=== PATIENT | female | born 1975 | race Caucasian/White ===

== ENCOUNTER → 2020-04-12 10:44 | Outpatient (CLI) | payer OTHER, SELFPAY ==
--- NOTE | ~2020-04-12 | MM_ITS ---
EXAMINATION: MM screening [facility] BI w leah HISTORY: Screening mammogram TECHNIQUE: Craniocaudal and mediolateral oblique 3-D tomosynthesis images were obtained and synthetic 2-D images were generated. CAD analysis was submitted and interpreted. COMPARISON: 820 bilateral digital screening mammogram 12/09/2017 diagnostic left digital mammogram and limited left breast ultrasound 11/25/2017 bilateral digital screening mammogram BREAST PARENCHYMAL COMPOSITION: The breasts are heterogeneously dense, which may obscure small masses FINDINGS: There is no evidence of suspicious mass, calcification, or architectural distortion to sugg est malignancy in either breast. There has been no suspicious interval change. IMPRESSION: 1. No mammographic evidence of malignancy. 2. Recommend routine screening mammography in one year. BI-RADS Category 2: Benign finding(s). Reviewed, dictated and finalized at location A. CCO SCRAP SIFTER
== END ==
PROVIDERS: PCP Family Medicine; Visit Provider Nurse Practitioner
DX: Z12.31 Encounter for screening mammogram for malignant neoplasm of breast (principal)
CPT/HCPCS: 77063; 77067

== ENCOUNTER → 2023-04-02 16:04 | Outpatient (CLI) | payer OTHER, SELFPAY ==
--- NOTE | ~2023-04-02 | MM_ITS ---
EXAMINATION: MM screening [facility] BI w leah HISTORY: Screening mammogram TECHNIQUE: Craniocaudal and mediolateral oblique 3-D tomosynthesis images were obtained and synthetic 2-D images were generated. CAD analysis was submitted and interpreted. COMPARISON: 04/12/2020, 01/09/2019, 12/09/2017, 11/25/2017 BREAST PARENCHYMAL COMPOSITION: The breasts are extremely dense, which lowers the sensitivity of mamm ography. FINDINGS: No suspicious mass, calcification, or architectural distortion are identified in either khari ast to suggest malignancy. There has been no suspicious interval change. IMPRESSION: 1. No mammographic evidence of malignancy. 2. Recommend routine screening mammography in one year. BI-RADS Category 1: Negative Reviewed, dictated and finalized at location A. RPRESSER HAND
== END ==
PROVIDERS: PCP Nurse Practitioner; Visit Provider Nurse Practitioner
DX: Z12.31 Encounter for screening mammogram for malignant neoplasm of breast (principal)
CPT/HCPCS: 77063; 77067

== ENCOUNTER 2023-08-10 13:56 | Outpatient (CLI) | payer OTHER, SELFPAY ==
--- NOTE | ~2023-08-10 | XR_ITS ---
EXAMINATION:XR cervical spine 4-5V DATE: 08/10/2023 14:27 INDICATION: Neck pain TECHNIQUE: AP, lateral, bilateral oblique and odontoid views of the cervical spine are provided. COMPARISON: None FINDINGS: There is reversal of the normal cervical lordosis. There are 2 mm of anterolisthesis of C3 on C4 and C4 on C5. The odontoid process is intact. No fracture is identified. There is severe loss o f intervertebral disc space height at C5-6 and C6-7. There is moderate facet and uncovertebral joint osteoarthritis throughout the cervical spine. Small degenerative osteophytes project from the anterio r endplates of multiple vertebral bodies. Prevertebral soft tissues are normal. IMPRESSION: 1. Moderate to severe cervical spondylosis without acute osseous abnormality. Reviewed, dictated and finalized at location F.
== END 2023-08-10 13:57 ==
PROVIDERS: PCP Chiropractor; Visit Provider Chiropractor
DX: M47.892 Other spondylosis, cervical region (principal)
CPT/HCPCS: 72050

== ENCOUNTER 2024-02-21 15:21 | Outpatient (CLI) | payer OTHER, SELFPAY ==
--- NOTE | ~2024-02-21 | XR_ITS ---
XR cervical spine 4-5V Ordering provider: Bautista Valenzuela, History: . CERVICALGIA . Comparison: August 10, 2023 FINDINGS: VERTEBRAL BODIES: Reversal of lordosis. Normal height and alignment. No visible fracture or subluxati on. The dens is intact. DISK SPACES: Narrowing of the disc spaces C5-C6 and C6-C7. Multilevel facet joint disease. Multilevel uncovertebral joint osteoarthritic changes. Intervertebral foramina normal. PARASPINOUS SOFT TISSUES: No prevertebral soft tissue swelling. IMPRESSION: No acute osseous abnormality cervical spine. Multilevel degenerative disc disease. No significant change from previous examination. Reviewed, dictated and finalized at location A.
== END 2024-02-21 15:22 | disposition home or self-care (01) ==
LOC: MICIMG 15:21
PROVIDERS: PCP Family Medicine; Visit Provider Family Medicine
DX: M50.30 Other cervical disc degeneration, unspecified cervical region (principal)
CPT/HCPCS: 72050

== ENCOUNTER 2024-03-01 07:40 | Outpatient (CLI) | payer OTHER, SELFPAY ==
--- NOTE | ~2024-03-01 | MR_ITS ---
MR breast BI wo/w con 03/02/2024 09:35 CDT INDICATION: Left axillary mass TECHNIQUE: MRI of the breasts perform using standard protocol pre-and post IV contrast with the follo wing sequences: Axial T2 STIR, axial T1, axial vibrant T1 with fat suppression precontrast and multip hasic postcontrast. 16 cc MultiHance administered intravenously. COMPARISON: Ultrasound dated 01/24/2024 mammogram dated 04/02/2023 FINDINGS: There are no abnormalities on the precontrast sequences. There is mild background parenchym al enhancement. There is a region of nonmass-like enhancement in the upper outer quadrant of the righ t breast, middle third which measures 4.8 x 3.9 x 2.3 cm. There is rapid washout enhancement. There a re enlarged bilateral axillary lymph nodes largest on the left measures 1.5 cm. There is loss of norm al fatty hilum and this lymph node with surrounding spiculations. Largest right axillary lymph node m easures up to 2.3 cm, with atypical appearance. LEFT BREAST: No signal abnormalities on precontrast sequences. There is mild background parenchymal enhancement. There is a small intramammary lymph node in the outer aspect of the left breast. In th e lower outer quadrant of the left breast there is a focal area of nonmass-like enhancement with rapi d washout characteristics measuring 11 x 8 x 6 mm at approximately 3:00 position, middle third. There are enlarged left axillary lymph nodes measuring up to 1.5 cm with loss of fatty hilum. IMPRESSION: 1: Bilateral areas of nonmass-like enhancement with rapid washout kinetics involving the upper outer quadrant of the right breast, middle third measuring up to 4.8 cm and in the left breast in the lower outer quadrant measuring up to 11 mm. There is bilateral axillary lymphadenopathy with loss of fatty hilum and several lymph nodes. Recommendation: Recommend correlation with diagnostic bilateral mammogram and bilateral complete ultr asound including the axilla. BI-RADS CATEGORY 0 - INCOMPLETE STUDY, NEED ADDITIONAL IMAGING EVALUATION. Reviewed, dictated and finalized at location B. IMPRESSION: 1: Bilateral areas of nonmass-like enhancement with rapid washout kinetics invo lving the upper outer quadrant of the right breast, middle third measuring up t o 4.8 cm and in the left breast in the lower outer quadrant measuring up to 11 mm. There is bilateral axillary lymphadenopathy with loss of fatty hilum and se veral lymph nodes. Recommendation: Recommend correlation with diagnostic bilateral mammogram and b ilateral complete ultrasound including the axilla. BI-RADS CATEGORY 0 - INCOMPLETE STUDY, NEED ADDITIONAL IMAGING EVALUATION.
== END 2024-03-01 07:41 | disposition home or self-care (01) ==
PROVIDERS: PCP Family Medicine; Visit Provider Surgery
DX: N63.21 Unspecified lump in the left breast, upper outer quadrant (principal); N63.22 Unspecified lump in the left breast, upper inner quadrant; N63.25 Unspecified lump in the left breast, overlapping quadrants; R59.0 Localized enlarged lymph nodes; R92.333 Mammographic heterogeneous density, bilateral breasts
CPT/HCPCS: 77049; A9577; C8908

== ENCOUNTER 2024-03-30 11:34 | Outpatient (CLI) | payer OTHER, SELFPAY ==
--- NOTE | ~2024-03-30 | US_ITS ---
Left axillary ultrasound CLINICAL HISTORY: Lymphadenopathy FINDINGS: At the left axillary area of palpable concern, there is a 2.5 x 0.8 x 2.3 cm lymph node, wi th possible fatty hilum and diffuse thickening. IMPRESSION: Pathologic-appearing 2.5 cm lymph node left axilla, as detailed above. Ultrasound-guided biopsy recom mended to establish a histologic diagnosis. Reviewed, dictated and finalized at [facility]. LITY ENGINEER IMPRESSION: Pathologic-appearing 2.5 cm lymph node left axilla, as detailed above. Ultrasou nd-guided biopsy recommended to establish a histologic diagnosis.
--- NOTE | ~2024-03-30 | MM_ITS ---
EXAMINATION: MM diagnostic [facility]arien BI w leah HISTORY: Left axillary lymphadenopathy TECHNIQUE: 3-D tomosynthesis images of the breasts were performed and synthetic 2-D images were gener ated. CAD analysis was submitted and interpreted. COMPARISON: 04/02/2023, 04/12/2020 BREAST PARENCHYMAL COMPOSITION:Dense: The breasts are heterogeneously dense, which may obscure small masses. FINDINGS: Parenchymal pattern of the breasts are unchanged. No mass lesion or distortion seen in the breasts and cells. Left axillary lymphadenopathy seen on MLO view, not seen on prior exam. No definit e right axillary lymphadenopathy seen on mammographic images. No suspicious microcalcification seen i n either breast. IMPRESSION: Unilateral left axillary lymphadenopathy seen on mammographic images. Biopsy advised to establish his tologic diagnosis. No significant abnormality seen otherwise. BI-RADS category 4, suspicious findings. Reviewed, dictated and finalized at [facility]. KMASON IMPRESSION: Unilateral left axillary lymphadenopathy seen on mammographic images. Biopsy ad vised to establish histologic diagnosis. No significant abnormality seen otherwise. BI-RADS category 4, suspicious findings.
== END 2024-03-30 11:35 | disposition home or self-care (01) ==
LOC: ANHIMG 11:34
PROVIDERS: PCP Family Medicine; Visit Provider Surgery
DX: R59.0 Localized enlarged lymph nodes (principal); R92.333 Mammographic heterogeneous density, bilateral breasts; R92.8 Other abnormal and inconclusive findings on diagnostic imaging of breast
CPT/HCPCS: 76882; 77062; 77066; G0279

== ENCOUNTER 2024-04-18 09:59 | Outpatient (CLI) | payer OTHER, SELFPAY ==
--- NOTE | ~2024-04-18 | US_ITS ---
EXAMINATION: US_BXSTAXLIMG_US DATE: 04/18/2024 11:31 INDICATION: Left axillary lymphadenopathy. TECHNIQUE: The procedure including the risks, benefits, and alternatives was discussed with the patie nt. Risks discussed included bleeding and infection. The patient understood the risks and agreed to p roceed. The skin overlying the left axilla was prepped and draped in usual sterile fashion. Anesthet ic was administered with 1% lidocaine subcutaneously. An 18 gauge core biopsy needle was then used t o obtain 6 core biopsy specimens under continuous sonographic guidance. The entry site was cleaned an d dressed. There were no immediate complications. FINDINGS: Ultrasound images demonstrate the needle in a 2.6 x 2.9 x 1.0 cm left axillary lymph node. IMPRESSION: 1. Ultrasound-guided core needle biopsy of a left axillary lymph node. Reviewed, dictated and finalized at location A. ORKING SPECIALIST
== END 2024-04-18 10:00 | disposition home or self-care (01) ==
LOC: ANHIMG 10:02
PROVIDERS: PCP Family Medicine; Visit Provider Surgery
DX: R92.8 Other abnormal and inconclusive findings on diagnostic imaging of breast (principal); R59.0 Localized enlarged lymph nodes; R92.333 Mammographic heterogeneous density, bilateral breasts
CPT/HCPCS: 20999; 76942; 88184; 88305; 88342

== ENCOUNTER 2024-07-10 14:51 | Outpatient (CLI) | payer OTHER, SELFPAY ==
[2024-07-10 15:09] LABS: Basophils Percent Auto 0.4 % (0.2-1.2); Eosinophils Absolute Auto 0.8 K/mm3 (0-0.3); Eosinophils Percent Auto 10.8 % (0-4.4); Hematocrit 40.4 % (37.0-47.0); Hemoglobin 13.6 g/dL (12.0-15.0); Immature Granulocyte Absolute 0.02 K/mm3 (0.00-0.031); Immature Granulocyte Percent A 0.3 % (0-0.5); Lymphocytes Absolute Auto 1.85 K/mm3 (0.9-3.2); Lymphocytes Percent Auto 23.8 % (18.3-44.2); Mean Corpuscular HGB Conc 33.7 g/dl (32-36); Mean Corpuscular Hemoglobin 30.6 pg (26-34); Mean Corpuscular Volume 90.8 fl (80-100); Monocytes Absolute Auto 0.2 K/mm3 (0.1-0.6); Monocytes Percent Auto 1.9 % (2.6-8.5); Neutrophils Absolute Auto 4.9 K/mm3 (1.3-6.7); Neutrophils Percent Auto 62.8 % (45.5-73.1); Platelet Count Result 446 k/mm3 (150-375); Red Blood Count 4.45 M/mm3 (4.2-5.4); Red Cell Distribution Width 12.6 % (11.5-14.5); White Blood Count 7.8 K/mm3 (4.5-10.0)
[2024-07-10 17:07] LABS: Alanine Aminotransferase 19 U/L (6-35); Albumin Level 3.7 g/dL (3.5-5.1); Alkaline Phosphatase 54 U/L (38-126); Anion Gap 9 mmol/L (4-12); Aspartate Amino Transferase 32 U/L (14-36); Bilirubin,Total 0.7 mg/dL (0.2-1.3); Blood Urea Nitrogen 11 mg/dL (7-17); Calcium 9.3 mg/dL (8.4-10.2); Carbon Dioxide 26 mmol/L (22-30); Chloride 103 mmol/L (98-107); Estimated Glomerular Filt Rate > 60; Glucose 85 mg/dL (65-110); Potassium 4.3 mmol/L (3.4-5.0); Sodium 138 mmol/L (137-145)
--- OUTSIDE RECORDS SUMMARY | 2024-07-10 17:21 | XMS_ITS | Referral Summary ---
Author Organization [facility] Address [address] [place] [address] Care Team Providers Care Documentation Nurse Name Role Phone Unavailable Primary Care Provider Unavailabl e Source Comments [facility],non-owned Affiliates and Associated Physician Practices is amultiple site organization consisting of ambulatory clinics and hospital sitesin [place], [place], [place] and [place]. This disclosure is being madepursuant to the Care Everywhere program and may not contain all information available regarding this patient. Last updated 18.[facility] Encounters Date Type Department Care Team Description 04/18/2024 Lab Requisition [facility] - Pathology Lab [address] [place] [address] Alli Dean MD Localized enlarged lymph nodes from Last 3 Months Social History Tobacco Use Types Packs/Day Years Used Date Smoking Tobacco: Never Assessed Sex and Gender Information Value Date Recorded Sex Assigned at Not on file Gender Identity Not on file Sexual Orientation Not on file Plan of Treatment Not on file Procedures Procedure Name Priority Date/Time Associated Diagnosis Comments FLOW CYTOMETRY TISSUE PANEL Routine 04/18/2024 11:31 AM TINNING EQUIPMENT TENDER Localized enlarged lymph nodes from Last 3 Months Results * FLOW CYTOMETRY TISSUE PANEL (04/18/2024 11:31 AM TINNING EQUIPMENT TENDER) Case Report Flow Cytometry Case: [id number] Authorizing Provider: Alli Dean Collected: 04/18/2024 11:31 AM MD Prabhakar Ordering Location: [facility] - Received: 04/18/2024 05:06 PM Pathology Lab Pathologist: Nikky Verma MD Specimen: Lymph Node, LEFT AXILLA BIOPSY 04/19/2024 9:43 AM TINNING EQUIPMENT TENDER [facility] Final Diagnosis Lymph node, left axilla, flow cytometric immunophenotypic analysis: - No evidence of non-Hodgkin lymphoma - See interpretation 04/19/2024 9:43 AM [facility] Flow Cytometry Interpretation Viability: 78% B-cells: polytypic, kappa:lambda ratio 1.9:1 T-cells: no immunophenotypic aberrancy detected CD4:CD8 ratio 5:1 A cytospin prepared from the flow cytometry specimen has been reviewed for quality assurance/r&d lab technician purposes. 04/19/2024 9:43 AM [facility] PATHOLOG[facility] LAB Flow Cytometry Results Differential Result Comment Flow Cell Count /uL 820 Total Viability % 78.0 Lymphocytes % 97 Dim CD45 Region % 2 Monocytes % 0 Granulocytes % 1 04/19/2024 9:43 AM [facility] PATH[facility] Reason for test Localized enlarged lymph nodes 785.6 04/19/2024 9:43 AM [facility] PATHOLOG[facility] LAB Client Specimen ID # [id number] 04/19/2024 9:43 AM [facility] LAB Number of markers 17 were performed. A-2 Flow CD3 A-4 Flow CD10 A-6 Flow CD20 A-7 Flow CD23 A-12 Flow CD2 A-13 Flow CD4 A-16 Flow CD1a A-3 Flow CD5 A-5 Flow CD19 A-8 Flow CD34 A-9 Flow CD45 A-14 Flow CD7 A-15 Flow CD8 A-17 Flow CD30 A-10 [place]+CD19+ A-11 Lambda+CD19+ 04/19/2024 9:43 AM [facility] PATHOLOG[facility] LAB Pathologist Location at [facility] 04/19/2024 9:43 AM [facility] PATHOLOG[facility] LAB Disclaimer Test performed at [facility], [address] [place] [address], [address]. *The established laboratory minimum viability is 70%. Values below the minimum may result in the failure to find an abnormal population of cells. This test was developed and its performance characteristics determined by the Flow Cytometry Laboratory. It has not been cleared by the [place] Food and Drug Administration (FDA). The FDA has determined that such clearance or approval is not necessary. This test is used for clinical purposes. It should not be regarded as investigational or for research. This laboratory is regulated under the Clinical Laboratory Improvement Amendments of 1998 (CLIA) as a qualified to perform high complexity clinical testing. 04/19/2024 9:43 AM TINNING EQUIPMENT TENDER [facility] PATHOLOGY LAB Embedded Images 9:43 AM TINNING EQUIPMENT TENDER [facility] PATHOLOGY LAB Pathology/Cytolo gy ENTIRE LYMPH NODE / Unknown 04/18/2024 11:31 AM TINNING EQUIPMENT TENDER 04/18/2024 5:06 PM TINNING EQUIPMENT TENDER Alli Dean MD LAB - PATHO LOGY/CYTOLOGY ORDERABLES [facility] PATHOLOGY LAB [address] [facility]. [address] [phone] from Last 3 Months
--- OUTSIDE RECORDS SUMMARY | 2024-07-10 17:21 | XMS_ITS | Clinical Summary ---
Author Organization [facility] Address [address] [place] [address] Care Team Providers Care Waterproof Bag Sewer Name Role Phone Unavailable Primary Care Provider Unavailabl e Source Comments [facility],non-owned Affiliates and Associated Physician Practices is amultiple site organization consisting of ambulatory clinics and hospital sitesin [place], [place], [place] and [place]. This disclosure is being madepursuant to the Care Everywhere program and may not contain all information available regarding this patient. Last updated 18.[facility] Encounters Date Type Department Care Team Description 04/18/2024 Lab Requisition [facility] - Pathology Lab [address] [place] [id number] Alli Dean MD Localized enlarged lymph nodes from Last 3 Months Social History Tobacco Use Types Packs/Day Years Used Date Smoking Tobacco: Never Assessed Sex and Gender Information Value Date Recorded Sex Assigned at Not on file Gender Identity Not on file Sexual Orientation Not on file Plan of Treatment Health Maintenance Due Date Last Done Comments COLOGUARD (AGES 45-75) - COL ON CA SCREENING 1977 COLON MONITORING 1977 COLONOSCOPY - COLON CA SCREENING 1977 CT COLONOGRAPHY - COLON CA SCREENING 1977 Colorectal Cancer Screening 1977 FIT - COLON CA SCREENING 1977 FLEX SIG - COLON CA SCREENING 1977 LIPID TESTING 1977 MAMMOGRAM 1977 PAP SMEAR 1977 HIV SCREENING 1992 HEPATITIS C SCREENING 11/03/1995 DTAP/TDAP/TD VACCINES (1 - Tdap) 1996 HEPATITIS B VACCINE (1 of 3 - 19+ 3-dose series) 1996 COVID-19 VACCINE (2023-2 5 season) 2024 INFLUENZA VACCINE (#1) 2024 DEPRESSION SCREENING 05/17/2024 ZOSTER VACCINE (1 of 2) 11/08/2027 HIB VACCINE Aged Out No longer eligi ble based on patient's age to complete this topic HPV VACCINE Aged Out No longer eligi ble based on patient's age to complete this topic MENINGOCOCCAL (Group B) VACCINE Aged Out No longer eligible based on patient's age to complete this topic MENINGOCOCCAL VACCINE Aged Out No deepak sobia eligible based on patient's age to complete this topic PNEUMOCOCCAL VACCINE Aged Out No long er eligible based on patient's age to complete this topic Procedures Procedure Name Priority Date/Time Associated Diagnosis Comments FLOW CYTOMETRY TISSUE PANEL Routine 04/18/2024 11:31 AM BURLAP MAN Localized enlarged lymph nodes from Last 3 Months Results * FLOW CYTOMETRY TISSUE PANEL (04/18/2024 11:31 AM BURLAP MAN) Case Report Flow Cytometry Case: [id number] Authorizing Provider: Alli Dean Collected: 04/18/2024 11:31 AM MD Prabhakar Ordering Location: [facility] - Received: 04/18/2024 05:06 PM Pathology Lab Pathologist: Nikky Verma MD Specimen: Lymph Node, LEFT AXILLA BIOPSY 04/19/2024 9:[address] [facility] PATHOLOGY LAB Final Diagnosis Lymph node, left axilla, flow cytometric immunophenotypic analysis: - No evidence of non-Hodgkin lymphoma - See interpretation 04/19/2024 9:[address] [facility] PATHOLOGY LAB Flow Cytometry Interpretation Viability: 78% B-cells: polytypic, kappa:lambda ratio 1.9:1 T-cells: no immunophenotypic aberrancy detected CD4:CD8 ratio 5:1 A cytospin prepared from the flow cytometry specimen has been reviewed for quality assistant purposes. 04/19/2024 9:[address] [facility] PATH[facility]Y LAB Flow Cytometry Results Differential Result Comment Flow Cell Count /uL 820 Total Viability % 78.0 Lymphocytes % 97 Dim CD45 Region % 2 Monocytes % 0 Granulocytes % 1 04/19/2024 9:[address] [facility] PATH[facility] LAB Reason for test Localized enlarged lymph nodes 785.6 04/19/2024 9:[address] [facility] PATH[facility] Client Specimen ID # [id number] 04/19/2024 9:[address] [facility] PATH[facility] LAB Number of markers 17 were performed. A-2 Flow CD3 A-4 Flow CD10 A-6 Flow CD20 A-7 Flow CD23 A-12 Flow CD2 A-13 Flow CD4 A-16 Flow CD1a A-3 Flow CD5 A-5 Flow CD19 A-8 Flow CD34 A-9 Flow CD45 A-14 Flow CD7 A-15 Flow CD8 A-17 Flow CD30 A-10 [place]+CD19+ A-11 Lambda+CD19+ 04/19/2024 9:[address] [facility] PATH[facility] LAB Pathologist Location at [facility] 04/19/2024 9:[address] [facility] PATH[facility] LAB Disclaimer Test performed at [facility], [address] [place] [address], [address]. *The established laboratory minimum viability is 70%. [...] high complexity clinical testing. 04/19/2024 9:[address] [facility] PATHOLOGY LAB Embedded Images 9:[address] [facility] PATH[facility] LAB Pathology/Cytolo gy ENTIRE LYMPH NODE / Unknown 04/18/2024 11:31 AM BURLAP MAN 04/18/2024 5:06 PM BURLAP MAN Alli Dean MD LAB - PATHO LOGY/CYTOLOGY ORDERABLES [facility] PATHOLOGY LAB [address] [place] [address]. [place] [address], [facility] [phone] from Last 3 Months
--- OUTSIDE RECORDS SUMMARY | 2024-07-10 17:21 | XMS_ITS | Patient Health Summary ---
Author Organization [facility] Address [address] [place] [address] Care Team Providers Care Chemical Reclamation Equipment Operator Name Role Phone Unavailable Primary Care Provider Unavailabl e Note from [facility],non-owned Affiliates and Associated Physician Practices is amultiple site organization consisting of ambulatory clinics and hospital sitesin [place], [place], [place] and [place]. This disclosure is being madepursuant to the Care Everywhere program and may not contain all information available regarding this patient. Last updated 18.[facility] Social History Tobacco Use Types Packs/Day Years Used Date Smoking Tobacco: Never Assessed Sex and Gender Information Value Date Recorded Sex Assigned at Not on file Gender Identity Not on file Sexual Orientation Not on file Procedures * FLOW CYTOMETRY TISSUE PANEL(Performed 04/18/2024) Performed for Localized enlarged lymph nodes Results * FLOW CYTOMETRY TISSUE PANEL (04/18/2024 11:31 AM CONSTRUCTION EXECUTIVE) Case Report Flow Cytometry Case: [id number] Authorizing Provider: Alli Dean Collected: 04/18/2024 11:31 AM MD Prabhakar Ordering Location: [facility] - Received: 04/18/2024 05:06 PM Pathology Lab Pathologist: Nikky Verma MD Specimen: Lymph Node, LEFT AXILLA BIOPSY 04/19/2024 9:43 AM CONSTRUCTION EXECUTIVE [facility] PATHOLOGY LAB Final Diagnosis Lymph node, left axilla, flow cytometric immunophenotypic analysis: - No evidence of non-Hodgkin lymphoma - See interpretation 04/19/2024 9:43 AM [facility] PATHOLOGY LAB Flow Cytometry Interpretation Viability: 78% B-cells: polytypic, kappa:lambda ratio 1.9:1 T-cells: no immunophenotypic aberrancy detected CD4:CD8 ratio 5:1 A cytospin prepared from the flow cytometry specimen has been reviewed for quality rep purposes. 04/19/2024 9:43 AM [facility] PATHOLOGY LAB Flow Cytometry Results Differential Result Comment Flow Cell Count /uL 820 Total Viability % 78.0 Lymphocytes % 97 Dim CD45 Region % 2 Monocytes % 0 Granulocytes % 1 04/19/2024 9:43 AM [facility] Reason for test Localized enlarged lymph nodes 785.6 04/19/2024 9:43 AM [facility] PATHOLOG[facility] LAB Client Specimen ID # [id number] 04/19/2024 9:43 AM [facility] PATHOLOG[facility] LAB Number of markers 17 were performed. A-2 Flow CD3 A-4 Flow CD10 A-6 Flow CD20 A-7 Flow CD23 A-12 Flow CD2 A-13 Flow CD4 A-16 Flow CD1a A-3 Flow CD5 A-5 Flow CD19 A-8 Flow CD34 A-9 Flow CD45 A-14 Flow CD7 A-15 Flow CD8 A-17 Flow CD30 A-10 [place]+CD19+ A-11 Lambda+CD19+ 04/19/2024 9:43 AM [facility] PATHOLOGY LAB Pathologist Location at [facility] 04/19/2024 9:43 AM [facility] PATHOLOG[facility] LAB Disclaimer Test performed at [facility], [address] [place] [address], [address]. *The established laboratory minimum viability is 70%. [...] high complexity clinical testing. 04/19/2024 9:43 AM [facility] PATHOLOGY LAB Embedded Images 9:43 AM [facility] PATHOLOGY LAB Pathology/Cytolo gy ENTIRE LYMPH NODE / Unknown 04/18/2024 11:31 AM CONSTRUCTION EXECUTIVE 04/18/2024 5:06 PM CONSTRUCTION EXECUTIVE Alli Dean MD LAB - PATHO LOGY/CYTOLOGY ORDERABLES [facility] PATHOLOG[facility] LAB [address] [facility] [place] [address], [facility] [phone]
--- OUTSIDE RECORDS SUMMARY | 2024-07-10 17:21 | XMS_ITS | Continuity of Care Document ---
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 Name Role Phone Palm PT,MPT,ATC, Bob Unavailable Unavai lable Procedures Procedure Date Therapeutic Activities Neuromuscular Re-Ed Therapeutic Exercise Hot or Cold Pack Therapeutic Activities Neuromuscular Re-Ed Therapeutic Activities Neuromuscular Re-Ed Manual Therapy Therapeutic Activities Neuromuscular Re-Ed Manual Therapy Hot or Cold Pack Therapeutic Activities Neuromuscular Re-Ed Manual Therapy Therapeutic Activities Neuromuscular Re-Ed Manual Therapy Therapeutic Activities Neuromuscular Re-Ed Manual Therapy Therapeutic Activities Neuromuscular Re-Ed Therapeutic Activities Neuromuscular Re-Ed PT Evaluation Moderate Complexity Neuromuscular Re-Ed Therapeutic Activities Advance Directives Directive Yes / No Effective Date File Name No Information Encounters Encounter Description Practice Location Reason(s) For Visit Diagnoses Date Provider Providers Copied on Encounter [facility], [address], [place], [place], [id number], tel:[phone] [place] No Information [facility] , [place] [place]. [facility] [facility], [place], [place], [id number], tel:[phone] [place] No Information 4 [facility] , [place], [place]. Referring Provider: Lili Alcala [address], [place], [address]. tel:[phone] [facility] [facility], [place], [id number], [place] tel:[phone] [place] No Information 4 [facility] [place] Referring Provider: [address], [place], [address]. tel:[phone] [facility] [address], [place], [place], [id number], tel:[phone] [place] No Information 4 [facility] [place] [place] Referring Provider: [address], [place], [address]. tel:[phone] [facility], [id number], tel:[phone] [place] No Information 4 [facility]. . Referring Provider: [address], [place], [address]. tel:[phone] [facility], [id number], tel:[phone] [place] No Information 4 [facility] [place] Referring Provider: [address], [place], [address]. tel:[phone] [facility] [address] [address], [place], [place], [id number], tel:[phone] [place] No Information 4 [place], . Referring Provider: [address], [place], [address]. tel:[phone] [facility], [id number], [place] tel:[phone] [place] No Information 4 [place] Referring Provider: [address], [place], [address]. tel:[phone] [facility], [id number], tel:[phone] [place] No Information 4 N[facility]st[place], [place], [place]. Referring Provider: [address], [place], [address]. tel:[phone] [facility], [id number], tel:[phone] [place] No Information 4 [place], . Referring Provider: [address], [place], [address]. tel:[phone] [facility], [id number], [place] tel:[phone] [place] No Information 4 [place] Referring Provider: [address], [place], [address]. tel:[phone] Family History Family Member Type Diagnosis Age At Onset No Information Payers Payer name Insurance type Covered green party ID Authoriza tishannon(s) [employer] CI [id number] Social History Type Description Quantity Date Captured Comments Sex Female Smoking Status No Information Chief Complaint And Reason For Visit No Information Reason For Referral Reason For Referral No Information History Of Present Illness Encounter Date Complaint History Of Prese nt Illness No Information Functional Status Date Functional Assessmen t No Information Instructions Date Instruction Additional Infor mation No Information Assessments Type Assessment Date No Information Patient Care Teams Name Effective Dates (start - stop) Status Members No Information
--- OUTSIDE RECORDS SUMMARY | 2024-07-10 17:21 | XMS_ITS | Encounter Summary ---
Author Organization [facility] Address [address] [facility] [place] [address] Care Team Providers Care Human Resources Manager Manufacturing Name Role Phone Unavailable Primary Care Provider Unavailabl e Encounter Details Date Type Department Care Team (Late st Contact Info) Description 04/18/2024 Lab Requisition [facility] - Pathology Lab [address] [place] [address] Alli Dean MD [address] [place] [address] Localized enlarged lymph nodes Social History Tobacco Use Types Packs/Day Years Used Date Smoking Tobacco: Never Assessed Sex and Gender Information Value Date Recorded Sex Assigned at Not on file Gender Identity Not on file Sexual Orientation Not on file documented as of this encounter Plan of Treatment Not on file documented as of this encounter Procedures Procedure Name Priority Date/Time Associated Diagnosis Comments FLOW CYTOMETRY TISSUE PANEL Routine 04/18/2024 11:31 AM SURVEY RESEARCH MANAGER Localized enlarged lymph nodes documented in this encounter Results * FLOW CYTOMETRY TISSUE PANEL (04/18/2024 11:31 AM SURVEY RESEARCH MANAGER) Case Report Flow Cytometry Case: [id number] Authorizing Provider: Alli Dean Collected: 04/18/2024 11:31 AM MD Prabhakar Ordering Location: [facility] - Received: 04/18/2024 05:06 PM Pathology Lab Pathologist: Nikky Verma MD Specimen: Lymph Node, LEFT AXILLA BIOPSY 04/19/2024 9:[address] [facility] PATH[facility] LAB Final Diagnosis Lymph node, left axilla, flow cytometric immunophenotypic analysis: - No evidence of non-Hodgkin lymphoma - See interpretation 04/19/2024 9:[address] [facility] Flow Cytometry Interpretation Viability: 78% B-cells: polytypic, kappa:lambda ratio 1.9:1 T-cells: no immunophenotypic aberrancy detected CD4:CD8 ratio 5:1 A cytospin prepared from the flow cytometry specimen has been reviewed for quality assurance inspector purposes. 04/19/2024 9:[address] [facility] Flow Cytometry Results Differential Result Comment Flow Cell Count /uL 820 Total Viability % 78.0 Lymphocytes % 97 Dim CD45 Region % 2 Monocytes % 0 Granulocytes % 1 04/19/2024 9:43 AM [facility] Reason for test Localized enlarged lymph nodes 785.6 04/19/2024 9:[address] [facility] Client Specimen ID # [id number] 04/19/2024 9:[address] [facility] Number of markers 17 were performed. A-2 Flow CD3 A-4 Flow CD10 A-6 Flow CD20 A-7 Flow CD23 A-12 Flow CD2 A-13 Flow CD4 A-16 Flow CD1a A-3 Flow CD5 A-5 Flow CD19 A-8 Flow CD34 A-9 Flow CD45 A-14 Flow CD7 A-15 Flow CD8 A-17 Flow CD30 A-10 Crum+CD19+ A-11 Lambda+CD19+ 04/19/2024 9:[address] [facility] PATH[facility] Pathologist Location at [facility] 04/19/2024 9:[address] [facility] PATH[facility] LAB Disclaimer Test performed at [facility], [address] [place] [address], [address]. *The established laboratory minimum viability is 70%. [...] clinical testing. 04/19/2024 9:[address] [facility] PATH[facility] LAB Embedded Images 9:[address] [facility] LAB Pathology/Cytolo gy ENTIRE LYMPH NODE / Unknown 04/18/2024 11:31 AM SURVEY RESEARCH MANAGER 04/18/2024 5:06 PM SURVEY RESEARCH MANAGER Alli Dean MD LAB - PATHO LOGY/CYTOLOGY ORDERABLES Performing Organization Address City/State/[facility] Phone Number [facility] [address] [phone] documented in this encounter Visit Diagnoses Diagnosis Localized enlarged lymph nodes Enlargement of lymph nodes documented in this encounter
--- OUTSIDE RECORDS SUMMARY | 2024-07-10 17:21 | XMS_ITS ---
Author Organization Unknown Medications Medication Instructions Effective Dates (start - stop) Status levothyroxine sodium 0.025 M G Oral Tablet - Completed levothyroxine sodium 0.025 M G Oral Tablet - Completed levothyroxine sodium 0.025 M G Oral Tablet - Completed 24 HR bupropion hydrochlorid e 150 MG Extended Release Oral Tablet - Compl eted spironolactone 100 MG Oral Tablet 2023-0400:00:00Z - Completed levothyroxine sodium 0.025 M G Oral Tablet - Completed levothyroxine sodium 0.025 M G Oral Tablet - Completed 24 HR bupropion hydrochlorid e 150 MG Extended Release Oral Tablet - Compl eted spironolactone 100 MG Oral Tablet 2023-0700:00:00Z - Completed spironolactone 100 MG Oral Tablet 2023-01:00:00Z - Completed 24 HR bupropion hydrochlorid e 150 MG Extended Release Oral Tablet - Compl eted spironolactone 100 MG Oral Tablet 2023-04:00:00Z - Completed spironolactone 100 MG Oral Tablet 2023-1000:00:00Z - Completed Patient Care team information Name Category Status Period Participants - - Proposed period not known -
--- OUTSIDE RECORDS SUMMARY | 2024-07-10 17:21 | XMS_ITS | Data Portability ---
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 Annual labs: 01/30/20. US Abdo: 04/20/19. Hepatitis panel: 02/16/19. Annual labs: 02/07/19. Wt: 230(02/16/19) - 225(03/16/19) - 221(04/17/19) - 227(05/22/19) - 216(06/20/19) - 215(07/25/19) - 206(09/25/19) - 203(12/12/19) - 206(01/30/20) [Stop] Wt: 213(06/10/21) - 212(08/06/21) - 204(10/06/21) - 201(12/04/21) - 193(02/04/22) - 188(03/04/22) - 192(04/01/22) [Stop] D/w pt in detail about her findings, recent labs & imagines and further plan of care. Will do routine labs. Advised to refer to Hemat; but pt declined. Meds as directed. Risks Vs benefits of Aspirin 81mg po QOD with food explained. Pt agreed. Diet and exercise explained in detail. Educated about alarming symptoms to monitor at home and call us back or get checked in ED. Pt verbalized understanding it. Cont f/u with Counsellor at [place] as per schedule. Cont f/u with Gyne at [place] as per schedule. Cont f/u with Derm at [place] as per schedule. Cont f/u with Ophtho at [facility] as per schedule. Advised to refer to Psych; but pt declined for it. Pt got s/e from Sertraline. HM: WWE - 01/05, normal as per pt. Cont f/u with Gyne as per schedule. Mammo - 04/12/20, normal. Pt has order from Gyne. Colonoscopy - Refer to GI. Tdap - 02/27. Flu - 03/07. Pt gets at her work. F/u in 2 weeks. Annual labs in 02/07. Not available 01/27/2023 16:55:32 09/02/2023 09/02/2023 47 yo F with - LT AXILLA LUMP, new - CHRONIC NECK PAIN - HLD, new - THROMBOCYTOSIS, persistent - DEPRESSION, Improved - HYPOTHYROIDISM, Stable - CHOLELITHIASIS - GERD, Stable - ALLERGIC RHINITIS - ACNE - OVERWEIGHT - H/O ELEVATED LFTs - H/O VIT D DEFICIENCY - FH OF MELANOMA Annual labs: 02/16/23. Annual labs: 02/07/21. Annual labs: 01/30/20. US Abdo: 04/20/19. Hepatitis panel: 02/16/19. Annual labs: 02/07/19. Wt: 230(02/16/19) - 225(03/16/19) - 221(04/17/19) - 227(05/22/19) - 216(06/20/19) - 215(07/25/19) - 206(09/25/19) - 203(12/12/19) - 206(01/30/20) [Stop] Wt: 213(06/10/21) - 212(08/06/21) - 204(10/06/21) - 201(12/04/21) - 193(02/04/22) - 188(03/04/22) - 192(04/01/22) [Stop] D/w pt in detail about her findings, recent labs & imagines and further plan of care. Will refer pt to Hemat. Will do US axilla. Advised pt to f/u with her Gyne if any breast concerns. Meds as directed. Risks Vs benefits of Aspirin 81mg po QOD with food explained. Pt agreed. Diet and exercise explained in detail. Educated about alarming symptoms to monitor at home and call us back or get checked in ED. Pt verbalized understanding it. Cont f/u with Counsellor at [place] as per schedule. Cont f/u with Gyne at [place] as per schedule. Cont f/u with Derm at [place] as per schedule. Cont f/u with Ophtho at [facility] as per schedule. Advised to refer to Psych; but pt declined for it. Pt got s/e from Sertraline. HM: WWE - 01/05, normal as per pt. Cont f/u with Gyne as per schedule. Mammo - 04/08, normal. Pt sees Gyne for this. Colonoscopy - Referred to GI. Tdap - 02/27. Flu - 03/07. Pt gets at her work. F/u in 2-3 weeks. US, labs before next visit. Pt to bring x-ray c-spine result. Lipids in 12/07. Annual labs in 02/07. [email or web address] Not available 09/02/2023 15:26:05 02/02/2024 02/02/2024 48 yo F with - WELL ADULT VISIT - LT AXILLA LUMP, new - LT BREAST LUMP, new - CHRONIC NECK PAIN - HLD (diet controlled) - THROMBOCYTOSIS, persistent - DEPRESSION, Improved - HYPOTHYROIDISM, Stable - CHOLELITHIASIS - GERD, Stable - ALLERGIC RHINITIS - ACNE - OVERWEIGHT - H/O ELEVATED LFTs - H/O VIT D DEFICIENCY - FH OF MELANOMA Annual labs: 02/16/23. Annual labs: 02/07/21. Annual labs: 01/30/20. US Abdo: 04/20/19. Hepatitis panel: 02/16/19. Annual labs: 02/07/19. Wt: 230(02/16/19) - 225(03/16/19) - 221(04/17/19) - 227(05/22/19) - 216(06/20/19) - 215(07/25/19) - 206(09/25/19) - 203(12/12/19) - 206(01/30/20) [Stop] Wt: 213(06/10/21) - 212(08/06/21) - 204(10/06/21) - 201(12/04/21) - 193(02/04/22) - 188(03/04/22) - 192(04/01/22) [Stop] D/w pt in detail about her findings, recent labs & imagines and further plan of care. All questions answered for pt. Info about specialists printed and given to pt. Will do routine labs, x-ray. Meds as directed. Diet and exercise explained in detail. Educated about alarming symptoms to monitor at home and call us back or get checked in ED. Pt verbalized understanding it. F/u with Breast surgeon as per schedule. F/u with Hemat as per schedule. Cont f/u with Counsellor at [place] as per schedule. Cont f/u with Gyne at [place] as per schedule. Cont f/u with Derm at [place] as per schedule. Cont f/u with Ophtho at [facility] as per schedule. Advised to refer to Psych; but pt declined for it. Pt got s/e from Sertraline. HM: WWE - 01/18/23, normal as per pt. Cont f/u with Gyne as per schedule. Mammo - 04/08, normal. Pt sees Gyne for this. Colonoscopy - Referred to GI. Tdap - 02/27. Flu - 03/07. Pt gets at her work. F/u in 2-3 weeks. Annual labs in 02/07. [email or web address] Not available 02/02/2024 16:28:26 02/21/2024 02/21/2024 48 yo F with - HLD, uncontrolled - LT AXILLA LUMP, new - LT BREAST LUMP, new - CHRONIC NECK PAIN - THROMBOCYTOSIS, persistent - DEPRESSION, Improved - HYPOTHYROIDISM, Stable - CHOLELITHIASIS - GERD, Stable - ALLERGIC RHINITIS, seasonal - ACNE - OVERWEIGHT - H/O ELEVATED LFTs - H/O VIT D DEFICIENCY - FH OF MELANOMA Annual labs: 02/08/24. Annual labs: 02/16/23. Annual labs: 02/07/21. Annual labs: 01/30/20. US Abdo: 04/20/19. Hepatitis panel: 02/16/19. Annual labs: 02/07/19. Wt: 230(02/16/19) - 225(03/16/19) - 221(04/17/19) - 227(05/22/19) - 216(06/20/19) - 215(07/25/19) - 206(09/25/19) - 203(12/12/19) - 206(01/30/20) [Stop] Wt: 213(06/10/21) - 212(08/06/21) - 204(10/06/21) - 201(12/04/21) - 193(02/04/22) - 188(03/04/22) - 192(04/01/22) [Stop] D/w pt in detail about her findings, recent labs & imagines and further plan of care. All questions answered for pt. Meds as directed. Diet and exercise explained in detail. Educated about alarming symptoms to monitor at home and call us back or get checked in ED. Pt verbalized understanding it. Cont f/u with Breast surgeon at [place] as per schedule. F/u with Hemat as per schedule. Cont f/u with Counsellor at [place] as per schedule. Cont f/u with Gyne at [place] as per schedule. Cont f/u with Derm at [place] as per schedule. Cont f/u with Ophtho at [facility] as per schedule. Advised to refer to Psych; but pt declined for it. Pt got s/e from Sertraline. HM: WWE - 01/18/23, normal as per pt. Cont f/u with Gyne as per schedule. Mammo - 04/08, normal. Pt sees Gyne for this. Colonoscopy - Referred to GI. Tdap - 02/21/24. Flu - 02/21/24. F/u in 3 months. Lipids in 06/10. Annual labs in 02/07. [email or web address] Not available 02/21/2024 15:55:19 05/23/2024 05/23/2024 The patient gave verbal consent using TeleHealth services and the consent is documented in the medical record prior to using the service. The patient has been informed of what a TeleMedicine visit is. Patient is located at home. Provider is located at office. Names and roles of persons in addition to the patient and provider participating in telemedicine services include staff. The patient had a 15 minute TeleMedicine consultation via [employer] to discuss the followin yo F with - HLD, uncontrolled - LT AXILLA LUMP, new - LT BREAST LUMP, new - CHRONIC NECK PAIN - THROMBOCYTOSIS, persistent - DEPRESSION, Improved - HYPOTHYROIDISM, Stable - CHOLELITHIASIS - GERD, Stable - ALLERGIC RHINITIS, seasonal - ACNE - OVERWEIGHT - H/O ELEVATED LFTs - H/O VIT D DEFICIENCY - FH OF MELANOMA Annual labs: 02/08/24. Annual labs: 02/16/23. Annual labs: 02/07/21. Annual labs: 01/30/20. US Abdo: 04/20/19. Hepatitis panel: 02/16/19. Annual labs: 02/07/19. Wt: 230(02/16/19) - 225(03/16/19) - 221(04/17/19) - 227(05/22/19) - 216(06/20/19) - 215(07/25/19) - 206(09/25/19) - 203(12/12/19) - 206(01/30/20) [Stop] Wt: 213(06/10/21) - 212(08/06/21) - 204(10/06/21) - 201(12/04/21) - 193(02/04/22) - 188(03/04/22) - 192(04/01/22) [Stop] D/w pt in detail about her findings, recent labs & imagines and further plan of care. All questions answered for pt. Meds as directed. Diet and exercise explained in detail. Educated about alarming symptoms to monitor at home and call us back or get checked in ED. Pt verbalized understanding it. Cont f/u with Breast surgeon at [place] as per schedule. F/u with Hemat as per schedule. Cont f/u with Counsellor at [place] as per schedule. Cont f/u with Gyne at [place] as per schedule. Cont f/u with Derm at [place] as per schedule. Cont f/u with Ophtho at [facility] as per schedule. Advised to refer to Psych; but pt declined for it. Pt got s/e from Sertraline. HM: WWE - 02/07, normal as per pt. Cont f/u with Gyne as per schedule. Mammo - 03/30/24 & MRI breast done too, benign findings. Colonoscopy - Referred to GI. Cologuard ordered. Tdap - 02/21/24. Flu - 02/21/24. F/u in 2-3 months. Annual labs in 02/07. [email or web address] Not available 05/23/2024 11:32:43 Plan of Treatment Reminders Order Date Submit Date Provider Last Modified By Organization Details Last Modified Time Details Appointments None recorded. Lab noninvasive colorectal cancer DNA + occult blood screening, QL, stool 2024 025 [email or web address] [facility] (Cologuard Orders Only), [address], [address], [place], [address], 5 14:25:57 lipid panel, serum 2023 024 [facility] (Lab), [address] [place], [address], 4 23:57:10 uric acid, serum or plasma [address] (Lab), [address] [place], [address], 4 08:00:40 vitamin B12 + folate, serum or blood [address] (Lab), [address] [place], [address], 4 08:00:40 TAMEKA (antinuclea r antibodies) screen, serum [address] (Lab), [address] [place], [address], 4 08:00:40 rf (rheumatoid factor), serum [address] (Lab), [address] [place], [address], 4 08:00:40 glycohemogl obin, total, blood [address] (Lab), [address] [place], [address], 4 08:00:41 CBC w/ auto diff [address] (Lab), [address] [place], [address], 4 08:00:40 CMP, serum or plasma [address] (Lab), [address] [place], [address], 4 08:00:41 lipid panel, serum [address] (Lab), [address] [place], [address], 4 08:00:41 TSH, serum, reflex free T4 [address] (Lab), [address] [place], [address], 4 08:00:41 urinalysis complete, reflex culture [address] (Lab), [address] [place], [address], 4 08:00:41 vitamin D, 25-hydroxy, total, serum [address] (Lab), [address] [place], [address], 4 08:00:41 uric acid, serum or plasma [address] (Lab), [address] [place], [address], 4 07:57:45 vitamin B12 + folate, serum or blood [address] (Lab), [address] [place], [address], 4 07:57:45 TAMEKA (antinuclea r antibodies) screen, serum [address] (Lab), [address] [place], [address], 4 07:57:45 rf (rheumatoid factor), serum [address] (Lab), [address] [place], [address], 4 07:57:46 lipid panel, serum [address] (Lab), [address] [place], [address], 4 08:28:11 glycohemogl obin, total, blood 2022 023 [email or web address] [facility] (Lab), [address] [place], [address], 3 08:37:23 vitamin D, 25-hydroxy, total, serum 2022 023 [email or web address] [facility] (Lab), [address] [place], [address], 3 14:23:35 CBC w/ auto diff 2022 023 [facility] (Lab), [address] [place], [address], 14:23:31 CMP, serum or plasma 2022 023 [facility] (Lab), [address] [place], [address], 14:23:30 lipid panel, serum 2022 023 [facility] (Lab), [address] [place], [address], 14:23:29 TSH, serum, reflex free T4 [email or web address] (Lab), [address] [place], [address], 3 08:37:23 urinalysis complete, reflex culture 2022 023 [facility] (Lab), [address] [place], [address], 14:23:33 Referral hematologis t referral - Please call patient to schedule an appointment . Thank you. 2023 024 [email or web address] Jez Reza, [address], [place], [address], 4 09:12:37 gastroenter ologist referral 2022 023 [email or web address] 3 Jake Mccoy MD, [address] [facility], [address], [place], [address], 3 08:04:31 Procedures None recorded. Surgeries None recorded. Imaging XR, cervical spine, 4 or 5 view 2023 024 Not available 4 09:17:02 , gopal - *Please call pt to schedule* 2023 024 [email or web address] Not available 4 09:33:43 Medication Orders buspirone 10 mg tablet 2024 025 [facility], [address], [place], [id number], 5 11:33:16 atorvastati n 10 mg tablet 2024 025 [facility], [address] [place], [place], [id number], 5 11:33:16 bupropion HCl XL 150 mg 24 hr tablet, extended release 2024 025 [facility], [address] [place], [place], [id number], 5 11:33:16 levothyroxi ne 25 mcg tablet 2024 025 [facility], [address], [place], [id number], 5 11:33:15 atorvastati n 10 mg tablet 2023 024 [facility], [address] [place], [place], [id number], 4 15:50:40 bupropion HCl XL 150 mg 24 hr tablet, extended release 2023 024 [facility], [address] [place], [place], [id number], 4 15:50:40 levothyroxi ne 25 mcg tablet 2023 024 [facility]39042, [address], [place], [id number], 4 15:50:39 bupropion HCl XL 150 mg 24 hr tablet, extended release 2023 024 [facility], [address], [place], [id number], 4 16:16:50 levothyroxi ne 25 mcg tablet 2023 [facility], [address], [place], [id number], 4 16:16:45 bupropion HCl XL 150 mg 24 hr tablet, extended release 2023 024 [facility], [address], [place], [id number], 4 14:41:42 levothyroxi ne 25 mcg tablet 2023 024 [facility], [address] [place], [place], [id number], 4 14:41:42 Patient TargetsNo targets recorded. Patient Instructions Encounter Date Encounter Id Patient Instructions Last Modified By Organization Details Last Modified Time 05/23/2024 [id number] Due to the COVID-19 (Novel Coronavirus) pandemic, it is within this context (and with the understanding that this method of patient encounter is in the patient s best interest as well as the health and safety of other patients and the public) that [employer] is being provided for this patient encounter rather than a [id number] visit. This patient encounter is appropriate at this time. This patient has been advised of the potential risks and limitations of this mode of treatment (including, but not limited to, the absence of in-person examination) and has agreed to be treated in a remote fashion despite these risks. Any and all of the patient s /patient s family s questions on this issue have been answered, and I have made no promises or guarantees to the patient. The patient has also been advised to contact this office for worsening conditions or problems, and seek emergency medical treatment and/or call 911 if the patient deems either necessary. HPI and/or vitals, if listed, were provided by the patient. Not available 05/23/2024 11:17:01 Reason for Referral [employer] Referral for Screening colonoscopy Referring Physician: Bautista Valenzuela [facility] Medicine, Encounter Date: 01/27/2023 [facility]. Thank you. Referring Physician: Bautista Valenzuela [facility], Encounter Date: 09/02/2023 Results Created Date Observation Date Name Description Value Unit Range Abnormal Flag Note LastModifiedBy Organization Detail LastModifiedTime 02/17/2002/18/2023 LIPID PANEL , STAND SUDHIR cholesterol, total 204 mg/dL <200 high Not Available [facility] [place] [facility] [address] [place], [address], 02/18/2023 14:23:29 02/17/2002/18/2023 LIPID PANEL , STAND SUDHIR HDL cholesterol 61 mg/dL > or = 40 normal Not Available [facility] [place] [facility] [address] [place], [address], 02/18/2023 14:23:29 02/17/2002/18/2023 LIPID PANEL , STAND SUDHIR triglyceride s 92 mg/dL <150 normal Not Available [facility] [place] [facility] [address] [place], [address], 02/18/2023 14:23:29 02/17/2002/18/2023 LIPID PANEL , STAND SUDHIR LDL-choleste rol 123 mg/dL _(veronica c) high Refer ence range : <100 Jeana able range <100 mg/dL for prima ry preve ntion ; <70 mg/dL for patie nts with CHD or diabe tic patie nts with > or = 2 CHD risk facto rs. LDL-C is now calcu lated using the [facility] n-[facility] kins xochitl mclaughlin n, which is a valid ated novel leonila lu than the Fried darshana kam ion in the estim ation of LDL-C . Salma ashraf SS et al. RHONDA. 2013; 310(1 9): 2061- 2068 (http ://ed ucati on.Qu estDi N-Trigs. com/f aq/FA Q164) Not Available [address], [address], 02/18/2023 14:23:29 02/17/2002/18/2023 LIPID PANEL , STAND SUDHIR chol/HDLC ratio 3.3 (calc ) <5.0 normal Not Available [address], [address], 02/18/2023 14:23:29 02/17/2002/18/2023 LIPID PANEL , STAND SUDHIR non HDL cholesterol 143 mg/dL _(veronica c) <130 high For patie nts with diabe nathanael plus 1 major ASCVD risk facto r, treat ing to a non-H DL-C goal of <100 mg/dL (LDL- C of <70 mg/dL ) is consi jocelynd a maxi hill optio n. Not Available [address], [address], 02/18/2023 14:23:29 02/17/2002/18/2023 COMPR EHENS REBEKAH METAB OLIC PANEL glucose 83 mg/dL 65-99 normal Fasti ng refer ence inter amari Not Available [address], [address], 02/18/2023 14:23:30 02/17/2002/18/2023 COMPR EHENS REBEKAH METAB OLIC PANEL urea nitrogen (BUN) 13 mg/dL 7-25 normal Not Available [address] [place], [address], 02/18/2023 14:23:30 02/17/2002/18/2023 COMPR EHENS REBEKAH METAB OLIC PANEL creatinine 0.95 mg/dL 0.60-1 .29 normal Not Available [address] [address] [place], [address], 02/18/2023 14:23:30 02/17/2002/18/2023 COMPR EHENS REBEKAH METAB OLIC PANEL eGFR 101 mL/mi n/1.7 3m2 > or = 60 normal Not Available [address], [address], 02/18/2023 14:23:30 02/17/2002/18/2023 COMPR EHENS REBEKAH METAB OLIC PANEL BUN/creatini ne ratio SEE NOTE: (calc ) 6-22 Not Repor olesya: BUN and Creat inine are withi n refer ence range . Not Available [address], [address], 02/18/2023 14:23:30 02/17/2002/18/2023 COMPR EHENS REBEKAH METAB OLIC PANEL sodium 140 mmol/ L 135-14 6 normal Not Available [address] [address] [place], [address], 02/18/2023 14:23:30 02/17/2002/18/2023 COMPR EHENS REBEKAH METAB OLIC PANEL potassium 4.4 mmol/ L 3.5-5. 3 normal Not Available [address], [address], 02/18/2023 14:23:30 02/17/2002/18/2023 COMPR EHENS REBEKAH METAB OLIC PANEL chloride 105 mmol/ L 98-110 normal Not Available [address] [address] [place], [address], 02/18/2023 14:23:30 02/17/20 23 02/18/2023 COMPR EHENS REBEKAH METAB OLIC PANEL carbon dioxide 27 mmol/ L 20-32 normal Not Available [address], [address], 02/18/2023 14:23:30 02/17/20 23 02/18/2023 COMPR EHENS REBEKAH METAB OLIC PANEL calcium 9.4 mg/dL 8.6-10 .3 normal Not Available [address], [address], 02/18/2023 14:23:30 02/17/2002/18/2023 COMPR EHENS REBEKAH METAB OLIC PANEL protein, total 7.0 g/dL 6.1-8. 1 normal Not Available [address], [address], 02/18/2023 14:23:30 02/17/20 23 02/18/2023 COMPR EHENS REBEKAH METAB OLIC PANEL albumin 4.0 g/dL 3.6-5. 1 normal Not Available [address], [address], 02/18/2023 14:23:30 02/17/20 23 02/18/2023 COMPR EHENS REBEKAH METAB OLIC PANEL globulin 3.0 g/dL_ (calc ) 1.9-3. 7 normal Not Available [address], [address], 02/18/2023 14:23:30 02/17/2002/18/2023 COMPR EHENS REBEKAH METAB OLIC PANEL albumin/glob ulin ratio 1.3 (calc ) 1.0-2. 5 normal Not Available [address], [address], 02/18/2023 14:23:30 02/17/20 23 02/18/2023 COMPR EHENS REBEKAH METAB OLIC PANEL bilirubin, total 0.4 mg/dL 0.2-1. 2 normal Not Available [address], [address], 02/18/2023 14:23:30 02/17/20 23 02/18/2023 COMPR EHENS REBEKAH METAB OLIC PANEL alkaline phosphatase 34 U/L 36-130 low Not Available [facility] [employer] [address], [address], 02/18/2023 14:23:30 02/17/20 23 02/18/2023 COMPR EHENS REBEKAH METAB OLIC PANEL AST 16 U/L 10-40 normal Not Available [address], [address], 02/18/2023 14:23:30 02/17/20 23 02/18/2023 COMPR EHENS REBEKAH METAB OLIC PANEL ALT 17 U/L 9-46 normal Not Available [address], [address], 02/18/2023 14:23:30 02/17/20 23 02/18/2023 CBC (INCL UDES DIFF/ PLT) white blood cell count 5.0 thous and/u L 3.8-10 .8 normal Not Available [address], [address], 02/18/2023 14:23:31 02/17/2002/18/2023 CBC (INCL UDES DIFF/ PLT) red blood cell count 4.61 parviz on/uL 4.20-5 .80 normal Not Available [address], [address], 02/18/2023 14:23:31 02/17/20 23 02/18/2023 CBC (INCL UDES DIFF/ PLT) hemoglobin 13.9 g/dL 13.2-1 7.1 normal Not Available [address], [address], 02/18/2023 14:23:31 02/17/20 23 02/18/2023 CBC (INCL UDES DIFF/ PLT) hematocrit 41.7 % 38.5-5 0.0 normal Not Available [address], [address], 02/18/2023 14:23:31 02/17/20 23 02/18/2023 CBC (INCL UDES DIFF/ PLT) MCV 90.5 fL 80.0-1 00.0 normal Not Available [address], [address], 02/18/2023 14:23:31 02/17/2002/18/2023 CBC (INCL UDES DIFF/ PLT) MCH 30.2 pg 27.0-3 3.0 normal Not Available [address], [address], 02/18/2023 14:23:31 02/17/2002/18/2023 CBC (INCL UDES DIFF/ PLT) MCHC 33.3 g/dL 32.0-3 6.0 normal Not Available [address], [address], 02/18/2023 14:23:31 02/17/2002/18/2023 CBC (INCL UDES DIFF/ PLT) RDW 11.9 % 11.0-1 5.0 normal Not Available [address], [address], 02/18/2023 14:23:31 02/17/2002/18/2023 CBC (INCL UDES DIFF/ PLT) platelet count 423 thous and/u L 140-40 0 high Not Available [address], [address], 02/18/2023 14:23:31 02/17/2002/18/2023 CBC (INCL UDES DIFF/ PLT) MPV 9.1 fL 7.5-12 .5 normal Not Available [address], [address], 02/18/2023 14:23:31 02/17/20 23 02/18/2023 CBC (INCL UDES DIFF/ PLT) absolute neutrophils 2275 cells /uL 1500-7 800 normal Not Available [address], [address], 02/18/2023 14:23:31 02/17/2002/18/2023 CBC (INCL UDES DIFF/ PLT) absolute lymphocytes 1950 cells /uL 850-39 00 normal Not Available [address], [address], 02/18/2023 14:23:31 02/17/2002/18/2023 CBC (INCL UDES DIFF/ PLT) absolute monocytes 130 cells /uL 200-95 0 low Not Available [address], [address], 02/18/2023 14:23:31 02/17/2002/18/2023 CBC (INCL UDES DIFF/ PLT) absolute eosinophils 635 cells /uL 15-500 high Not Available [address], [address], 02/18/2023 14:23:31 02/17/2002/18/2023 CBC (INCL UDES DIFF/ PLT) absolute basophils 10 cells /uL 0-200 normal Not Available [facility] [address], [address], 02/18/2023 14:23:31 02/17/20 23 02/18/2023 CBC (INCL UDES DIFF/ PLT) neutrophils 45.5 % normal Not Available [address], [address], 02/18/2023 14:23:31 02/17/20 23 02/18/2023 CBC (INCL UDES DIFF/ PLT) lymphocytes 39.0 % normal Not Available [address], [address], 02/18/2023 14:23:31 02/17/20 23 02/18/2023 CBC (INCL UDES DIFF/ PLT) monocytes 2.6 % normal Not Available [address], [address], 02/18/2023 14:23:31 02/17/2002/18/2023 CBC (INCL UDES DIFF/ PLT) eosinophils 12.7 % normal Not Available [address], [address], 02/18/2023 14:23:31 02/17/20 23 02/18/2023 CBC (INCL UDES DIFF/ PLT) basophils 0.2 % normal Not Available [address], [address], 02/18/2023 14:23:31 02/17/2002/18/2023 URINA LYSIS , COMPL ETE W/REF SAM TO CULTU RE color YELLOW yellow normal Not Available [address], [address], 02/18/2023 14:23:33 02/17/2002/18/2023 URINA LYSIS , COMPL ETE W/REF SAM TO CULTU RE appearance CLEAR clear normal Not Available [address], [address], 02/18/2023 14:23:33 02/17/2002/18/2023 URINA LYSIS , COMPL ETE W/REF SAM TO CULTU RE specific gravity 1.013 1.001- 1.035 normal Not Available [address], [address], 02/18/2023 14:23:33 02/17/20 23 02/18/2023 URINA LYSIS , COMPL ETE W/REF SAM TO CULTU RE pH 5.5 5.0-8. 0 normal Not Available [address], [address], 02/18/2023 14:23:33 02/17/2002/18/2023 URINA LYSIS , COMPL ETE W/REF SAM TO CULTU RE glucose NEGATI VE negati ve normal Not Available [address], [address], 02/18/2023 14:23:33 02/17/2002/18/2023 URINA LYSIS , COMPL ETE W/REF SAM TO CULTU RE bilirubin NEGATI VE negati ve normal Not Available [address], [address], 02/18/2023 14:23:33 02/17/2002/18/2023 URINA LYSIS , COMPL ETE W/REF SAM TO CULTU RE ketones NEGATI VE negati ve normal Not Available [address], [address], 02/18/2023 14:23:33 02/17/2002/18/2023 URINA LYSIS , COMPL ETE W/REF SAM TO CULTU RE occult blood 3+ negati ve abnormal Not Available [address], [address], 02/18/2023 14:23:33 02/17/2002/18/2023 URINA LYSIS , COMPL ETE W/REF SAM TO CULTU RE protein NEGATI VE negati ve normal Not Available [address], [address], 02/18/2023 14:23:33 02/17/2002/18/2023 URINA LYSIS , COMPL ETE W/REF SAM TO CULTU RE nitrite NEGATI VE negati ve normal Not Available [address], [address], 02/18/2023 14:23:33 02/17/2002/18/2023 URINA LYSIS , COMPL ETE W/REF SAM TO CULTU RE leukocyte esterase TRACE negati ve abnormal Not Available [address], [address], 02/18/2023 14:23:33 02/17/2002/18/2023 URINA LYSIS , COMPL ETE W/REF SAM TO CULTU RE WBC 0-5 /hpf < or = 5 normal Not Available [address], [address], 02/18/2023 14:23:33 02/17/2002/18/2023 URINA LYSIS , COMPL ETE W/REF SAM TO CULTU RE RBC 10-20 /hpf < or = 2 abnormal Not Available [address], [address], 02/18/2023 14:23:33 02/17/2002/18/2023 URINA LYSIS , COMPL ETE W/REF SAM TO CULTU RE squamous epithelial cells 6-10 /hpf < or = 5 abnormal Not Available [address], [address], 02/18/2023 14:23:33 02/17/2002/18/2023 URINA LYSIS , COMPL ETE W/REF SAM TO CULTU RE bacteria NONE SEEN /hpf none seen normal Not Available [address], [address], 02/18/2023 14:23:33 02/17/2002/18/2023 URINA LYSIS , COMPL ETE W/REF SAM TO CULTU RE hyaline cast 0-5 /lpf none seen abnormal Not Available [address] [place], [address], 02/18/2023 14:23:33 02/17/2002/18/2023 URINA LYSIS , COMPL ETE W/REF SAM TO CULTU RE note This urine was mellissa zed for the prese nce of WBC, RBC, bacte amy, casts , and other forme d eleme nts. Only those eleme nts seen were repor olesya. Not Available [facility] [place] [facility] [address] [address] [place], [address], 02/18/2023 14:23:33 02/17/2002/18/2023 REFLE XIVE URINE CULTU RE reflexive urine culture CULTU RE INDIC ATED - RESUL TS TO FOLLO W Not Available [facility] [place] [address], [address], 02/18/2023 14:23:34 02/17/2002/18/2023 TSH W/REF SAM TO FT4 TSH w/reflex to FT4 3.97 mIU/L 0.40-4 .50 normal Not Available [address], [address], 02/18/2023 14:23:34 02/17/2002/18/2023 VITAM IN D,25- OH,TO ANU,I A vitamin D,25-oh,tota l,ia 38 NG/mL 30-100 normal Vitam in D Statu s 25-OH Vitam in D: Defic iency : <20 ng/mL Insuf ficie ncy: 20 - 29 ng/mL Optim al: > or = 30 ng/mL For 25-OH Vitam in D testi ng on patie nts on D2-mayo pplem entat ion and patie nts for whom quant itati on of D2 and D3 fract ions is requi red, the [facility] Assur eD(TM ) 25-OH VIT D, (D2,D 3), LC/MS /MS is recom sue d: order code [id number] (adarsh ents >2yrs ). See Note 1 Note 1 For addit ional infor puneet jimenez e refer to http: //[facility] ana dominguezQue stDia gnost ics.c om/fa q/FAQ 199 (This link is being provi ded for infor jewell camarena/ khalida cortez l purpo ses only. ) Not Available [facility] [address] [place], [address], 02/18/2023 14:23:35 02/17/2002/18/2023 HEMOG LOBIN A1C hemoglobin A1C 4.9 %_of_ total _HGB <5.7 normal For the purpo se of scree sera for the prese nce of diabe nathanael: <5.7% Consi stent with the absen ce of diabe nathanael 5.7-6 .4% Consi stent with incre ased risk for diabe nathanael (pred iabet es) > or =6.5% Consi stent with diabe nathanael This assay resul t is consi stent with a decre ased risk of diabe nathanael. Curre ntly, no conse nsus exist s marj boyd use of hemog lobin A1c for diagn osis of diabe nathanael in child rosaura. Accor ding to Ameri can Diabe nathanael Assoc iatio n (ADA) guide lines , hemog lobin A1c <7.0% repre sents optim al contr ol in non-p regna nt diabe tic patie nts. Diffe rent metri cs may apply to speci fic patie nt popul ation s. Stand ards of Medic al Care in Diabe nathanael(A DA). Not Available [facility] [address] [place], [address], 02/18/2023 14:23:36 02/17/2002/18/2023 CULTU RE, URINE , ROUTI NE culture, urine, routine SEE NOTE abnormal CULTU RE, URINE , ROUTI NE Micro Numbe r: [id number] Test Statu s: Final Speci men Sourc e: Urine Speci men Quali ty: Adequ ate Resul t: Great er than 100,0 00 CFU/m L of Enter ococc us speci es Enter ococc us sp. ----- ----- ----- - INT HAYLIE AMPIC ILLIN S <=2 NITRO FURAN TOIN S <=16 VANCO MYCIN S 2 S=Domitila cepti ble I=Int ermed iate R=Res istan t * = Not Teste d NR = Not Repor olesya NN = See Thera py Comme nts Not Available [facility] [address] [address] [place], [address], 02/18/2023 14:23:37 01/31/20 24 02/02/2024 URIC ACID uric acid 4.5 mg/dL 4.0-8. 0 normal Thera peuti c targe t for gout patie nts: <6.0 mg/dL Not Available [facility] [address] [address], [place], [address], 02/02/2024 16:25:07 01/31/20 24 02/02/2024 TAMEKA SCREE N, IFA, W/REF L TITER AND PATTE RN TAMEKA screen, ifa NEGATI VE negati ve normal TAMEKA IFA is a first line scree n for detec ting the prese nce of up to appro ximat della 150 autoa ntibo dies in vario us autoi mmune disea ses. A negat rebekah TAMEKA IFA resul t sugge sts an TAMEKA-a ssoci ated autoi mmune disea se is not prese nt at this time, but is not defin itive . If there is high clini veronica suspi cion for Sjogr en's syndr ome, testi ng for anti- SS-A/ Ro antib riki shoul d be consi dered . Anti- Ella-1 antib riki shoul d be consi dered for clini deonte suspe cted infla mmato ry myopa tarsha . AC-0: Negat rebekah Inter natio nal Conse nsus on TAMEKA Patte rns (http s://d oi.or g/10. 1515/ [facility]- 2017- 0052) For addit ional infor puneet jimenez e refer to http: //edu catio n.Que stDia gnost ics.c om/fa q/FAQ 177 (This link is being provi ded for infor jewell camarena/ educa diego calvin purpo ses only. ) Not Available [address], [address], 02/02/2024 16:25:07 01/31/20 24 02/02/2024 RHEUM ATOID FACTO R rheumatoid factor <10 IU/mL <14 normal Not Available [address], [address], 02/02/2024 16:25:08 01/31/20 24 02/02/2024 VITAM IN B12 vitamin B12 448 pg/mL 200-11 00 normal Not Available [address], [address], 02/02/2024 16:25:08 02/08/20 24 02/09/2024 LIPID PANEL , STAND SUDHIR cholesterol, total 204 mg/dL <200 high Not Available [address], [address], 02/09/2024 17:37:19 02/08/20 24 02/09/2024 LIPID PANEL , STAND SUDHIR HDL cholesterol 57 mg/dL > or = 50 normal Not Available [address], [address], 02/09/2024 17:37:19 02/08/20 24 02/09/2024 LIPID PANEL , STAND SUDHIR triglyceride s 78 mg/dL <150 normal Not Available [address], [address], 02/09/2024 17:37:19 02/08/2002/09/2024 LIPID PANEL , STAND SUDHIR LDL-choleste rol 130 mg/dL _(veronica c) high Refer ence range : <100 Jeana able range <100 mg/dL for prima ry preve ntion ; <70 mg/dL for patie nts with CHD or diabe tic patie nts with > or = 2 CHD risk facto rs. LDL-C is now calcu lated using the Salma n-Hop kins xochitl mclauglhin n, which is a valid ated novel leonila perezy than the Fried darshana equat ion in the estim ation of LDL-C . Salma ashraf SS et al. RHONDA. 2013; 310(1 9): 2061- 2068 (http ://ed ucati on.Qu estDi N-Trigs. com/f aq/FA Q164) Not Available [facility] [address] [address] [place], [address], 02/09/2024 17:37:02/08/2002/09/2024 LIPID PANEL , STAND SUDHIR chol/HDLC ratio 3.6 (calc ) <5.0 normal Not Available [facility] [address] [address] [place], [address], 02/09/2024 17:37:19 02/08/2002/09/2024 LIPID PANEL , STAND SUDHIR non HDL cholesterol 147 mg/dL _(veronica c) <130 high For patie nts with diabe nathanael plus 1 major ASCVD risk facto r, treat ing to a non-H DL-C goal of <100 mg/dL (LDL- C of <70 mg/dL ) is consi dered a thera peuti c optio n. Not Available [facility] [address] [address] [address], [place], [address], 02/09/2024 17:37:19 02/08/2002/09/2024 URIC ACID uric acid 4.9 mg/dL 2.5-7. 0 normal Thera peuti c targe t for gout patie nts: <6.0 mg/dL Not Available [facility] [address] [address] [address], [place], [address], 02/09/2024 17:37:19 02/08/2002/09/2024 COMPR EHENS REBEKAH METAB OLIC PANEL glucose 92 mg/dL 65-99 normal Fasti ng refer ence inter amari Not Available [address], [address], 02/09/2024 17:37:20 02/08/20 24 02/09/2024 COMPR EHENS REBEKAH METAB OLIC PANEL urea nitrogen (BUN) 13 mg/dL 7-25 normal Not Available [address], [address], 02/09/2024 17:37:20 02/08/20 24 02/09/2024 COMPR EHENS REBEKAH METAB OLIC PANEL creatinine 0.92 mg/dL 0.50-0 .99 normal Not Available [address], [address], 02/09/2024 17:37:20 02/08/20 24 02/09/2024 COMPR EHENS REBEKAH METAB OLIC PANEL eGFR 78 mL/mi n/1.7 3m2 > or = 60 normal Not Available [address], [address], 02/09/2024 17:37:20 02/08/20 24 02/09/2024 COMPR EHENS REBEKAH METAB OLIC PANEL BUN/creatini ne ratio SEE NOTE: (calc ) 6-22 Not Repor olesya: BUN and Creat inine are withi n refer ence range . Not Available [address], [address], 02/09/2024 17:37:20 02/08/20 24 02/09/2024 COMPR EHENS REBEKAH METAB OLIC PANEL sodium 138 mmol/ L 135-14 6 normal Not Available [address], [address], 02/09/2024 17:37:20 02/08/20 24 02/09/2024 COMPR EHENS REBEKAH METAB OLIC PANEL potassium 4.2 mmol/ L 3.5-5. 3 normal Not Available [address] [place], [address], 02/09/2024 17:37:20 02/08/20 24 02/09/2024 COMPR EHENS REBEKAH METAB OLIC PANEL chloride 104 mmol/ L 98-110 normal Not Available [address] [place], [address], 02/09/2024 17:37:20 02/08/20 24 02/09/2024 COMPR EHENS REBEKAH METAB OLIC PANEL carbon dioxide 27 mmol/ L 20-32 normal Not Available [address], [address], 02/09/2024 17:37:20 02/08/20 24 02/09/2024 COMPR EHENS REBEKAH METAB OLIC PANEL calcium 9.7 mg/dL 8.6-10 .2 normal Not Available [address], [address], 02/09/2024 17:37:20 02/08/20 24 02/09/2024 COMPR EHENS REBEKAH METAB OLIC PANEL protein, total 6.7 g/dL 6.1-8. 1 normal Not Available [address], [address], 02/09/2024 17:37:20 02/08/2002/09/2024 COMPR EHENS REBEKAH METAB OLIC PANEL albumin 3.9 g/dL 3.6-5. 1 normal Not Available [address] [place], [address], 02/09/2024 17:37:20 02/08/20 24 02/09/2024 COMPR EHENS REBEKAH METAB OLIC PANEL globulin 2.8 g/dL_ (calc ) 1.9-3. 7 normal Not Available [address], [address], 02/09/2024 17:37:20 02/08/20 24 02/09/2024 COMPR EHENS REBEKAH METAB OLIC PANEL albumin/glob ulin ratio 1.4 (calc ) 1.0-2. 5 normal Not Available [address], [address], 02/09/2024 17:37:20 02/08/20 24 02/09/2024 COMPR EHENS REBEKAH METAB OLIC PANEL bilirubin, total 0.5 mg/dL 0.2-1. 2 normal Not Available [address], [address], 02/09/2024 17:37:20 02/08/2002/09/2024 COMPR EHENS REBEKAH METAB OLIC PANEL alkaline phosphatase 39 U/L 31-125 normal Not Available [address], [address], 02/09/2024 17:37:20 02/08/20 24 02/09/2024 COMPR EHENS REBEKAH METAB OLIC PANEL AST 14 U/L 10-35 normal Not Available [address], [address], 02/09/2024 17:37:20 02/08/20 24 02/09/2024 COMPR EHENS REBEKAH METAB OLIC PANEL ALT 13 U/L 6-29 normal Not Available [address], [address], 02/09/2024 17:37:20 02/08/20 24 02/09/2024 CBC (INCL UDES DIFF/ PLT) white blood cell count 7.1 thous and/u L 3.8-10 .8 normal Not Available [address], [address], 02/09/2024 17:37:20 02/08/20 24 02/09/2024 CBC (INCL UDES DIFF/ PLT) red blood cell count 4.54 parviz on/uL 3.80-5 .10 normal Not Available [address], [address], 02/09/2024 17:37:20 02/08/20 24 02/09/2024 CBC (INCL UDES DIFF/ PLT) hemoglobin 13.8 g/dL 11.7-1 5.5 normal Not Available [address], [address], 02/09/2024 17:37:20 02/08/2002/09/2024 CBC (INCL UDES DIFF/ PLT) hematocrit 43.3 % 35.0-4 5.0 normal Not Available [address], [address], 02/09/2024 17:37:20 02/08/20 24 02/09/2024 CBC (INCL UDES DIFF/ PLT) MCV 95.4 fL 80.0-1 00.0 normal Not Available [address], [address], 02/09/2024 17:37:20 02/08/20 24 02/09/2024 CBC (INCL UDES DIFF/ PLT) MCH 30.4 pg 27.0-3 3.0 normal Not Available [address], [address], 02/09/2024 17:37:20 02/08/20 24 02/09/2024 CBC (INCL UDES DIFF/ PLT) MCHC 31.9 g/dL 32.0-3 6.0 low Not Available [address], [address], 02/09/2024 17:37:20 02/08/2002/09/2024 CBC (INCL UDES DIFF/ PLT) RDW 12.1 % 11.0-1 5.0 normal Not Available [address], [address], 02/09/2024 17:37:20 02/08/20 24 02/09/2024 CBC (INCL UDES DIFF/ PLT) platelet count 446 thous and/u L 140-40 0 high Not Available [address], [address], 02/09/2024 17:37:20 02/08/20 24 02/09/2024 CBC (INCL UDES DIFF/ PLT) MPV 9.1 fL 7.5-12 .5 normal Not Available [address], [address], 02/09/2024 17:37:20 02/08/20 24 02/09/2024 CBC (INCL UDES DIFF/ PLT) absolute neutrophils 3195 cells /uL 1500-7 800 normal Not Available [address], [address], 02/09/2024 17:37:20 02/08/20 24 02/09/2024 CBC (INCL UDES DIFF/ PLT) absolute lymphocytes 2506 cells /uL 850-39 00 normal Not Available [address], [address], 02/09/2024 17:37:20 02/08/20 24 02/09/2024 CBC (INCL UDES DIFF/ PLT) absolute monocytes 121 cells /uL 200-95 0 low Not Available [address], [address], 02/09/2024 17:37:20 02/08/20 24 02/09/2024 CBC (INCL UDES DIFF/ PLT) absolute eosinophils 1257 cells /uL 15-500 high Not Available [address], [address], 02/09/2024 17:37:20 02/08/20 24 02/09/2024 CBC (INCL UDES DIFF/ PLT) absolute basophils 21 cells /uL 0-200 normal Not Available [employer] [facility] [address], [address], 02/09/2024 17:37:20 02/08/20 24 02/09/2024 CBC (INCL UDES DIFF/ PLT) neutrophils 45 % normal Not Available [facility] [address], [address], 02/09/2024 17:37:20 02/08/20 24 02/09/2024 CBC (INCL UDES DIFF/ PLT) lymphocytes 35.3 % normal Not Available [facility] [address], [address], 02/09/2024 17:37:20 02/08/20 24 02/09/2024 CBC (INCL UDES DIFF/ PLT) monocytes 1.7 % normal Not Available [address], [address], 02/09/2024 17:37:20 02/08/20 24 02/09/2024 CBC (INCL UDES DIFF/ PLT) eosinophils 17.7 % normal Not Available [address], [address], 02/09/2024 17:37:20 02/08/2002/09/2024 CBC (INCL UDES DIFF/ PLT) basophils 0.3 % normal Not Available [address], [address], 02/09/2024 17:37:20 02/08/2002/09/2024 URINA LYSIS , COMPL ETE W/REF SAM TO CULTU RE color YELLOW yellow normal Not Available [address], [address], 02/09/2024 17:37:21 02/08/20 24 02/09/2024 URINA LYSIS , COMPL ETE W/REF SAM TO CULTU RE appearance CLEAR clear normal Not Available [facility] [address] [place], [address], 02/09/2024 17:37:21 02/08/20 24 02/09/2024 URINA LYSIS , COMPL ETE W/REF SAM TO CULTU RE specific gravity 1.008 1.001- 1.035 normal Not Available [address], [address], 02/09/2024 17:37:21 02/08/20 24 02/09/2024 URINA LYSIS , COMPL ETE W/REF SAM TO CULTU RE pH 6.0 5.0-8. 0 normal Not Available [address], [address], 02/09/2024 17:37:21 02/08/20 24 02/09/2024 URINA LYSIS , COMPL ETE W/REF SAM TO CULTU RE glucose NEGATI VE negati ve normal Not Available [address], [address], 02/09/2024 17:37:21 02/08/20 24 02/09/2024 URINA LYSIS , COMPL ETE W/REF SAM TO CULTU RE bilirubin NEGATI VE negati ve normal Not Available [address], [address], 02/09/2024 17:37:21 02/08/20 24 02/09/2024 URINA LYSIS , COMPL ETE W/REF SAM TO CULTU RE ketones NEGATI VE negati ve normal Not Available [address], [address], 02/09/2024 17:37:21 02/08/20 24 02/09/2024 URINA LYSIS , COMPL ETE W/REF SAM TO CULTU RE occult blood NEGATI VE negati ve normal Not Available [address], [address], 02/09/2024 17:37:21 02/08/20 24 02/09/2024 URINA LYSIS , COMPL ETE W/REF SAM TO CULTU RE protein NEGATI VE negati ve normal Not Available [address], [address], 02/09/2024 17:37:21 02/08/20 24 02/09/2024 URINA LYSIS , COMPL ETE W/REF SAM TO CULTU RE nitrite NEGATI VE negati ve normal Not Available [address], [address], 02/09/2024 17:37:21 02/08/20 24 02/09/2024 URINA LYSIS , COMPL ETE W/REF SAM TO CULTU RE leukocyte esterase NEGATI VE negati ve normal Not Available [address], [address], 02/09/2024 17:37:21 02/08/20 24 02/09/2024 URINA LYSIS , COMPL ETE W/REF SAM TO CULTU RE WBC NONE SEEN /hpf < or = 5 normal Not Available [address], [address], 02/09/2024 17:37:21 02/08/20 24 02/09/2024 URINA LYSIS , COMPL ETE W/REF SAM TO CULTU RE RBC NONE SEEN /hpf < or = 2 normal Not Available [address], [address], 02/09/2024 17:37:21 02/08/20 24 02/09/2024 URINA LYSIS , COMPL ETE W/REF SAM TO CULTU RE squamous epithelial cells NONE SEEN /hpf < or = 5 normal Not Available [address], [address], 02/09/2024 17:37:21 02/08/20 24 02/09/2024 URINA LYSIS , COMPL ETE W/REF SAM TO CULTU RE bacteria NONE SEEN /hpf none seen normal Not Available [facility] [address] [address] [place], [address], 02/09/2024 17:37:21 02/08/20 24 02/09/2024 URINA LYSIS , COMPL ETE W/REF SAM TO CULTU RE hyaline cast NONE SEEN /lpf none seen normal Not Available [facility] [address] [address] [place], [address], 02/09/2024 17:37:21 02/08/20 24 02/09/2024 URINA LYSIS , COMPL ETE W/REF SAM TO CULTU RE note This urine was mellissa zed for the prese nce of WBC, RBC, bacte amy, casts , and other forme d eleme nts. Only those eleme nts seen were repor olesya. Not Available [address] [address] [place], [address], 02/09/2024 17:37:21 02/08/20 24 02/09/2024 REFLE XIVE URINE CULTU RE reflexive urine culture NO CULTU RE INDIC ATED Not Available [address], [address], 02/09/2024 17:37:22 02/08/20 24 02/09/2024 TAMEKA SCREE N, IFA, W/REF L TITER AND PATTE RN TAMEKA screen, ifa NEGATI VE negati ve normal TAMEKA IFA is a first line scree n for detec ting the prese nce of up to appro ximat della 150 autoa ntibo dies in vario us autoi mmune disea ses. A negat rebekah TAMEKA IFA resul t sugge sts an TAMEKA-a ssoci ated autoi mmune disea se is not prese nt at this time, but is not defin itive . If there is high clini veronica suspi cion for Sjogr en's syndr ome, testi ng for anti- SS-A/ Ro antib riki shoul d be consi dered . Anti- Ella-1 antib riki shoul d be consi dered for clini deonte suspe cted infla mmato ry myopa tarsha . AC-0: Negat rebekah Inter natio nal Conse nsus on TAMEKA Hendricks rns (http s://d oi.or g/10. 1515/ [facility]- 2017- 0052) For addit ional infor puneet jimenez e refer to http: //[facility] ana dominguezQue stDia gnost ics.c om/fa q/FAQ 177 (This link is being provi ded for infor jewell camarena/ educa diego l purpo ses only. ) Not Available [address] [place], [address], 02/09/2024 17:37:22 02/08/2002/09/2024 RHEUM ATOID FACTO R rheumatoid factor <10 IU/mL <14 normal Not Available [address] [address] [place], [address], 02/09/2024 17:37:23 02/08/20 24 02/09/2024 VITAM IN B12/F OLATE , SERUM PANEL vitamin B12 491 pg/mL 200-11 00 normal Not Available [address] [place], [address], 02/09/2024 17:37:23 02/08/20 24 02/09/2024 VITAM IN B12/F OLATE , SERUM PANEL folate, serum 11.6 NG/mL normal Refer ence Range Low: <3.4 Borde rline : 3.4-5 .4 Mi l: >5.4 Not Available [address] [address] [place], [address], 02/09/2024 17:37:23 02/08/2002/09/2024 VITAM IN D,25- OH,TO ANU,I A vitamin D,25-oh,tota l,ia 54 NG/mL 30-100 normal Vitam in D Statu s 25-OH Vitam in D: Defic iency : <20 ng/mL Insuf ficie ncy: 20 - 29 ng/mL Optim al: > or = 30 ng/mL For 25-OH Vitam in D testi ng on patie nts on D2-mayo pplem entat ion and patie nts for whom quant itati on of D2 and D3 fract ions is requi red, the [facility] Ass[facility] eD(TM ) 25-OH VIT D, (D2,D 3), LC/MS /MS is recom sue d: order code [id number] (adarsh ents >2yrs ). See Note 1 Note 1 For addit ional infor puneet jimenez e refer to http: //[facility] ana ashraf.Pawel stDia gnost ics.c om/fa q/FAQ 199 (This link is being provi ded for infor jewell camarena/ khalida calvin purpo ses only. ) Not Available [facility] [address] [place], [address], 02/09/2024 17:37:24 02/08/2002/09/2024 TSH W/REF SAM TO FT4 TSH w/reflex to FT4 3.75 mIU/L normal Refer ence Range > or = 20 Years 0.40- 4.50 Pregn mike Range s First trime ster 0.26- 2.66 Secon d trime ster 0.55- 2.73 Third trime ster 0.43- 2.91 Not Available [facility] [address] [address] [place], [address], 02/09/2024 17:37:24 02/08/2002/09/2024 HEMOG LOBIN A1C hemoglobin A1C 5.2 %_of_ total _HGB <5.7 normal For the purpo se of jewels zamora for the prese nce of diabe nathanael: <5.7% Consi stent with the absen ce of diabe nathanael 5.7-6 .4% Consi stent with incre ased risk for diabe nathanael (pred iabet es) > or =6.5% Consi stent with diabe nathanael This assay resul t is consi stent with a decre ased risk of diabe nathanael. Curre ntly, no conse nsus exist hina boyd use of hemog lobin A1c for diagn osis of diabe nathanael in child rosaura. Accor oliver to [employer]i can Di[employer] nathanael [employer] iatio n (ADA) guide lines , hemog lobin A1c <7.0% repre sents optim al contr ol in non-p regna nt diabe tic patie nts. Diffe rent metri cs may apply to speci fic patie nt popul ation s. Stand ards of [facility] al [facility] in Diabe nathanael(A DA). This test was perfo rmed on the Peggy vanessa c503 platf orm. Effec tive , a lancaster jose in test platf orms from the [employer] Archi tect to the Peggy vanessa c503 may have shift ed HbA1c resul ts esteban red to histo rical resul ts. Based on labor atory valid ation testi ng condu cted at [employer] , the Peggy platf orm relat rebekah to the [employer] platf orm had an avera ge incre ase in HbA1c value of < or = 0.3%. This diffe rence is withi n accep olesya varia bilit y estab lishe d by the [employer] hemog lobin Stand ardiz ation Progr am. Note that not all indiv idual s will have had a shift in their resul ts and direc t esteban rison s betwe en histo rical and curre nt resul ts for testi ng condu cted on diffe rent platf orms is not recom sue d. Not Available [facility] [address] [place], [address], 02/09/2024 17:37:25 05/11/20 24 05/11/2024 LIPID PANEL , STAND SUDHIR cholesterol, total 161 mg/dL <200 normal Not Available [facility] [address] [place], [address], 05/11/2024 23:57:10 05/11/20 24 05/11/2024 LIPID PANEL , STAND [place] HDL cholesterol 54 mg/dL > or = 50 normal Not Available [address] [address] [address], [place], [address], 05/11/2024 23:57:10 05/11/20 24 05/11/2024 LIPID PANEL , STAND SUDHIR triglyceride s 91 mg/dL <150 normal Not Available [address] [address] [address] , [place], [address], 05/11/2024 23:57:10 05/11/20 24 05/11/2024 LIPID PANEL , STAND [place] LDL-choleste rol 88 mg/dL _(veronica c) normal Refer ence range : <100 Jeana able range <100 mg/dL for prima ry preve ntion ; <70 mg/dL for patie nts with CHD or diabe tic patie nts with > or = 2 CHD risk facto rs. LDL-C is now calcu lated using the Salma n-Hop kins calcu lissette n, which is a valid ated novel slimeo d vikas garciate r accur acy than the Fried darshana equat ion in the estim ation of LDL-C . Salma ashraf SS et al. RHONDA. 2013; 310(1 9): 2061- 2068 (http ://ed ucati on.Qu Trae Quanlight. com/f aq/FA Q164) Not Available [place] [address] [address], [place], [address], 05/11/2024 23:57:10 05/11/20 24 05/11/2024 LIPID PANEL , STAND SUDHIR chol/HDLC ratio 3.0 (calc ) <5.0 normal Not Available [facility] [place] [facility] [address] [address] [place], [address], 05/11/2024 23:57:10 05/11/20 24 05/11/2024 LIPID PANEL , STAND SUDHIR non HDL cholesterol 107 mg/dL _(veronica c) <130 normal For patie nts with diabe nathanael plus 1 major ASCVD risk facto r, treat ing to a non-H DL-C goal of <100 mg/dL (LDL- C of <70 mg/dL ) is consi dered a thera peuti c optio n. Not Available [facility] [address], [place], [address], 05/11/2024 23:57:10 12/06/19 24 US, extre jim, jovanna scula r, compl ete [facility] [address] [place] [address] Patien t Name: FAUSTINA REZA ion #: [id number] Sex: F : 1975 9 Dictat ed By: Terrie Candelario Attend ing Physic anaid: DENILSON VALENZUELA Orderi ng Physic anaid: DENILSON VALENZUELA Exam Date: 2023 11:09 AM Exam Name: US EXT NON VASCUL AR LIMITE D Admitt ing Diagno sis(es ): Exam: US EXT NON VASCUL AR LIMITE D Date: 2023 11:09 AM Clinic al Histor y: mass of axilla Compar lorenza: None Techni que: Target ed sonogr aphic evalua tion of the soft tissue s of the left axilla was obtain ed utiliz ing graysc tiffanie and color Dopple r imagin g. Findin gs: Abnorm al enlarg ed lymph node in the left axilla with cortic al thickn ess measur ing 11 mm. IMPRES NIALL: Lymph node in the left axilla requir es additi onal imagin g evalua tion. Recomm end bilate ral diagno stic mammog muna. BI-RAD S 0: Needs additi onal imagin g evalua tion. Electr onical ly Signed by: Terrie Candelario at 2023 12:04: 16 PM Page 1 [email or web address] [facility] (Imaging) [address] [place], [address], 02/02/2024 16:10:21 01/24/20 24 01/24/2024 MAMMO , diagn ostic , tomos ynthe sis, bilat eral [facility] [address] [place] [address] Patien t Name: FAUSTINA REZA ion #: [id number] Sex: F : 1975 2 Dictat ed By: Amada wells Attend ing Physic anaid: DENILSON VALENZUELA Orderi ng Physic anaid: DENILSON VALENZUELA Exam Date: 2023 11:26 AM Exam Name: MG DIAG BREAST TANIA BILAT Admitt ing Diagno sis(es ): CLINIC AL HISTOR Y: mass of axilla . Abnorm al left axilla ry lymph node seen on prior ultras ound. COMPAR LORENZA: Correl ation made to ultras ound of the left axilla dated 2023. TECHNI QUE: Digita l breast tomosy nthesi s was perfor med. Synthe sized CC and MLO images were create d from the tomosy nthesi s images . CAD was utiliz ed. Diagno stic left breast ultras ound was also perfor med, scanni ng all 4 quadra nts, retroa reolar region , and axilla . FINDIN GS: The breast s are hetero geneou sly dense, which may obscur e small masses (categ ory C). Partia lly visual ized promin ent left axilla ry lymph node seen on the MLO projec tion. No mother suspic ious mass, juan ectura l distor tion, or suspic ious microc alcifi cation s are seen mammog muna. Comple te left breast ultras ound was perfor med, scanni ng all 4 quadra nts, retroa reolar region , and axilla . Corres susan g to the previo usly seen left axilla ry palpab le mass, there is an enlarg ed left axilla ry lymph node measur ing 4.6 x 1.1 x 2.5 cm. Previo us measur ement was 5.2 x 1.2 x 2.9 cm There is also a hypoec hoic, well-c ircums cribed , smooth ly margin ated nodule in the left breast 2 o'cloc k positi on approx imatel y 5 cm from the nipple measur ing 0.8 x 0.4 x 0.7 cm. Hypoec hoic nodule in the left breast 9 o'cloc k positi on approx imatel y 1 cm from the nipple measur es 0.5 x 0.2 x 0.5 cm with mildly irregu lar margin s. There is a hypoec hoic mass in the 10 o'cloc k positi on approx imatel y 6 cm from the nipple which demons trates smooth margin s and possib le small hypere choic hilum, measur ing 0.7 x 0.4 x 0.7 cm. IMPRES NIALL: 1. Left axilla ry mass demons trates abnorm al morpho logy for a lymph node. The measur ements on this exam are slight ly smalle r compar ed to the prior exam, Page 1 [facility] [place] [address] [phone] Patien t Name: FAUSTINA REZA ion #: [id number] Sex: F : 1975 2 Dictat ed By: Amada wells Attend ing Physic anaid: MAICOL LOVE Physic anaid: DENILSON VALENZUELA Exam Date: 2023 11:26 AM Exam Name: MG DIAG BREAST TANIA BILAT Admitt ing Diagno sis(es ): althou gh may be partly due to differ ences in measur ement techni que. Biopsy could be consid ered to furthe r evalua te. 2. Small hypoec hoic masses in the left breast as descri bed above. The larger masses appear well-c ircums cribed , possib ly lymph nodes or fibroa denoma s. The smalle r mass demons trates mildly irregu lar margin s. Given the abnorm al findin gs in the left axilla , biopsy of this nodule could also be consid ered to exclud e malign mike. RECOMM ENDATI ONS: Indete rminat e mass in the left axilla for which biopsy is recomm ended. Additi onal nodule with irregu lar margin s in the 9 o'cloc k positi on approx imatel y 1 cm from the nipple is also recomm ended for biopsy . The patien t will be notifi ed of the mammog va result s per hospit al protoc ol. BI-RAD S CATEGO RY: 4: Suspic ious. Electr onical ly Signed by: Amada wells at 2023 15:20: 39 PM Page 2 [id number] [facility] (Imaging) [address] [place], [address], 02/02/2024 16:10:21 01/24/20 24 01/24/2024 US, rory t, elenia teral , compl ete [facility] [id number] Pativalerie t Name: FAUSTINA REZA ion #: [id number] Sex: F : 1975 2 Dictat ed By: Amada wells Attend ing Physic anaid: DENILSON VALENZUELA Orderi ng Physic anaid: DENILSON VALENZUELA Exam Date: 2023 11:46 AM Exam Name: US BREAST COMPLE TE LT Admitt ing Diagno sis(es ): CLINIC AL HISTOR Y: mass of axilla . Abnorm al left axilla ry lymph node seen on prior ultras ound. COMPAR LORENZA: Correl ation made to ultras ound of the left axilla dated 2023. TECHNI QUE: Digita l breast tomosy nthesi s was perfor med. Synthe sized CC and MLO images were create d from the tomosy nthesi s images . CAD was utiliz ed. Diagno stic left breast ultras ound was also perfor med, scanni ng all 4 quadra nts, retroa reolar region , and axilla . FINDIN GS: The breast s are hetero geneou sly dense, which may obscur e small masses (categ ory C). Partia lly visual ized promin ent left axilla ry lymph node seen on the MLO projec tion. No mother suspic ious mass, juan ectura l distor tion, or suspic ious microc alcifi cation s are seen mammog muna. Comple te left breast ultras ound was perfor med, scanni ng all 4 quadra nts, retroa reolar region , and axilla . Corres susan g to the previo usly seen left axilla ry palpab le mass, there is an enlarg ed left axilla ry lymph node measur ing 4.6 x 1.1 x 2.5 cm. Previo us measur ement was 5.2 x 1.2 x 2.9 cm There is also a hypoec hoic, well-c ircums cribed , smooth ly margin ated nodule in the left breast 2 o'cloc k positi on approx imatel y 5 cm from the nipple measur ing 0.8 x 0.4 x 0.7 cm. Hypoec hoic nodule in the left breast 9 o'cloc k positi on approx imatel y 1 cm from the nipple measur es 0.5 x 0.2 x 0.5 cm with mildly irregu lar margin s. There is a hypoec hoic mass in the 10 o'cloc k positi on approx imatel y 6 cm from the nipple which demons trates smooth margin s and possib le small hypere choic hilum, measur ing 0.7 x 0.4 x 0.7 cm. IMPRES NIALL: 1. Left axilla ry mass demons trates abnorm al morpho logy for a lymph node. The measur ements on this exam are slight ly smalle r compar ed to the prior exam, Page 1 [facility] [address] [place] [address] [phone] Patien t Name: FAUSTINA REZA ion #: [id number] Sex: F : 1975 2 Dictat ed By: Amada wells Attend ing Physic anaid: MAICOL LOVE Orderi ng Physic anaid: DENILSON VALENZUELA Exam Date: 2023 11:46 AM Exam Name: US BREAST COMPLE TE LT Admitt ing Diagno sis(es ): althou gh may be partly due to differ ences in measur ement techni que. Biopsy could be consid ered to furthe r evalua te. 2. Small hypoec hoic masses in the left breast as descri bed above. The larger masses appear well-c ircums cribed , possib ly lymph nodes or fibroa denoma s. The smalle r mass demons trates mildly irregu lar margin s. Given the abnorm al findin gs in the left axilla , biopsy of this nodule could also be consid ered to exclud e malign mike. RECOMM ENDATI ONS: Indete rminat e mass in the left axilla for which biopsy is recomm ended. Additi onal nodule with irregu lar margin s in the 9 o'cloc k positi on approx imatel y 1 cm from the nipple is also recomm ended for biopsy . The patien t will be notifi ed of the mammog va result s per hospit al protoc ol. BI-RAD S CATEGO RY: 4: Suspic ious. Electr onical ly Signed by: Amada wells at 2023 15:20: 39 PM Page [address] (Imaging) [address] [place], [address], 02/02/2024 16:10:21 02/21/20 24 02/21/2024 XR, cervi veronica spine , 4 or 5 view No observ ation record ed. [address] [facility] [address], [place], [address], 05/23/2024 11:18:09 03/02/20 24 03/01/2024 MRI, breas t, bilat eral, w/wo contr ast No observ ation record ed. [address], [place], [address], 05/23/2024 11:18:09 03/30/20 24 03/30/2024 MAMMO , diagn ostic , bilat eral No observ ation record ed. [address], [place], [address], 05/23/2024 11:18:09 03/30/20 24 03/30/2024 US, axill a No observ ation record ed. [id number] [facility] [address], [place], [address], 05/23/2024 11:18:09 04/18/20 24 04/18/2024 US, axill a No observ ation record ed. [address], [place], [address], 05/23/2024 11:18:08 05/29/19 25 04/18/2024 biops y of rory bee , need e core, using imagi jody farrar (PROC ) No observ ation record ed. [address], [place], [address], 05/29/2024 10:15:09 Result Notes None recorded. Problems Name Problem SNOMED Code Status Onset Date Resolution Date Notes Provider Name and Address Organization Details Recorded Time Acne 80827725 Active 2018 Not Available [employer] 3 02:52:11 Overweigh t 598276855 Active 2019 Not Available [employer] 3 02:52:11 External hemorrhoi ds 12857556 Completed Not Available [employer] 3 02:52:11 Fluid level behind tympanic membrane Completed Not Available [employer] 3 02:52:11 Gastroeso phageal reflux disease without esophagit is 313571158 Active 2018 Not Available [employer] 3 02:52:11 Blood in urine 42431299 Completed Not Available [employer] 3 02:52:11 Vitamin D deficienc y 42280965 Active 2018 Not Available [facility] 3 02:52:11 Pain in coccyx 10179984 Completed Not Available [employer] 3 02:52:11 Depressiv e disorder 88845652 Active 2019 Not Available [facility] 3 02:52:11 Seasonal allergic rhinitis 013362576 Completed 201806/20/2019 Not Available [facility] 3 02:52:11 Sinusitis 93792771 Completed Not Available [facility] 3 02:52:11 Hypothyro idism 80918213 Active 2019 Not Available [facility] 3 02:52:11 Obesity 919369420 Completed 201804/16/2020 Not Available [facility] 3 02:52:12 Onychomyc osis 592317419 Completed Not Available [facility] 3 02:52:12 Family history of malignant melanoma 713242345 Active 2018 Not Available [facility] 3 02:52:12 Seasonal allergy 662563767 Completed Not Available [facility] 3 02:52:12 Cough 23885291 Completed Not Available [facility] 3 02:52:12 Upper respirato ry infection 27597048 Completed Not Available [facility] 3 02:52:12 Sacral back pain 52674396 Completed Not Available [facility] 3 02:52:12 Allergic rhinitis 53792610 Active Not Available [facility] 3 02:52:12 Thrombocy tosis 3074686 Active 2 Not Available [facility] 3 02:52:12 Nasal congestio n 97734969 Completed Not Available [facility] 3 02:52:12 Cholelith iasis without obstructi on 86180787 Active 2019 Not Available [facility] 3 02:52:12 Liver enzymes level above reference range 891163556 Active 2018 Not Available [facility] 3 02:52:12 Candidias is of vagina 88806889 Completed Not Available [facility] 3 02:52:12 Posterior rhinorrhe a 68647001 Completed Not Available [facility] 3 02:52:13 Fatigue 70029653 Completed Not Available [facility] 3 02:52:13 Hyperlipi demia 97356005 Active 2023 Bautista Valenzuela MD [address], [place], [address] , [employer] 4 14:05:36 Mass of axilla 410139895 Active 2023 Bautista Valenzuela MD [address], [place], [address] , [employer] 4 14:43:53 Chronic neck pain 72590034229 07 Active 2023 Bautista Valenzuela MD [address], [place], [address] , [employer] 4 14:45:26 Mass of left breast 73262619732 911006 Active 2023 Bautista Valenzuela MD [address], [place], [address] , [employer] 4 09:56:08 Anxiety disorder 409367888 Active 2024 Bautista Valenzuela MD [address], [place], [address] , [employer] 5 11:25:43 Major depressiv e disorder 239614702 Active 2024 Bautista Valenzuela MD [address], [place], [address] , [employer] 5 16:41:02 Problem Notes None recorded. Procedures Surgical History Date Name Laterality Status Provider Name and Address Organization Details Recorded Time 4 Date of Last Mammogram completed MD [address], [place], [address], [employer] 02/02/2024 16:29:10 4 Date of Last Pap Smear completed MD [address], [place], [address], [place] [facility] 02/02/2024 16:29:10 Imaging Results Imaging Date Name Status LastModified by Organiz ation Details LastModified Time 12/06/2023 US, extremity, nonvascular, complete completed [facility] (Imaging) [address] [place], [address], 02/02/2024 16:10:21 01/24/2024 MAMMO, diagnostic, tomosynthesis, bilateral completed [email or web address] [facility] (Imaging) [address] [place], [address], 02/02/2024 16:10:21 01/24/2024 US, breast, unilateral, complete completed [facility] (Imaging) [address] [place], [address], 02/02/2024 16:10:21 02/21/2024 XR, cervical spine, 4 or 5 view completed [email or web address] [place] [address] Imaging [address], [place], [address], 05/23/2024 11:18:09 03/01/2024 MRI, breast, bilateral, w/wo contrast completed [email or web address] [place] [address], [address], 05/23/2024 11:18:09 03/30/2024 MAMMO, diagnostic, bilateral completed [email or web address] [place] [address], [address], 05/23/2024 11:18:09 03/30/2024 US, axilla completed [email or web address] [address], [address], 05/23/2024 11:18:09 04/18/2024 US, axilla completed [email or web address] [place] [address] , [place], [address], 05/23/2024 11:18:08 04/18/2024 biopsy of breast; percutaneous, needle core, using imaging guidance (PROC) completed [email or web address] [facility] [address] [facility] [address], [place], [address], 05/29/2024 10:15:09 Procedure Notes None recorded. Medical Equipment None Reported. Allergies No known drug allergies Medications Name Sig Start Date Stop Date Status Note LastModified by Organization Details LastModified Time atorvastati n 10 mg tablet Take 1 tablet every day by oral route at bedtime for 90 days. active Not Available Not Available No t Available azithromyci n 250 mg tablet active Not Available Not Available Not Available benzonatate 200 mg capsule 02/02 completed Not Available Not Available Not Available Celestone Soluspan 6 mg/mL suspension for injection 02/[address] [facility]# [id number] [id number] Not Available Not Available Not Available Claritin 10 mg tablet Take 1 tablet(s) every day by oral route in the morning for 30 days. 02/02 completed Not Available Not Available Not Available phenazopyri dine 200 mg tablet Take 1 tablet every 8 hours by oral route as needed for 3 days. active Not Available Not Available No t Available ondansetron HCl 4 mg tablet Take 1 tablet every 6-8 hours by oral route as needed for 7 days. active Not Available Not Available No t Available Medrol (Nathan) 4 mg tablets in a dose pack Take as directed on pack. Direction s for Medrol Dosepak: 1st day: 2 tablets before breakfast , 1 tablet after lunch and after supper, and 2 tablets at bedtime. 2nd day: 1 tablet before breakfast . 1 tablet after lunch and after supper, and 2 tablets at bedtime. 3rd day: 1 tablet before breakfast , after lunch, after supper and at bedtime. 4th day: 1 tablet before breakfast , after lunch and at bedtime. 5th day: 1 tablet before breakfast and at bedtime. 6th day: 1 tablet before breakfast active Not Available Not Available No t Available spironolact one 100 mg tablet TAKE 1 TABLET BY MOUTH DAILY active Not Available Not Available No t Available sertraline 100 mg tablet Take 1 tablet every day by oral route as directed for 30 days. 10/01 completed Not Available Not Available Not Available phentermine 15 mg capsule TAKE 1 CAPSULE BY MOUTH EVERY DAY BEFORE BREAKFAST 12/04 completed Not Available Not Available Not Available Diflucan 150 mg tablet Take 1 tablet every day by oral route. 03/05 completed Not Available Not Available Not Available metronidazo le 500 mg tablet Take 1 tablet every 8 hours by oral route for 5 days. active Not Available Not Available No t Available phentermine 37.5 mg tablet TAKE 1 TABLET BY MOUTH EVERY OTHER DAY BEFORE BREAKFAST 04/29 completed Not Available Not Available Not Available ciprofloxac in 500 mg tablet TK 1 T PO Q 12 H FOR 5 DAYS active Not Available Not Available No t Available phentermine 30 mg capsule TAKE 1 CAPSULE BY MOUTH DAILY BEFORE BREAKFAST 12/04 completed Not Available Not Available Not Available levothyroxi ne 25 mcg tablet TAKE 1 TABLET BY MOUTH EVERY OTHER DAY IN THE MORNING 2024 active Not Available Not Available Not Avai lable ciclopirox 8 % topical solution APPLY TO THE AFFECTED AREA(S) BY TOPICAL ROUTE ONCE DAILY PREFERABL Y AT BEDTIME OR 8 HOURS BEFORE WASHING active Not Available Not Available No t Available terbinafine HCl 250 mg tablet Take 1 tablet every day by oral route for 90 days. active Not Available Not Available No t Available amoxicillin 875 mg tablet Take 1 tablet every 12 hours by oral route with meals for 10 days. 02/22 completed Not Available Not Available Not Available famotidine 20 mg tablet TAKE 1 TABLET BY MOUTH EVERY 12 HOURS FOR 30 DAYS NEEDED 10/01 completed Not Available Not Available Not Available dicyclomine 20 mg tablet TK 1 T PO Q 6 H 02/16 completed Not Available Not Available Not Available benzonatate 100 mg capsule Take 1 capsule every 4-6 hours by oral route as directed for 15 days. 02/02 completed Not Available Not Available Not Available Proctofoam HC 1 %-1 % active Not Available Not Available N ot Available buspirone 10 mg tablet Take 1 tablet twice a day by oral route as directed for 30 days. active Not Available Not Available No t Available montelukast 10 mg tablet TAKE ONE TABLET BY MOUTH IN THE EVENING 02/02 completed Not Available Not Available Not Available ceftriaxone 500 mg solution for injection 02/[address] [facility]# [id number] Not Available Not Available Not Available ergocalcife rol (vitamin D2) 1,250 mcg (50,000 unit) capsule TK 1 C PO Q WK UTD active Not Available Not Available No t Available ondansetron 4 mg disintegrat ing tablet Take 1 tablet every 6-8 hours by oral route as needed for 5 days. active Not Available Not Available No t Available fluticasone propionate 50 mcg/actuati on nasal spray,suspe nsion Inhale 2 sprays every day by nasal route for 30 days. 12/11 completed Not Available Not Available Not Available sertraline 50 mg tablet TAKE 1 TABLET BY MOUTH EVERY DAY IN THE MORNING 09/03 completed Not Available Not Available Not Available doxycycline hyclate 100 mg tablet 02/02 completed Not Available Not Available Not Available amoxicillin 875 mg-potassiu m clavulanate 125 mg tablet Take 1 tablet every 12 hours by oral route after meals for 10 days. 02/02 completed Not Available Not Available Not Available clindamycin phosphate 1 % topical solution 02/02 completed Not Available Not Available Not Available bupropion HCl XL 150 mg 24 hr tablet, extended release TAKE 1 TABLET BY MOUTH EVERY DAY DIRECTED 2024 active Not Available Not Available Not Avai lable Tri-Sprinte c (28) 0.18 mg(7)/0.215 mg(7)/0.25 mg(7)-35 mcg tablet TAKE ONE TABLET BY MOUTH ONCE DAILY DIRECTED 02/16 completed Not Available Not Available Not Available nitrofurant oin monohydrate /macrocryst als 100 mg capsule TAKE 1 CAPSULE BY MOUTH EVERY 12 HOURS FOR 7 DAYS DIRECTED 09/03 completed Not Available Not Available Not Available doxycycline monohydrate 40 mg capsule,imm ediate - delay release 02/02 completed Not Available Not Available Not Available Lo Loestrin Fe 1 mg-10 mcg (24)/10 mcg (2) tablet active Not Available Not Available Not Available Virtussin AC 10 mg-100 mg/5 mL oral liquid 02/02 completed Not Available Not Available Not Available Kerydin 5 % topical solution with applicator (APPLY TO AFFECTED TOENAIL(S ) BY TOPICAL ROUTE ONCE DAILY 02/02 completed Not Available Not Available Not Available Plenity (Welcome Kit) 0.75 gram capsule Take 3 capsules twice a day by oral route before meals for 30 days. 09/01 completed Not Available Not Available Not Available Vitals Date Recorded Body height Body mass index (BMI) Body weight Body temperature Heart rate Respiratory rate Oxygen saturation Oxygen saturation in Arterial blood by Pulse oximetry Systolic blood pressure Diastolic blood pressure Provider Name and Address Organization Details Last Updated DateTime 3 180.34 cm 27.3 kg/m2 08900.4 5 g 97.1 [degF] 64 /min 20 /min 99 % 99 % 118 mm[Hg] 76 mm[Hg] Adama Sanches [facility] [employer] [facility] 3 16:23:44 Date Recorded Body height Body mass index (BMI) Body weight Body temperature Heart rate Respiratory rate Systolic blood pressure Diastolic blood pressure Provider Name and Address Organization Details Last Updated DateTime 4 180.34 cm 28.5 kg/m2 05218.2 8 g 98.1 [degF] 60 /min 20 /min 126 mm[Hg] 70 mm[Hg] Adama Sanches [facility] [employer] [facility] 4 14:36:54 Date Recorded Body height Body mass index (BMI) Body weight Body temperature Heart rate Oxygen saturation Oxygen saturation in Arterial blood by Pulse oximetry Provider Name and Address Organization Details Last Updated DateTime 4 180.34 cm 27.5 kg/m2 74915.4 9 g 99.7 [degF] 79 /min 97 % 97 % Kary Hargrove RN [facility] [employer] [facility] 4 16:05:58 Date Recorded Systolic blood pressure Diastolic blood pressure Provider Name and Address Organization Details Last Updated DateTime 02/02/2024 134 mm[Hg] 80 mm[Hg] Bautista Valenzuela MD [address] [facility], [facility] [address], [place], [address], [facility] [employer] [facility] 02/02/2024 16:24:32 Date Recorded Body height Body mass index (BMI) Body weight Body temperature Heart rate Respiratory rate Oxygen saturation Oxygen saturation in Arterial blood by Pulse oximetry Systolic blood pressure Diastolic blood pressure Provider Name and Address Organization Details Last Updated DateTime 4 180.34 cm 27.9 kg/m2 47009.8 2 g 98.2 [degF] 78 /min 20 /min 98 % 98 % 124 mm[Hg] 76 mm[Hg] Adama Sanches [place] [facility] 4 15:44:41 Social History Question Answer Notes LastModified by Organizat ion Details LastModified Time Tobacco Smoking Status Never Smoker Not Available [employer] 07/15/2022 02:37:04 Do You Have An Advance Directive? No [id number] Information not available 07/15/2022 What Is Your Level Of Alcohol Consumption? Occasional MIGRATION.24251 94583 Information not available 07/15/2022 Do You Wear A Helmet When Biking? No MIGRATION.48714 21083 Information not available 07/15/2022 What Is Your Level Of Caffeine Consumption? Moderate MIGRATION.50912 53307 Information not available 07/15/2022 How Much Tobacco Do You Chew? None MIGRATION.55810 50214 Information not available 07/15/2022 In The 14 Days Before Symptom Onset, Have You Had Close Contact With A Laboratory-confi rmed COVID-19 While That Case Was Ill? No MIGRATION.36337 67470 Information not available 07/15/2022 In The 14 Days Before Symptom Onset, Have You Had Close Contact With A Person Who Is Under Investigation For COVID-19 While That Person Was Ill? No MIGRATION.06273 06819 Information not available 07/15/2022 What Type Of Diet Are You Following? REGULAR MIGRATION.54645 44317 Information not available 07/15/2022 Do You Or Have You Ever Used E-cigarettes Or Vape? Never Used Electronic Cigarettes MIGRATION.16679 29697 Information not available 07/15/2022 What Is The Highest Grade Or Level Of School You Have Completed Or The Highest Degree You Have Received? 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 No MIGRATION.93700 55232 Information not available 07/15/2022 What Is The Fluoride Status Of Your Home? Unknown MIGRATION.27498 64465 Information not available 07/15/2022 Are There Any Guns Present In Your Home? No MIGRATION.89508 63037 Information not available 07/15/2022 Do You Use Insect Repellent Routinely? Yes MIGRATION.90572 71017 Information not available 07/15/2022 Where Do You Live? [place]House MIGRATION.51740 01205 Information not available 07/15/2022 Do You Have A Medical Power Of Stemmer Machine? No MIGRATION.57730 72493 Information not available 07/15/2022 Do You Have Any Pets? Yes MIGRATION.12111 64945 Information not available 07/15/2022 What Is Your Relationship Status? MIGRATION.83269 38833 Information not available 07/15/2022 Do You Use Your Seat Belt Or Car Seat Routinely? Yes MIGRATION.09202 73926 Information not available 07/15/2022 Do You Have Smoke And Carbon Monoxide Detectors In Your Home? Yes MIGRATION.61152 46040 Information not available 07/15/2022 Are You Passively Exposed To Smoke? No MIGRATION.21581 16397 Information not available 07/15/2022 Do You Or Have You Ever Used Smokeless Tobacco? Never Used Smokeless Tobacco MIGRATION.32020 10541 Information not available 07/15/2022 How Much Tobacco Do You Smoke? No MIGRATION.61378 46478 Information not available 07/15/2022 Do You Participate In Social [employer]? No MIGRATION.72876 21137 Information not available 07/15/2022 Do You Feel Stressed (tense, Restless, Nervous, Or Anxious, Or Unable To Sleep At Night)? [id number] MIGRATION.62842 37488 Information not available 07/15/2022 Do You Use Any Illicit Or Recreational Drugs? No MIGRATION.23821 51280 Information not available 07/15/2022 Do You Use Sunscreen Routinely? Yes MIGRATION.12111 81409 Information not available 07/15/2022 Has Tobacco Cessation Counseling Been Provided? No MIGRATION.35610 19754 Information not available 07/15/2022 Are You Currently In School? No MIGRATION.70473 04217 Information not available 07/15/2022 Do You Or Have You Ever Used Any Other Forms Of Tobacco Or Nicotine? No MIGRATION.40857 61597 Information not available 07/15/2022 Sex: Female Functional Status Question Answer Note LastModified by Organizat ion Details LastModified Time What is your exercise level? None MIGRATION.[id number] Information not available 07/15/2022 Mental Status None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
--- OUTSIDE RECORDS SUMMARY | 2024-07-10 17:21 | XMS_ITS | Clinical Summary ---
Author Organization [facility] Address [address] [place] [address] Care Team Providers Care Chauffeur Name Role Phone None, Provider MD Primary Care Provider Unavaila ble Immunizations Name Administration Dates Next Due MODERNA COVID-19 (12+) MRNA, LNP-S, PF, 100 MCG/ 0.5 ML DOSE 09/18/2020,08/21/2020 Social History Tobacco Use Types Packs/Day Years Used Date Smoking Tobacco: Never Assessed Comments Unknown Sex and Gender Information Value Date Recorded Sex Assigned at Not on file Legal Sex Female 9:49 AM CDT Gender Identity Not on file Sexual Orientation Not on file Plan of Treatment Health Maintenance Due Date Last Done Comments Cervical Cancer Screening Pa p Smear (Age 30 to 64) Every 3 Years 1977 Colorectal Cancer Screening Colonoscopy (10 Years) 1977 Annual Physical 1980 Hepatitis C 11/08/1995 DTaP, Tdap and Td Vaccines ( 1 - Tdap) 1996 Hepatitis B Vaccines (1 of 3 - 19+ 3-dose series) 1996 Cervical Cancer Screening Pa p with HPV Testing (Age 30 to 64) Every 5 Years 11/08/2007 Cervical Cancer Screening wi th HPV 11/08/2007 Mammogram Screening 2017 COVID-19 Vaccine (2023-2 5 season) 2024 09/18/2020, 08/21/2020 Influenza Adult (#1) 2024 Meningococcal B Vaccine Aged Out No l onger eligible based on patient's age to complete this topic Meningococcal Vaccine Aged Out No deepak sobia eligible based on patient's age to complete this topic Pneumococcal Vaccine: Pediatrics (0 to 5 Years) and At-Risk Patients (6 to 64 Years) Aged Out No longer eligible b ased on patient's age to complete this topic RSV Immunizations Under 20 Months Aged Out No longer eligible b ased on patient's age to complete this topic Insurance [employer] Care Teams Chauffeur Relationship Specialty Start Date End Date None, Provider, PCP - General 08/12/20
== END 2024-07-10 14:52 | disposition home or self-care (01) ==
LOC: ANHLAB 14:52
PROVIDERS: PCP Family Medicine; Visit Provider Surgery
DX: R59.0 Localized enlarged lymph nodes (principal)
CPT/HCPCS: 36415; 80053; 85025

== ENCOUNTER 2024-07-19 00:49 | Day surgery (SDC) | payer OTHER, SELFPAY ==
[2024-07-13 09:26] VITALS: BMI 26.5
--- NOTE | 2024-07-13 09:35 | PC.NURSE ---
Report to the Outpatient Waiting Room, entrance under the green pavilion located off [facility], at time _1030_ on date _[id number]_. Planned Procedure Time: _1230_.? Time changes happen often and if your time is changed the preop area will call you the afternoon before. - You and your visitor will be asked to self-screen and do not enter if you have any COVID symptoms. Please call surgeon if you need to reschedule. - A mask is optional within the hospital at this time. Patients may have clear liquids (water, carbonated beverages, clear teas, apple juice) until 3 hours prior to surgery with a maximum of 20 ounces. - No food from midnight until time of surgery and no smoking, or chewing tobacco (or any form of nicotine). No chewing gum, candy or mints. Take only the following medications with a SIP of water on the morning of surgery: ___Bupropion, Levothyroxine and Buspirone.___ DO NOT STOP ANY OF YOUR OTHER PRESCRIPTION MEDICATIONS PRIOR TO SURGERY EXCEPT THE FOLLOWING Hold all vitamins and supplements for 3 days per anesthesiologist. Medications to discontinue per physician Date to take last covt___[phone]____ Please no make-up, nail chinese, hairspray, perfume, deodorant, or body powder the day of surgery.? No jewelry (including any body piercings) or valuables the day of surgery, leave them at home.? Please take a shower or bath the night before, or the morning of, surgery with an antibacterial soap.? Wear comfortable, loose fitting clothing.? - Jewelry must be removed prior to entering the operating room.? Rings and piercings that are not removed may be cut off. - The hospital will not accept responsibility for valuables.? - Please leave all valuables, including medications, at home the day of surgery. If you are going home after surgery, a licensed yard driver must drive you home.? - NO public transportation without another adult if you receive anesthesia. - We recommend that an adult stay with you for 24 hours following discharge. - We also recommend that you do not drive, make important decision, drink alcoholic beverages, or take any drugs that were not prescribed by your health care provider for at least 24 hours after your discharge time. Follow any additional instructions given to you from your surgeon. Telephone instructions given to __Iraise__and asked if any additional questions and then verbalized understanding. Patient advised to call surgeon office or pre surgery nurse liaison [phone] if any additional questions.
[2024-07-19] VITALS (10 sets, daily range): BP systolic 91–136; BP diastolic 56–76; PULSE 63–94; RESP 14–27; TEMP 36.3–36.8; O2SAT 97–100; BMI 26.4
--- OUTSIDE RECORDS SUMMARY | 2024-07-19 00:51 | XMS_ITS | Encounter Summary ---
Author Organization [facility] Address [address] [facility] [place] [address] Care Team Providers Care Renal Dialysis Rn Name Role Phone Unavailable Primary Care Provider Unavailabl e Encounter Details Date Type Department Care Team (Late st Contact Info) Description 04/18/2024 Lab Requisition [facility] - Pathology Lab [address] [place] [address] Alli Dean MD [address] [place] [address] Localized enlarged lymph nodes Social [...] CYTOMETRY TISSUE PANEL Routine 04/18/2024 11:31 AM [facility] [employer] Localized enlarged lymph nodes documented in this encounter Results * FLOW CYTOMETRY TISSUE PANEL (04/18/2024 11:31 AM [facility]RIBUT[facility] CENTER ASSOCIATE) Case Report Flow Cytometry Case: [id number] Authorizing Provider: Alli Dean Collected: 04/18/2024 11:31 AM MD Prabhakar Ordering Location: [facility] - Received: 04/18/2024 05:06 PM Pathology Lab Pathologist: Nikky Verma MD Specimen: Lymph Node, LEFT AXILLA BIOPSY 04/19/2024 9:43 AM [facility] Final Diagnosis Lymph node, left axilla, flow cytometric immunophenotypic analysis: - No evidence of non-Hodgkin lymphoma - See interpretation 04/19/2024 9:43 AM [facility] Flow Cytometry Interpretation Viability: 78% B-cells: polytypic, kappa:lambda ratio 1.9:1 T-cells: no immunophenotypic aberrancy detected CD4:CD8 ratio 5:1 A cytospin prepared from the flow cytometry specimen has been reviewed for quality control associate purposes. 04/19/2024 9:43 AM [facility] Flow Cytometry Results Differential Result Comment Flow Cell Count /uL 820 Total Viability % 78.0 Lymphocytes % 97 Dim CD45 Region % 2 Monocytes % 0 Granulocytes % 1 04/19/2024 9:43 AM [facility] Reason for test Localized enlarged lymph nodes 785.6 04/19/2024 9:43 AM [facility] Client Specimen ID # [id number] 04/19/2024 9:43 AM [facility] Number of markers 17 were performed. A-2 Flow CD3 A-4 Flow CD10 A-6 Flow CD20 A-7 Flow CD23 A-12 Flow CD2 A-13 Flow CD4 A-16 Flow CD1a A-3 Flow CD5 A-5 Flow CD19 A-8 Flow CD34 A-9 Flow CD45 A-14 Flow CD7 A-15 Flow CD8 A-17 Flow CD30 A-10 [place]+CD19+ A-11 Lambda+CD19+ 04/19/2024 9:43 AM [facility] Pathologist Location at [facility] 04/19/2024 9:43 AM [facility] Disclaimer Test performed at [facility], [address] [place] [address], [address]. *The established laboratory minimum viability is 70%. [...] high complexity clinical testing. 04/19/2024 9:43 AM [facility] Embedded Images 9:43 AM [facility] Pathology/Cytolo gy ENTIRE LYMPH NODE / Unknown 04/18/2024 11:31 AM [facility]IATE 04/18/2024 5:06 PM [facility] ASS[employer]IATE Alli Dean MD LAB - PATHO LOGY/CYTOLOGY ORDERABLES Performing Organization Address City/State/[facility] Phone Number [facility] [address] [phone] documented in this encounter Visit Diagnoses Diagnosis Localized enlarged lymph nodes Enlargement of lymph nodes documented in this encounter
--- OUTSIDE RECORDS SUMMARY | 2024-07-19 00:51 | XMS_ITS | Clinical Summary ---
Author Organization [facility] Address [address] [place] [address] Care Team Providers Care Route Driver Name Role Phone None, Provider MD Primary [...] patient's age to complete this topic Insurance [employer] [facility] Care Teams Route Driver Relationship Specialty Start Date End Date None, Provider, PCP - General 08/12/20
--- OUTSIDE RECORDS SUMMARY | 2024-07-19 00:51 | XMS_ITS | Clinical Summary ---
Author Organization [facility] Address [address] [place] [address] Care Team Providers Care Electrotype Finisher Name Role Phone Unavailable Primary Care Provider Unavailabl e Source Comments [facility] [employer],non-owned Affiliates and Associated Physician Practices is amultiple site organization consisting of ambulatory clinics and hospital sitesin [place], [place], [place] and [place]. This disclosure is being madepursuant to the Care Everywhere program and may not contain all information available regarding this patient. Last updated 18.[facility] [employer] Social History Tobacco Use Types Packs/Day Years [...] - 19+ 3-dose series) 1996 COVID-19 VACCINE ( - 2023-2 5 season) 2024 INFLUENZA VACCINE (#1) 2024 [...]
--- OUTSIDE RECORDS SUMMARY | 2024-07-19 00:51 | XMS_ITS | Referral Summary ---
Author Organization [facility] Address [address] [place] [address] Care Team Providers Care Electrical Technician Instructor Name Role Phone Unavailable Primary Care Provider Unavailabl e Source Comments [facility],non-owned Affiliates and Associated Physician Practices is amultiple site organization consisting of ambulatory clinics and hospital sitesin [place], [place], [place] and [place]. This disclosure is being madepursuant to the Care Everywhere program and may not contain all information available regarding this patient. Last updated 18.[facility] [employer] Social History Tobacco Use Types Packs/Day Years Used Date Smoking Tobacco: Never Assessed Sex and Gender Information Value Date Recorded Sex Assigned at Not on file Gender Identity Not on file Sexual Orientation Not on file Plan of Treatment Not on file
--- OUTSIDE RECORDS SUMMARY | 2024-07-19 00:51 | XMS_ITS | Patient Health Summary ---
Author Organization [facility] Address [address] [place] [address] Care Team Providers Care Tree Pruner Name Role Phone Unavailable Primary Care Provider Unavailabl e Note from [facility],non-owned Affiliates and Associated Physician Practices is amultiple site organization consisting of ambulatory clinics and hospital sitesin [place], [place], [place]. This disclosure is being madepursuant to the Care Everywhere program and may not contain all information available regarding this patient. Last updated 18.[facility] Social History Tobacco Use Types Packs/Day Years Used Date Smoking Tobacco: Never Assessed Sex and Gender Information Value Date Recorded Sex Assigned at Not on file Gender Identity Not on file Sexual Orientation Not on file Procedures * FLOW CYTOMETRY TISSUE PANEL(Performed 04/18/2024) Performed for Localized enlarged lymph nodes Results * FLOW CYTOMETRY TISSUE PANEL (04/18/2024 11:31 AM CLIMATE CHANGE ANALYST) Case Report Flow Cytometry Case: [id number] Authorizing Provider: Alli Dean Collected: 04/18/2024 11:31 AM MD Prabhakar Ordering Location: [facility] - Received: 04/18/2024 05:06 PM Pathology Lab Pathologist: Nikky Verma MD Specimen: Lymph Node, LEFT AXILLA BIOPSY 04/19/2024 9:43 AM CLIMATE CHANGE ANALYST [facility] Final Diagnosis Lymph node, left axilla, flow cytometric immunophenotypic analysis: - No evidence of non-Hodgkin lymphoma - See interpretation 04/19/2024 9:43 AM [facility] Flow Cytometry Interpretation Viability: 78% B-cells: polytypic, kappa:lambda ratio 1.9:1 T-cells: no immunophenotypic aberrancy detected CD4:CD8 ratio 5:1 A cytospin prepared from the flow cytometry specimen has been reviewed for food quality tester purposes. 04/19/2024 9:43 AM [facility] Flow Cytometry Results Differential Result Comment Flow Cell Count /uL 820 Total Viability % 78.0 Lymphocytes % 97 Dim CD45 Region % 2 Monocytes % 0 Granulocytes % 1 04/19/2024 9:43 AM [facility] Reason for test Localized enlarged lymph nodes 785.6 04/19/2024 9:43 AM [facility] Client Specimen ID # [id number] 04/19/2024 9:43 AM [facility] Number of markers 17 were performed. A-2 Flow CD3 A-4 Flow CD10 A-6 Flow CD20 A-7 Flow CD23 A-12 Flow CD2 A-13 Flow CD4 A-16 Flow CD1a A-3 Flow CD5 A-5 Flow CD19 A-8 Flow CD34 A-9 Flow CD45 A-14 Flow CD7 A-15 Flow CD8 A-17 Flow CD30 A-10 Ashton+CD19+ A-11 Lambda+CD19+ 04/19/2024 9:43 AM [facility] Pathologist Location at [facility] 04/19/2024 9:43 AM [facility] Disclaimer Test performed at [facility], [address] [place] [address], [id number]. *The established laboratory minimum viability is 70%. [...] high complexity clinical testing. 04/19/2024 9:43 AM [facility] Embedded Images 9:43 AM [facility] Pathology/Cytolo gy ENTIRE LYMPH NODE / Unknown 04/18/2024 11:31 AM CLIMATE CHANGE ANALYST 04/18/2024 5:06 PM CLIMATE CHANGE ANALYST Alli Dean MD LAB - PATHO LOGY/CYTOLOGY ORDERABLES [facility] [address] [place] [address], [facility] [phone]
--- OUTSIDE RECORDS SUMMARY | 2024-07-19 00:51 | XMS_ITS | Continuity of Care Document ---
Author Organization [facility] Address [address] [place] [address] Phone Care Team Providers Care Tsa Screener Name Role Phone Palm PT,MPT,ATC, Bob Unavailable [...] Activities Neuromuscular Re-Ed PT Evaluation Moderate Complexity Therapeutic Activities Neuromuscular Re-Ed Advance Directives Directive Yes / No Effective Date File Name No Information Encounters Encounter Description Practice Location Reason(s) For Visit Diagnoses Date Provider Providers Copied on Encounter [facility], [address], [place], [place], [id number], tel:[phone] [place] No Information [facility] , [place], [place]. [facility] [facility], [place], [place], [id number], tel:[phone] [place] No Information 4 [facility] , [place], [place]. Referring Provider: Lili Alcala [address], [place], [address]. tel:[phone] [facility] [facility], [place], [place], [id number], [place] tel:[phone] [place] No Information 4 [facility] Referring Provider: [address], [place], [address]. tel:[phone] [facility] [address], [place], [place], [id number], tel:[phone] [place] No Information 4 [facility]. Referring Provider: [address], [place], [address]. tel:[phone] [facility], [id number], tel:[phone] [place] No Information 4 [facility]. . Referring Provider: [address], [place], [address]. tel:[phone] [facility], [id number], tel:[phone] [place] No Information 4 [facility]. Referring Provider: [address], [place], [address]. tel:[phone] [facility] [address] [address], [place], [place], [id number], tel:[phone] [place] No Information 4 [place], . Referring Provider: [address], [place], [address]. tel:[phone] [facility], [id number], [place] tel:[phone] [place] No Information 4 [place]. Referring Provider: [address], [place], [address]. tel:[phone] [facility], [id number], tel:[phone] [place] No Information 4 N[facility] [place], [place], [place]. Referring Provider: [address], [place], [address]. tel:[phone] [facility], [id number], tel:[phone] [place] No Information 4 [place], . Referring Provider: [address], [place], [address]. tel:[phone] [facility], [id number], [place] tel:[phone] [place] No Information 4 [place]. Referring Provider: [address], [place], [address]. tel:[phone] Family History Family Member Type Diagnosis Age At Onset No Information Payers Payer name Insurance type Covered democrat ID Authoriza tishannon(s) [employer] CI [id number] Social History Type Description Quantity Date Captured [...]
[2024-07-19 12:45] LABS: BEDSIDEPREGUCG Negative (Negative)
[2024-07-19] MEDS: LACTATED RINGERS 1,000 ML 30 ML IV CONT (12:45)
[2024-07-19] MEDS: ACETAMINOPHEN 500 MG TABLET 1000 MG PO (12:45)
--- NOTE | 2024-07-19 12:46 | WPDANESEPPF ---
Anes - Initial Pre Proc Eval Procedure: Operation Date: 07/19/24 13:30 Proposed Procedures p Excisional Biopsy Left Axillary Lymph Node - Zora Velez MD Date/Time: 07/19/24 12:46 Surgeon: Zora Velez MD Pre Op Diagnosis: unspecified lump left breast Patient Data Age: 48 Gender: F Height: 1.8 m Weight: 85.9 kg Last Vital Signs Temp 36.8 C 07/19/24 12:38 Pulse 94 07/19/24 12:38 BP 136/76 07/19/24 12:38 Pulse Ox 98 07/19/24 12:38 O2 Del Method Room Air 07/19/24 12:38 Allergies Allergy/AdvReac Type Severity Reaction Status Date / Time No Known Allergies Allergy Unknown Verified 07/19/24 11:58 Home Medications ?Medication ?Instructions ?Recorded ?Confirmed ?Type levothyroxine 75 mcg capsule 75 mcg PO DAILY 02/07/24 07/13/24 History spironolactone 25 mg tablet 25 mg PO .every other day 02/07/24 07/13/24 History buspirone 10 mg tablet 10 mg PO BID 06/08/24 07/13/24 History atorvastatin 10 mg tablet 10 mg PO HS 07/13/24 07/13/24 History bupropion HCl 150 mg 24 hr tablet, 150 mg PO BID 07/13/24 07/19/24 History extended release cholecalciferol (vitamin D3) 125 5,000 unit PO DAILY 07/13/24 07/13/24 History mcg (5,000 unit) tablet (Vitamin D3) multivitamin (Daily Multi-Vitamin 1 tablet PO DAILY 07/13/24 07/13/24 History tablet) Laboratory Tests 07/19/24 12:38 POC Urine HCG, Qual Negative (Negative) Patient hx anesthesia problems: none Family hx anesthesia problems: none Results Review: All pre-operative results and documents have been reviewed as part of the pre-operative evaluation. [facility] Past Medical History Medical History (Updated 07/19/24 @ 12:46 by Joo Prather MD) Depression Hyperlipidemia Hypothyroidism Social History Social History Smoking status: Never smoker Alcohol intake: current Substance use: never Substance use type: does not use Do You Feel Safe in your Home?: Yes Lack of Transportation: No Lack of Food: Never True Current Housing: I Have Housing Concerned About Future Housing: No Difficulty Paying Gas/Electric Bills: No Difficulty Paying for Meds: No Currently Unemployed: No Education: Master's Degree or Higher Difficulty w/ Childcare or Family Care: Decline to Answer Living arrangements: with family Spiritual care concerns: No Anes - Eval Final PreProcedure Day of Procedure 07/19/24 12:46 Patient weight: overweight Heart: regular rate and rhythm Lungs: clear to auscultation Airway: Mallampati scale class II Neurological: alert and oriented Last oral intake: >/= 8 hours ASA classification: II Emergent: no Anesthetic plan: proceed Anesthesia type and monitoring: general LMA and standard monitoring Results Review: All pre-operative results and documents have been reviewed as part of the pre-operative evaluation. Informed Consent: The patient's anesthetic plan and its attendant risks and benefits were discussed with the patient/family/POA. Questions were solicited and answers provided to the satisfaction of the patient/family/POA.
--- NOTE | 2024-07-19 13:22 | WPDHPUPDATE1 ---
History and Physical Update Update Date/Time: 07/19/24 13:22 - Excisional biopsy of left axillary lymph node. History and Physical has been reviewed, including an updated exam of the patient. There are NO changes in the patient's condition. Risks, benefits, and alternatives have been discussed and questions answered. Patient agrees to proceed with procedure.
[2024-07-19] MEDS: ceFAZolin 2 GM/D5W 50 ML 2 GM/50 ML BAG IVPB (13:29)
[2024-07-19] MEDS: BUPIVACAINE/EPINEPHRINE 0.5% 10 ML VIAL 30 ML INFILTRATE (13:44)
--- NOTE | 2024-07-19 14:11 | SUR.OPER ---
specimen given to MARTHA Veliz. Specimen sent to lab fresh and given to Funmi at 1410
--- NOTE | 2024-07-19 14:17 | P.OP_ITS ---
Procedure Note - Detailed Date of Procedure 07/19/24 Pre-op Diagnosis Axillary lymphadenopathy Post-op Diagnosis Same Procedure Performed Excisional biopsy of left axillary lymph node Surgeon Zora Vleez MD Fast Food Supervisor Verena Jon PA-C Anesthesia General Description of Procedure Patient was identified in the preoperative holding area brought to the operating room suite. She was laid supine in the operating table sequential compression devices were applied. Anesthesia was induced without difficulty. The left axillary area was prepped and draped in a sterile fashion. A small incision was made overlying the palpable left axillary lymph node and dissection was carried down through the subcutaneous tissue. This node was intramuscular and the fascia was gently opened. The lymph node was carefully dissected from the surrounding muscle fibers. Once the lymph node was completely dissected free from the surrounding tissue it was sent to pathology as a fresh specimen. The wound was irrigated with saline and hemostasis was assured. The fascia was closed with interrupted 3-0 Vicryl, followed by interrupted 3-0 Vicryl for the deep dermal layer and 4-0 Monocryl in a subcuticular fashion for the skin. Dermabond was applied followed by a sterile dressing. Patient was awoken from anesthesia and taken to the recovery area in stable condition. All needles, instruments, sponge counts were correct as reported by the operating room staff. Patient tolerated the procedure well with no immediate complications. Estimated Blood Loss 5 Pathology Yes Complications No immediate complications Condition Stable Disposition PACU [facility] Billing Surgery - Charge Forward: Surgery Billing (CPT 31931)
== END 2024-07-19 16:22 | disposition home or self-care (01) ==
PROVIDERS: PCP Family Medicine; Visit Provider Surgery
PROC: (CPT 38525; principal; 2024-07-19 13:30)
DX: N63.22 Unspecified lump in the left breast, upper inner quadrant (principal); E78.5 Hyperlipidemia, unspecified; E03.9 Hypothyroidism, unspecified; F32.A Depression, unspecified
CPT/HCPCS: 38525; 88184; 88305; A9270; J0690; J1100; J1200; J2003; J2250; J2405; J2704; J3010; J7120

== ENCOUNTER 2024-08-04 13:38 | Outpatient (CLI) | payer OTHER, SELFPAY ==
[2024-08-04 13:55] LABS: Basophils Percent Auto 0.2 % (0.2-1.2); Eosinophils Absolute Auto 1.1 K/mm3 (0-0.3); Eosinophils Percent Auto 12.8 % (0-4.4); Hematocrit 41.8 % (37.0-47.0); Hemoglobin 14.1 g/dL (12.0-15.0); Immature Granulocyte Absolute 0.03 K/mm3 (0.00-0.031); Immature Granulocyte Percent A 0.4 % (0-0.5); Lymphocytes Absolute Auto 1.98 K/mm3 (0.9-3.2); Lymphocytes Percent Auto 23.8 % (18.3-44.2); Mean Corpuscular HGB Conc 33.7 g/dl (32-36); Mean Corpuscular Hemoglobin 30.5 pg (26-34); Mean Corpuscular Volume 90.3 fl (80-100); Mean Platelet Volume 7.9 fl (7.4-10.4); Monocytes Absolute Auto 0.2 K/mm3 (0.1-0.6); Monocytes Percent Auto 2.2 % (2.6-8.5); Neutrophils Absolute Auto 5.1 K/mm3 (1.3-6.7); Neutrophils Percent Auto 60.6 % (45.5-73.1); Platelet Count Result 527 k/mm3 (150-375); Red Blood Count 4.63 M/mm3 (4.2-5.4); Red Cell Distribution Width 12.4 % (11.5-14.5); White Blood Count 8.3 K/mm3 (4.5-10.0)
--- OUTSIDE RECORDS SUMMARY | 2024-08-04 13:59 | XMS_ITS | Encounter Summary ---
Author Organization [facility] Address [address] [place] [address] Care Team Providers Care Dog Barber Name Role Phone Unavailable Primary Care Provider Unavailabl e Encounter Details Date Type Department Care Team (Late st Contact Info) Description 07/20/2024 Lab Requisition [facility] - Pathology Lab [address] [place] [address] Alli Dean MD [address] [place] [address] Illness, unspecified Social History Tobacco Use Types Packs/Day Years Used Date Smoking Tobacco: Never Assessed Sex and Gender Information Value Date Recorded Sex Assigned at Not on file Gender Identity Not on file Sexual Orientation Not on file documented as of this encounter Plan of Treatment Not on file documented as of this encounter Procedures Procedure Name Priority Date/Time Associated Diagnosis Comments PATHOLOGY TISSUE Routine 07/19/2024 2:10 PM ASSEMBLY LINE WORKER Illness, unspecified documented in this encounter Results * PATHOLOGY TISSUE (07/19/2024 2:10 PM ASSEMBLY LINE WORKER) Case Report Surgical Pathology Report Case: [id number] Authorizing Provider: Alli Dean Collected: 07/19/2024 02:10 PM MD Prabhakar Ordering Location: [facility] - Received: 07/20/2024 01:00 PM Pathology Lab Pathologist: Serjio Donaldson MD Specimen: Lymph Node 07/21/2024 2:48 PM ASSEMBLY LINE WORKER [facility] Final Diagnosis Lymph node, left axilla, excisional biopsy: - 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 The morphology and immunophenotype are most consistent with marginal zone B-cell lymphoma. Review of the histologic sections shows complete effacement of normal giovanny architecture by a diffuse lymphoid infiltrate of mostly small lymphoid cells, many with a monocytosis and plasmacytoid appearance. Immunohistochemistry and in situ hybridization are performed to further define this abnormal lymphoid infiltrate: Although there is an even mixture of CD3+/CD5+ T-lymphocytes and CD20+/PAX-5+/CD79a+ B-lymphoid cells, the monocytoid and plasmacytoid appearing B-cells reveal clear lambda light chain restriction by kappa and lambda mRNA in situ hybridization (kappa:lambda 1:>10). These B-cells co-express BCL-2, MUM-1 and CD30 (subset), with no expression of BCL-6, CD10, or cyclin D1. The proliferation index by Ki-67 is ~30-40%. CD138 highlights intermingled plasma cells and the background CD3+ T-cells show a normal ratio of CD4 and CD8 (~3-4). 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 07/21/2024 2:48 PM [facility] Clinical History Lymphadenopathy. 07/21/2024 2:48 PM [facility] Materials Received Received are 3 slide(s) and Block A1 labeled [id number] along with a copy of the outside pathology report. [place] [address]. All original materials are returned to the referring institution, along with a copy of our final report. 07/21/2024 2:48 PM [facility] Addendum 1 Additional immunohistochemistry for CD23, shows some staining of the B-lymphoma cells for this marker. Original diagnosis remains unchanged. 07/21/2024 2:48 PM [facility] Addendum electronically signed by Serjio Donaldson MD on 07/21/2024 at 2:48 PM Pathologist Location at [facility] 07/21/2024 2:48 PM [facility] Disclaimer The performance characteristics of all immunohistochemical and indirect immunofluorescence stains (if any) cited in this report were determined by the Histopathology Laboratory of [facility]. Some of these tests were developed by our own laboratory and have not been cleared or approved by the US Food and Drug Administration. The FDA does not require this test to go through premarket FDA review. These tests are used for clinical purposes. They should not be regarded as investigational or for research. This laboratory is certified under the Clinical Laboratory Improvement Amendments (CLIA) as qualified to perform high complexity clinical laboratory testing. This case has been personally reviewed and interpreted by the attending (teaching) pathologist. 07/21/2024 2:48 PM ASSEMBLY LINE WORKER [facility] Embedded Images 07/21/2024 2:48 PM ASSEMBLY LINE WORKER [facility] Pathology/Cytolo gy ENTIRE LYMPH NODE / Unknown 07/19/2024 2:10 PM ASSEMBLY LINE WORKER 07/20/2024 1:00 PM ASSEMBLY LINE WORKER Alli Dean MD LAB - PATHO LOGY/CYTOLOGY ORDERABLES Performing Organization Address City/State/[facility] Co de Phone Number [facility] [address] [place] [address], [facility] [phone] documented in this encounter Visit Diagnoses Diagnosis Illness, unspecified documented in this encounter
--- OUTSIDE RECORDS SUMMARY | 2024-08-04 13:59 | XMS_ITS | Clinical Summary ---
Author Organization [facility] Address [address] [place] [address] Care Team Providers Care Raise Drill Operator Name Role Phone Unavailable Primary Care Provider Unavailabl e Source Comments [facility],non-owned Affiliates and Associated Physician Practices is amultiple site organization consisting of ambulatory clinics and hospital sitesin [place], [place], [place] and [place]. This disclosure is being madepursuant to the Care Everywhere program and may not contain all information available regarding this patient. Last updated 18.[facility] Encounters Date Type Department Care Team Description 07/20/2024 Lab Requisition [facility] - Pathology Lab [address] [place] [address] Alli Dean MD Illness, unspecified 07/20/2024 Lab Requisition [facility] - Pathology Lab [address] [place] [address] Alli Dean MD Localized enlarged lymph nodes [...] TESTING 1977 MAMMOGRAM 1977 PAP SMEAR 1977 COVID-19 VACCINE (#1) 1982 HIV SCREENING 1992 HEPATITIS C SCREENING 11/03/1995 DTAP/TDAP/TD VACCINES (1 - Tdap) 1996 HEPATITIS B VACCINE (1 of 3 - 19+ 3-dose series) 1996 PNEUMOCOCCAL VACCINE (1 of 2 - PCV) 1996 ZOSTER VACCINE (1 of 2) 1996 INFLUENZA VACCINE (#1) 2024 DEPRESSION SCREENING 05/17/2024 HIB VACCINE Aged Out No longer eligi ble based on patient's age to complete this topic HPV VACCINE Aged Out No longer eligi ble based on patient's age to complete this topic MENINGOCOCCAL (Group B) VACC INE SHARED DECISION-MAKING Aged Out No longer eligibl e based on patient's age to complete this topic MENINGOCOCCAL GROUPS A/C/Y/W VACCINE Aged Out No longer eligible b ased on patient's age to complete this topic Procedures Procedure Name Priority Date/Time Associated Diagnosis Comments PATHOLOGY TISSUE Routine 07/19/2024 2:10 PM PROPERTY CLAIMS MANAGER Illness, unspecified FLOW CYTOMETRY TISSUE PANEL Routine 07/19/2024 1:45 PM PROPERTY CLAIMS MANAGER Localized enlarged lymph nodes from Last 3 Months Results * PATHOLOGY TISSUE (07/19/2024 2:10 PM PROPERTY CLAIMS MANAGER) Case Report Surgical Pathology Report Case: [id number] Authorizing Provider: Alli Dean Collected: 07/19/2024 02:10 PM MD Prabhakar Ordering Location: [facility] - Received: 07/20/2024 01:00 PM Pathology Lab Pathologist: Serjio Donaldson MD Specimen: Lymph Node 07/21/2024 2:48 PM PROPERTY CLAIMS MANAGER [facility] Final Diagnosis Lymph node, left axilla, excisional biopsy: - 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 07/21/2024 2:48 PM [facility] Clinical History Lymphadenopathy. 07/21/2024 2:48 PM [facility] Materials Received Received are 3 slide(s) and Block A1 labeled [id number] along with a copy of the outside pathology report. [place] [address]. All original materials are returned to the referring institution, along with a copy of our final report. 07/21/2024 2:48 PM [facility] Addendum 1 Additional immunohistochemistry for CD23, shows some staining of the B-lymphoma cells for this marker. Original diagnosis remains unchanged. 07/21/2024 2:48 PM [facility] Addendum electronically signed by Serjio Donaldson MD on 07/21/2024 at 2:48 PM Pathologist Location at [facility] 07/21/2024 2:48 PM [facility] Disclaimer The performance characteristics of all immunohistochemical and indirect immunofluorescence stains (if any) cited in this report were determined by the Histopathology Laboratory of [facility]. Some of these tests were developed [...] the attending (teaching) pathologist. 07/21/2024 2:48 PM PROPERTY CLAIMS MANAGER [facility] Embedded Images 07/21/2024 2:48 PM PROPERTY CLAIMS MANAGER [facility] Pathology/Cytolo gy ENTIRE LYMPH NODE / Unknown 07/19/2024 2:10 PM PROPERTY CLAIMS MANAGER 07/20/2024 1:00 PM PROPERTY CLAIMS MANAGER Alli Dean MD LAB - PATHO LOGY/CYTOLOGY ORDERABLES [facility] [address] [phone] * FLOW CYTOMETRY TISSUE PANEL (07/19/2024 1:45 PM PROPERTY CLAIMS MANAGER) Case Report Flow Cytometry Case: [id number] Authorizing Provider: Alli Dean Collected: 07/19/2024 01:45 PM MD Prabhakar Ordering Location: [facility] - Received: 07/20/2024 12:53 PM Pathology Lab Pathologist: Serjio Donaldson MD Specimen: Lymph Node, UPPER INNER QUADRANT OF LEFT BREAST 07/20/2024 3:14 PM [facility] Final Diagnosis Lymph node, upper inner quadrant of left breast, flow cytometry: - Low-viability specimen with no clonal B-cell or aberrant T-cell population detected 07/20/2024 3:14 PM [facility] Flow Cytometry Interpretation Viability: 68% B-cells: polytypic, kappa:lambda ratio 2:1 T-cells: no immunophenotypic aberrancy detected CD4:CD8 ratio 2.7:1 A cytospin prepared from the flow cytometry specimen has been reviewed for quality assurance test program manager purposes. 07/20/2024 3:14 PM [facility] Flow Cytometry Results Differential Result Comment Flow Cell Count /uL 12,780 Total Viability % 68.0 Lymphocytes % 98 Dim CD45 Region % 0 Monocytes % 1 Granulocytes % 0 07/20/2024 3:14 PM [facility] Reason for test Localized enlarged lymph nodes 785.6 07/20/2024 3:14 PM [facility] Client Specimen ID # [id number] 07/20/2024 3:14 PM [facility] Number of markers 16 were performed. A-2 Flow CD3 A-4 Flow CD10 A-6 Flow CD20 A-7 Flow CD23 A-12 Flow CD2 A-13 Flow CD4 A-16 Flow CD1a A-3 Flow CD5 A-5 Flow CD19 A-8 Flow CD34 A-9 Flow CD45 A-14 Flow CD7 A-15 Flow CD8 A-17 Flow CD30 A-10 [place]+CD19+ A-11 Lambda+CD19+ 07/20/2024 3:14 PM [facility] Pathologist Location at [facility] 07/20/2024 3:14 PM [facility] Disclaimer Test performed at [facility], [address] [place] [address], [facility]. *The established laboratory minimum viability is 70%. [...] qualified to perform high complexity clinical testing. 07/20/2024 3:14 PM [facility] Embedded Images 3:14 PM [facility] Pathology/Cytolo gy ENTIRE LYMPH NODE / Unknown 07/19/2024 1:45 PM PROPERTY CLAIMS MANAGER 07/20/2024 12:53 PM PROPERTY CLAIMS MANAGER Alli Dean MD LAB - PATHO LOGY/CYTOLOGY ORDERABLES [facility] [address] [place] [address]. [place] [address], [facility] [phone] from Last 3 Months
--- OUTSIDE RECORDS SUMMARY | 2024-08-04 13:59 | XMS_ITS | Encounter Summary ---
Author Organization [facility] [employer] [facility] Address [address] [place] [address] Care Team Providers Care Rfid Technician Name Role Phone Bautista Valenzuela MD Primary Care Provider [phone] Reason for Referral * PET Scan (Routine) - Open Specialty Diagnoses / Procedures Referred By Contac t Referred To Contact Diagnoses Marginal zone lymphoma (CMS/HCC) Procedures PET TUMOR OR INFECTION IMG W CT SKB MDJez Blanco MD [address] [place] [address] Phone: tel: fax: [place] [phone] Referral ID Status Reason Start Date Expiration Date V isits Requested Visits Authorized [id number] Open [facility] CTS 08/04/2024 09/04/2025 1 1 Reason for Visit * Reason Comments Cancer Establish Care Encounter Details Date Type Department Care Team (Late st Contact Info) Description 08/04/2024 1:00 PM CDT Office Visit [facility] and Hematology [place] [address] [facility] [address] [place] [address] Jez Reza MD [address] [place] [phone] Marginal zone lymphoma (CMS/HCC) (Primary Dx) Social History Tobacco Use Types Packs/Day Years Used Date Smoking Tobacco: Never Smokeless Tobacco: Never Alcohol Use Standard Drinks/Week Comments Yes 0 (1 standard drink = 0.6 oz pur e alcohol) Occasionally Comments Unknown Sex and Gender Information Value Date Recorded Sex Assigned at Female 08/02/2024 10:46 AM CDT Legal Sex Female 9:16 AM CDT Gender Identity Female 08/02/2024 10:46 AM CDT Sexual Orientation Straight 08/02/2024 10 :46 AM CDT documented as of this encounter Last Filed Vital Signs Vital Sign Reading Time Taken Comments Blood Pressure 114/74 08/04/2024 1:07 PM CDT Pulse 102 08/04/2024 1:07 PM CDT Temperature 36.3 C (97.3 F) 08/04/2024 1:07 PM CDT Respiratory Rate 16 08/04/2024 1:07 PM CDT Oxygen Saturation 96% 08/04/2024 1:07 PM CDT Inhaled Oxygen Concentration - - Weight 84.2 kg (185 lb 9.6 oz) 08/04/2024 1:07 P M CDT Height 180.3 cm (5' 11 ) 08/04/2024 1:07 PM CDT Body Mass Index 25.89 08/04/2024 1:07 PM CDT documented in this encounter Progress Notes * Jez Reza MD - 08/04/2024 1:03 PM CDT Hematology-oncology consult Note Requesting Physician Bautista Valenzuela MD Primary Care Physician Bautista Valenzuela MD Problem list There is no problem list on file for this patient. Previous TREATMENT ? Measurable Disease ? Reason for Visit Faustina De Leon is a 48 y.o. female who was referred for consultation for marginal zone lymphoma. History of present illness This is a pleasant 48-year-old female with history of hypothyroidism, hyperlipidemia and anxiety developed left axillary lymphadenopathy about a year ago. Patient had bilateral breast MRI done in February 2024 that showed bilateral areas of non-mass like enhancement involving the upper outer quadrant of the right breast and the left breast in the lower outer quadrant up to 11 mm with bilateral axillary lymphadenopathy. Bilateral diagnostic mammogram done in March 2024 that showed unilateral left axillary lymphadenopathy seen on the mammographic images with no other abnormality seen. Patient had ultrasound- guided biopsy of the left axillary lymph node which measures 2.6 x 2.9 x 1cm done on April 18, 2024. Pathology showed negative for metastatic carcinoma. Patient had excisional biopsy of the left axilla lymph node done on July 19, 2024 and pathology came back positive formarginal zone lymphoma. She has lost almost 40 pound weight in last 6 to 12 months duration. She feels cold all the time. Denies any night sweats fevers and chills. Denies any abdominal pain. Denies any bone pain and neuropathy. No other new complaints. Past Medical History Past Medical History: Diagnosis Date Depression Malignant neoplasm (CMS/HCC) Surgical History Past Surgical History: Procedure Laterality Date BIOPSY 2024 HX SECTION 2009 Medications Current Outpatient Medications Medication Sig Dispense Refill busPIRone (BUSPAR) 10 mg tablet Take 10 mg by mouth 3 times daily. buPROPion HCL (WELLBUTRIN XL) 150 mg Extended Release 24 hour tablet Take 150 mg by mouth daily in the morning. spironolactone (ALDACTONE) 100 mg tablet Take 100 mg by mouth daily. levothyroxine 25 mcg tablet Take 25 mcg by mouth daily. atorvastatin calcium (ATORVASTATIN ORAL) Take 10 mg by mouth daily. No current facility-administered medications for this visit. Allergies No Known Allergies Immunizations: Immunization History Administered Date(s) Administered (SPIKEVAX) (12 YRS UP PRIMARY SERIES) COVID-19 VACCINE - MRNA-1273(PF) 100 MCG/0.5 ML IM SUSP 08/21/2020, 09/18/2020 Family History Family History Problem Relation Name Age of Onset Heart Disease Father Melanoma Mother No Known Problems Brother No Known Problems Child Social History Social History Tobacco Use Smoking status: Never Smokeless tobacco: Never Substance Use Topics Alcohol use: Yes Comment: Occasionally Review of Systems Constitutional: Patient did not mention fever; no night sweats; no anorexia; feel cold all the timeand almost 40 pound weight loss in 6 to 12 months NEENT: Patient did not mention headache; no change in vision; no change in hearing; no sore throat;no dysphagia Respiratory: Patient did not mention shortness of breath; no pleuritic chest pain; no cough; no hemoptysis Cardiac: Patient did not mention cardiac-like chest pain; no palpitations; no orthopnea; no PND; noDOE Breasts: Patient did not mention tenderness; no masses GI: Patient did not mention abdominal pain; no nausea; no vomiting; no diarrhea; no hematochezia; no melena : Patient did not mention dysuria; no frequency; no hesitancy; no hematuria ONLINE MEDIA DIRECTOR: Musculosketetal: Patient did not mention bone pain; no arthralgia; no joint swelling; no myalgia; Skin: Patient did not mention pruritis; no rash; no petechiae; no ecchymoses Endocrine: Patient did not mention polydipsia; no polyuria; no unusual weight gain Neuro: Patient did not mention headache; no change in vision; no sensory changes; no muscle weakness; no confusion; no seizures Psych: Patient did not mention anxiety; no depression; Physical Exam Vitals: As per nursing note Constitutional: Well developed, well nourished, no acute distress, non-toxic appearance Teeth and gum. No signs of infection or swelling. Eyes: PERRL, conjunctiva normal HEENT: Atraumatic, external ears normal, nose normal, oropharynx moist, no pharyngeal exudates. no sinus tenderness Neck- normal range of motion, no tenderness, supple Respiratory: No respiratory distress, normal breath sounds, no rales, no wheezing Breasts: Symmetric, No masses, No nipple discharge. Cardiovascular: Normal rate, normal rhythm, no murmurs, no gallops, no rubs GI: Soft, nondistended, normal bowel sounds, nontender, no splenomegaly, no hepatomegaly, no mass, no rebound, no guarding : No costovertebral angle tenderness Musculoskeletal: No edema, no tenderness, no deformities. Back- no tenderness Integument: Well hydrated, no rash, Digits and nails inspection normal Lymphatic: Bilateral neck and axillary lymphadenopathy noted Neurologic: Alert & oriented x 3, CN 2-12 normal, normal motor function, normal sensory function, no focal deficits noted Psychiatric: Speech and behavior appropriate ? labs No results found for this or any previous visit (from the past 24 hours). Pathology ? Imaging & Other Studies Performance Status? Performance status 0 Assessment / Plan: ? 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 Patient is a pleasant 48-year-old female who has been in good health except history of hyperlipidemia and hypothyroidism developed left axillary lymph node about a year ago. She has lost 30 to40 pound weight in that timeframe. Her diagnostic mammogram and ultrasound showed no evidence of masses. She initially had left axillary lymph node FNA done on April 18, 2024 showed no evidence of carcinoma. Subsequently she had left axillary excisional biopsy done on July 19 that confirmed the diagnosis of lymphoma. I have discussed the diagnosis and management of lymphoma in detail. I have discussed the staging and treatment also in detail. At this time I will order the PET scan. I will also order [employer] heme panel and XR testing for cytogenetic and molecular profiling. I will check CBC, CMP and LDH. Based on the final stage we will discuss the treatment that might include radiation therapy, systemic chemotherapy and observation. I have answered all the questions to patient and the satisfaction. Follow-up in 2 weeks. Hypothyroidism. Patient is on levothyroxine. Hyperlipidemia. She is on Lipitor. Anxiety/depression. She is on BuSpar. Thank you very much for allowing me to participate in Faustina De Leon's evaluation and management. Please feel free to contact if I can be of any further assistance in your patient???s care requiring hematology or oncology evaluation. Sincerely, ? ? Jez Reza M.D. cell TOBACCO COUNSELING She is not a tobacco/nicotine user. Jez Reza MD ,08/04/2024 1:33 PM ? Total time spent 60 minutes, two third of the total time spent counseling patient [id number]. CC:?Bautista Valenzuela MD documented in this encounter Plan of Treatment Upcoming Encounters Date Type Department Care Team (Late st Contact Info) Description 08/24/2024 1:00 PM CDT Office Visit [facility] Oncology and Hematology - [address] [employer] [address] [place] [address] Jez Reza MD [address] [place] [address] Scheduled Orders Name Type Priority Associated Diagnoses Orde r Schedule PET TUMOR OR INFECTION IMG W CT SKB MDTH Imaging Routine Marginal zone lymphoma (CMS/HCC) Expected: 08/05/2024, Expires: 08/04/2025 CBC WITH DIFFERENTIAL Lab Stat Marginal zone lymphoma (CMS/HCC) Expected: 08/04/2024, Expires: 08/04/2025 COMPREHENSIVE METABOLIC PANEL Lab Stat Marginal zone lymphoma (CMS/HCC) Expected: 08/04/2024, Expires: 08/04/2025 LACTATE DEHYDROGENASE Lab Routine Marginal zone lymphoma (CMS/HCC) Expected: 08/04/2024, Expires: 08/04/2025 MISCELLANEOUS LAB TEST Lab Routine Marginal zone lymphoma (CMS/HCC) Expected: 08/04/2024, Expires: 08/04/2025 documented as of this encounter Visit Diagnoses Diagnosis Marginal zone lymphoma (CMS/HCC)- Primary Marginal zone lymphoma, unspecified site, extranodal and solid organ sites documented in this encounter Care Teams Rfid Technician Relationship Specialty Start Date End Date Bautista Valenzuela MD [address] [place] [address] PCP - General Family Practice 08/04/24 documented as of this encounter
--- OUTSIDE RECORDS SUMMARY | 2024-08-04 13:59 | XMS_ITS | Encounter Summary ---
Author Organization [facility] Address [address] [place] [address] Care Team Providers Care Scraper Operator Name Role Phone Unavailable Primary Care Provider Unavailabl e Encounter Details Date Type Department Care Team (Late st Contact Info) Description 04/18/2024 Lab Requisition [facility] - Pathology Lab [address] [place] [address] Alli Dean MD [address] [place] [address] Localized enlarged lymph nodes Social [...] CYTOMETRY TISSUE PANEL Routine 04/18/2024 11:31 AM RESPITE PROVIDER Localized enlarged lymph nodes documented in this encounter Results * FLOW CYTOMETRY TISSUE PANEL (04/18/2024 11:31 AM RESPITE PROVIDER) Case Report Flow Cytometry Case: [id number] Authorizing Provider: Alli Dean Collected: 04/18/2024 11:31 AM MD Prabhakar Ordering Location: [facility] - Received: 04/18/2024 05:06 PM Pathology Lab Pathologist: Nikky Verma MD Specimen: Lymph Node, LEFT AXILLA BIOPSY 04/19/2024 9:43 AM [facility] Final Diagnosis Lymph node, left axilla, flow cytometric immunophenotypic analysis: - No evidence of non-Hodgkin lymphoma - See interpretation 04/19/2024 9:43 AM [facility] Flow Cytometry Interpretation Viability: 78% B-cells: polytypic, kappa:lambda ratio 1.9:1 T-cells: no immunophenotypic aberrancy detected CD4:CD8 ratio 5:1 A cytospin prepared from the flow cytometry specimen has been reviewed for lead quality control technician purposes. 04/19/2024 9:43 AM [facility] Flow Cytometry Results Differential Result Comment Flow Cell Count /uL 820 Total Viability % 78.0 Lymphocytes % 97 Dim CD45 Region % 2 Monocytes % 0 Granulocytes % 1 04/19/2024 9:43 AM [facility] Reason for test Localized enlarged lymph nodes 785.6 04/19/2024 9:43 AM [facility] Client Specimen ID # [id number] 04/19/2024 9:43 AM [facility] Number of markers 17 were performed. A-2 Flow CD3 A-4 Flow CD10 A-6 Flow CD20 A-7 Flow CD23 A-12 Flow CD2 A-13 Flow CD4 A-16 Flow CD1a A-3 Flow CD5 A-5 Flow CD19 A-8 Flow CD34 A-9 Flow CD45 A-14 Flow CD7 A-15 Flow CD8 A-17 Flow CD30 A-10 [place]+CD19+ A-11 Lambda+CD19+ 04/19/2024 9:43 AM [facility] Pathologist Location at [facility] 04/19/2024 9:43 AM [facility] Disclaimer Test performed at [facility], [address] [place] [address], [address]. *The established laboratory minimum viability is 70%. [...] high complexity clinical testing. 04/19/2024 9:43 AM [facility] Embedded Images 9:43 AM [facility] Pathology/Cytolo gy ENTIRE LYMPH NODE / Unknown 04/18/2024 11:31 AM RESPITE PROVIDER 04/18/2024 5:06 PM RESPITE PROVIDER Alli Dean MD LAB - PATHO LOGY/CYTOLOGY ORDERABLES Performing Organization Address City/State/[facility] Phone Number [facility] [address] [phone] documented in this encounter Visit Diagnoses Diagnosis Localized enlarged lymph nodes Enlargement of lymph nodes documented in this encounter
--- OUTSIDE RECORDS SUMMARY | 2024-08-04 13:59 | XMS_ITS | Clinical Summary ---
Author Organization [facility] Address [address] [place] [id number] Care Team Providers Care Historical Records Administrator Name Role Phone None, Provider MD Primary [...] patient's age to complete this topic Insurance [employer] [facility] Care Teams Historical Records Administrator Relationship Specialty Start Date End Date None, Provider, PCP - General 08/12/20
--- OUTSIDE RECORDS SUMMARY | 2024-08-04 13:59 | XMS_ITS | Clinical Summary ---
Author Organization [facility] Braydon santamaria Ocsar Address [address] [place] [address] Care Team Providers Care Car Lubricator Name Role Phone Bautista Valenzuela MD Primary Care Provider [phone] Allergies No known active allergies Medications busPIRone (BUSPAR) 10 mg tablet Take 10 mg by mouth 3 times daily. 07/30/2024 Active buPROPion HCL (WELLBUTRIN XL) 150 mg Extended Release 24 hour tablet Take 150 mg by mouth daily in the morning. 07/24/2024 Active spironolactone (ALDACTONE) 100 mg tablet Take 100 mg by mouth daily. 08/01/2024 Active levothyroxine 25 mcg tablet Take 25 mcg by mouth daily. 07/24/2024 Active atorvastatin calcium (ATORVASTATIN ORAL) Take 10 mg by mouth daily. Active Active Problems No known active problems Encounters Date Type Department Care Team Description 08/04/2024 1:00 PM CDT Office Visit [facility] - [place] [address] [place] [address] Jez Reza MD Marginal zone lymphoma (CMS/HCC) (Primary Dx) 08/04/2024 Orders Only [facility] [address] [place] [address] Jez Reza MD Marginal zone lymphoma (CMS/HCC) (Primary Dx) from Last 3 Months Family History Medical History Relation Name Comments No Known Problems Brother No Known Problems Child Heart Disease Father Melanoma Mother Relation Name Status Comments Brother Alive Child Alive Father Mother Alive Social History Tobacco Use Types Packs/Day Years [...] Orientation Straight 08/02/2024 10 :46 AM CDT Last Filed Vital Signs Vital Sign Reading [...] Mass Index 25.89 08/04/2024 1:07 PM CDT Plan of Treatment Upcoming Encounters Date Type Department Care Team (Late st Contact Info) Description 08/24/2024 1:00 PM CDT Office Visit [facility] [address] [facility] [address] [address] Jez Reza MD [address] [facility] [address] [place] [address] Health Maintenance Due Date Last Done Comments DTAP/TDAP/TD VACCINES (1 - Tdap) 1996 HEPATITIS B VACCINES (1 of 3 - 19+ 3-dose series) 1996 PAP SMEAR 1998 CERVICAL CANCER SCREENING 11/08/2007 HPV/Cotest 11/08/2007 PAP SMEAR 11/08/2007 BREAST CANCER SCREENING 2017 COLORECTAL SCREENING 2022 Colorectal Cancer Screening 2022 FIT-DNA Q 3 years 2022 FIT/FOBT Q 1 year 2022 Flex Sig/CT Colonography Q 5 years 2022 INFLUENZA VACCINE (#1) 2023 COVID-19 Vaccine (2023-2 5 season) 2024 09/18/2020, 08/21/2020 Preventative Visit- Commercial 05/17/2024 HPV VACCINES Aged Out No longer eligi ble based on patient's age to complete this topic Insurance Lif[employer] O OPEN ACCESS Care Teams Car Lubricator Relationship Specialty Start Date End Date Bautista Valenzuela MD [address] [place] [phone] PCP - General Family Practice 08/04/24
--- OUTSIDE RECORDS SUMMARY | 2024-08-04 13:59 | XMS_ITS | Encounter Summary ---
Author Organization [facility] Address [address] [facility] [place] [address] Care Team Providers Care Mr Teacher Name Role Phone Unavailable Primary Care Provider Unavailabl e Encounter Details Date Type Department Care Team (Late st Contact Info) Description 07/20/2024 Lab Requisition [facility] - Pathology Lab [address] [place] [address] Alli Dean MD [address] [place] [address] Localized enlarged lymph nodes Social [...] Diagnosis Comments FLOW CYTOMETRY TISSUE PANEL Routine 07/19/2024 1:45 PM REFRIGERATOR ROOM CLERK Localized enlarged lymph nodes documented in this encounter Results * FLOW CYTOMETRY TISSUE PANEL (07/19/2024 1:45 PM REFRIGERATOR ROOM CLERK) Case Report Flow Cytometry Case: [id number] Authorizing Provider: Alli Dean Collected: 07/19/2024 01:45 PM MD Prabhakar Ordering Location: [facility] - Received: 07/20/2024 12:53 PM Pathology Lab Pathologist: Serjio Donaldson MD Specimen: Lymph Node, UPPER INNER QUADRANT OF LEFT BREAST 07/20/2024 3:14 PM REFRIGERATOR ROOM CLERK [facility] Final Diagnosis Lymph node, upper inner quadrant of left breast, flow cytometry: - Low-viability specimen with no clonal B-cell or aberrant T-cell population detected 07/20/2024 3:14 PM REFRIGERATOR ROOM CLERK [facility] Flow Cytometry Interpretation Viability: 68% B-cells: polytypic, kappa:lambda ratio 2:1 T-cells: no immunophenotypic aberrancy detected CD4:CD8 ratio 2.7:1 A cytospin prepared from the flow cytometry specimen has been reviewed for quality control systems manager purposes. 07/20/2024 3:14 PM [facility] Flow Cytometry Results Differential Result Comment Flow Cell Count /uL 12,780 Total Viability % 68.0 Lymphocytes % 98 Dim CD45 Region % 0 Monocytes % 1 Granulocytes % 0 07/20/2024 3:14 PM [facility] Reason for test Localized enlarged lymph nodes 785.6 07/20/2024 3:14 PM [facility] Client Specimen ID # [id number] 07/20/2024 3:14 PM [facility] Number of markers 16 were performed. A-2 Flow CD3 A-4 Flow CD10 A-6 Flow CD20 A-7 Flow CD23 A-12 Flow CD2 A-13 Flow CD4 A-16 Flow CD1a A-3 Flow CD5 A-5 Flow CD19 A-8 Flow CD34 A-9 Flow CD45 A-14 Flow CD7 A-15 Flow CD8 A-17 Flow CD30 A-10 Groom+CD19+ A-11 Lambda+CD19+ 07/20/2024 3:14 PM [facility] Pathologist Location at [facility] 07/20/2024 3:14 PM [facility] Disclaimer Test performed at [facility], [address] [place] [address], [id number]. *The established laboratory minimum viability is 70%. [...] high complexity clinical testing. 07/20/2024 3:14 PM [facility] Embedded Images 3:14 PM REFRIGERATOR ROOM CLERK [facility] Pathology/Cytolo gy ENTIRE LYMPH NODE / Unknown 07/19/2024 1:45 PM REFRIGERATOR ROOM CLERK 07/20/2024 12:53 PM REFRIGERATOR ROOM CLERK Alli Dean MD LAB - PATHO LOGY/CYTOLOGY ORDERABLES Performing Organization Address City/State/[facility] Co de Phone Number [facility] [address] [phone] documented in this encounter Visit Diagnoses Diagnosis Localized enlarged lymph nodes Enlargement of lymph nodes documented in this encounter
--- OUTSIDE RECORDS SUMMARY | 2024-08-04 14:00 | XMS_ITS | Data Portability ---
Author Organization [place] - [facility] [employer], Main Office Address [address] [place] [address] Care Team Providers Care Tumbling Instructor Name Role Phone VALENZUELADARONBAUTISTA Primary Care Provider Assessment Encounter Date Assessment Date Assessment LastModified [...] understanding it. Cont f/u with Counsellor at [place] as per schedule. Cont f/u with Gyne at [place] as per schedule. Cont f/u with Derm at [place] as per schedule. Cont f/u with Ophtho [...] in 2 weeks. Annual labs in 02/07. [email or web address] Not available 01/27/2023 16:55:32 09/02/2023 09/02/2023 45 [...] understanding it. Cont f/u with Counsellor at [place] as per schedule. Cont f/u with Gyne at [place] as per schedule. Cont f/u with Derm at [place] as per schedule. Cont f/u with Ophtho [...] Lipids in 12/07. Annual labs in 02/07. [email or web address] Not available 09/02/2023 15:26:05 02/02/2024 02/02/2024 48 [...] per schedule. Cont f/u with Counsellor at [place] as per schedule. Cont f/u with Gyne at [place] as per schedule. Cont f/u with Derm at [place] as per schedule. Cont f/u with Ophtho [...] in 2-3 weeks. Annual labs in 02/07. Not available 02/02/2024 16:28:26 02/21/2024 02/21/2024 48 [...] it. Cont f/u with Breast surgeon at [place] as per schedule. F/u with Hemat as per schedule. Cont f/u with Counsellor at [place] as per schedule. Cont f/u with Gyne at [place] as per schedule. Cont f/u with Derm at [place] as per schedule. Cont f/u with Ophtho [...] Lipids in 06/10. Annual labs in 02/07. [email or web address] Not available 02/21/2024 15:55:19 05/23/2024 05/23/2024 The [...] had a 15 minute TeleMedicine consultation via [employer] to discuss the followin yo F with [...] it. Cont f/u with Breast surgeon at [place] as per schedule. F/u with Hemat as per schedule. Cont f/u with Counsellor at [place] as per schedule. Cont f/u with Gyne at [place] as per schedule. Cont f/u with Derm at [place] as per schedule. Cont f/u with Ophtho [...] in 2-3 months. Annual labs in 02/07. Not available 05/23/2024 11:32:43 Plan of Treatment Reminders Order Date Submit Date Provider Last Modified By Organization Details Last Modified Time Details Appointments None recorded. Lab noninvasive colorectal cancer DNA + occult blood screening, QL, stool 2024 025 [email or web address] [facility] (Cologuard Orders Only), [address], [address], [place], [address], 5 14:25:57 lipid panel, serum 2023 024 [facility] (Lab), [address] [place], [address], 4 23:57:10 uric acid, serum or plasma [address] (Lab), [address] [place], [address], 4 08:00:40 vitamin B12 + folate, serum or blood [address] (Lab), [address] [place], [address], 4 08:00:40 TAMEKA (antinuclea r antibodies) screen, serum [address] (Lab), [address] [place], [address], 4 08:00:40 rf (rheumatoid factor), serum [address] (Lab), [address] [place], [address], 4 08:00:40 glycohemogl obin, total, blood [address] (Lab), [address] [place], [address], 4 08:00:41 CBC w/ auto diff [address] (Lab), [address] [place], [address], 4 08:00:40 CMP, serum or plasma [address] (Lab), [address] [place], [address], 4 08:00:41 lipid panel, serum [address] (Lab), [address] [place], [address], 4 08:00:41 TSH, serum, reflex free T4 [address] (Lab), [address] [place], [address], 4 08:00:41 urinalysis complete, reflex culture [address] (Lab), [address] [place], [address], 4 08:00:41 vitamin D, 25-hydroxy, total, serum [address] (Lab), [address] [place], [address], 4 08:00:41 uric acid, serum or plasma [address] (Lab), [address] [place], [address], 4 07:57:45 vitamin B12 + folate, serum or blood [address] (Lab), [address] [place], [address], 4 07:57:45 TAMEKA (antinuclea r antibodies) screen, serum [address] (Lab), [address] [place], [address], 4 07:57:45 rf (rheumatoid factor), serum [address] (Lab), [address] [place], [address], 4 07:57:46 lipid panel, serum [address] (Lab), [address] [place], [address], 4 08:28:11 glycohemogl obin, total, blood 2022 023 [email or web address] [facility] (Lab), [address] [place], [address], 3 08:37:23 vitamin D, 25-hydroxy, total, serum 2022 023 [email or web address] [facility] (Lab), [address] [place], [address], 3 14:23:35 CBC w/ auto diff 2022 023 [facility] (Lab), [address] [place], [address], 14:23:31 CMP, serum or plasma 2022 023 [facility] (Lab), [address] [place], [address], 14:23:30 lipid panel, serum 2022 023 [facility] (Lab), [address] [place], [address], 14:23:29 TSH, serum, reflex free T4 [email or web address] (Lab), [address] [place], [address], 3 08:37:23 urinalysis complete, reflex culture 2022 023 [facility] (Lab), [address] [place], [address], 14:23:33 Referral hematologis t referral - Please call patient to schedule an appointment . Thank you. 2023 024 [email or web address] Jez Reza MD, [address], [place], [address], 4 09:12:37 gastroenter ologist referral 2022 023 [email or web address] 3 Jake Mccoy MD, [address] [facility], [address], [place], [address], 3 08:04:31 Procedures None recorded. Surgeries None recorded. Imaging XR, cervical spine, 4 or 5 view 2023 024 [email or web address] Not available 4 09:17:02 , gopal - *Please call pt to schedule* 2023 024 Not available 4 09:33:43 Medication Orders buspirone 10 mg tablet 2024 025 [facility], [address], [place], [id number], 5 11:33:16 atorvastati n 10 mg tablet 2024 025 [facility], [address] [place], [place], [id number], 5 11:33:16 bupropion HCl XL 150 mg 24 hr tablet, extended release 2024 025 [facility], [address] [place], [place], [id number], 5 11:33:16 levothyroxi ne 25 mcg tablet 2024 025 [facility], [address], [place], [id number], 5 11:33:15 atorvastati n 10 mg tablet 2023 024 [facility], [address] [place], [place], [id number], 4 15:50:40 bupropion HCl XL 150 mg 24 hr tablet, extended release 2023 024 [facility] #87111, [address] [place], [place], [id number], 4 15:50:40 levothyroxi ne 25 mcg tablet 2023 024 [facility]40754, [address], [place], [id number], 4 15:50:39 bupropion HCl XL 150 mg 24 hr tablet, extended release 2023 024 [facility], [address], [place], [id number], 4 16:16:50 levothyroxi ne 25 mcg tablet 2023 024 [facility], [address], [place], [id number], 4 16:16:45 bupropion HCl XL 150 mg 24 hr tablet, extended release 2023 024 [facility], [address], [place], [id number], 4 14:41:42 levothyroxi ne 25 mcg tablet 2023 024 [facility] [facility] #77603, [address] [place], [place], [id number], 4 14:41:42 Patient TargetsNo targets recorded. Patient Instructions Encounter Date Encounter Id Patient Instructions Last Modified By Organization Details Last Modified Time 05/23/2024 [id number] Due to the COVID-19 (Novel Coronavirus) pandemic, it is within this context (and with the understanding that this method of patient encounter is in the patient s best interest as well as the health and safety of other patients and the public) that telehealth is being provided for this patient encounter rather than a pcks-yb-moch visit. This patient encounter is appropriate at this time. This patient has been advised of the potential risks and limitations of this mode of treatment (including, but not limited to, the absence of in-person examination) and has agreed to be treated in a remote fashion despite these risks. Any and all of the patient s/patient s family s questions on this issue have been answered, and I have made no promises or guarantees to the patient. The patient has also been advised to contact this office for worsening conditions or problems, and seek emergency medical treatment and/or call 911 if the patient deems either necessary. HPI and/or vitals, if listed, were provided by the patient. [email or web address] Not available 05/23/2024 11:17:01 Reason for Referral Tool Adjuster Referral for Screening colonoscopy Referring Physician: Bautista Valenzuela [facility], Encounter Date: 01/27/2023 [facility] Thank you. Referring Physician: Bautista Valenzuela [facility], Encounter Date: 09/02/2023 Results Created Date Observation Date Name Description Value Unit Range Abnormal Flag Note LastModifiedBy Organization Detail LastModifiedTime 02/17/2002/18/2023 LIPID PANEL , STAND SUDHIR cholesterol, total 204 mg/dL <200 high Not Available [facility] [address] [place], [address], 02/18/2023 14:23:29 02/17/2002/18/2023 LIPID PANEL , STAND SUDHIR HDL cholesterol 61 mg/dL > or = 40 normal Not Available [facility] [address] [place], [address], 02/18/2023 14:23:29 02/17/2002/18/2023 LIPID PANEL , STAND SUDHIR triglyceride s 92 mg/dL <150 normal Not Available [facility] [address] [place], [address], 02/18/2023 14:23:29 02/17/2002/18/2023 LIPID PANEL , STAND SUDHIR LDL-choleste rol 123 mg/dL _(veronica c) high Refer ence range : <100 Jeana able range <100 mg/dL for prima ry preve ntion ; <70 mg/dL for patie nts with CHD or diabe tic patie nts with > or = 2 CHD risk facto rs. LDL-C is now calcu lated using the [facility] kins xochitl mclaughlin n, which is a valid ated novel leonila lu than the Fried darshana kam ion in the estim ation of LDL-C . Salma ashraf SS et al. RHONDA. 2013; 310(1 9): 2061- 2068 (http ://ed ucati on.Qu estDi AmberWaves. com/f aq/FA Q164) Not Available [address], [address], 02/18/2023 14:23:29 02/17/2002/18/2023 LIPID PANEL , STAND SUDHIR chol/HDLC ratio 3.3 (calc ) <5.0 normal Not Available [address], [address], 02/18/2023 14:23:29 02/17/2002/18/2023 LIPID PANEL , STAND SUDHIR non HDL cholesterol 143 mg/dL _(veronica c) <130 high For patie nts with diabe nathanael plus 1 major ASCVD risk facto r, treat ing to a non-H DL-C goal of <100 mg/dL (LDL- C of <70 mg/dL ) is consi jocelynd a maxi hill optio n. Not Available [address], [address], 02/18/2023 14:23:29 02/17/2002/18/2023 COMPR EHENS REBEKAH METAB OLIC PANEL glucose 83 mg/dL 65-99 normal Fasti ng refer ence inter amari Not Available [address], [address], 02/18/2023 14:23:30 02/17/2002/18/2023 COMPR EHENS REBEKAH METAB OLIC PANEL urea nitrogen (BUN) 13 mg/dL 7-25 normal Not Available [address] [place], [address], 02/18/2023 14:23:30 02/17/2002/18/2023 COMPR EHENS REBEKAH METAB OLIC PANEL creatinine 0.95 mg/dL 0.60-1 .29 normal Not Available [address] [address] [place], [address], 02/18/2023 14:23:30 02/17/2002/18/2023 COMPR EHENS REBEKAH METAB OLIC PANEL eGFR 101 mL/mi n/1.7 3m2 > or = 60 normal Not Available [address], [address], 02/18/2023 14:23:30 02/17/2002/18/2023 COMPR EHENS REBEKAH METAB OLIC PANEL BUN/creatini ne ratio SEE NOTE: (calc ) 6-22 Not Repor olesya: BUN and Creat inine are withi n refer ence range . Not Available [address], [address], 02/18/2023 14:23:30 02/17/2002/18/2023 COMPR EHENS REBEKAH METAB OLIC PANEL sodium 140 mmol/ L 135-14 6 normal Not Available [address] [address] [place], [address], 02/18/2023 14:23:30 02/17/2002/18/2023 COMPR EHENS REBEKAH METAB OLIC PANEL potassium 4.4 mmol/ L 3.5-5. 3 normal Not Available [address], [address], 02/18/2023 14:23:30 02/17/2002/18/2023 COMPR EHENS REBEKAH METAB OLIC PANEL chloride 105 mmol/ L 98-110 normal Not Available [address] [address] [place], [address], 02/18/2023 14:23:30 02/17/20 23 02/18/2023 COMPR EHENS REBEKAH METAB OLIC PANEL carbon dioxide 27 mmol/ L 20-32 normal Not Available [address], [address], 02/18/2023 14:23:30 02/17/20 23 02/18/2023 COMPR EHENS REBEKAH METAB OLIC PANEL calcium 9.4 mg/dL 8.6-10 .3 normal Not Available [address], [address], 02/18/2023 14:23:30 02/17/2002/18/2023 COMPR EHENS REBEKAH METAB OLIC PANEL protein, total 7.0 g/dL 6.1-8. 1 normal Not Available [address], [address], 02/18/2023 14:23:30 02/17/20 23 02/18/2023 COMPR EHENS REBEKAH METAB OLIC PANEL albumin 4.0 g/dL 3.6-5. 1 normal Not Available [address], [address], 02/18/2023 14:23:30 02/17/20 23 02/18/2023 COMPR EHENS REBEKAH METAB OLIC PANEL globulin 3.0 g/dL_ (calc ) 1.9-3. 7 normal Not Available [address], [address], 02/18/2023 14:23:30 02/17/2002/18/2023 COMPR EHENS REBEKAH METAB OLIC PANEL albumin/glob ulin ratio 1.3 (calc ) 1.0-2. 5 normal Not Available [address], [address], 02/18/2023 14:23:30 02/17/20 23 02/18/2023 COMPR EHENS REBEKAH METAB OLIC PANEL bilirubin, total 0.4 mg/dL 0.2-1. 2 normal Not Available [address], [address], 02/18/2023 14:23:30 02/17/20 23 02/18/2023 COMPR EHENS REBEKAH METAB OLIC PANEL alkaline phosphatase 34 U/L 36-130 low Not Available [facility] [employer] [address], [address], 02/18/2023 14:23:30 02/17/20 23 02/18/2023 COMPR EHENS REBEKAH METAB OLIC PANEL AST 16 U/L 10-40 normal Not Available [address], [address], 02/18/2023 14:23:30 02/17/20 23 02/18/2023 COMPR EHENS REBEKAH METAB OLIC PANEL ALT 17 U/L 9-46 normal Not Available [address], [address], 02/18/2023 14:23:30 02/17/20 23 02/18/2023 CBC (INCL UDES DIFF/ PLT) white blood cell count 5.0 thous and/u L 3.8-10 .8 normal Not Available [address], [address], 02/18/2023 14:23:31 02/17/2002/18/2023 CBC (INCL UDES DIFF/ PLT) red blood cell count 4.61 parviz on/uL 4.20-5 .80 normal Not Available [address], [address], 02/18/2023 14:23:31 02/17/20 23 02/18/2023 CBC (INCL UDES DIFF/ PLT) hemoglobin 13.9 g/dL 13.2-1 7.1 normal Not Available [address], [address], 02/18/2023 14:23:31 02/17/20 23 02/18/2023 CBC (INCL UDES DIFF/ PLT) hematocrit 41.7 % 38.5-5 0.0 normal Not Available [address], [address], 02/18/2023 14:23:31 02/17/20 23 02/18/2023 CBC (INCL UDES DIFF/ PLT) MCV 90.5 fL 80.0-1 00.0 normal Not Available [address], [address], 02/18/2023 14:23:31 02/17/2002/18/2023 CBC (INCL UDES DIFF/ PLT) MCH 30.2 pg 27.0-3 3.0 normal Not Available [address], [address], 02/18/2023 14:23:31 02/17/2002/18/2023 CBC (INCL UDES DIFF/ PLT) MCHC 33.3 g/dL 32.0-3 6.0 normal Not Available [address], [address], 02/18/2023 14:23:31 02/17/2002/18/2023 CBC (INCL UDES DIFF/ PLT) RDW 11.9 % 11.0-1 5.0 normal Not Available [address], [address], 02/18/2023 14:23:31 02/17/2002/18/2023 CBC (INCL UDES DIFF/ PLT) platelet count 423 thous and/u L 140-40 0 high Not Available [address], [address], 02/18/2023 14:23:31 02/17/2002/18/2023 CBC (INCL UDES DIFF/ PLT) MPV 9.1 fL 7.5-12 .5 normal Not Available [address], [address], 02/18/2023 14:23:31 02/17/20 23 02/18/2023 CBC (INCL UDES DIFF/ PLT) absolute neutrophils 2275 cells /uL 1500-7 800 normal Not Available [address], [address], 02/18/2023 14:23:31 02/17/2002/18/2023 CBC (INCL UDES DIFF/ PLT) absolute lymphocytes 1950 cells /uL 850-39 00 normal Not Available [address], [address], 02/18/2023 14:23:31 02/17/2002/18/2023 CBC (INCL UDES DIFF/ PLT) absolute monocytes 130 cells /uL 200-95 0 low Not Available [address], [address], 02/18/2023 14:23:31 02/17/2002/18/2023 CBC (INCL UDES DIFF/ PLT) absolute eosinophils 635 cells /uL 15-500 high Not Available [address], [address], 02/18/2023 14:23:31 02/17/2002/18/2023 CBC (INCL UDES DIFF/ PLT) absolute basophils 10 cells /uL 0-200 normal Not Available [facility] [address], [address], 02/18/2023 14:23:31 02/17/20 23 02/18/2023 CBC (INCL UDES DIFF/ PLT) neutrophils 45.5 % normal Not Available [address], [address], 02/18/2023 14:23:31 02/17/20 23 02/18/2023 CBC (INCL UDES DIFF/ PLT) lymphocytes 39.0 % normal Not Available [address], [address], 02/18/2023 14:23:31 02/17/20 23 02/18/2023 CBC (INCL UDES DIFF/ PLT) monocytes 2.6 % normal Not Available [address], [address], 02/18/2023 14:23:31 02/17/2002/18/2023 CBC (INCL UDES DIFF/ PLT) eosinophils 12.7 % normal Not Available [address], [address], 02/18/2023 14:23:31 02/17/20 23 02/18/2023 CBC (INCL UDES DIFF/ PLT) basophils 0.2 % normal Not Available [address], [address], 02/18/2023 14:23:31 02/17/2002/18/2023 URINA LYSIS , COMPL ETE W/REF SAM TO CULTU RE color YELLOW yellow normal Not Available [address], [address], 02/18/2023 14:23:33 02/17/2002/18/2023 URINA LYSIS , COMPL ETE W/REF SAM TO CULTU RE appearance CLEAR clear normal Not Available [address], [address], 02/18/2023 14:23:33 02/17/2002/18/2023 URINA LYSIS , COMPL ETE W/REF SAM TO CULTU RE specific gravity 1.013 1.001- 1.035 normal Not Available [address], [address], 02/18/2023 14:23:33 02/17/20 23 02/18/2023 URINA LYSIS , COMPL ETE W/REF SAM TO CULTU RE pH 5.5 5.0-8. 0 normal Not Available [address], [address], 02/18/2023 14:23:33 02/17/2002/18/2023 URINA LYSIS , COMPL ETE W/REF SAM TO CULTU RE glucose NEGATI VE negati ve normal Not Available [address], [address], 02/18/2023 14:23:33 02/17/2002/18/2023 URINA LYSIS , COMPL ETE W/REF SAM TO CULTU RE bilirubin NEGATI VE negati ve normal Not Available [address], [address], 02/18/2023 14:23:33 02/17/2002/18/2023 URINA LYSIS , COMPL ETE W/REF SAM TO CULTU RE ketones NEGATI VE negati ve normal Not Available [address], [address], 02/18/2023 14:23:33 02/17/2002/18/2023 URINA LYSIS , COMPL ETE W/REF SAM TO CULTU RE occult blood 3+ negati ve abnormal Not Available [address], [address], 02/18/2023 14:23:33 02/17/2002/18/2023 URINA LYSIS , COMPL ETE W/REF SAM TO CULTU RE protein NEGATI VE negati ve normal Not Available [address], [address], 02/18/2023 14:23:33 02/17/2002/18/2023 URINA LYSIS , COMPL ETE W/REF SAM TO CULTU RE nitrite NEGATI VE negati ve normal Not Available [address], [address], 02/18/2023 14:23:33 02/17/2002/18/2023 URINA LYSIS , COMPL ETE W/REF SAM TO CULTU RE leukocyte esterase TRACE negati ve abnormal Not Available [address], [address], 02/18/2023 14:23:33 02/17/2002/18/2023 URINA LYSIS , COMPL ETE W/REF SAM TO CULTU RE WBC 0-5 /hpf < or = 5 normal Not Available [address], [address], 02/18/2023 14:23:33 02/17/2002/18/2023 URINA LYSIS , COMPL ETE W/REF SAM TO CULTU RE RBC 10-20 /hpf < or = 2 abnormal Not Available [address], [address], 02/18/2023 14:23:33 02/17/2002/18/2023 URINA LYSIS , COMPL ETE W/REF SAM TO CULTU RE squamous epithelial cells 6-10 /hpf < or = 5 abnormal Not Available [address], [address], 02/18/2023 14:23:33 02/17/2002/18/2023 URINA LYSIS , COMPL ETE W/REF SAM TO CULTU RE bacteria NONE SEEN /hpf none seen normal Not Available [address], [address], 02/18/2023 14:23:33 02/17/2002/18/2023 URINA LYSIS , COMPL ETE W/REF SAM TO CULTU RE hyaline cast 0-5 /lpf none seen abnormal Not Available [address] [place], [address], 02/18/2023 14:23:33 02/17/2002/18/2023 URINA LYSIS , COMPL ETE W/REF SAM TO CULTU RE note This urine was mellissa zed for the prese nce of WBC, RBC, bacte amy, casts , and other forme d eleme nts. Only those eleme nts seen were repor olesya. Not Available [facility] [address] [address] [place], [address], 02/18/2023 14:23:33 02/17/2002/18/2023 REFLE XIVE URINE CULTU RE reflexive urine culture CULTU RE INDIC ATED - RESUL TS TO FOLLO W Not Available [facility] [address], [address], 02/18/2023 14:23:34 02/17/2002/18/2023 TSH W/REF SAM TO FT4 TSH w/reflex to FT4 3.97 mIU/L 0.40-4 .50 normal Not Available [address], [address], 02/18/2023 14:23:34 02/17/2002/18/2023 VITAM IN D,25- [place],TO [...] /MS is recom sue d: order code 89306 (adarsh ents >2yrs ). See Note 1 Note 1 For addit ional infor puneet jimenez e refer to http: //[facility] ana dominguezQue stDia gnost ics.c om/fa q/FAQ 199 (This link is being provi ded for infor jewell camarena/ khalida cortez l purpo ses only. ) Not Available [facility] [address] [place], [address], 02/18/2023 14:23:35 02/17/2002/18/2023 HEMOG LOBIN A1C hemoglobin [...] Care in Diabe nathanael(A DA). Not Available [facility] [address] [place], [address], 02/18/2023 14:23:36 02/17/2002/18/2023 CULTU RE, URINE , ROUTI NE culture, urine, routine SEE NOTE abnormal CULTU RE, URINE , ROUTI NE Micro Numbe r: [id number] Test Statu s: Final Speci men [...] See Thera py Comme nts Not Available [facility] [address] [address] [place], [address], 02/18/2023 14:23:37 01/31/20 24 02/02/2024 URIC ACID uric acid 4.5 mg/dL 4.0-8. 0 normal Thera peuti c targe t for gout patie nts: <6.0 mg/dL Not Available [facility] [address], [place], [address], 02/02/2024 16:25:07 01/31/20 24 02/02/2024 TAMEKA SCREE [...] Patte rns (http s://d oi.or g/10. 1515/ [facility]- 2017- 0052) For addit ional infor puneet jimenez e refer to http: //edu catio n.Que stDia gnost ics.c om/fa q/FAQ 177 (This link is being provi ded for infor jewell camarena/ educa diego calvin purpo ses only. ) Not Available [address], [address], 02/02/2024 16:25:07 01/31/20 24 02/02/2024 RHEUM ATOID FACTO R rheumatoid factor <10 IU/mL <14 normal Not Available [address], [address], 02/02/2024 16:25:08 01/31/20 24 02/02/2024 VITAM IN B12 vitamin B12 448 pg/mL 200-11 00 normal Not Available [address], [address], 02/02/2024 16:25:08 02/08/20 24 02/09/2024 LIPID PANEL , STAND SUDHIR cholesterol, total 204 mg/dL <200 high Not Available [address], [address], 02/09/2024 17:37:19 02/08/20 24 02/09/2024 LIPID PANEL , STAND SUDHIR HDL cholesterol 57 mg/dL > or = 50 normal Not Available [address], [address], 02/09/2024 17:37:19 02/08/20 24 02/09/2024 LIPID PANEL , STAND SUDHIR triglyceride s 78 mg/dL <150 normal Not Available [address], [address], 02/09/2024 17:37:19 02/08/2002/09/2024 LIPID PANEL , STAND SUDHIR LDL-choleste rol 130 mg/dL _(veronica c) high Refer ence range : <100 Jeana able range <100 mg/dL for prima ry preve ntion ; <70 mg/dL for patie nts with CHD or diabe tic patie nts with > or = 2 CHD risk facto rs. LDL-C is now calcu lated using the [facility] [employer] kins xochitl mclaughlin n, which is a valid ated novel leonila perezy than the Fried darshana equat ion in the estim ation of LDL-C . Salma ashraf SS et al. RHONDA. 2013; 310(1 9): 2061- 2068 (http ://ed ucati on.Qu estDi AmberWaves. com/f aq/FA Q164) Not Available [facility] [address] [address] [place], [address], 02/09/2024 17:37:02/08/2002/09/2024 LIPID PANEL , STAND SUDHIR chol/HDLC ratio 3.6 (calc ) <5.0 normal Not Available [facility] [address] [address] [place], [address], 02/09/2024 17:37:19 02/08/2002/09/2024 LIPID PANEL , STAND SUDHIR non HDL cholesterol 147 mg/dL _(veronica c) <130 high For patie nts with diabe nathanael plus 1 major ASCVD risk facto r, treat ing to a non-H DL-C goal of <100 mg/dL (LDL- C of <70 mg/dL ) is consi dered a thera peuti c optio n. Not Available [facility] [address] [address], [place], [address], 02/09/2024 17:37:19 02/08/2002/09/2024 URIC ACID uric acid 4.9 mg/dL 2.5-7. 0 normal Thera peuti c targe t for gout patie nts: <6.0 mg/dL Not Available [facility] [address] [address] [address], [place], [address], 02/09/2024 17:37:19 02/08/2002/09/2024 COMPR EHENS REBEKAH METAB OLIC PANEL glucose 92 mg/dL 65-99 normal Fasti ng refer ence inter amari Not Available [address], [address], 02/09/2024 17:37:20 02/08/20 24 02/09/2024 COMPR EHENS REBEKAH METAB OLIC PANEL urea nitrogen (BUN) 13 mg/dL 7-25 normal Not Available 17 [address], [address], 02/09/2024 17:37:20 02/08/20 24 02/09/2024 COMPR EHENS REBEKAH METAB OLIC PANEL creatinine 0.92 mg/dL 0.50-0 .99 normal Not Available [address], [address], 02/09/2024 17:37:20 02/08/20 24 02/09/2024 COMPR EHENS REBEKAH METAB OLIC PANEL eGFR 78 mL/mi n/1.7 3m2 > or = 60 normal Not Available [address], [address], 02/09/2024 17:37:20 02/08/20 24 02/09/2024 COMPR EHENS REBEKAH METAB OLIC PANEL BUN/creatini ne ratio SEE NOTE: (calc ) 6-22 Not Repor olesya: BUN and Creat inine are withi n refer ence range . Not Available [address], [address], 02/09/2024 17:37:20 02/08/20 24 02/09/2024 COMPR EHENS REBEKAH METAB OLIC PANEL sodium 138 mmol/ L 135-14 6 normal Not Available [address], [address], 02/09/2024 17:37:20 02/08/20 24 02/09/2024 COMPR EHENS REBEKAH METAB OLIC PANEL potassium 4.2 mmol/ L 3.5-5. 3 normal Not Available [address] [place], [address], 02/09/2024 17:37:20 02/08/20 24 02/09/2024 COMPR EHENS REBEKAH METAB OLIC PANEL chloride 104 mmol/ L 98-110 normal Not Available [address] [place], [address], 02/09/2024 17:37:20 02/08/20 24 02/09/2024 COMPR EHENS REBEKAH METAB OLIC PANEL carbon dioxide 27 mmol/ L 20-32 normal Not Available [address], [address], 02/09/2024 17:37:20 02/08/20 24 02/09/2024 COMPR EHENS REBEKAH METAB OLIC PANEL calcium 9.7 mg/dL 8.6-10 .2 normal Not Available [address], [address], 02/09/2024 17:37:20 02/08/20 24 02/09/2024 COMPR EHENS REBEKAH METAB OLIC PANEL protein, total 6.7 g/dL 6.1-8. 1 normal Not Available [address], [address], 02/09/2024 17:37:20 02/08/2002/09/2024 COMPR EHENS REBEKAH METAB OLIC PANEL albumin 3.9 g/dL 3.6-5. 1 normal Not Available [address] [place], [address], 02/09/2024 17:37:20 02/08/20 24 02/09/2024 COMPR EHENS REBEKAH METAB OLIC PANEL globulin 2.8 g/dL_ (calc ) 1.9-3. 7 normal Not Available [address], [address], 02/09/2024 17:37:20 02/08/20 24 02/09/2024 COMPR EHENS REBEKAH METAB OLIC PANEL albumin/glob ulin ratio 1.4 (calc ) 1.0-2. 5 normal Not Available [address], [address], 02/09/2024 17:37:20 02/08/20 24 02/09/2024 COMPR EHENS REBEKAH METAB OLIC PANEL bilirubin, total 0.5 mg/dL 0.2-1. 2 normal Not Available [address], [address], 02/09/2024 17:37:20 02/08/2002/09/2024 COMPR EHENS REBEKAH METAB OLIC PANEL alkaline phosphatase 39 U/L 31-125 normal Not Available [address], [address], 02/09/2024 17:37:20 02/08/20 24 02/09/2024 COMPR EHENS REBEKAH METAB OLIC PANEL AST 14 U/L 10-35 normal Not Available [address], [address], 02/09/2024 17:37:20 02/08/20 24 02/09/2024 COMPR EHENS REBEKAH METAB OLIC PANEL ALT 13 U/L 6-29 normal Not Available [address], [address], 02/09/2024 17:37:20 02/08/20 24 02/09/2024 CBC (INCL UDES DIFF/ PLT) white blood cell count 7.1 thous and/u L 3.8-10 .8 normal Not Available [address], [address], 02/09/2024 17:37:20 02/08/20 24 02/09/2024 CBC (INCL UDES DIFF/ PLT) red blood cell count 4.54 parviz on/uL 3.80-5 .10 normal Not Available [address], [address], 02/09/2024 17:37:20 02/08/20 24 02/09/2024 CBC (INCL UDES DIFF/ PLT) hemoglobin 13.8 g/dL 11.7-1 5.5 normal Not Available [address], [address], 02/09/2024 17:37:20 02/08/2002/09/2024 CBC (INCL UDES DIFF/ PLT) hematocrit 43.3 % 35.0-4 5.0 normal Not Available [address], [address], 02/09/2024 17:37:20 02/08/20 24 02/09/2024 CBC (INCL UDES DIFF/ PLT) MCV 95.4 fL 80.0-1 00.0 normal Not Available [address], [address], 02/09/2024 17:37:20 02/08/20 24 02/09/2024 CBC (INCL UDES DIFF/ PLT) MCH 30.4 pg 27.0-3 3.0 normal Not Available [address], [address], 02/09/2024 17:37:20 02/08/20 24 02/09/2024 CBC (INCL UDES DIFF/ PLT) MCHC 31.9 g/dL 32.0-3 6.0 low Not Available [address], [address], 02/09/2024 17:37:20 02/08/2002/09/2024 CBC (INCL UDES DIFF/ PLT) RDW 12.1 % 11.0-1 5.0 normal Not Available [address], [address], 02/09/2024 17:37:20 02/08/20 24 02/09/2024 CBC (INCL UDES DIFF/ PLT) platelet count 446 thous and/u L 140-40 0 high Not Available [address], [address], 02/09/2024 17:37:20 02/08/20 24 02/09/2024 CBC (INCL UDES DIFF/ PLT) MPV 9.1 fL 7.5-12 .5 normal Not Available [address], [address], 02/09/2024 17:37:20 02/08/20 24 02/09/2024 CBC (INCL UDES DIFF/ PLT) absolute neutrophils 3195 cells /uL 1500-7 800 normal Not Available [address], [address], 02/09/2024 17:37:20 02/08/20 24 02/09/2024 CBC (INCL UDES DIFF/ PLT) absolute lymphocytes 2506 cells /uL 850-39 00 normal Not Available [address], [address], 02/09/2024 17:37:20 02/08/20 24 02/09/2024 CBC (INCL UDES DIFF/ PLT) absolute monocytes 121 cells /uL 200-95 0 low Not Available [address], [address], 02/09/2024 17:37:20 02/08/20 24 02/09/2024 CBC (INCL UDES DIFF/ PLT) absolute eosinophils 1257 cells /uL 15-500 high Not Available [address], [address], 02/09/2024 17:37:20 02/08/20 24 02/09/2024 CBC (INCL UDES DIFF/ PLT) absolute basophils 21 cells /uL 0-200 normal Not Available [facility] [address], [address], 02/09/2024 17:37:20 02/08/20 24 02/09/2024 CBC (INCL UDES DIFF/ PLT) neutrophils 45 % normal Not Available [facility] [address], [address], 02/09/2024 17:37:20 02/08/20 24 02/09/2024 CBC (INCL UDES DIFF/ PLT) lymphocytes 35.3 % normal Not Available [facility] [address], [address], 02/09/2024 17:37:20 02/08/20 24 02/09/2024 CBC (INCL UDES DIFF/ PLT) monocytes 1.7 % normal Not Available [address], [address], 02/09/2024 17:37:20 02/08/20 24 02/09/2024 CBC (INCL UDES DIFF/ PLT) eosinophils 17.7 % normal Not Available [address], [address], 02/09/2024 17:37:20 02/08/2002/09/2024 CBC (INCL UDES DIFF/ PLT) basophils 0.3 % normal Not Available [address], [address], 02/09/2024 17:37:20 02/08/2002/09/2024 URINA LYSIS , COMPL ETE W/REF SAM TO CULTU RE color YELLOW yellow normal Not Available [address], [address], 02/09/2024 17:37:21 02/08/20 24 02/09/2024 URINA LYSIS , COMPL ETE W/REF SAM TO CULTU RE appearance CLEAR clear normal Not Available [facility] [address] [place], [address], 02/09/2024 17:37:21 02/08/20 24 02/09/2024 URINA LYSIS , COMPL ETE W/REF SAM TO CULTU RE specific gravity 1.008 1.001- 1.035 normal Not Available [address], [address], 02/09/2024 17:37:21 02/08/20 24 02/09/2024 URINA LYSIS , COMPL ETE W/REF SAM TO CULTU RE pH 6.0 5.0-8. 0 normal Not Available [address], [address], 02/09/2024 17:37:21 02/08/20 24 02/09/2024 URINA LYSIS , COMPL ETE W/REF SAM TO CULTU RE glucose NEGATI VE negati ve normal Not Available [address], [address], 02/09/2024 17:37:21 02/08/20 24 02/09/2024 URINA LYSIS , COMPL ETE W/REF SAM TO CULTU RE bilirubin NEGATI VE negati ve normal Not Available [address], [address], 02/09/2024 17:37:21 02/08/20 24 02/09/2024 URINA LYSIS , COMPL ETE W/REF SAM TO CULTU RE ketones NEGATI VE negati ve normal Not Available [address], [address], 02/09/2024 17:37:21 02/08/20 24 02/09/2024 URINA LYSIS , COMPL ETE W/REF SAM TO CULTU RE occult blood NEGATI VE negati ve normal Not Available [address], [address], 02/09/2024 17:37:21 02/08/20 24 02/09/2024 URINA LYSIS , COMPL ETE W/REF SAM TO CULTU RE protein NEGATI VE negati ve normal Not Available [address], [address], 02/09/2024 17:37:21 02/08/20 24 02/09/2024 URINA LYSIS , COMPL ETE W/REF SAM TO CULTU RE nitrite NEGATI VE negati ve normal Not Available [address], [address], 02/09/2024 17:37:21 02/08/20 24 02/09/2024 URINA LYSIS , COMPL ETE W/REF SAM TO CULTU RE leukocyte esterase NEGATI VE negati ve normal Not Available [address], [address], 02/09/2024 17:37:21 02/08/20 24 02/09/2024 URINA LYSIS , COMPL ETE W/REF SAM TO CULTU RE WBC NONE SEEN /hpf < or = 5 normal Not Available [address], [address], 02/09/2024 17:37:21 02/08/20 24 02/09/2024 URINA LYSIS , COMPL ETE W/REF SAM TO CULTU RE RBC NONE SEEN /hpf < or = 2 normal Not Available [address], [address], 02/09/2024 17:37:21 02/08/20 24 02/09/2024 URINA LYSIS , COMPL ETE W/REF SAM TO CULTU RE squamous epithelial cells NONE SEEN /hpf < or = 5 normal Not Available [address], [address], 02/09/2024 17:37:21 02/08/20 24 02/09/2024 URINA LYSIS , COMPL ETE W/REF SAM TO CULTU RE bacteria NONE SEEN /hpf none seen normal Not Available [facility] [address] [address] [place], [address], 02/09/2024 17:37:21 02/08/20 24 02/09/2024 URINA LYSIS , COMPL ETE W/REF SAM TO CULTU RE hyaline cast NONE SEEN /lpf none seen normal Not Available [facility] [address] [address] [place], [address], 02/09/2024 17:37:21 02/08/20 24 02/09/2024 URINA LYSIS , COMPL ETE W/REF SAM TO CULTU RE note This urine was mellissa zed for the prese nce of WBC, RBC, bacte amy, casts , and other forme d eleme nts. Only those eleme nts seen were repor olesya. Not Available [address] [address] [place], [address], 02/09/2024 17:37:21 02/08/20 24 02/09/2024 REFLE XIVE URINE CULTU RE reflexive urine culture NO CULTU RE INDIC ATED Not Available [address], [address], 02/09/2024 17:37:22 02/08/20 24 02/09/2024 TAMEKA SCREE [...] Hendricks rns (http s://d oi.or g/10. 1515/ [facility]- 2017- 0052) For addit ional infor puneet jimenez e refer to http: //[facility] ana dominguezQue stDia gnost ics.c om/fa q/FAQ 177 (This link is being provi ded for infor jewell camarena/ educa diego l purpo ses only. ) Not Available [address] [place], [address], 02/09/2024 17:37:22 02/08/2002/09/2024 RHEUM ATOID FACTO R rheumatoid factor <10 IU/mL <14 normal Not Available [address] [address] [place], [address], 02/09/2024 17:37:23 02/08/20 24 02/09/2024 VITAM IN B12/F OLATE , SERUM PANEL vitamin B12 491 pg/mL 200-11 00 normal Not Available [address] [place], [address], 02/09/2024 17:37:23 02/08/20 24 02/09/2024 VITAM IN B12/F OLATE , SERUM PANEL folate, serum 11.6 NG/mL normal Refer ence Range Low: <3.4 Borde rline : 3.4-5 .4 Mi l: >5.4 Not Available [address] [address] [place], [address], 02/09/2024 17:37:23 02/08/2002/09/2024 VITAM IN D,25- OH,TO [...] /MS is recom sue d: order code [id number] (adarsh ents >2yrs ). See Note 1 Note 1 For addit ional infor puneet jimenez e refer to http: //[facility] ana ashraf.Pawel stDia gnost ics.c om/fa q/FAQ 199 (This link is being provi ded for infor jewell camarena/ khalida calvin purpo ses only. ) Not Available [facility] [address] [place], [address], 02/09/2024 17:37:24 02/08/2002/09/2024 TSH W/REF SAM TO FT4 TSH w/reflex to FT4 3.75 mIU/L normal Refer ence Range > or = 20 Years 0.40- 4.50 Pregn mike Range s First trime ster 0.26- 2.66 Secon d trime ster 0.55- 2.73 Third trime ster 0.43- 2.91 Not Available [facility] [address] [address] [place], [address], 02/09/2024 17:37:24 02/08/2002/09/2024 HEMOG LOBIN A1C hemoglobin [...] in test platf orms from the [employer] to the Peggy vanessa c503 may have shift ed HbA1c resul ts esteban red to histo rical resul ts. Based on labor atory valid ation testi ng condu cted at [facility] , the Peggy platf orm relat rebekah to the [employer] platf orm had an avera ge incre [...] is not recom sue d. Not Available [facility] [address] [place], [address], 02/09/2024 17:37:25 05/11/20 24 05/11/2024 LIPID PANEL , STAND SUDHIR cholesterol, total 161 mg/dL <200 normal Not Available [facility] [address] [place], [address], 05/11/2024 23:57:10 05/11/20 24 05/11/2024 LIPID PANEL , STAND SUDHIR HDL cholesterol 54 mg/dL > or = 50 normal Not Available [address] [address] [address], [place], [address], 05/11/2024 23:57:10 05/11/20 24 05/11/2024 LIPID PANEL , STAND SUDHIR triglyceride s 91 mg/dL <150 normal Not Available [address] [address] [address] , [place], [address], 05/11/2024 23:57:10 05/11/20 24 05/11/2024 LIPID PANEL [...] 2061- 2068 (http ://ed ucati on.Qu Trae DimensionU (formerly [employer]). com/f aq/FA Q164) Not Available [address] [address] [address], [place], [address], 05/11/2024 23:57:10 05/11/20 24 05/11/2024 LIPID PANEL , STAND SUDHIR chol/HDLC ratio 3.0 (calc ) <5.0 normal Not Available [facility] [address] [address] [place], [address], 05/11/2024 23:57:10 05/11/20 24 05/11/2024 LIPID PANEL , STAND SUDHIR non HDL cholesterol 107 mg/dL _(veronica c) <130 normal For patie nts with diabe nathanael plus 1 major ASCVD risk facto r, treat ing to a non-H DL-C goal of <100 mg/dL (LDL- C of <70 mg/dL ) is consi dered a thera peuti c optio n. Not Available [facility] [address] [address], [place], [address], 05/11/2024 23:57:10 12/06/19 24 US, extre jim, jovanna scula r, compl ete [facility] [address] [place] [address] Patien t Name: FAUSTINA REZA ion #: [id number] Sex: F : 1975 9 Dictat [...] at 2023 12:04: 16 PM Page 1 [email or web address] [facility] (Imaging) [address] [place], [address], 02/02/2024 16:10:21 01/24/20 24 01/24/2024 MAMMO , diagn ostic , tomos ynthe sis, bilat eral [facility] [address] [place] [address] Patien t Name: FAUSTINA REZA ion #: [id number] Sex: F : 1975 2 Dictat [...] ed to the prior exam, Page 1 [facility] [place] [address] Patien t Name: FAUSTINA REZA ion #: [id number] Sex: F : 1975 2 Dictat [...] at 2023 15:20: 39 PM Page 2 [email or web address] [facility] (Imaging) [address] [place], [address], 02/02/2024 16:10:21 01/24/20 24 01/24/2024 US, rory t, elenia teral , compl ete [facility] [address] [id number] Pativalerie t Name: FAUSTINA REZA ion #: [id number] Sex: F : 1975 2 Dictat ed By: Amada wells Attend ing Physic anadi: DENILSON VALENZUELA Orderi ng Physic anaid: DENILSON [...] projec tion. No mother suspic ious mass, jaun ectura l distor tion, or suspic ious [...] 1 [facility] [address] [place] [address] Patien t Name: FAUSTINA REZA ion #: [id number] Sex: F : 1975 2 Dictat ed By: Amada wells Attend ing Physic anaid: MAICOL LVOE Orderi ng Physic anaid: DENILSON VALENZUELA Exam [...] at 2023 15:20: 39 PM Page [address] (Imaging) [address] [place], [address], 02/02/2024 16:10:21 02/21/20 24 02/21/2024 XR, cervi veronica spine , 4 or 5 view No observ ation record ed. [address] [facility] [address], [place], [address], 05/23/2024 11:18:09 03/02/20 24 03/01/2024 MRI, breas t, bilat eral, w/wo contr ast No observ ation record ed. [address], [place], [address], 05/23/2024 11:18:09 03/30/20 24 03/30/2024 MAMMO , diagn ostic , bilat eral No observ ation record ed. [address], [place], [address], 05/23/2024 11:18:09 03/30/20 24 03/30/2024 US, axill a No observ ation record ed. [id number] [facility] [address], [place], [address], 05/23/2024 11:18:09 04/18/20 24 04/18/2024 US, axill a No observ ation record ed. [address], [place], [address], 05/23/2024 11:18:08 05/29/19 25 04/18/2024 biops y of rory bee , need e core, using imagi jody farrar (PROC ) No observ ation record ed. [address], [place], [address], 05/29/2024 10:15:09 Result Notes None recorded. Problems Name Problem SNOMED Code Status Onset Date Resolution Date Notes Provider Name and Address Organization Details Recorded Time Acne 54799872 Active 2018 Not Available [facility] 3 02:52:11 Overweigh t 281382595 Active 2019 Not Available [facility] 3 02:52:11 External hemorrhoi ds 21479582 Completed Not Available [facility] 3 02:52:11 Fluid level behind tympanic membrane Completed Not Available [facility] 3 02:52:11 Gastroeso phageal reflux disease without esophagit is 873299140 Active 2018 Not Available [facility] 3 02:52:11 Blood in urine 17311569 Completed Not Available [facility] 3 02:52:11 Vitamin D deficienc y 91790370 Active 2018 Not Available [facility] 3 02:52:11 Pain in coccyx 76627678 Completed Not Available [facility] 3 02:52:11 Depressiv e disorder 79700903 Active 2019 Not Available [facility] 3 02:52:11 Seasonal allergic rhinitis 600791631 Completed 201806/20/2019 Not Available [facility] 3 02:52:11 Sinusitis 39408791 Completed Not Available [facility] 3 02:52:11 Hypothyro idism 70248974 Active 2019 Not Available [facility] 3 02:52:11 Obesity 368301848 Completed 201804/16/2020 Not Available [facility] 3 02:52:12 Onychomyc osis 317597373 Completed Not Available [facility] 3 02:52:12 Family history of malignant melanoma 025849097 Active 2018 Not Available [facility] 3 02:52:12 Seasonal allergy 266736786 Completed Not Available [facility] 3 02:52:12 Cough 95645393 Completed Not Available [facility] 3 02:52:12 Upper respirato ry infection 58105159 Completed Not Available [facility] 3 02:52:12 Sacral back pain 57172327 Completed Not Available [facility] 3 02:52:12 Allergic rhinitis 54302727 Active Not Available [facility] 3 02:52:12 Thrombocy tosis 9151339 Active 2 Not Available [facility] 3 02:52:12 Nasal congestio n 06639988 Completed Not Available [facility] 3 02:52:12 Cholelith iasis without obstructi on 92233880 Active 2019 Not Available [facility] 3 02:52:12 Liver enzymes level above reference range 240189927 Active 2018 Not Available [facility] 3 02:52:12 Candidias is of vagina 53561591 Completed Not Available [facility] 3 02:52:12 Posterior rhinorrhe a 10511474 Completed Not Available [facility] 3 02:52:13 Fatigue 10496532 Completed Not Available [facility] 3 02:52:13 Hyperlipi demia 77984064 Active 2023 Bautista Valenzuela MD [address], [place], [address] , [email or web address] 4 14:05:36 Mass of axilla 039410678 Active 2023 Bautista Valenzuela MD [address] [employer], [place], [address] , [email or web address] 4 14:43:53 Chronic neck pain 70739646400 07 Active 2023 Bautista Valenzuela MD [address] [employer], [place], [address] , [email or web address] 4 14:45:26 Mass of left breast 78169567645 179918 Active 2023 Bautista Valenzuela MD [address] [employer], [place], [address] , [email or web address] 4 09:56:08 Anxiety disorder 664361794 Active 2024 Bautista Valenzuela MD [address], [place], [address] , [email or web address] 5 11:25:43 Major depressiv e disorder 924875871 Active 2024 Bautista Valenzuela MD [address], [place], [address] , [email or web address] 5 16:41:02 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 Procedures Surgical History Date Name Laterality Status Provider Name and Address Organization Details Recorded Time 4 Date of Last Mammogram completed Bautista Valenzuela MD [address], [place], [address], [place] [facility] 02/02/2024 16:29:10 Date of Last Pap Smear completed Bautista Valenzuela MD [address], [place], [address], [place] [facility] 02/02/2024 16:29:10 Imaging Results Imaging Date Name Status LastModified by Organiz ation Details LastModified Time 12/06/2023 US, extremity, nonvascular, complete completed [email or web address] (Imaging) [address] [facility], [place], [address], 02/02/2024 16:10:21 01/24/2024 MAMMO, diagnostic, tomosynthesis, bilateral completed [address] (Imaging) [address] [facility], [place], [address], 02/02/2024 16:10:21 01/24/2024 US, breast, unilateral, complete completed [email or web address] (Imaging) [address] [facility], [place], [address], 02/02/2024 16:10:21 02/21/2024 XR, cervical spine, 4 or [address] [facility] [address], [place], [address], 05/23/2024 11:18:09 03/01/2024 MRI, breast, bilateral, w/wo contrast completed [address], [address], 05/23/2024 11:18:09 03/30/2024 MAMMO, diagnostic, bilateral completed [address], [address], 05/23/2024 11:18:09 03/30/2024 US, axilla completed [email or web address], [address], 05/23/2024 11:18:09 04/18/2024 US, axilla completed [email or web address] [facility] [address], [place], [address], 05/23/2024 11:18:08 04/18/2024 biopsy of breast; percutaneous, needle core, using imaging guidance (PROC) completed [email or web address] [facility] [address] [facility] [address], [place], [address], 05/29/2024 10:15:09 Procedure Notes None recorded. Medical [...] 6 mg/mL suspension for injection 02/02 completed [facility]# [id number] Not Available Not Available Not [...] 500 mg solution for injection 02/02 completed [facility]# [id number] Not Available Not Available Not [...] Updated DateTime 3 180.34 cm 27.3 kg/m2 77960.4 5 g 97.1 [degF] 64 /min 20 /min 99 % 99 % 118 mm[Hg] 76 mm[Hg] Adama Sanches [facility] [employer] 3 16:23:44 Date Recorded Body height Body mass index (BMI) Body weight Body temperature Heart rate Respiratory rate Systolic blood pressure Diastolic blood pressure Provider Name and Address Organization Details Last Updated DateTime 4 180.34 cm 28.5 kg/m2 88793.2 8 g 98.1 [degF] 60 /min 20 /min 126 mm[Hg] 70 mm[Hg] Adama Sanches OR [employer] [facility] [employer] 4 14:36:54 Date Recorded Body height Body mass index (BMI) Body weight Body temperature Heart rate Oxygen saturation Oxygen saturation in Arterial blood by Pulse oximetry Provider Name and Address Organization Details Last Updated DateTime 4 180.34 cm 27.5 kg/m2 18669.4 9 g 99.7 [degF] 79 /min 97 % 97 % Kary Hargrove RN [facility] [employer] 4 16:05:58 Date Recorded Systolic blood pressure Diastolic blood pressure Provider Name and Address Organization Details Last Updated DateTime 02/02/2024 134 mm[Hg] 80 mm[Hg] Bautista Valenzuela MD [address] [facility], [facility] [address], [place], [address], [facility] [employer] [facility] 02/02/2024 16:24:32 Date Recorded Body height Body mass index (BMI) Body weight Body temperature Heart rate Respiratory rate Oxygen saturation Oxygen saturation in Arterial blood by Pulse oximetry Systolic blood pressure Diastolic blood pressure Provider Name and Address Organization Details Last Updated DateTime 4 180.34 cm 27.9 kg/m2 69932.8 2 g 98.2 [degF] 78 /min 20 /min 98 % 98 % 124 mm[Hg] 76 mm[Hg] Adama Sanches [place] - [facility] 4 15:44:41 Social History Question Answer Notes LastModified by Organizat ion Details LastModified Time Tobacco Smoking Status Never Smoker Not Available [employer] 07/15/2022 02:37:04 Do You Have An Advance Directive? No [id number] Information not available 07/15/2022 What Is Your Level Of Alcohol Consumption? Occasional [id number] Information not available 07/15/2022 Do You Wear A Helmet When Biking? No [id number] Information not available 07/15/2022 What Is Your Level Of Caffeine Consumption? Moderate [id number] Information not available 07/15/2022 How Much Tobacco Do You Chew? None [id number] Information not available 07/15/2022 In The 14 Days Before Symptom Onset, Have You Had Close Contact With A Laboratory-confi rmed COVID-19 While That Case Was Ill? No [id number] Information not available 07/15/2022 In The 14 Days Before Symptom Onset, Have You Had Close Contact With A Person Who Is Under Investigation For COVID-19 While That Person Was Ill? No [id number] Information not available 07/15/2022 What Type Of Diet Are You Following? REGULAR MIGRATION.03999 [id number] Information not available 07/15/2022 Do You Or Have You Ever Used E-cigarettes Or Vape? Never Used Electronic Cigarettes MIGRATION.72395 61590 Information not available 07/15/2022 What Is The Highest Grade Or Level Of School You Have Completed Or The Highest Degree You Have Received? 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 No MIGRATION.91916 05791 Information not available 07/15/2022 What Is The Fluoride Status Of Your Home? Unknown MIGRATION.43970 08975 Information not available 07/15/2022 Are There Any Guns Present In Your Home? No MIGRATION.54367 35779 Information not available 07/15/2022 Do You Use Insect Repellent Routinely? Yes MIGRATION.67484 41525 Information not available 07/15/2022 Where Do You Live? [place] MIGRATION.81835 81800 Information not available 07/15/2022 Do You Have A Medical Power Of Java Web User Interface Developer? No MIGRATION.55927 22964 Information not available 07/15/2022 Do You Have Any Pets? Yes MIGRATION.75698 99325 Information not available 07/15/2022 What Is Your Relationship Status? MIGRATION.77815 21056 Information not available 07/15/2022 Do You Use Your Seat Belt Or Car Seat Routinely? Yes MIGRATION.41840 61935 Information not available 07/15/2022 Do You Have Smoke And Carbon Monoxide Detectors In Your Home? Yes MIGRATION.03867 31977 Information not available 07/15/2022 Are You Passively Exposed To Smoke? No MIGRATION.44494 55385 Information not available 07/15/2022 Do You Or Have You Ever Used Smokeless Tobacco? Never Used Smokeless Tobacco MIGRATION.19045 13051 Information not available 07/15/2022 How Much Tobacco Do You Smoke? No MIGRATION.46524 47308 Information not available 07/15/2022 Do You Participate In Social Media? No MIGRATION.12052 14403 Information not available 07/15/2022 Do You Feel Stressed (tense, Restless, Nervous, Or Anxious, Or Unable To Sleep At Night)? SE0283-6 MIGRATION.47003 52779 Information not available 07/15/2022 Do You Use Any Illicit Or Recreational Drugs? No MIGRATION.33337 08922 Information not available 07/15/2022 Do You Use Sunscreen Routinely? Yes MIGRATION.59091 23084 Information not available 07/15/2022 Has Tobacco Cessation Counseling Been Provided? No MIGRATION.37363 33268 Information not available 07/15/2022 Are You Currently In School? No MIGRATION.56008 97364 Information not available 07/15/2022 Do You Or Have You Ever Used Any Other Forms Of Tobacco Or Nicotine? No MIGRATION.95615 79948 Information not available 07/15/2022 Sex: Female Functional Status Question Answer Note LastModified by Organizat ion Details LastModified Time What is your exercise level? None MIGRATION.[id number] Information not available 07/15/2022 Mental Status None recorded. Family History Relationship Description Onset Age of this Age Resolved Age Notes LastModified by Organization Details LastModified Time Mother Family history of malignant neoplasm MIGRATION.[id number] Not available 07/15/2022 02:45:24 Medical History No [...] virus, quadrivalent, preservative 1 completed Not Available [facility] 07/15/2022 03:00:01 Influenza, split virus, trivalent, preservative 5 completed Not Available [facility] 07/15/2022 03:00:01 Influenza, split virus, quadrivalent, preservative 2 completed Not Available [facility] 07/15/2022 03:00:02 COVID-19 PS Non-US Vaccine (EpiVacCorona) 1 completed Not Available [facility] 07/15/2022 03:00:02 Influenza, split virus, quadrivalent, preservative 0 completed Not Available [facility] 07/15/2022 03:00:02 Tdap 4 completed Not Available [facility] 07/15/2022 03:00:02 Influenza, split virus, trivalent, preservative 4 completed Not Available [facility] 07/15/2022 03:00:02 influenza, unspecified formulation 3 completed Macarena Pena null, [facility]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
[2024-08-04 16:58] LABS: Alanine Aminotransferase 23 U/L (6-35); Albumin Level 4.1 g/dL (3.5-5.1); Alkaline Phosphatase 60 U/L (38-126); Anion Gap 9 mmol/L (4-12); Aspartate Amino Transferase 45 U/L (14-36); Bilirubin,Total 0.5 mg/dL (0.2-1.3); Blood Urea Nitrogen 12 mg/dL (7-17); Calcium 9.7 mg/dL (8.4-10.2); Carbon Dioxide 28 mmol/L (22-30); Chloride 102 mmol/L (98-107); Estimated Glomerular Filt Rate > 60; Glucose 89 mg/dL (65-110); Lactate Dehydrogenase 206 U/L (120-246); Potassium 4.5 mmol/L (3.4-5.0); Sodium 139 mmol/L (137-145)
== END 2024-08-04 13:39 | disposition home or self-care (01) ==
LOC: ANHLAB 13:39
PROVIDERS: PCP Family Medicine; Visit Provider Internal Medicine Hematology & Oncology
DX: C85.80 Other specified types of non-Hodgkin lymphoma, unspecified site (principal)
CPT/HCPCS: 36415; 80053; 83615; 85025

== ENCOUNTER 2024-08-22 10:29 | Outpatient (CLI) | payer OTHER, SELFPAY ==
--- NOTE | ~2024-08-22 | PE_ITS ---
EXAMINATION: PET skull to mid thigh DATE: 08/22/2024 13:06 INDICATION: Marginal zone lymphoma TECHNIQUE: Blood glucose level was 69 mg/dL. 10.117 mCi of 18-fluorodeoxyglucose (18-FDG) was adminis tered i.v. Low dose computed tomography (CT) images were acquired from the base of the brain to the p roximal thighs for attenuation correction and anatomic localization. Positron emission tomography (PE T) images were acquired in the same distribution beginning 67 minutes after injection. Images includi ng fused PET/CT images were reconstructed in axial, coronal, and sagittal planes. Automated exposure control technique was employed. The dose-length product was 1090.16mGy-cm. COMPARISON: None FINDINGS: Head/neck: There is symmetric increased activity in the oral cavity, palatine tonsils, laryngeal muscles, ocular muscles and cervical paraspinal muscles without CT correlate, likely physiologic. No pathologically enlarged cervical lymphadenopathy or suspicious foci of increased FDG uptake in the visualized head o r neck. Mild cervical kyphosis with moderate to severe spondylosis. Chest: There is mild uptake with maximal SUV values of 2.1-3.0/oh with a few mildly prominent but still norm al-sized left axillary lymph nodes all of which measure <1 cm in maximal short axis diameter. There a re few slightly smaller right axillary lymph nodes with lower degrees of FDG uptake with maximal SUV values of 1.7-2.4. There are couple small foci of more prominent FDG activity with maximal SUV values of 6.6 and 5.8 which project along the distal left pectoralis major muscle and the proximal left bic eps muscle, both without radiologic correlate on CT. There is mild synovial uptake at the bilateral g lenohumeral joints. Lungs are clear with no suspicious pulmonary nodules, pneumonia or pleural effusi on. Heart size is normal. No pericardial effusion. Thoracic aorta is normal in caliber. No pathologic ally enlarged or abnormally FDG avid mediastinal or hilar lymphadenopathy. Mild likely physiologic in creased uptake extending craniocaudally along the right-sided thoracic paraspinal musculature. Mild t horacic dextroscoliosis with mild to moderate spondylosis. Abdomen/pelvis/proximal thighs: Physiologic renal accumulation and excretion of activity in the kidneys, bladder and along portions o f ureters. Normal degree and slightly heterogenous pattern of increased uptake throughout the liver a nd spleen without radiologic correlate or dominant PSMA avid lesion. Couple large calcified gallstone s in the otherwise normal gallbladder. The pancreas and bilateral adrenal glands are normal. Moderate uptake scattered throughout the bowels with typical duodenal and proximal jejunal predominance and w ithout radiologic correlate, also likely physiologic. Normal appendix. T-shaped IUD in expected posit ion within the uterus. 2.8 cm left adnexal cyst. Small focus of relatively intense FDG uptake with ma ximal SUV of 12.1 associated with a 10 x 5 mm nodule anterior to the proximal sartorius muscle potent ially a small lymph node. No other abnormal foci of increased uptake or pathologically enlarged lymph adenopathy in the abdomen, pelvis or proximal thighs. Severe lower lumbar spondylosis. IMPRESSION: 1. Mild FDG uptake, no greater in intensity than that of the liver associated with a few mildly promi nent but still normal-sized bilateral axillary lymph nodes. 2. Small focus of more intense FDG uptake associated with a 10 x 5 mm possible lymph node at the ante rior proximal left thigh which is more suspicious for lymphoma. 3. Couple additional foci of nonspecific moderate increased uptake at the distal left pectoralis madelin r muscle and proximal left biceps brachii muscle which are without radiologic correlate and of indete rminate etiology. 4. Cholelithiasis. Reviewed, dictated and finalized at location B. IMPRESSION: 1. Mild FDG uptake, no greater in intensity than that of the liver associated w ith a few mildly prominent but still normal-sized bilateral axillary lymph node s. 2. Small focus of more intense FDG uptake associated with a 10 x 5 mm possible lymph node at the anterior proximal left thigh which is more suspicious for lym phoma. 3. Couple additional foci of nonspecific moderate increased uptake at the dista l left pectoralis major muscle and proximal left biceps brachii muscle which ar e without radiologic correlate and of indeterminate etiology. 4. Cholelithiasis.
[2024-08-22 11:02] LABS: Glucose Point of Care 69 mg/dl (65-105)
--- OUTSIDE RECORDS SUMMARY | 2024-08-22 11:46 | XMS_ITS | Clinical Summary ---
Author Organization [facility] Address [address] [place] [address] Care Team Providers Care Hydraulic Riveter Name Role Phone None, Provider MD Primary [...] Vaccine (2023-2 5 season) 2024 09/18/2020, 08/21/2020 Meningococcal B Vaccine Aged Out No l [...] patient's age to complete this topic Insurance [employer] [facility] Care Teams Hydraulic Riveter Relationship Specialty Start Date End Date None, Provider, PCP - General 08/12/20
--- OUTSIDE RECORDS SUMMARY | 2024-08-22 11:46 | XMS_ITS | Encounter Summary ---
Author Organization [facility] Address [address] [facility] [place] [address] Care Team Providers Care Take Out Waitress Name Role Phone Unavailable Primary Care Provider Unavailabl e Encounter Details Date Type Department Care Team (Late st Contact Info) Description 04/18/2024 Lab Requisition [facility] - Pathology Lab [address] [place] [address] Alli Dean MD [address] [place] [address] Localized enlarged lymph nodes Social [...] CYTOMETRY TISSUE PANEL Routine 04/18/2024 11:31 AM SPRINKLER IRRIGATION EQUIPMENT MECHANIC Localized enlarged lymph nodes documented in this encounter Results * FLOW CYTOMETRY TISSUE PANEL (04/18/2024 11:31 AM SPRINKLER IRRIGATION EQUIPMENT MECHANIC) Case Report Flow Cytometry Case: [id number] Authorizing Provider: Alli Dean Collected: 04/18/2024 11:31 AM MD Prabhakar Ordering Location: [facility] Physician [facility] - Received: 04/18/2024 05:06 PM Pathology Lab Pathologist: Nikky Verma MD Specimen: Lymph Node, LEFT AXILLA BIOPSY 04/19/2024 9:43 AM [facility] PATHOLOGY LAB Final Diagnosis Lymph node, left axilla, flow cytometric immunophenotypic analysis: - No evidence of non-Hodgkin lymphoma - See interpretation 04/19/2024 9:43 AM [facility] PATHOLOGY LAB Flow Cytometry Interpretation Viability: 78% B-cells: polytypic, kappa:lambda ratio 1.9:1 T-cells: no immunophenotypic aberrancy detected CD4:CD8 ratio 5:1 A cytospin prepared from the flow cytometry specimen has been reviewed for quality auditor purposes. 04/19/2024 9:43 AM [facility] PATH[facility] LAB Flow Cytometry Results Differential Result Comment Flow Cell Count /uL 820 Total Viability % 78.0 Lymphocytes % 97 Dim CD45 Region % 2 Monocytes % 0 Granulocytes % 1 04/19/2024 9:43 AM [facility] PATH[facility] Reason for test Localized enlarged lymph nodes 785.6 04/19/2024 9:43 AM [facility] PATH[facility] Client Specimen ID # [id number] 04/19/2024 9:43 AM [facility] LAB Number of markers 17 were performed. A-2 Flow CD3 A-4 Flow CD10 A-6 Flow CD20 A-7 Flow CD23 A-12 Flow CD2 A-13 Flow CD4 A-16 Flow CD1a A-3 Flow CD5 A-5 Flow CD19 A-8 Flow CD34 A-9 Flow CD45 A-14 Flow CD7 A-15 Flow CD8 A-17 Flow CD30 A-10 [place]+CD19+ A-11 Lambda+CD19+ 04/19/2024 9:43 AM [facility] PATH[facility] LAB Pathologist Location at [facility] 04/19/2024 9:43 AM [facility] PATHOLOGY LAB Disclaimer Test performed at [facility], [address] [place] [address], [address]. *The established laboratory minimum viability is 70%. [...] high complexity clinical testing. 04/19/2024 9:43 AM [facility] PATHOLOGY LAB Embedded Images 9:43 AM [facility] PATH[facility] LAB Pathology/Cytolo gy ENTIRE LYMPH NODE / Unknown 04/18/2024 11:31 AM [employer] IRRIGATION EQUIPMENT MECHANIC 04/18/2024 5:06 PM [employer] IRRIGATION EQUIPMENT MECHANIC Alli Dean MD LAB - PATHO LOGY/CYTOLOGY ORDERABLES Performing Organization Address City/State/[facility] Phone Number [facility] PATHOLOGY LAB [address] [phone] documented in this encounter Visit Diagnoses Diagnosis Localized enlarged lymph nodes Enlargement of lymph nodes documented in this encounter
--- OUTSIDE RECORDS SUMMARY | 2024-08-22 11:46 | XMS_ITS | Encounter Summary ---
Author Organization [facility] Address [address] [facility] [place] [address] Care Team Providers Care Specialties Operator Name Role Phone Unavailable Primary Care Provider Unavailabl e Encounter Details Date Type Department Care Team (Late st Contact Info) Description 07/20/2024 Lab Requisition [facility] - Pathology Lab [address] [place] [address] Alli Dean MD [address] [place] [address] Localized enlarged lymph nodes Social [...] CYTOMETRY TISSUE PANEL Routine 07/19/2024 1:45 PM ELECTRONIC DEVELOPMENT TECHNICIAN Localized enlarged lymph nodes documented in this encounter Results * FLOW CYTOMETRY TISSUE PANEL (07/19/2024 1:45 PM ELECTRONIC DEVELOPMENT TECHNICIAN) Case Report Flow Cytometry Case: [id number] Authorizing Provider: Alli Dean Collected: 07/19/2024 01:45 PM MD Prabhakar Ordering Location: [facility] Physician [facility] - Received: 07/20/2024 12:53 PM Pathology Lab Pathologist: Serjio Donaldson MD Specimen: Lymph Node, UPPER INNER QUADRANT OF LEFT BREAST 07/20/2024 3:14 PM ELECTRONIC DEVELOPMENT TECHNICIAN [facility] Final Diagnosis Lymph node, upper inner quadrant of left breast, flow cytometry: - Low-viability specimen with no clonal B-cell or aberrant T-cell population detected 07/20/2024 3:14 PM ELECTRONIC DEVELOPMENT TECHNICIAN [facility] PATH[facility] Flow Cytometry Interpretation Viability: 68% B-cells: polytypic, kappa:lambda ratio 2:1 T-cells: no immunophenotypic aberrancy detected CD4:CD8 ratio 2.7:1 A cytospin prepared from the flow cytometry specimen has been reviewed for coding quality coordinator purposes. 07/20/2024 3:14 PM [facility] PATH[facility] Flow Cytometry Results Differential Result Comment Flow Cell Count /uL 12,780 Total Viability % 68.0 Lymphocytes % 98 Dim CD45 Region % 0 Monocytes % 1 Granulocytes % 0 07/20/2024 3:14 PM [facility] PATH[facility] Reason for test Localized enlarged lymph nodes 785.6 07/20/2024 3:14 PM [facility] Client Specimen ID # [id number] 07/20/2024 3:14 PM [facility] Number of markers 16 were performed. A-2 Flow CD3 A-4 Flow CD10 A-6 Flow CD20 A-7 Flow CD23 A-12 Flow CD2 A-13 Flow CD4 A-16 Flow CD1a A-3 Flow CD5 A-5 Flow CD19 A-8 Flow CD34 A-9 Flow CD45 A-14 Flow CD7 A-15 Flow CD8 A-17 Flow CD30 A-10 [place]+CD19+ A-11 Lambda+CD19+ 07/20/2024 3:14 PM [facility] PATH[facility] LAB Pathologist Location at [facility] 07/20/2024 3:14 PM [facility] PATH[facility] LAB Disclaimer Test performed at [facility], [address] [place] [address], [address]. *The established laboratory minimum viability is 70%. [...] high complexity clinical testing. 07/20/2024 3:14 PM [facility] PATH[facility] LAB Embedded Images 3:14 PM ELECTRONIC DEVELOPMENT TECHNICIAN [facility] Pathology/Cytolo gy ENTIRE LYMPH NODE / Unknown 07/19/2024 1:45 PM ELECTRONIC DEVELOPMENT TECHNICIAN 07/20/2024 12:53 PM ELECTRONIC DEVELOPMENT TECHNICIAN Alli Dean MD LAB - PATHO LOGY/CYTOLOGY ORDERABLES Performing Organization Address City/State/[facility] Co de Phone Number [facility] [address] [phone] documented in this encounter Visit Diagnoses Diagnosis Localized enlarged lymph nodes Enlargement of lymph nodes documented in this encounter
--- OUTSIDE RECORDS SUMMARY | 2024-08-22 11:47 | XMS_ITS | Clinical Summary ---
Author Organization [facility] Braydon santamaria Oscar Address [address] [place] [address] Care Team Providers Care Field Service Technician Name Role Phone Bautista Valenzuela MD Primary Care Provider [phone] Allergies No known active allergies Medications busPIRone [...] Encounters Date Type Department Care Team Description 08/08/2024 External Device Data [facility] ABSTRACTION Provider, Abstract 08/08/2024 External Device Data [facility] ABSTRACTION Provider, Abstract 08/08/2024 External Device Data [facility] ABSTRACTION Provider, Abstract 08/04/2024 1:00 PM CDT Office Visit [facility] [place] [address] [place] [address] Jez Reza MD Marginal zone lymphoma (CMS/HCC) (Primary Dx) 08/04/2024 Orders Only [facility] [place] [address] [place] [address] Jez Reza MD Marginal zone [...] Description 08/24/2024 1:00 PM CDT Office Visit [facility] [place] [address] [facility] [address] [place] [address] Jez Reza MD [address] [facility] [address] [place] [address] Health Maintenance Due Date Last Done Comments Pre-Diabetes and Diabetes Screening 1977 HEPATITIS B VACCINES (1 of 3 - 19+ 3-dose series) 1996 HPV/Cotest (21-29) 1998 CERVICAL CANCER SCREENING 11/08/2007 HPV/Cotest (30-65) 11/08/2007 PAP SMEAR 11/08/2007 BREAST CANCER SCREENING 2017 COLORECTAL SCREENING 2022 Colorectal Cancer Screening 2022 FIT-DNA Q 3 years 2022 FIT/FOBT Q 1 year 2022 Flex Sig/CT Colonography Q 5 years 2022 COVID-19 Vaccine ( season) 2024 09/18/2020, 08/21/2020 Preventative Visit- Commercial 05/17/2024 02/02/2024, 01/27/2023 DTAP/TDAP/TD VACCINES (3 - Td or Tdap) 02/20/2034 02/21/2024, 03/05/2014 INFLUENZA VACCINE Completed 02/21/2024, , 02/14/2021, Additional history exists HPV VACCINES Aged Out No longer eligi ble based on patient's age to complete this topic Procedures Procedure Name Priority Date/Time Associated Diagnosis Comments [facility]AT[facility]NANC[facility] (DNA AND RNA) Routine 08/16/2024 3:07 PM CDT Marginal zone lymphoma (CMS/HCC) LACTATE DEHYDROGENASE Routine 08/16/2024 2:30 PM CDT Marginal zone lymphoma (CMS/HCC) from Last 3 Months Results * [facility] HEMATOLOGIC MALIGNANCY (DNA AND RNA) (08/16/2024 3:07 PM CDT) [facility] [email or web address] 08/16/2024 3:07 PM CDT [facility] Comment:[facility] link Reason for Study To identify somatic and germline mutations relevant to patient's cancer. 08/16/2024 3:07 PM CDT [facility] Genetic Diseases Assessed Cancer 08/16/2024 3:07 PM CDT [facility] Description of Ranges of DNA Sequences Examined 648 gene panel 08/16/2024 3:07 PM CDT [facility] Overall Interpretation inconclusive 08/16/2024 3:07 PM CDT [facility] xR Result 1 NEGATIVE Negative - This report is being issued to report the results of gene rearrangement and altered splicing analysis from RNA sequencing. No gene rearrangements nor reportable altered splicing events were identified from RNA sequencing. 08/16/2024 3:07 PM CDT [facility] Genomic Variant Note No reportable pathogenic variants were found. 08/16/2024 3:07 PM CDT [facility] Treatment Implications Note No reportable treatment options found. 08/16/2024 3:07 PM CDT [facility] Low Coverage Regions [id number] 08/16/2024 3:07 PM CDT [facility] Blood specimen (specimen) 08/08/2024 11:36 AM CDT Narrative This result has genomic variants that were not included in this document. us Jez Reza MD MOLECULAR ORDERABLES Final Resu lt Performing Organization Address City/State/ZIP Co nv Phone Number [facility] [address] [facility], [address] [place] [address], [facility] [address] [facility], [address] [place] [id number] * LACTATE DEHYDROGENASE (08/16/2024 2:30 PM CDT) LD (LACTATE DEHYDROGENASE) 173 100 - 200 U/L [facility] Comment: Test Performed at: [facility] [place] [address] [place] [address] [facility] Blood 08/16/2024 2:30 PM CDT 08/16/2024 2:30 PM CDT us Jez Reza MD CHEMISTRY ORDERABLES Final Resu lt [facility] [phone] [facility] [address] [place] [address] from Last 3 Months Insurance [employer] OPEN ACCESS Care Teams Field Service Technician Relationship Specialty Start Date End Date Bautista Valenzuela MD [address] [place] [phone] PCP - General Family Practice 08/04/24
--- OUTSIDE RECORDS SUMMARY | 2024-08-22 11:47 | XMS_ITS | Data Portability ---
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 Cont f/u with Counsellor at [place] as per schedule. Cont f/u with Gyne at [place] as per schedule. Cont f/u with Derm at [place] as per schedule. Cont f/u with Ophtho [...] Lipids in 12/07. Annual labs in 02/07. [email or web address] Not available 09/02/2023 15:26:05 02/02/2024 02/02/2024 48 [...] per schedule. Cont f/u with Counsellor at [place] as per schedule. Cont f/u with Gyne at [place] as per schedule. Cont f/u with Derm at [place] as per schedule. Cont f/u with Ophtho [...] in 2-3 weeks. Annual labs in 02/07. [email or web address] Not available 02/02/2024 16:28:26 02/21/2024 02/21/2024 48 [...] it. Cont f/u with Breast surgeon at [place] as per schedule. F/u with Hemat as per schedule. Cont f/u with Counsellor at [place] as per schedule. Cont f/u with Gyne at [place] as per schedule. Cont f/u with Derm at [place] as per schedule. Cont f/u with Ophtho [...] Lipids in 06/10. Annual labs in 02/07. [email or web address] Not available 02/21/2024 15:55:19 05/23/2024 05/23/2024 The [...] had a 15 minute TeleMedicine consultation via [employer] to discuss the followin yo F with [...] it. Cont f/u with Breast surgeon at [place] as per schedule. F/u with Hemat as per schedule. Cont f/u with Counsellor at [place] as per schedule. Cont f/u with Gyne at [place] as per schedule. Cont f/u with Derm at [place] as per schedule. Cont f/u with Ophtho at [facility] as per schedule. Advised to refer to Psych; but pt declined for it. Pt got s/e from Sertraline. HM: YINAE - 02/07, normal as per pt. Cont f/u with Gyne as per schedule. Mammo - 03/30/24 & MRI breast done too, benign findings. Colonoscopy - Referred to GI. Cologuard ordered. Tdap - 02/21/24. Flu - 02/21/24. F/u in 2-3 months. Annual labs in 02/07. Not available 05/23/2024 11:32:43 08/14/2024 08/14/2024 48 yo F with - MARGINAL ZONE B-CELL LYMPHOMA - HLD, uncontrolled - LT AXILLA LUMP, [...] Pt verbalized understanding it. Cont f/u with Hemat/Onco at [place] as per schedule. Cont f/u with Breast surgeon at [place] as per schedule. Cont f/u with Psychiatrist at [place] as per schedule. Cont f/u with Gyne at [place] as per schedule. Cont f/u with Derm at [place] as per schedule. Cont f/u with Ophtho at [facility] as per schedule. Pt got s/e from Sertraline. HM: WWE - 02/07, normal as per pt. Cont f/u with Gyne as per schedule. Mammo - 03/30/24 & MRI breast done too, benign findings. Colonoscopy - Referred to GI. Cologuard ordered. Tdap - 02/21/24. Flu - 02/21/24. F/u in 3 months. TSH before next visit. Annual labs in 02/07. [email or web address] Not available 08/14/2024 12:59:23 Plan of Treatment Reminders Order Date Submit Date Provider Last Modified By Organization Details Last Modified Time Details Appointments Follow Up 15 2024 11:30A M Bautista Valenzuela MD Not available Not available Not available Lab TSH, serum or plasma 2024 025 [facility] (Lab), [address] [place], [address], 08/17/2024 01:47:35 noninvasi ve colorecta l cancer DNA + occult blood screening , QL, stool 2024 025 [email or web address] [facility] (Cologuard Orders Only), [address], [address], [place], [address], 06/15/2024 14:25:57 lipid panel, serum 2023 024 [facility] (Lab), [address] [place], [address], 05/11/2024 23:57:10 uric acid, serum or plasma [address] (Lab), [address] [place], [address], 02/09/2024 08:00:40 vitamin B12 + folate, serum or blood [address] (Lab), [address] [place], [address], 02/09/2024 08:00:40 TAMEKA (antinucl ear antibodie s) screen, serum [address] (Lab), [address] [place], [address], 02/09/2024 08:00:40 rf (rheumato id factor), serum [address] (Lab), [address] [place], [address], 02/09/2024 08:00:40 glycohemo globin, total, blood [address] (Lab), [address] [place], [address], 02/09/2024 08:00:41 CBC w/ auto diff [address] (Lab), [address] [place], [address], 02/09/2024 08:00:40 CMP, serum or plasma [address] (Lab), [address] [place], [address], 02/09/2024 08:00:41 lipid panel, serum [address] [place] [address] (Lab), [address] [place], [address], 02/09/2024 08:00:41 TSH, serum, reflex free T4 [address] (Lab), [address] [place], [address], 02/09/2024 08:00:41 urinalysi s complete, reflex culture [address] (Lab), [address] [place], [address], 02/09/2024 08:00:41 vitamin D, 25-hydrox y, total, serum [address] (Lab), [address] [place], [address], 02/09/2024 08:00:41 uric acid, serum or plasma [address] (Lab), [address] [place], [address], 09/09/2023 07:57:45 vitamin B12 + folate, serum or blood [address] (Lab), [address] [place], [address], 09/09/2023 07:57:45 TAMEKA (antinucl ear antibodie s) screen, serum [address] (Lab), [address] [place], [address], 09/09/2023 07:57:45 rf (rheumato id factor), serum [address] (Lab), [address] [place], [address], 09/09/2023 07:57:46 lipid panel, serum [address] (Lab), [address] [place], [address], 11/23/2023 08:28:11 Referral hematolog ist referral - Please call patient to schedule an appointme nt. Thank you. 2023 024 [email or web address] Jez Reza MD, [address], [place], [address], 09/30/2023 09:12:37 Procedures None recorded. Surgeries None recorded. Imaging XR, cervical spine, 4 or 5 view 2023 024 [email or web address] Not available 02/22/2024 09:17:02 US, axilla - *Please call pt to schedule* 2023 024 Not available 12/07/2023 09:33:43 Medication Orders buspirone 10 mg tablet 2024 025 [email or web address] [facility], [facility] [address] [place], [id number], 08/14/2024 12:46:22 atorvasta tin 10 mg tablet 2024 025 [address] [facility], [address] [place] [address], [id number], 08/14/2024 12:46:22 levothyro xine 25 mcg tablet 2024 025 [facility], [address] [place] [address], [id number], 08/14/2024 12:45:20 buspirone 10 mg tablet 2024 025 [facility] #25958, [facility] [address] [place], [place], [id number], 05/23/2024 11:33:16 atorvasta tin 10 mg tablet 2024 025 [facility], [address] [place], [place], [id number], 05/23/2024 11:33:16 bupropion HCl XL 150 mg 24 hr tablet, extended release [address] [facility] #89151, [address] [place], [place], [id number], 08/14/2024 12:42:48 levothyro xine 25 mcg tablet [address] [facility] #89848, [address] [place] [address], [id number], 05/23/2024 11:33:15 atorvasta tin 10 mg tablet [address] [facility] #36282, [address] [place] [address], [id number], 02/21/2024 15:50:40 bupropion HCl XL 150 mg 24 hr tablet, extended release [address] [facility] #22464, [address] [place] [address], [id number], 08/14/2024 12:42:48 levothyro xine 25 mcg tablet 2023 024 [facility], [address] [place] [address], [id number], 02/21/2024 15:50:39 bupropion HCl XL 150 mg 24 hr tablet, extended release [address] [facility] #79124, [address] [place] [address], [id number], 08/14/2024 12:42:48 levothyro xine 25 mcg tablet [address] [facility] #13541, [address] [place], [place], [id number], 02/02/2024 16:16:45 bupropion HCl XL 150 mg 24 hr tablet, extended release 2023 [email or web address] [facility] #93258, [address] [place], [place], [id number], 08/14/2024 12:42:48 levothyro xine [address] [facility] #15137, [address] [place], [place], [id number], 09/02/2023 14:41:42 Patient TargetsNo targets recorded. Patient Instructions Encounter Date Encounter Id Patient Instructions Last Modified By Organization Details Last Modified Time 05/23/2024 [id number] Due to the COVID-19 (Novel Coronavirus) pandemic, it is within this context (and with the understanding that this method of patient encounter is in the patient s best interest as well as the health and safety of other patients and the public) that [facility] is being provided for this patient encounter rather than a hlml-en-vzji visit. This patient encounter is appropriate at [...] if listed, were provided by the patient. [email or web address] Not available 05/23/2024 11:17:01 Reason for Referral Please call patient to nayan cabezas an appointment. Thank you. Referring Physician: Bautista Valenzuela, Family Medicine, Encounter Date: 09/02/2023 Results Created Date Observation Date Name Description Value Unit Range Abnormal Flag Note LastModifiedBy Organization Detail LastModifiedTime 01/31/2002/02/2024 URIC ACID uric acid 4.5 mg/dL 4.0-8. 0 normal Thera pejonh vera t for gout patie nts: <6.0 mg/dL Not Available [facility] [address], [place], [address], 02/02/2024 16:25:07 01/31/20 24 02/02/2024 TAMEKA SCREE [...] Patte rns (http [email or web address] [email or web address] [email or web address]. 1515/ [facility]- 2017- 0052) For addit ional infor puneet jimenez e refer to http: //pepito perez n.Que stDia gnost ics.c om/fa q/FAQ 177 (This link is being provi ded for infor jewell nal/ educa diego l purpo ses only. ) Not Available [facility] [address], [place], [address], 02/02/2024 16:25:07 01/31/20 24 02/02/2024 RHEUM ATOID FACTO R rheumatoid factor <10 IU/mL <14 normal Not Available [address], [address], 02/02/2024 16:25:08 01/31/2002/02/2024 VITAM IN B12 vitamin B12 448 pg/mL 200-11 00 normal Not Available [address], [address], 02/02/2024 16:25:08 02/08/20 24 02/09/2024 LIPID PANEL , STAND SUDHIR cholesterol, total 204 mg/dL <200 high Not Available [address], [address], 02/09/2024 17:37:19 02/08/20 24 02/09/2024 LIPID PANEL , STAND SUDHIR HDL cholesterol 57 mg/dL > or = 50 normal Not Available [address], [address], 02/09/2024 17:37:19 02/08/20 24 02/09/2024 LIPID PANEL , STAND SUDIHR triglyceride s 78 mg/dL <150 normal Not Available [address], [address], 02/09/2024 17:37:19 02/08/20 24 02/09/2024 LIPID PANEL , STAND SUDHIR LDL-choleste rol 130 mg/dL _(veronica c) high Refer ence range : <100 Jeana able range <100 mg/dL for prima ry preve ntion ; <70 mg/dL for patie nts with CHD or diabe tic patie nts with > or = 2 CHD risk facto rs. LDL-C is now calcu lated using the Salma n-Hop kins calcu latdionne n, which is a valid ated novel metho d provi oliver latham r accur acy than the Fried darshana equat ion in the estim ation of LDL-C . Salma ashraf SS et al. RHONDA. 2013; 310(1 9): 2061- 2068 (http ://ed ucati on.Salty jenkins SalesVus. com/f aq/FA Q164) Not Available [address], [address], 02/09/2024 17:37:19 02/08/2002/09/2024 LIPID PANEL , STAND SUDHIR chol/HDLC ratio 3.6 (calc ) <5.0 normal Not Available [address], [address], 02/09/2024 17:37:19 02/08/2002/09/2024 LIPID PANEL , STAND SUDHIR non HDL cholesterol 147 mg/dL _(veronica c) <130 high For patie nts with diabe nathanael plus 1 major ASCVD risk facto r, treat ing to a non-H DL-C goal of <100 mg/dL (LDL- C of <70 mg/dL ) is consi dered a thera peuti c optio n. Not Available [address], [address], 02/09/2024 17:37:19 02/08/2002/09/2024 URIC ACID uric acid 4.9 mg/dL 2.5-7. 0 normal Thera peuti c targe t for gout patie nts: <6.0 mg/dL Not Available [address], [address], 02/09/2024 17:37:19 02/08/2002/09/2024 COMPR EHENS REBEKAH METAB OLIC PANEL glucose 92 mg/dL 65-99 normal Fasti ng refer ence inter amari Not Available [address], [address], 02/09/2024 17:37:20 02/08/20 24 02/09/2024 COMPR EHENS REBEKAH METAB OLIC PANEL urea nitrogen (BUN) 13 mg/dL 7-25 normal Not Available [address], [place], [address], 02/09/2024 17:37:20 02/08/20 24 02/09/2024 COMPR EHENS REBEKAH METAB OLIC PANEL creatinine 0.92 mg/dL 0.50-0 .99 normal Not Available [facility] [address], [address], 02/09/2024 17:37:20 02/08/20 24 02/09/2024 COMPR EHENS REBEKAH METAB OLIC PANEL eGFR 78 mL/mi n/1.7 3m2 > or = 60 normal Not Available [facility] [address], [address], 02/09/2024 17:37:20 02/08/20 24 02/09/2024 COMPR EHENS REBEKAH METAB OLIC PANEL BUN/creatini ne ratio SEE NOTE: (calc ) 6-22 Not Repor olesya: BUN and Creat inine are withi n refer ence range . Not Available [address], [address], 02/09/2024 17:37:20 02/08/20 24 02/09/2024 COMPR EHENS REBEKAH METAB OLIC PANEL sodium 138 mmol/ L 135-14 6 normal Not Available [facility] [address], [address], 02/09/2024 17:37:20 02/08/20 24 02/09/2024 COMPR EHENS REBEKAH METAB OLIC PANEL potassium 4.2 mmol/ L 3.5-5. 3 normal Not Available [facility] [address], [address], 02/09/2024 17:37:20 02/08/20 24 02/09/2024 COMPR EHENS REBEKAH METAB OLIC PANEL chloride 104 mmol/ L 98-110 normal Not Available [facility] [address], [address], 02/09/2024 17:37:20 02/08/20 24 02/09/2024 COMPR EHENS REBEKAH METAB OLIC PANEL carbon dioxide 27 mmol/ L 20-32 normal Not Available [address], [address], 02/09/2024 17:37:20 02/08/20 24 02/09/2024 COMPR EHENS REBEKAH METAB OLIC PANEL calcium 9.7 mg/dL 8.6-10 .2 normal Not Available [address], [address], 02/09/2024 17:37:20 02/08/20 24 02/09/2024 COMPR EHENS REBEKAH METAB OLIC PANEL protein, total 6.7 g/dL 6.1-8. 1 normal Not Available [address], [address], 02/09/2024 17:37:20 02/08/20 24 02/09/2024 COMPR EHENS REBEKAH METAB OLIC PANEL albumin 3.9 g/dL 3.6-5. 1 normal Not Available [address], [address], 02/09/2024 17:37:20 02/08/2002/09/2024 COMPR EHENS REBEKAH METAB OLIC PANEL globulin 2.8 g/dL_ (calc ) 1.9-3. 7 normal Not Available [address], [address], 02/09/2024 17:37:20 02/08/20 24 02/09/2024 COMPR EHENS REBEKAH METAB OLIC PANEL albumin/glob ulin ratio 1.4 (calc ) 1.0-2. 5 normal Not Available [address], [address], 02/09/2024 17:37:20 02/08/20 24 02/09/2024 COMPR EHENS REBEKAH METAB OLIC PANEL bilirubin, total 0.5 mg/dL 0.2-1. 2 normal Not Available [address], [address], 02/09/2024 17:37:20 02/08/20 24 02/09/2024 COMPR EHENS REBEKAH METAB OLIC PANEL alkaline phosphatase 39 U/L 31-125 normal Not Available [facility] [employer] [address], [address], 02/09/2024 17:37:20 02/08/20 24 02/09/2024 COMPR EHENS REBEKAH METAB OLIC PANEL AST 14 U/L 10-35 normal Not Available [address], [address], 02/09/2024 17:37:20 02/08/20 24 02/09/2024 COMPR EHENS REBEKAH METAB OLIC PANEL ALT 13 U/L 6-29 normal Not Available [address], [address], 02/09/2024 17:37:20 02/08/20 24 02/09/2024 CBC (INCL UDES DIFF/ PLT) white blood cell count 7.1 thous and/u L 3.8-10 .8 normal Not Available [address], [address], 02/09/2024 17:37:20 02/08/20 24 02/09/2024 CBC (INCL UDES DIFF/ PLT) red blood cell count 4.54 parviz on/uL 3.80-5 .10 normal Not Available [address], [address], 02/09/2024 17:37:20 02/08/2002/09/2024 CBC (INCL UDES DIFF/ PLT) hemoglobin 13.8 g/dL 11.7-1 5.5 normal Not Available [facility] [address], [address], 02/09/2024 17:37:20 02/08/2002/09/2024 CBC (INCL UDES DIFF/ PLT) hematocrit 43.3 % 35.0-4 5.0 normal Not Available [address], [address], 02/09/2024 17:37:20 02/08/2002/09/2024 CBC (INCL UDES DIFF/ PLT) MCV 95.4 fL 80.0-1 00.0 normal Not Available [facility] [address], [address], 02/09/2024 17:37:20 02/08/20 24 02/09/2024 CBC (INCL UDES DIFF/ PLT) MCH 30.4 pg 27.0-3 3.0 normal Not Available [address], [address], 02/09/2024 17:37:20 02/08/2002/09/2024 CBC (INCL UDES DIFF/ PLT) MCHC 31.9 g/dL 32.0-3 6.0 low Not Available [address], [address], 02/09/2024 17:37:20 02/08/2002/09/2024 CBC (INCL UDES DIFF/ PLT) RDW 12.1 % 11.0-1 5.0 normal Not Available [address], [address], 02/09/2024 17:37:20 02/08/2002/09/2024 CBC (INCL UDES DIFF/ PLT) platelet count 446 thous and/u L 140-40 0 high Not Available [address], [address], 02/09/2024 17:37:20 02/08/20 24 02/09/2024 CBC (INCL UDES DIFF/ PLT) MPV 9.1 fL 7.5-12 .5 normal Not Available [address], [address], 02/09/2024 17:37:20 02/08/20 24 02/09/2024 CBC (INCL UDES DIFF/ PLT) absolute neutrophils 3195 cells /uL 1500-7 800 normal Not Available [address], [address], 02/09/2024 17:37:20 02/08/2002/09/2024 CBC (INCL UDES DIFF/ PLT) absolute lymphocytes 2506 cells /uL 850-39 00 normal Not Available [address], [address], 02/09/2024 17:37:20 02/08/20 24 02/09/2024 CBC (INCL UDES DIFF/ PLT) absolute monocytes 121 cells /uL 200-95 0 low Not Available [address], [address], 02/09/2024 17:37:20 02/08/20 24 02/09/2024 CBC (INCL UDES DIFF/ PLT) absolute eosinophils 1257 cells /uL 15-500 high Not Available [address], [address], 02/09/2024 17:37:20 02/08/20 24 02/09/2024 CBC (INCL UDES DIFF/ PLT) absolute basophils 21 cells /uL 0-200 normal Not Available [facility] [address], [address], 02/09/2024 17:37:20 02/08/20 24 02/09/2024 CBC (INCL UDES DIFF/ PLT) neutrophils 45 % normal Not Available [facility] [address], [address], 02/09/2024 17:37:20 02/08/20 24 02/09/2024 CBC (INCL UDES DIFF/ PLT) lymphocytes 35.3 % normal Not Available [address], [address], 02/09/2024 17:37:20 02/08/20 24 02/09/2024 CBC (INCL UDES DIFF/ PLT) monocytes 1.7 % normal Not Available [address], [address], 02/09/2024 17:37:20 02/08/20 24 02/09/2024 CBC (INCL UDES DIFF/ PLT) eosinophils 17.7 % normal Not Available [address], [address], 02/09/2024 17:37:20 02/08/20 24 02/09/2024 CBC (INCL UDES DIFF/ PLT) basophils 0.3 % normal Not Available [address], [address], 02/09/2024 17:37:20 02/08/20 24 02/09/2024 URINA LYSIS , COMPL ETE W/REF SAM TO CULTU RE color YELLOW yellow normal Not Available [address], [address], 02/09/2024 17:37:21 02/08/20 24 02/09/2024 URINA LYSIS , COMPL ETE W/REF SAM TO CULTU RE appearance CLEAR clear normal Not Available [address], [address], 02/09/2024 17:37:21 02/08/20 24 02/09/2024 URINA LYSIS , COMPL ETE W/REF SAM TO CULTU RE specific gravity 1.008 1.001- 1.035 normal Not Available [address], [address], 02/09/2024 17:37:21 02/08/20 24 02/09/2024 URINA LYSIS , COMPL ETE W/REF SAM TO CULTU RE pH 6.0 5.0-8. 0 normal Not Available [address], [address], 02/09/2024 17:37:21 02/08/20 24 02/09/2024 URINA LYSIS , COMPL ETE W/REF SAM TO CULTU RE glucose NEGATI VE negati ve normal Not Available [address], [address], 02/09/2024 17:37:21 02/08/20 24 02/09/2024 URINA LYSIS , COMPL ETE W/REF SAM TO CULTU RE bilirubin NEGATI VE negati ve normal Not Available [address], [address], 02/09/2024 17:37:21 02/08/20 24 02/09/2024 URINA LYSIS , COMPL ETE W/REF SAM TO CULTU RE ketones NEGATI VE negati ve normal Not Available [address], [address], 02/09/2024 17:37:21 02/08/20 24 02/09/2024 URINA LYSIS , COMPL ETE W/REF SAM TO CULTU RE occult blood NEGATI VE negati ve normal Not Available [address], [address], 02/09/2024 17:37:21 02/08/20 24 02/09/2024 URINA LYSIS , COMPL ETE W/REF SAM TO CULTU RE protein NEGATI VE negati ve normal Not Available [address], [address], 02/09/2024 17:37:21 02/08/20 24 02/09/2024 URINA LYSIS , COMPL ETE W/REF SAM TO CULTU RE nitrite NEGATI VE negati ve normal Not Available [address], [address], 02/09/2024 17:37:21 02/08/20 24 02/09/2024 URINA LYSIS , COMPL ETE W/REF SAM TO CULTU RE leukocyte esterase NEGATI VE negati ve normal Not Available [address], [address], 02/09/2024 17:37:21 02/08/20 24 02/09/2024 URINA LYSIS , COMPL ETE W/REF SAM TO CULTU RE WBC NONE SEEN /hpf < or = 5 normal Not Available [address], [address], 02/09/2024 17:37:21 02/08/20 24 02/09/2024 URINA LYSIS , COMPL ETE W/REF SAM TO CULTU RE RBC NONE SEEN /hpf < or = 2 normal Not Available [address], [address], 02/09/2024 17:37:21 02/08/20 24 02/09/2024 URINA LYSIS , COMPL ETE W/REF SAM TO CULTU RE squamous epithelial cells NONE SEEN /hpf < or = 5 normal Not Available [address], [address], 02/09/2024 17:37:21 02/08/20 24 02/09/2024 URINA LYSIS , COMPL ETE W/REF SAM TO CULTU RE bacteria NONE SEEN /hpf none seen normal Not Available [address], [address], 02/09/2024 17:37:21 02/08/20 24 02/09/2024 URINA LYSIS , COMPL ETE W/REF SAM TO CULTU RE hyaline cast NONE SEEN /lpf none seen normal Not Available [address] [place], [address], 02/09/2024 17:37:21 02/08/20 24 02/09/2024 URINA LYSIS , COMPL ETE W/REF SAM TO CULTU RE note This urine was mellissa zed for the prese nce of WBC, RBC, bacte amy, casts , and other forme d eleme nts. Only those eleme nts seen were repor olesya. Not Available [facility] [address] [address] [place], [address], 02/09/2024 17:37:21 02/08/20 24 02/09/2024 REFLE XIVE URINE CULTU RE reflexive urine culture NO CULTU RE INDIC ATED Not Available [facility] [address] [address] [place], [address], 02/09/2024 17:37:22 02/08/20 24 02/09/2024 TAMEKA SCREE [...] Patte rns (http s://d oi.or g/10. 1515/ [facility]- 2017- [address]52) For addit ional infor puneet jimenez e refer to http: //pepito ashraf.Que stDia gnost ics.c om/fa q/FAQ 177 (This link is being provi ded for infor matio nal/ educa diego l purpo ses only. ) Not Available [address] [address] [place], [address], 02/09/2024 17:37:22 02/08/20 24 02/09/2024 RHEUM ATOID FACTO R rheumatoid factor <10 IU/mL <14 normal Not Available [address] [address] [place], [address], 02/09/2024 17:37:23 02/08/20 24 02/09/2024 VITAM IN B12/F OLATE , SERUM PANEL vitamin B12 491 pg/mL 200-11 00 normal Not Available [address] [address] [place], [address], 02/09/2024 17:37:23 02/08/20 24 02/09/2024 VITAM IN B12/F OLATE , SERUM PANEL folate, serum 11.6 NG/mL normal Refer ence Range Low: <3.4 Borde rline : 3.4-5 .4 Mi l: >5.4 Not Available [address] [address] [place], [address], 02/09/2024 17:37:23 02/08/20 24 02/09/2024 VITAM IN D,25- OH,TO ANU,I A vitamin [...] /MS is recom sue d: order code 05054 (adarsh ents >2yrs ). See Note 1 Note 1 For addit ional infor upneet jimenez e refer to http: //[facility] ana dominguezQue stDia gnost ics.c om/fa q/FAQ 199 (This link is being provi ded for infor jewell camarena/ educa diego l purpo ses only. ) Not Available [facility] [address] [place], [address], 02/09/2024 17:37:24 02/08/20 24 02/09/2024 TSH W/REF SAM TO FT4 TSH w/reflex to FT4 3.75 mIU/L normal Refer ence Range > or = 20 Years 0.40- 4.50 Pregn mike Range s First trime ster 0.26- 2.66 Secon d trime ster 0.55- 2.73 Third trime ster 0.43- 2.91 Not Available [facility] [id number] [place], [address], 02/09/2024 17:37:24 02/08/20 24 02/09/2024 HEMOG LOBIN A1C hemoglobin A1C 5.2 %_of_ [...] c503 platf orm. Effec tive , a anisha garcia in test platf orms from the [facility] to the Peggy vanessa c503 may have shift ed HbA1c resul ts esteabn red to histo rical resul ts. Based on labor atory valid ation testi ng condu cted at [facility] , the Peggy platf orm relat rebekah to the [facility] platf orm had an avera ge incre ase in HbA1c value of < or = 0.3%. This diffe rence is withi n accep olesya varia bilit y estab lishe d by the Frandy camarena Glyco hemog lobin Stand ardiz ation Progr am. Note that not all indiv idual s will have had a shift in their resul ts and direc t esteban rison s betwe en histo rical and curre nt resul ts for testi ng condu cted on diffe rent platf orms is not recom sue d. Not Available [facility] [place] [address] [address] [place], [address], 02/09/2024 17:37:25 05/11/20 24 05/11/2024 LIPID PANEL , STAND SUDHIR cholesterol, total 161 mg/dL <200 normal Not Available [facility] [place] [address] [place], [address], 05/11/2024 23:57:10 05/11/20 24 05/11/2024 LIPID PANEL , STAND SUDHIR HDL cholesterol 54 mg/dL > or = 50 normal Not Available [facility] [place] [address] [place], [address], 05/11/2024 23:57:10 05/11/20 24 05/11/2024 LIPID PANEL , STAND SUDHIR triglyceride s 91 mg/dL <150 normal Not Available [facility] [place] [address] [place], [address], 05/11/2024 23:57:10 05/11/20 24 05/11/2024 LIPID PANEL [...] n, which is a valid ated novel metho d provi ding yeison r accur acy than the Fried darshana equat ion in the estim ation of LDL-C . Salma ashraf SS et al. RHONDA. 2013; 310(1 9): 2061- 2068 (http ://ed ucati on.Qu jeffryVivint. Apica/f aq/FA Q164) Not Available [facility] [address] [place], [address], 05/11/2024 23:57:10 05/11/20 24 05/11/2024 LIPID PANEL , STAND SUDHIR chol/HDLC ratio 3.0 (calc ) <5.0 normal Not Available [facility] [address] [place] [address], [address], 05/11/2024 23:57:10 05/11/20 24 05/11/2024 LIPID PANEL , STAND SUDHIR non HDL cholesterol 107 mg/dL _(veronica c) <130 normal For patie nts with diabe nathanael plus 1 major ASCVD risk facto r, treat ing to a non-H DL-C goal of <100 mg/dL (LDL- C of <70 mg/dL ) is consi dered a thera peuti c optio n. Not Available [facility] [address] [place], [address], 05/11/2024 23:57:10 12/06/19 24 US, yaneli fernandez, jovanna staples r, compl ete [facility] [address] [place] [address] [phone] Patien t Name: FAUSTINA REZA Access ion #: [id number] Sex: F : 1975 9 Dictat ed By: Terrie Candelario Attend ing Physic anaid: DENILSON VALENZUELA Physic anaid: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
--- OUTSIDE RECORDS SUMMARY | 2024-08-22 11:47 | XMS_ITS | Encounter Summary ---
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 Illness, unspecified documented in this encounter Results * PATHOLOGY TISSUE (07/19/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) Case Report Surgical Pathology Report Case: [id number] Authorizing Provider: Alli Dean Collected: 07/19/2024 02:10 PM MD Prabhakar Ordering Location: [facility] Physician [facility] - Received: 07/20/2024 01:00 PM Pathology Lab Pathologist: Serjio Donaldson MD Specimen: Lymph Node 08/07/2024 2:16 PM CDT [facility] PATHOLOG[facility] LAB Final Diagnosis Lymph node, left axilla, excisional biopsy: - 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 08/07/2024 2:16 PM [facility] PATH[facility] Clinical History Lymphadenopathy. 08/07/2024 2:16 PM [facility] PATH[facility] Materials Received Received are 3 slide(s) and Block A1 labeled [id number] along with a copy of the outside pathology report. [place] [address]. All original materials are returned to the referring institution, along with a copy of our final report. 08/07/2024 2:16 PM [facility] PATH[facility] Addendum 1 Additional immunohistochemistry for CD23, shows some staining of the B-lymphoma cells for this marker. Original diagnosis remains unchanged. 08/07/2024 2:16 PM [facility] Addendum electronically signed by Serjio Donaldson MD on 07/21/2024 at 2:48 PM Addendum 2 Additional immunohistochemistry for CD15 is negative in lesional cells. Original diagnosis remains unchanged. 08/07/2024 2:16 PM [facility] Addendum electronically signed by Serjio Donaldson MD on 08/07/2024 at 2:16 PM Pathologist Location at [facility] 08/07/2024 2:16 PM CDT [facility] PATH[facility] LAB Disclaimer The performance characteristics of all immunohistochemical and indirect immunofluorescence stains (if any) cited in this report were determined by the Histopathology Laboratory of [facility]. Some of these tests were [...] and interpreted by the attending (teaching) pathologist. 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
--- OUTSIDE RECORDS SUMMARY | 2024-08-22 11:47 | XMS_ITS | Clinical Summary ---
Author Organization [facility] Address [address] [place] [address] Care Team Providers Care Core Laying Machine Operator Name Role Phone Unavailable Primary Care Provider Unavailabl e Source Comments [facility],non-owned Affiliates and Associated Physician Practices is amultiple site organization consisting of ambulatory clinics and hospital sitesin [place], [place], [place]. This disclosure is being madepursuant to the Care Everywhere program and may not contain all information available regarding this patient. Last updated 18.[facility] Encounters Date Type Department Care Team Description 07/20/2024 Lab Requisition [facility] - Pathology Lab [address] [place] [address] Alli Dean MD Illness, unspecified 07/20/2024 Lab Requisition [facility] - Pathology Lab [address] [place] [address] Alli Dean MD Localized enlarged lymph nodes [...] 1996 ZOSTER VACCINE (1 of 2) 1996 DEPRESSION SCREENING 05/17/2024 INFLUENZA VACCINE (Season Ended) 2025 HIB VACCINE Aged Out No longer eligi [...] Comments PATHOLOGY TISSUE Routine 07/19/2024 2:10 PM BACKUP ADMINISTRATIVE COORDINATOR Illness, unspecified FLOW CYTOMETRY TISSUE PANEL Routine 07/19/2024 1:45 PM BACKUP ADMINISTRATIVE COORDINATOR Localized enlarged lymph nodes from Last 3 Months Results * PATHOLOGY TISSUE (07/19/2024 2:10 PM BACKUP ADMINISTRATIVE COORDINATOR) Case Report Surgical Pathology Report Case: [id number] Authorizing Provider: Alli Dean Collected: 07/19/2024 02:10 PM MD Prabhakar Ordering Location: [facility] - Received: 07/20/2024 01:00 PM Pathology Lab Pathologist: Serjio Donaldson MD Specimen: Lymph Node 08/07/2024 2:16 PM CDT [facility] PATHOLOG[facility] Final Diagnosis Lymph node, left axilla, excisional biopsy: - 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 08/07/2024 2:16 PM [facility] PATH[facility] Clinical History Lymphadenopathy. 08/07/2024 2:16 PM [facility] PATHOLOG[facility] LAB Materials Received Received are 3 slide(s) and Block A1 labeled [id number] along with a copy of the outside pathology report. [place] [address]. All original materials are returned to the referring institution, along with a copy of our final report. 08/07/2024 2:16 PM [facility] PATH[facility] Addendum 1 Additional immunohistochemistry for CD23, shows some staining of the B-lymphoma cells for this marker. Original diagnosis remains unchanged. 08/07/2024 2:16 PM [facility] PATH[facility] Addendum electronically signed by Serjio Donaldson MD on 07/21/2024 at 2:48 PM Addendum 2 Additional immunohistochemistry for CD15 is negative in lesional cells. Original diagnosis remains unchanged. 08/07/2024 2:16 PM [facility] PATH[facility] Addendum electronically signed by Serjio Donaldson MD on 08/07/2024 at 2:16 PM Pathologist Location at [facility] 08/07/2024 2:16 PM CDT [facility] PATH[facility] Disclaimer The performance characteristics of all immunohistochemical and indirect immunofluorescence stains (if any) cited in this report were determined by the Histopathology Laboratory of [facility]. Some of these tests were [...] attending (teaching) pathologist. 08/07/2024 2:16 PM T [facility] PATH[facility] Embedded Images 08/07/2024 2:16 PM [facility] PATH[facility] Pathology/Cytolo gy ENTIRE LYMPH NODE / Unknown 07/19/2024 2:10 PM BACKUP ADMINISTRATIVE COORDINATOR 07/20/2024 1:00 PM BACKUP ADMINISTRATIVE COORDINATOR Alli Dean MD LAB - PATHO LOGY/CYTOLOGY ORDERABLES [facility] [address] [phone] * FLOW CYTOMETRY TISSUE PANEL (07/19/2024 1:45 PM BACKUP ADMINISTRATIVE COORDINATOR) Case Report Flow Cytometry Case: [id number] Authorizing Provider: Alli Dean Collected: 07/19/2024 01:45 PM MD Prabhakar Ordering Location: [facility] - Received: 07/20/2024 12:53 PM Pathology Lab Pathologist: Serjio Donaldson MD Specimen: Lymph Node, UPPER INNER QUADRANT OF LEFT BREAST 07/20/2024 3:14 PM BACKUP ADMINISTRATIVE COORDINATOR [facility] Final Diagnosis Lymph node, upper inner quadrant of left breast, flow cytometry: - Low-viability specimen with no clonal B-cell or aberrant T-cell population detected 07/20/2024 3:14 PM BACKUP ADMINISTRATIVE COORDINATOR [facility] Flow Cytometry Interpretation Viability: 68% B-cells: polytypic, kappa:lambda ratio 2:1 T-cells: no immunophenotypic aberrancy detected CD4:CD8 ratio 2.7:1 A cytospin prepared from the flow cytometry specimen has been reviewed for clinical quality assurance associate purposes. 07/20/2024 3:14 PM [facility] Flow Cytometry Results Differential Result Comment Flow Cell Count /uL 12,780 Total Viability % 68.0 Lymphocytes % 98 Dim CD45 Region % 0 Monocytes % 1 Granulocytes % 0 07/20/2024 3:14 PM [facility] Reason for test Localized enlarged lymph nodes 785.6 07/20/2024 3:14 PM [facility] Client Specimen ID # [id number] 07/20/2024 3:14 PM [facility] Number of markers 16 were performed. A-2 Flow CD3 A-4 Flow CD10 A-6 Flow CD20 A-7 Flow CD23 A-12 Flow CD2 A-13 Flow CD4 A-16 Flow CD1a A-3 Flow CD5 A-5 Flow CD19 A-8 Flow CD34 A-9 Flow CD45 A-14 Flow CD7 A-15 Flow CD8 A-17 Flow CD30 A-10 [place]+CD19+ A-11 Lambda+CD19+ 07/20/2024 3:14 PM [facility] Pathologist Location at [facility] 07/20/2024 3:14 PM [facility] Disclaimer Test performed at [facility], [address] [place] [address], [id number]. *The established laboratory minimum viability is 70%. [...] high complexity clinical testing. 07/20/2024 3:14 PM [facility] Embedded Images 3:14 PM [facility] Pathology/Cytolo gy ENTIRE LYMPH NODE / Unknown 07/19/2024 1:45 PM BACKUP ADMINISTRATIVE COORDINATOR 07/20/2024 12:53 PM BACKUP ADMINISTRATIVE COORDINATOR Alli Dean MD LAB - PATHO LOGY/CYTOLOGY ORDERABLES [facility] [address] [facility] [place] [address], [facility] [phone] from Last 3 Months
== END 2024-08-22 10:30 | disposition home or self-care (01) ==
PROVIDERS: PCP Family Medicine; Visit Provider Internal Medicine Hematology & Oncology
DX: C85.80 Other specified types of non-Hodgkin lymphoma, unspecified site (principal); K80.20 Calculus of gallbladder without cholecystitis without obstruction
CPT/HCPCS: 78815; A9552

== ENCOUNTER 2024-08-24 13:18 | Outpatient (CLI) | payer OTHER, SELFPAY ==
[2024-08-24 13:34] LABS: Basophils Percent Auto 0.3 % (0.2-1.2); Eosinophils Absolute Auto 0.9 K/mm3 (0-0.3); Eosinophils Percent Auto 12.1 % (0-4.4); Hematocrit 41.9 % (37.0-47.0); Hemoglobin 13.8 g/dL (12.0-15.0); Immature Granulocyte Absolute 0.02 K/mm3 (0.00-0.031); Immature Granulocyte Percent A 0.3 % (0-0.5); Lymphocytes Absolute Auto 1.42 K/mm3 (0.9-3.2); Mean Corpuscular HGB Conc 32.9 g/dl (32-36); Mean Corpuscular Hemoglobin 30.5 pg (26-34); Mean Corpuscular Volume 92.7 fl (80-100); Mean Platelet Volume 8.1 fl (7.4-10.4); Monocytes Absolute Auto 0.2 K/mm3 (0.1-0.6); Monocytes Percent Auto 2.1 % (2.6-8.5); Neutrophils Absolute Auto 4.6 K/mm3 (1.3-6.7); Neutrophils Percent Auto 65.2 % (45.5-73.1); Platelet Count Result 434 k/mm3 (150-375); Red Blood Count 4.52 M/mm3 (4.2-5.4); Red Cell Distribution Width 12.6 % (11.5-14.5); White Blood Count 7.1 K/mm3 (4.5-10.0)
[2024-08-24 13:36] LABS: Blood Urea Nitrogen 7 mg/dL (8-26); Carbon Dioxide 27 mmol/L (22-30); Chloride 103 mmol/L (98-109); Estimated Glomerular Filt Rate 60; Glucose 75 mg/dL (70-105); Ionized Calcium (POC) 1.21 mmol/L (1.11-1.31); Potassium 4.4 mmol/L (3.5-4.9); Sodium 141 mmol/L (138-146)
--- OUTSIDE RECORDS SUMMARY | 2024-08-24 13:47 | XMS_ITS | Clinical Summary ---
Author Organization [facility] Address [address] [place] [address] Care Team Providers Care Health Occupations Instructor Name Role Phone None, Provider MD Primary [...] patient's age to complete this topic Insurance [employer] [facility] Care Teams Health Occupations Instructor Relationship Specialty Start Date End Date None, Provider, PCP - General 08/12/20
--- OUTSIDE RECORDS SUMMARY | 2024-08-24 13:48 | XMS_ITS | Encounter Summary ---
Author Organization [facility] [employer] [facility] Address [address] [place] [address] Care Team Providers Care Industrial Hygiene Manager Name Role Phone Bautista Valenzuela MD Primary Care Provider [phone] Encounter Details Date Type Department Care Team (Late st Contact Info) Description 08/23/2024 Orders Only [facility] Oncology and Hematology - [place] [address] [facility] [address] [place] [address] Jez Reza MD [address] [facility] [address] [place] [address] Social History Tobacco Use Types Packs/Day Years [...] AM CDT documented as of this encounter Plan of Treatment Not on file documented as of this encounter Procedures Procedure Name Priority Date/Time Associated Diagnosis Comments PET BONE IMG W CT SKL BSE MID THG Routine 08/22/2024 8:49 AM CDT documented in this encounter Results * PET BONE IMG W CT SKB MDTH (08/22/2024 8:49 AM CDT) Anatomical Region Laterality Modality Positron Emissio n Tomography (PET) us Jez Reza MD PE ORDERABLES Final Result documented in this encounter Visit Diagnoses Not on filedocumented in this encounter Care Teams Industrial Hygiene Manager Relationship Specialty Start Date End Date Bautista Valenzuela MD [address] [place] [phone] PCP - General Family Practice 08/04/24 documented as of this encounter
--- OUTSIDE RECORDS SUMMARY | 2024-08-24 13:48 | XMS_ITS | Encounter Summary ---
Author Organization [facility] [employer] [facility] Address [address] [place] [address] Care Team Providers Care Spray Machine Loader Name Role Phone Bautista Valenzuela MD Primary Care Provider [phone] Encounter Details Date Type Department Care Team (Late st Contact Info) Description 08/22/2024 Orders Only [facility] Oncology and Hematology - [place] [address] [facility] [address] [place] [address] Jez Reza MD [address] [facility] [address] [place] [address] Social History Tobacco Use Types [...] Procedure Name Priority Date/Time Associated Diagnosis Comments GLUCOSE LEVEL Routine 08/22/2024 4:26 PM CDT documented in this encounter Results * GLUCOSE LEVEL (08/22/2024 4:26 PM CDT) Blood us Jez Reza MD CHEMISTRY ORDERABLES Final Resu lt documented in this encounter Visit Diagnoses Not on filedocumented in this encounter Care Teams Spray Machine Loader Relationship Specialty Start Date End Date Bautista Valenzuela MD [address] [place] [phone] PCP - General Family Practice 08/04/24 documented as of this encounter
--- OUTSIDE RECORDS SUMMARY | 2024-08-24 13:48 | XMS_ITS | Encounter Summary ---
Author Organization [facility] Address [address] [place] [address] Care Team Providers Care Intermodal Truck Driver Name Role Phone Unavailable Primary Care Provider Unavailabl e Encounter Details Date Type Department Care Team (Late st Contact Info) Description 04/18/2024 Lab Requisition [facility] - Pathology Lab [address] [place] [address] Alli Dean MD [address] [place] [address] Localized enlarged lymph nodes Social [...] CYTOMETRY TISSUE PANEL Routine 04/18/2024 11:31 AM INJECTION WAX MOLDER Localized enlarged lymph nodes documented in this encounter Results * FLOW CYTOMETRY TISSUE PANEL (04/18/2024 11:31 AM INJECTION WAX MOLDER) Case Report Flow Cytometry Case: [id number] Authorizing Provider: Alli Dean Collected: 04/18/2024 11:31 AM MD Prabhakar Ordering Location: [facility] Physician [facility] - Received: 04/18/2024 05:06 PM Pathology Lab Pathologist: Nikky Verma MD Specimen: Lymph Node, LEFT AXILLA BIOPSY 04/19/2024 9:43 AM [facility] Final Diagnosis Lymph node, left axilla, flow cytometric immunophenotypic analysis: - No evidence of non-Hodgkin lymphoma - See interpretation 04/19/2024 9:43 AM [facility] Flow Cytometry Interpretation Viability: 78% B-cells: polytypic, kappa:lambda ratio 1.9:1 T-cells: no immunophenotypic aberrancy detected CD4:CD8 ratio 5:1 A cytospin prepared from the flow cytometry specimen has been reviewed for quality assurance auditor purposes. 04/19/2024 9:43 AM [facility] Flow Cytometry Results Differential Result Comment Flow Cell Count /uL 820 Total Viability % 78.0 Lymphocytes % 97 Dim CD45 Region % 2 Monocytes % 0 Granulocytes % 1 04/19/2024 9:43 AM [facility] Reason for test Localized enlarged lymph nodes 785.6 04/19/2024 9:43 AM [facility] Client Specimen ID # [id number] 04/19/2024 9:43 AM [facility] Number of markers 17 were performed. A-2 Flow CD3 A-4 Flow CD10 A-6 Flow CD20 A-7 Flow CD23 A-12 Flow CD2 A-13 Flow CD4 A-16 Flow CD1a A-3 Flow CD5 A-5 Flow CD19 A-8 Flow CD34 A-9 Flow CD45 A-14 Flow CD7 A-15 Flow CD8 A-17 Flow CD30 A-10 [place]+CD19+ A-11 Lambda+CD19+ 04/19/2024 9:43 AM [facility] PATH[facility] Pathologist Location at [facility] 04/19/2024 9:43 AM [facility] PATHOLOGY LAB Disclaimer Test performed at [facility], [address] [place] [address], [address]. *The established laboratory minimum viability is 70%. [...] high complexity clinical testing. 04/19/2024 9:43 AM [facility] PATH[facility] Embedded Images 9:43 AM [facility] PATH[facility] Pathology/Cytolo gy ENTIRE LYMPH NODE / Unknown 04/18/2024 11:31 AM INJECTION WAX MOLDER 04/18/2024 5:06 PM INJECTION WAX MOLDER Alli Dean MD LAB - PATHO LOGY/CYTOLOGY ORDERABLES Performing Organization Address City/State/[facility] Phone Number [facility] PATHOLOGY [facility] [address] [phone] documented in this encounter Visit Diagnoses Diagnosis Localized enlarged lymph nodes Enlargement of lymph nodes documented in this encounter
--- OUTSIDE RECORDS SUMMARY | 2024-08-24 13:48 | XMS_ITS | Encounter Summary ---
Author Organization [facility] Address [address] [place] [address] Care Team Providers Care Blade Sharpener Name Role Phone Unavailable Primary Care Provider Unavailabl e Encounter Details Date Type Department Care Team (Late st Contact Info) Description 07/20/2024 Lab Requisition [facility] - Pathology Lab [address] [place] [address] Alli Dean MD [address] [place] [address] Localized enlarged lymph nodes Social [...] CYTOMETRY TISSUE PANEL Routine 07/19/2024 1:45 PM STEMMER MACHINE Localized enlarged lymph nodes documented in this encounter Results * FLOW CYTOMETRY TISSUE PANEL (07/19/2024 1:45 PM STEMMER MACHINE) Case Report Flow Cytometry Case: [id number] Authorizing Provider: Alli Dean Collected: 07/19/2024 01:45 PM MD Prabhakar Ordering Location: [facility] Physician [facility] - Received: 07/20/2024 12:53 PM Pathology Lab Pathologist: Serjio Donaldson MD Specimen: Lymph Node, UPPER INNER QUADRANT OF LEFT BREAST 07/20/2024 3:14 PM STEMMER MACHINE [facility] PATH[facility] Final Diagnosis Lymph node, upper inner quadrant of left breast, flow cytometry: - Low-viability specimen with no clonal B-cell or aberrant T-cell population detected 07/20/2024 3:14 PM STEMMER MACHINE [facility] Flow Cytometry Interpretation Viability: 68% B-cells: polytypic, kappa:lambda ratio 2:1 T-cells: no immunophenotypic aberrancy detected CD4:CD8 ratio 2.7:1 A cytospin prepared from the flow cytometry specimen has been reviewed for chief quality officer purposes. 07/20/2024 3:14 PM [facility] PATHOLOG[facility] Flow Cytometry Results Differential Result Comment Flow Cell Count /uL 12,780 Total Viability % 68.0 Lymphocytes % 98 Dim CD45 Region % 0 Monocytes % 1 Granulocytes % 0 07/20/2024 3:14 PM [facility] PATH[facility] Reason for test Localized enlarged lymph nodes 785.6 07/20/2024 3:14 PM [facility] PATH[facility] Client Specimen ID # [id number] 07/20/2024 3:14 PM [facility] PATH[facility] Number of markers 16 were performed. A-2 Flow CD3 A-4 Flow CD10 A-6 Flow CD20 A-7 Flow CD23 A-12 Flow CD2 A-13 Flow CD4 A-16 Flow CD1a A-3 Flow CD5 A-5 Flow CD19 A-8 Flow CD34 A-9 Flow CD45 A-14 Flow CD7 A-15 Flow CD8 A-17 Flow CD30 A-10 [place]+CD19+ A-11 Lambda+CD19+ 07/20/2024 3:14 PM [facility] PATH[facility] Pathologist Location at [facility] 07/20/2024 3:14 PM [facility] PATH[facility] LAB Disclaimer Test performed at [facility], [address] [place] [address], [id number]. *The established laboratory minimum viability is 70%. [...] high complexity clinical testing. 07/20/2024 3:14 PM [facility] PATH[facility] LAB Embedded Images 3:14 PM STEMMER MACHINE [facility] PATH[facility] Pathology/Cytolo gy ENTIRE LYMPH NODE / Unknown 07/19/2024 1:45 PM STEMMER MACHINE 07/20/2024 12:53 PM STEMMER MACHINE Alli Dean MD LAB - PATHO LOGY/CYTOLOGY ORDERABLES Performing Organization Address City/State/[facility] Co de Phone Number [facility] PATH[facility] [address] [phone] documented in this encounter Visit Diagnoses Diagnosis Localized enlarged lymph nodes Enlargement of lymph nodes documented in this encounter
--- OUTSIDE RECORDS SUMMARY | 2024-08-24 13:48 | XMS_ITS | Clinical Summary ---
Author Organization [facility] Address [address] [place] [address] Care Team Providers Care Live Truck Operator Name Role Phone Unavailable Primary Care Provider Unavailabl e Source Comments [facility],non-owned Affiliates and Associated Physician Practices is amultiple site organization consisting of ambulatory clinics and hospital sitesin [place], [place], [place] and [place]. This disclosure is being madepursuant to the Care Everywhere program and may not contain all information available regarding this patient. Last updated 18.[facility] Encounters Date Type Department Care Team Description 07/20/2024 Lab Requisition [facility] - Pathology Lab [address] [place] [address] Alli Dean MD Illness, unspecified 07/20/2024 Lab Requisition [facility] - Pathology Lab [address] [place] [address] Alli Dean MD Localized enlarged lymph nodes [...] Comments PATHOLOGY TISSUE Routine 07/19/2024 2:10 PM HEATING ELEMENT BUILDER Illness, unspecified FLOW CYTOMETRY TISSUE PANEL Routine 07/19/2024 1:45 PM HEATING ELEMENT BUILDER Localized enlarged lymph nodes from Last 3 Months Results * PATHOLOGY TISSUE (07/19/2024 2:10 PM HEATING ELEMENT BUILDER) Case Report Surgical Pathology Report Case: [id number] Authorizing Provider: Alli Dean Collected: 07/19/2024 02:10 PM MD Prabhakar Ordering Location: [facility] - Received: 07/20/2024 01:00 PM Pathology Lab Pathologist: Serjio Donaldson MD Specimen: Lymph Node 08/07/2024 2:16 PM CDT [facility] PATH[facility] Final Diagnosis Lymph node, left axilla, excisional biopsy: - 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 08/07/2024 2:16 PM [facility] Clinical History Lymphadenopathy. 08/07/2024 2:16 PM [facility] Materials Received Received are 3 slide(s) and Block A1 labeled [id number] along with a copy of the outside pathology report. [place] [address]. All original materials are returned to the referring institution, along with a copy of our final report. 08/07/2024 2:16 PM [facility] Addendum 1 Additional immunohistochemistry for CD23, shows some staining of the B-lymphoma cells for this marker. Original diagnosis remains unchanged. 08/07/2024 2:16 PM [facility] Addendum electronically signed by Serjio Donaldson MD on 07/21/2024 at 2:48 PM Addendum 2 Additional immunohistochemistry for CD15 is negative in lesional cells. Original diagnosis remains unchanged. 08/07/2024 2:16 PM [facility] Addendum electronically signed by Serjio Donaldson MD on 08/07/2024 at 2:16 PM Pathologist Location at [facility] 08/07/2024 2:16 PM CDT [facility] Disclaimer The performance characteristics of all immunohistochemical and indirect immunofluorescence stains (if any) cited in this report were determined by the Histopathology Laboratory of [facility]. Some of these tests were [...] attending (teaching) pathologist. 08/07/2024 2:16 PM T [facility] Embedded Images 08/07/2024 2:16 PM [facility] Pathology/Cytolo gy ENTIRE LYMPH NODE / Unknown 07/19/2024 2:10 PM HEATING ELEMENT BUILDER 07/20/2024 1:00 PM HEATING ELEMENT BUILDER Alli Dean MD LAB - PATHO LOGY/CYTOLOGY ORDERABLES [facility] [address] [phone] * FLOW CYTOMETRY TISSUE PANEL (07/19/2024 1:45 PM HEATING ELEMENT BUILDER) Case Report Flow Cytometry Case: [id number] Authorizing Provider: Alli Dean Collected: 07/19/2024 01:45 PM MD Prabhakar Ordering Location: [facility] - Received: 07/20/2024 12:53 PM Pathology Lab Pathologist: Serjio Donaldson MD Specimen: Lymph Node, UPPER INNER QUADRANT OF LEFT BREAST 07/20/2024 3:14 PM HEATING ELEMENT BUILDER [facility] Final Diagnosis Lymph node, upper inner quadrant of left breast, flow cytometry: - Low-viability specimen with no clonal B-cell or aberrant T-cell population detected 07/20/2024 3:14 PM HEATING ELEMENT BUILDER [facility] Flow Cytometry Interpretation Viability: 68% B-cells: polytypic, kappa:lambda ratio 2:1 T-cells: no immunophenotypic aberrancy detected CD4:CD8 ratio 2.7:1 A cytospin prepared from the flow cytometry specimen has been reviewed for quality assurance supervisor chassis purposes. 07/20/2024 3:14 PM [facility] Flow Cytometry Results Differential Result Comment Flow Cell Count /uL 12,780 Total Viability % 68.0 Lymphocytes % 98 Dim CD45 Region % 0 Monocytes % 1 Granulocytes % 0 07/20/2024 3:14 PM [facility] Reason for test Localized enlarged lymph nodes 785.6 07/20/2024 3:14 PM [facility] Client Specimen ID # [id number] 07/20/2024 3:14 PM [facility] Number of markers 16 were performed. A-2 Flow CD3 A-4 Flow CD10 A-6 Flow CD20 A-7 Flow CD23 A-12 Flow CD2 A-13 Flow CD4 A-16 Flow CD1a A-3 Flow CD5 A-5 Flow CD19 A-8 Flow CD34 A-9 Flow CD45 A-14 Flow CD7 A-15 Flow CD8 A-17 Flow CD30 A-10 [place]+CD19+ A-11 Lambda+CD19+ 07/20/2024 3:14 PM [facility] Pathologist Location at [facility] 07/20/2024 3:14 PM [facility] PATH[facility] Disclaimer Test performed at [facility], [address] [place] [address], [id number]. *The established laboratory minimum viability is 70%. [...] complexity clinical testing. 07/20/2024 3:14 PM [facility] PATH[facility] Embedded Images 3:14 PM [facility] Pathology/Cytolo gy ENTIRE LYMPH NODE / Unknown 07/19/2024 1:45 PM HEATING ELEMENT BUILDER 07/20/2024 12:53 PM HEATING ELEMENT BUILDER Alli Dean MD LAB - PATHO LOGY/CYTOLOGY ORDERABLES [facility] [address] [facility] [place] [address], [place] [phone] from Last 3 Months
--- OUTSIDE RECORDS SUMMARY | 2024-08-24 13:48 | XMS_ITS | Data Portability ---
Author Organization [place] - [facility] [place], Main Office Address [address] [place] [address] Care Team Providers Care Camp Boss Name Role Phone VALENZUELADARONBAUTISTA Primary Care Provider [phone] Assessment Encounter Date Assessment Date Assessment LastModified [...] understanding it. Cont f/u with Counsellor at [place] as per schedule. Cont f/u with Gyne at [place] as per schedule. Cont f/u with Derm at [place] as per schedule. Cont f/u with Ophtho [...] Lipids in 12/07. Annual labs in 02/07. [email or web address] Not available 09/02/2023 15:26:05 02/02/2024 02/02/2024 48 [...] per schedule. Cont f/u with Counsellor at [place] as per schedule. Cont f/u with Gyne at [place] as per schedule. Cont f/u with Derm at [place] as per schedule. Cont f/u with Ophtho [...] in 2-3 weeks. Annual labs in 02/07. [email or web address] Not available 02/02/2024 16:28:26 02/21/2024 02/21/2024 48 [...] it. Cont f/u with Breast surgeon at [place] as per schedule. F/u with Hemat as per schedule. Cont f/u with Counsellor at [place] as per schedule. Cont f/u with Gyne at [place] as per schedule. Cont f/u with Derm at [place] as per schedule. Cont f/u with Ophtho [...] Lipids in 06/10. Annual labs in 02/07. [email or web address] Not available 02/21/2024 15:55:19 05/23/2024 05/23/2024 The [...] had a 15 minute TeleMedicine consultation via Fracture to discuss the followin yo F with [...] it. Cont f/u with Breast surgeon at [place] as per schedule. F/u with Hemat as per schedule. Cont f/u with Counsellor at [place] as per schedule. Cont f/u with Gyne at [place] as per schedule. Cont f/u with Derm at [place] as per schedule. Cont f/u with Ophtho [...] in 2-3 months. Annual labs in 02/07. [email or web address] Not available 05/23/2024 11:32:43 08/14/2024 08/14/2024 48 [...] understanding it. Cont f/u with Hemat/Onco at [place] as per schedule. Cont f/u with Breast surgeon at [place] as per schedule. Cont f/u with Psychiatrist at [place] as per schedule. Cont f/u with Gyne at [place] as per schedule. Cont f/u with Derm at [place] as per schedule. Cont f/u with Ophtho at [facility] as per schedule. Pt got s/e from Sertraline. HM: WWE - 02/07, normal as per pt. Cont f/u with Gyne as per schedule. Mammo - 03/30/24 & MRI breast done too, benign findings. Colonoscopy - Referred to GI. Cologuard ordered. Tdap - 02/21/24. Flu - 02/21/24. F/u in 3 months. TSH before next visit. Annual labs in 02/07. [email or web address] Not available 08/14/2024 12:59:23 Plan of Treatment Reminders Order Date Submit Date Provider Last Modified By Organization Details Last Modified Time Details Appointments Follow Up 15 2024 11:30A M Bautista Valenzuela MD Not available Not available Not available Lab TSH, serum or plasma 2024 025 [facility] (Lab), [address] [place], [address], 08/17/2024 01:47:35 noninvasi ve colorecta l cancer DNA + occult blood screening , QL, stool 2024 025 [facility] (Cologuard Orders Only), [address], [address], [place], [address], 06/15/2024 14:25:57 lipid panel, serum 2023 024 [facility] (Lab), [address] [place], [address], 05/11/2024 23:57:10 uric acid, serum or plasma [address] (Lab), [address] [place], [address], 02/09/2024 08:00:40 vitamin B12 + folate, serum or blood [address] (Lab), [address] [place], [address], 02/09/2024 08:00:40 TAMEKA (antinucl ear antibodie s) screen, serum [address] (Lab), [address] [place], [address], 02/09/2024 08:00:40 rf (rheumato id factor), serum [address] (Lab), [address] [place], [address], 02/09/2024 08:00:40 glycohemo globin, total, blood [address] (Lab), [address] [place], [address], 02/09/2024 08:00:41 CBC w/ auto diff [address] (Lab), [address] [place], [address], 02/09/2024 08:00:40 CMP, serum or plasma [address] (Lab), [address] [place], [address], 02/09/2024 08:00:41 lipid panel, serum [address] [place] [address] (Lab), [address] [place], [address], 02/09/2024 08:00:41 TSH, serum, reflex free T4 [address] (Lab), [address] [place], [address], 02/09/2024 08:00:41 urinalysi s complete, reflex culture [address] (Lab), [address] [place], [address], 02/09/2024 08:00:41 vitamin D, 25-hydrox y, total, serum [address] (Lab), [address] [place], [address], 02/09/2024 08:00:41 uric acid, serum or plasma [address] (Lab), [address] [place], [address], 09/09/2023 07:57:45 vitamin B12 + folate, serum or blood [address] (Lab), [address] [place], [address], 09/09/2023 07:57:45 TAMEKA (antinucl ear antibodie s) screen, serum [address] (Lab), [address] [place], [address], 09/09/2023 07:57:45 rf (rheumato id factor), serum [address] (Lab), [address] [place], [address], 09/09/2023 07:57:46 lipid panel, serum [address] (Lab), [address] [place], [address], 11/23/2023 08:28:11 Referral hematolog ist referral - Please call patient to schedule an appointme nt. Thank you. 2023 024 [email or web address] Jez Reza MD, [address], [place], [address], 09/30/2023 09:12:37 Procedures None recorded. Surgeries None recorded. Imaging XR, cervical spine, 4 or 5 view 2023 024 [email or web address] Not available 02/22/2024 09:17:02 US, axilla - *Please call pt to schedule* 2023 024 [email or web address] Not available 12/07/2023 09:33:43 Medication Orders buspirone 10 mg tablet 2024 025 [email or web address] [facility], [facility] [address] [place], [id number], 08/14/2024 12:46:22 atorvasta tin 10 mg tablet 2024 025 [address], [address] [place] [address], [id number], 08/14/2024 12:46:22 levothyro xine 25 mcg tablet 2024 025 VEGUITA AB [facility], [address] [place] [address], [id number], 08/14/2024 12:45:20 buspirone 10 mg tablet 2024 025 [facility]09421, [facility] [address] [place], [id number], 05/23/2024 11:33:16 atorvasta tin 10 mg tablet 2024 025 [facility]ITA [facility], [address] [place], [place], [id number], 05/23/2024 11:33:16 bupropion HCl XL 150 mg 24 hr tablet, extended release [address] [facility] #40347, [address] [place], [place], [id number], 08/14/2024 12:42:48 levothyro xine 25 mcg tablet 2024 025 [facility] #25668, [address] [place] [address], [id number], 05/23/2024 11:33:15 atorvasta tin 10 mg tablet 2023 024 [facility] #06853, [address] [place] [address], [id number], 02/21/2024 15:50:40 bupropion HCl XL 150 mg 24 hr tablet, extended release [address] [facility] #24168, [address] [place] [address], [id number], 08/14/2024 12:42:48 levothyro xine 25 mcg tablet 2023 024 [facility], [address] [place] [address], [id number], 02/21/2024 15:50:39 bupropion HCl XL 150 mg 24 hr tablet, extended release [address] [facility] #80146, [address] [place] [address], [id number], 08/14/2024 12:42:48 levothyro xine 25 mcg tablet 2023 024 [facility] #24764, [address] [place], [place], [id number], 02/02/2024 16:16:45 bupropion HCl XL 150 mg 24 hr tablet, extended release 2023 [email or web address] [facility] #21205, [address] [place], [place], [id number], 08/14/2024 12:42:48 levothyro xine 25 mcg tablet 2023 [facility] #41090, [address] [place], [place], [id number], 09/02/2023 14:41:42 Patient TargetsNo targets recorded. Patient Instructions Encounter Date Encounter Id Patient Instructions Last Modified By Organization Details Last Modified Time 05/23/2024 [id number] Due to the COVID-19 (Novel Coronavirus) pandemic, it is within this context (and with the understanding that this method of patient encounter is in the patient s best interest as well as the health and safety of other patients and the public) that [facility] is being provided for this patient encounter rather than a [id number] visit. This patient encounter is appropriate at [...] if listed, were provided by the patient. [email or web address] Not available 05/23/2024 11:17:01 Reason for Referral [...] gout patie nts: <6.0 mg/dL Not Available [facility] [address] [address], [place], [address], 02/02/2024 16:25:07 01/31/20 24 02/02/2024 TAMEKA SCREE [...] Patte rns (http [email or web address] [email or web address] g/10. 1515/ [facility]- 2017- 0052) For addit ional infor puneet jimenez e refer to http: //pepito perez n.Que stDia gnost ics.c om/fa q/FAQ 177 (This link is being provi ded for infor jewell nal/ educa diego l purpo ses only. ) Not Available [employer] [facility] [address] [address], [place], [address], 02/02/2024 16:25:07 01/31/20 24 02/02/2024 RHEUM ATOID FACTO R rheumatoid factor <10 IU/mL <14 normal Not Available [address], [address], 02/02/2024 16:25:08 01/31/2002/02/2024 VITAM IN B12 vitamin B12 448 pg/mL 200-11 00 normal Not Available [address], [address], 02/02/2024 16:25:08 02/08/20 24 02/09/2024 LIPID PANEL , STAND SUDHIR cholesterol, total 204 mg/dL <200 high Not Available [address], [address], 02/09/2024 17:37:19 02/08/20 24 02/09/2024 LIPID PANEL , STAND SUDHIR HDL cholesterol 57 mg/dL > or = 50 normal Not Available [address], [address], 02/09/2024 17:37:19 02/08/20 24 02/09/2024 LIPID PANEL , STAND SUDHIR triglyceride s 78 mg/dL <150 normal Not Available [address], [address], 02/09/2024 17:37:19 02/08/20 24 02/09/2024 LIPID PANEL [...] 2061- 2068 (http ://ed ucati on.Salty jenkins qcues. com/f aq/FA Q164) Not Available [address], [address], 02/09/2024 17:37:19 02/08/2002/09/2024 LIPID PANEL , STAND SUDHIR chol/HDLC ratio 3.6 (calc ) <5.0 normal Not Available [address], [address], 02/09/2024 17:37:19 02/08/2002/09/2024 LIPID PANEL , STAND SUDHIR non HDL cholesterol 147 mg/dL _(veronica c) <130 high For patie nts with diabe nathanael plus 1 major ASCVD risk facto r, treat ing to a non-H DL-C goal of <100 mg/dL (LDL- C of <70 mg/dL ) is consi dered a thera peuti c optio n. Not Available [address], [address], 02/09/2024 17:37:19 02/08/2002/09/2024 URIC ACID uric acid 4.9 mg/dL 2.5-7. 0 normal Thera peuti c targe t for gout patie nts: <6.0 mg/dL Not Available [address], [address], 02/09/2024 17:37:19 02/08/2002/09/2024 COMPR EHENS REBEKAH METAB OLIC PANEL glucose 92 mg/dL 65-99 normal Fasti ng refer ence inter amari Not Available [address], [address], 02/09/2024 17:37:20 02/08/20 24 02/09/2024 COMPR EHENS REBEKAH METAB OLIC PANEL urea nitrogen (BUN) 13 mg/dL 7-25 normal Not Available [address], [place], [address], 02/09/2024 17:37:20 02/08/20 24 02/09/2024 COMPR EHENS REBEKAH METAB OLIC PANEL creatinine 0.92 mg/dL 0.50-0 .99 normal Not Available [facility] [address], [address], 02/09/2024 17:37:20 02/08/20 24 02/09/2024 COMPR EHENS REBEKAH METAB OLIC PANEL eGFR 78 mL/mi n/1.7 3m2 > or = 60 normal Not Available [facility] [address], [address], 02/09/2024 17:37:20 02/08/20 24 02/09/2024 COMPR EHENS REBEKAH METAB OLIC PANEL BUN/creatini ne ratio SEE NOTE: (calc ) 6-22 Not Repor olesya: BUN and Creat inine are withi n refer ence range . Not Available [address], [address], 02/09/2024 17:37:20 02/08/20 24 02/09/2024 COMPR EHENS REBEKAH METAB OLIC PANEL sodium 138 mmol/ L 135-14 6 normal Not Available [facility] [address], [address], 02/09/2024 17:37:20 02/08/20 24 02/09/2024 COMPR EHENS REBEKAH METAB OLIC PANEL potassium 4.2 mmol/ L 3.5-5. 3 normal Not Available [facility] [address], [address], 02/09/2024 17:37:20 02/08/20 24 02/09/2024 COMPR EHENS REBEKAH METAB OLIC PANEL chloride 104 mmol/ L 98-110 normal Not Available [facility] [address], [address], 02/09/2024 17:37:20 02/08/20 24 02/09/2024 COMPR EHENS REBEKAH METAB OLIC PANEL carbon dioxide 27 mmol/ L 20-32 normal Not Available [address], [address], 02/09/2024 17:37:20 02/08/20 24 02/09/2024 COMPR EHENS REBEKAH METAB OLIC PANEL calcium 9.7 mg/dL 8.6-10 .2 normal Not Available [address], [address], 02/09/2024 17:37:20 02/08/20 24 02/09/2024 COMPR EHENS REBEKAH METAB OLIC PANEL protein, total 6.7 g/dL 6.1-8. 1 normal Not Available [address], [address], 02/09/2024 17:37:20 02/08/20 24 02/09/2024 COMPR EHENS REBEKAH METAB OLIC PANEL albumin 3.9 g/dL 3.6-5. 1 normal Not Available [address], [address], 02/09/2024 17:37:20 02/08/2002/09/2024 COMPR EHENS REBEKAH METAB OLIC PANEL globulin 2.8 g/dL_ (calc ) 1.9-3. 7 normal Not Available [address], [address], 02/09/2024 17:37:20 02/08/20 24 02/09/2024 COMPR EHENS REBEKAH METAB OLIC PANEL albumin/glob ulin ratio 1.4 (calc ) 1.0-2. 5 normal Not Available [address], [address], 02/09/2024 17:37:20 02/08/20 24 02/09/2024 COMPR EHENS REBEKAH METAB OLIC PANEL bilirubin, total 0.5 mg/dL 0.2-1. 2 normal Not Available [address], [address], 02/09/2024 17:37:20 02/08/20 24 02/09/2024 COMPR EHENS REBEKAH METAB OLIC PANEL alkaline phosphatase 39 U/L 31-125 normal Not Available [facility] [employer] [address], [address], 02/09/2024 17:37:20 02/08/20 24 02/09/2024 COMPR EHENS REBEKAH METAB OLIC PANEL AST 14 U/L 10-35 normal Not Available [address], [address], 02/09/2024 17:37:20 02/08/20 24 02/09/2024 COMPR EHENS REBEKAH METAB OLIC PANEL ALT 13 U/L 6-29 normal Not Available [address], [address], 02/09/2024 17:37:20 02/08/20 24 02/09/2024 CBC (INCL UDES DIFF/ PLT) white blood cell count 7.1 thous and/u L 3.8-10 .8 normal Not Available [address], [address], 02/09/2024 17:37:20 02/08/20 24 02/09/2024 CBC (INCL UDES DIFF/ PLT) red blood cell count 4.54 parviz on/uL 3.80-5 .10 normal Not Available [address], [address], 02/09/2024 17:37:20 02/08/2002/09/2024 CBC (INCL UDES DIFF/ PLT) hemoglobin 13.8 g/dL 11.7-1 5.5 normal Not Available [employer] [address], [address], 02/09/2024 17:37:20 02/08/2002/09/2024 CBC (INCL UDES DIFF/ PLT) hematocrit 43.3 % 35.0-4 5.0 normal Not Available [address], [address], 02/09/2024 17:37:20 02/08/2002/09/2024 CBC (INCL UDES DIFF/ PLT) MCV 95.4 fL 80.0-1 00.0 normal Not Available [facility] [address], [address], 02/09/2024 17:37:20 02/08/20 24 02/09/2024 CBC (INCL UDES DIFF/ PLT) MCH 30.4 pg 27.0-3 3.0 normal Not Available [address], [address], 02/09/2024 17:37:20 02/08/2002/09/2024 CBC (INCL UDES DIFF/ PLT) MCHC 31.9 g/dL 32.0-3 6.0 low Not Available [address], [address], 02/09/2024 17:37:20 02/08/2002/09/2024 CBC (INCL UDES DIFF/ PLT) RDW 12.1 % 11.0-1 5.0 normal Not Available [address], [address], 02/09/2024 17:37:20 02/08/2002/09/2024 CBC (INCL UDES DIFF/ PLT) platelet count 446 thous and/u L 140-40 0 high Not Available [address], [address], 02/09/2024 17:37:20 02/08/20 24 02/09/2024 CBC (INCL UDES DIFF/ PLT) MPV 9.1 fL 7.5-12 .5 normal Not Available [address], [address], 02/09/2024 17:37:20 02/08/20 24 02/09/2024 CBC (INCL UDES DIFF/ PLT) absolute neutrophils 3195 cells /uL 1500-7 800 normal Not Available [address], [address], 02/09/2024 17:37:20 02/08/2002/09/2024 CBC (INCL UDES DIFF/ PLT) absolute lymphocytes 2506 cells /uL 850-39 00 normal Not Available [address], [address], 02/09/2024 17:37:20 02/08/20 24 02/09/2024 CBC (INCL UDES DIFF/ PLT) absolute monocytes 121 cells /uL 200-95 0 low Not Available [address], [address], 02/09/2024 17:37:20 02/08/20 24 02/09/2024 CBC (INCL UDES DIFF/ PLT) absolute eosinophils 1257 cells /uL 15-500 high Not Available [address], [address], 02/09/2024 17:37:20 02/08/20 24 02/09/2024 CBC (INCL UDES DIFF/ PLT) absolute basophils 21 cells /uL 0-200 normal Not Available [facility] [address], [address], 02/09/2024 17:37:20 02/08/20 24 02/09/2024 CBC (INCL UDES DIFF/ PLT) neutrophils 45 % normal Not Available [employer] [address], [address], 02/09/2024 17:37:20 02/08/20 24 02/09/2024 CBC (INCL UDES DIFF/ PLT) lymphocytes 35.3 % normal Not Available [address], [address], 02/09/2024 17:37:20 02/08/20 24 02/09/2024 CBC (INCL UDES DIFF/ PLT) monocytes 1.7 % normal Not Available [address], [address], 02/09/2024 17:37:20 02/08/20 24 02/09/2024 CBC (INCL UDES DIFF/ PLT) eosinophils 17.7 % normal Not Available [address], [address], 02/09/2024 17:37:20 02/08/20 24 02/09/2024 CBC (INCL UDES DIFF/ PLT) basophils 0.3 % normal Not Available [address], [address], 02/09/2024 17:37:20 02/08/20 24 02/09/2024 URINA LYSIS , COMPL ETE W/REF SAM TO CULTU RE color YELLOW yellow normal Not Available [address], [address], 02/09/2024 17:37:21 02/08/20 24 02/09/2024 URINA LYSIS , COMPL ETE W/REF SAM TO CULTU RE appearance CLEAR clear normal Not Available [address], [address], 02/09/2024 17:37:21 02/08/20 24 02/09/2024 URINA LYSIS , COMPL ETE W/REF SAM TO CULTU RE specific gravity 1.008 1.001- 1.035 normal Not Available [address], [address], 02/09/2024 17:37:21 02/08/20 24 02/09/2024 URINA LYSIS , COMPL ETE W/REF SAM TO CULTU RE pH 6.0 5.0-8. 0 normal Not Available [address], [address], 02/09/2024 17:37:21 02/08/20 24 02/09/2024 URINA LYSIS , COMPL ETE W/REF SAM TO CULTU RE glucose NEGATI VE negati ve normal Not Available [address], [address], 02/09/2024 17:37:21 02/08/20 24 02/09/2024 URINA LYSIS , COMPL ETE W/REF SAM TO CULTU RE bilirubin NEGATI VE negati ve normal Not Available [address], [address], 02/09/2024 17:37:21 02/08/20 24 02/09/2024 URINA LYSIS , COMPL ETE W/REF SAM TO CULTU RE ketones NEGATI VE negati ve normal Not Available [address], [address], 02/09/2024 17:37:21 02/08/20 24 02/09/2024 URINA LYSIS , COMPL ETE W/REF SAM TO CULTU RE occult blood NEGATI VE negati ve normal Not Available [address], [address], 02/09/2024 17:37:21 02/08/20 24 02/09/2024 URINA LYSIS , COMPL ETE W/REF SAM TO CULTU RE protein NEGATI VE negati ve normal Not Available [address], [address], 02/09/2024 17:37:21 02/08/20 24 02/09/2024 URINA LYSIS , COMPL ETE W/REF SAM TO CULTU RE nitrite NEGATI VE negati ve normal Not Available [address], [address], 02/09/2024 17:37:21 02/08/20 24 02/09/2024 URINA LYSIS , COMPL ETE W/REF SAM TO CULTU RE leukocyte esterase NEGATI VE negati ve normal Not Available [address], [address], 02/09/2024 17:37:21 02/08/20 24 02/09/2024 URINA LYSIS , COMPL ETE W/REF SAM TO CULTU RE WBC NONE SEEN /hpf < or = 5 normal Not Available [address], [address], 02/09/2024 17:37:21 02/08/20 24 02/09/2024 URINA LYSIS , COMPL ETE W/REF SAM TO CULTU RE RBC NONE SEEN /hpf < or = 2 normal Not Available [address], [address], 02/09/2024 17:37:21 02/08/20 24 02/09/2024 URINA LYSIS , COMPL ETE W/REF SAM TO CULTU RE squamous epithelial cells NONE SEEN /hpf < or = 5 normal Not Available [address], [address], 02/09/2024 17:37:21 02/08/20 24 02/09/2024 URINA LYSIS , COMPL ETE W/REF SAM TO CULTU RE bacteria NONE SEEN /hpf none seen normal Not Available [address], [address], 02/09/2024 17:37:21 02/08/20 24 02/09/2024 URINA LYSIS , COMPL ETE W/REF SAM TO CULTU RE hyaline cast NONE SEEN /lpf none seen normal Not Available [address] [place], [address], 02/09/2024 17:37:21 02/08/20 24 02/09/2024 URINA LYSIS , COMPL ETE W/REF SAM TO CULTU RE note This urine was mellissa zed for the prese nce of WBC, RBC, bacte amy, casts , and other forme d eleme nts. Only those eleme nts seen were repor olesya. Not Available [facility] [address] [address] [place], [address], 02/09/2024 17:37:21 02/08/20 24 02/09/2024 REFLE XIVE URINE CULTU RE reflexive urine culture NO CULTU RE INDIC ATED Not Available [facility] [address] [address] [place], [address], 02/09/2024 17:37:22 02/08/20 24 02/09/2024 TAMEKA SCREE [...] Patte rns (http s://d oi.or g/10. 1515/ [facility]- 2017- 0052) For addit ional infor puneet jimenez e refer to http: //pepito ashraf.Que stDia gnost ics.c om/fa q/FAQ 177 (This link is being provi ded for infor matio nal/ educa diego l purpo ses only. ) Not Available [address] [address] [place], [address], 02/09/2024 17:37:22 02/08/20 24 02/09/2024 RHEUM ATOID FACTO R rheumatoid factor <10 IU/mL <14 normal Not Available [address] [address] [place], [address], 02/09/2024 17:37:23 02/08/20 24 02/09/2024 VITAM IN B12/F OLATE , SERUM PANEL vitamin B12 491 pg/mL 200-11 00 normal Not Available [address] [address] [place], [address], 02/09/2024 17:37:23 02/08/20 24 02/09/2024 VITAM IN B12/F OLATE , SERUM PANEL folate, serum 11.6 NG/mL normal Refer ence Range Low: <3.4 Borde rline : 3.4-5 .4 Mi l: >5.4 Not Available [address] [address] [place], [address], 02/09/2024 17:37:23 02/08/20 24 02/09/2024 VITAM IN [...] /MS is recom sue d: order code 56916 (adarsh ents >2yrs ). See Note 1 Note 1 For addit ional infor puneet jimenez e refer to http: //[facility] ana dominguezQue stDia gnost ics.c om/fa q/FAQ 199 (This link is being provi ded for infor jewell camarena/ educa diego l purpo ses only. ) Not Available [employer] [facility] [address] [place], [address], 02/09/2024 17:37:24 02/08/20 24 02/09/2024 TSH W/REF SAM TO FT4 TSH w/reflex to FT4 3.75 mIU/L normal Refer ence Range > or = 20 Years 0.40- 4.50 Pregn mike Range s First trime ster 0.26- 2.66 Secon d trime ster 0.55- 2.73 Third trime ster 0.43- 2.91 Not Available [employer] [facility] [address] [place], [address], 02/09/2024 17:37:24 02/08/20 24 02/09/2024 HEMOG LOBIN [...] is not recom sue d. Not Available [employer] [address] [place], [address], 02/09/2024 17:37:25 05/11/20 24 05/11/2024 LIPID PANEL , STAND SUDHIR cholesterol, total 161 mg/dL <200 normal Not Available [employer] [address] [place], [address], 05/11/2024 23:57:10 05/11/20 24 05/11/2024 LIPID PANEL , STAND SUDHIR HDL cholesterol 54 mg/dL > or = 50 normal Not Available [facility] [address] [address] [place], [address], 05/11/2024 23:57:10 05/11/20 24 05/11/2024 LIPID PANEL , STAND SUDHIR triglyceride s 91 mg/dL <150 normal Not Available [facility] [address] [place], [address], 05/11/2024 23:57:10 05/11/20 24 05/11/2024 LIPID PANEL [...] 9): 2061- 2068 (http ://ed ucati on.Qu jeffryMapSense. [employer]/f aq/FA Q164) Not Available [employer] [facility] [address] [place], [address], 05/11/2024 23:57:10 05/11/20 24 05/11/2024 LIPID PANEL , STAND SUDHIR chol/HDLC ratio 3.0 (calc ) <5.0 normal Not Available [employer] [facility] [id number] [place] [address], [address], 05/11/2024 23:57:10 05/11/20 24 05/11/2024 LIPID PANEL , STAND SUDHIR non HDL cholesterol 107 mg/dL _(veronica c) <130 normal For patie nts with diabe nathanael plus 1 major ASCVD risk facto r, treat ing to a non-H DL-C goal of <100 mg/dL (LDL- C of <70 mg/dL ) is consi dered a thera peuti c optio n. Not Available [employer] [facility] [address] [place], [address], 05/11/2024 23:57:10 12/06/19 24 [place], yaneli fernandez, jovanna staples r, compl ete [facility] [address] [place] [address] [phone] Patien t Name: FAUSTINA REZA Access ion #: [id number] Sex: F : 1975 9 Dictat [...] at 2023 12:04: 16 PM Page 1 [facility] ([facility]) [address] [place], [place], [facility], 02/02/2024 16:10:21 01/24/20 24 01/24/2024 MAMMO , diagn ostic , tomos ynthe sis, bilat eral [facility] [place] [address] 8 Patien t Name: FAUSTINA REZA Access ion #: [id number] Sex: F : 1975 2 Dictat [...] ed to the prior exam, Page 1 [facility] [address] [place] [address] Patien t Name: FAUSTINA REZA ion #: [id number] Sex: F : 1975 2 Dictat [...] at 2023 15:20: 39 PM Page 2 [id number] [facility] ([facility] [address], [place], [address], 02/02/2024 16:10:21 01/24/20 24 01/24/2024 US, rory lees, unila teral , compl ete [facility] [address] [facility] [address], [place] [address] Deejay lees Name: FAUSTINA REZA ion #: [id number] Sex: F : 1975 2 Dictat [...] ed to the prior exam, Page 1 [facility] [address] [place] [address] [phone] Patien t Name: FAUSTINA REZA ion #: [id number] Sex: F : 1975 2 Dictat [...] at 2023 15:20: 39 PM Page [address] (Imaging) [address] [place], [address], 02/02/2024 16:10:21 02/21/20 24 02/21/2024 XR, cervi veronica spine , 4 or 5 view No observ ation record ed. [address] [facility] [address], [place], [address], 05/23/2024 11:18:09 03/02/20 24 03/01/2024 MRI, breas t, bilat eral, w/wo contr ast No observ ation record ed. [address], [place], [address], 05/23/2024 11:18:09 03/30/20 24 03/30/2024 MAMMO , diagn ostic , bilat eral No observ ation record ed. [address], [place], [address], 05/23/2024 11:18:09 03/30/20 24 03/30/2024 US, axill a No observ ation record ed. [address], [place], [address], 05/23/2024 11:18:09 04/18/20 24 04/18/2024 US, axill a No observ ation record ed. [place] [address], [place], [address], 05/23/2024 11:18:08 05/29/19 25 04/18/2024 biops y of breas t; ziu cristal us, needl e core, using imagi jody farrar (PROC ) No observ ation record ed. [address], [place], [address], 08/14/2024 12:40:22 08/23/19 25 08/22/2024 PET-C T, skull base to mid-t high scan No observ ation record ed. [address], [place], [address], 08/23/2024 09:25:03 Result Notes None recorded. Problems Name Problem SNOMED Code Status Onset Date Resolution Date Notes Provider Name and Address Organization Details Recorded Time Acne 80796454 Active 2018 Not Available [facility] 3 02:52:11 Overweigh t 522848261 Active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
--- OUTSIDE RECORDS SUMMARY | 2024-08-24 13:48 | XMS_ITS | Clinical Summary ---
Author Organization [facility] Braydon santamaria Oscar Address [address] [place] [address] Care Team Providers Care Surface Plate Inspector Name Role Phone Bautista Valenzuela MD Primary Care Provider [phone] Allergies No known active allergies Medications busPIRone [...] Encounters Date Type Department Care Team Description 08/24/2024 1:00 PM CDT Office Visit [facility] Oncology and Hematology - [place] [address] [place] [address] Jez Reza MD Marginal zone lymphoma (CMS/HCC) (Primary Dx) 08/23/2024 Orders Only [facility] Oncology and Hematology - [place] [address] [place] [address] Jez Reza MD 08/22/2024 Orders Only [facility] Oncology and Hematology - [place] [address] [place] [address] Jez Reza MD 08/08/2024 External Device Data STL ABSTRACTION Provider, Abstract 08/08/2024 External Device Data STL ABSTRACTION Provider, Abstract 08/08/2024 External Device Data ST[place] ABSTRACTION Provider, Abstract 08/04/2024 1:00 PM CDT Office Visit [facility] Oncology and Hematology [facility] [address] [place] [address] Jez Reza MD Marginal zone lymphoma (CMS/HCC) (Primary Dx) 08/04/2024 Orders Only [facility] Oncology and Hematology [address] [place] [id number] Jez Reza MD Marginal zone lymphoma (CMS/HCC) (Primary Dx) from Last 3 Months Family History Medical History Relation Name Comments No Known Problems Brother No Known Problems Child Heart Disease Father Melanoma Mother Relation Name Status Comments Brother Alive Child Alive Father Mother Alive Social History Tobacco Use Types Packs/Day Years Used Date Smoking Tobacco: Never Smokeless Tobacco: Never Tobacco Cessation:Counseling Given: Not Answered Alcohol Use Standard Drinks/Week Comments Yes 0 [...] Sign Reading Time Taken Comments Blood Pressure 111/71 08/24/2024 1:06 PM CDT Pulse 99 08/24/2024 1:06 PM CDT Temperature 36.6 C (97.9 F) 08/24/2024 1:06 PM CDT Respiratory Rate 16 08/24/2024 1:06 PM CDT Oxygen Saturation 98% 08/24/2024 1:06 PM CDT Inhaled Oxygen Concentration - - Weight 82.8 kg (182 lb 9.6 oz) 08/24/2024 1:06 P M CDT Height 180.3 cm (5' 11 ) 08/04/2024 1:07 PM CDT Body Mass Index 25.47 08/04/2024 1:07 PM CDT Plan of Treatment Health Maintenance Due Date [...] GLUCOSE LEVEL Routine 08/22/2024 4:26 PM CDT PET BONE IMG W CT SKL BSE MID THG Routine 08/22/2024 8:49 AM CDT [facility]NANC[facility] (DNA AND RNA) Routine 08/16/2024 3:07 PM CDT Marginal zone lymphoma (CMS/HCC) LACTATE DEHYDROGENASE Routine 08/16/2024 2:30 PM CDT Marginal zone lymphoma (CMS/HCC) from Last 3 Months Results * GLUCOSE LEVEL (08/22/2024 4:26 PM CDT) Blood us Jez Reza MD CHEMISTRY ORDERABLES Final Resu lt * PET BONE IMG W CT SKB MDTH (08/22/2024 8:49 AM CDT) Anatomical Region Laterality Modality Positron Emissio n Tomography (PET) Result [facility] Jez Reza MD PE ORDERABLES Final Result * [facility] HEMAT[facility]IC MALIGNANCY (DNA AND RNA) (08/16/2024 3:07 PM CDT) [facility] [email or web address] [email or web address] 08/16/2024 3:07 PM CDT [facility] Comment:[facility] [...] that were not included in this document. Jez Reza MD MOLECULAR ORDERABLES Final Resu lt [facility] [address], [address] [place] [address], [facility] [address], [address] [place] [address] * LACTATE DEHYDROGENASE (08/16/2024 2:30 PM CDT) LD (LACTATE DEHYDROGENASE) 173 100 - 200 U/L [facility] Comment: Test Performed at: [facility] [address] [place] [address] [facility] Blood 08/16/2024 2:30 PM CDT 08/16/2024 2:30 PM CDT Jez Reza MD CHEMISTRY ORDERABLES Final Resu lt Performing Organization Address City/[facility]/ZIP Code Phone Number [facility] [phone] [facility] [place] [address] [place] [address] from Last 3 Months Insurance [employer] [facility] OPEN ACCESS Care Teams Surface Plate Inspector Relationship Specialty Start Date End Date Bautista Valenzuela MD [address] [place] [phone] PCP - General Family Practice 08/04/24
--- OUTSIDE RECORDS SUMMARY | 2024-08-24 13:48 | XMS_ITS | Encounter Summary ---
Author Organization [facility] Address [address] [place] [address] Care Team Providers Care Data Center Architect Name Role Phone Unavailable Primary Care Provider Unavailabl e Encounter Details Date Type Department Care Team (Late st Contact Info) Description 07/20/2024 Lab Requisition [facility] - Pathology Lab [address] [place] [address] Alli Dean MD [address] [address] Illness, unspecified Social History Tobacco [...] Comments PATHOLOGY TISSUE Routine 07/19/2024 2:10 PM PUNCH OPERATOR Illness, unspecified documented in this encounter Results * PATHOLOGY TISSUE (07/19/2024 2:10 PM PUNCH OPERATOR) Case Report Surgical Pathology Report Case: [id number] Authorizing Provider: Alli Dean Collected: 07/19/2024 02:10 PM MD Prabhakar Ordering Location: [facility] - Received: 07/20/2024 01:00 PM Pathology Lab Pathologist: Serjio Donaldson MD Specimen: Lymph Node 08/07/2024 2:16 PM CDT [facility] Final Diagnosis [...] disrupted dendritic cell meshworks. 08/07/2024 2:16 PM [facility] Clinical History Lymphadenopathy. 08/07/2024 2:16 PM [facility] Materials Received Received are 3 slide(s) and Block A1 labeled [id number] along with a copy of the outside pathology report. [place] [address]. All original materials are returned to the referring institution, along with a copy of our final report. 08/07/2024 2:16 PM [facility] Addendum 1 Additional immunohistochemistry for CD23, shows some staining of the B-lymphoma cells for this marker. Original diagnosis remains unchanged. 08/07/2024 2:16 PM [facility] Addendum electronically signed by Serjio Donaldson MD on 07/21/2024 at 2:48 PM Addendum 2 Additional immunohistochemistry for CD15 is negative in lesional cells. Original diagnosis remains unchanged. 08/07/2024 2:16 PM [facility] Addendum electronically signed by Serjio Donaldson MD on 08/07/2024 at 2:16 PM Pathologist Location at [facility] 08/07/2024 2:16 PM CDT [facility] Disclaimer The performance characteristics of all immunohistochemical and indirect immunofluorescence stains (if any) cited in this report were determined by the Histopathology Laboratory of [facility]. Some of these tests were developed by [...] attending (teaching) pathologist. 08/07/2024 2:16 PM T [facility] Embedded Images 08/07/2024 2:16 PM T [facility] Pathology/Cytolo gy ENTIRE LYMPH NODE / Unknown 07/19/2024 2:10 PM PUNCH OPERATOR 07/20/2024 1:00 PM PUNCH OPERATOR Alli Dean MD LAB - PATHO LOGY/CYTOLOGY ORDERABLES Performing Organization Address City/State/[facility] Co de Phone Number [facility] [address] [phone] documented in this encounter Visit Diagnoses Diagnosis Illness, unspecified documented in this encounter
--- OUTSIDE RECORDS SUMMARY | 2024-08-24 13:48 | XMS_ITS | Encounter Summary ---
Author Organization [facility] Germain [facility] Address [address] [place] [address] Care Team Providers Care Rn Radiation Name Role Phone Bautista Valenzuela MD Primary Care Provider [phone] Reason for Referral * CT Scan (Routine) - Open Specialty Diagnoses / Procedures Referred By Contac t Referred To Contact Diagnoses Marginal zone lymphoma (CMS/HCC) Procedures CT CHEST ABDOMEN PELVIS W CONT Jez Reza MD [address] [place] [phone] Phone: tel: fax: Referral ID Status Reason Start Date Expiration Date Visits Re quested Visits Authorized [id number] Open 08/24/2024 09/24/2025 1 1 Encounter Details Date Type Department Care Team (Late st Contact Info) Description 08/24/2024 1:00 PM CDT Office Visit [facility] Oncology and Hematology - [address] [facility] [address] [place] [address] Jez Reza MD [address] [place] [address] Marginal zone lymphoma (CMS/HCC) (Primary Dx) [...] oz) 08/24/2024 1:06 P M CDT Height - - Body Mass Index 25.47 08/04/2024 1:07 PM CDT documented in this encounter Plan of Treatment Scheduled Orders Name Type Priority Associated Diagnoses Orde r Schedule CBC WITH DIFFERENTIAL Lab Stat Marginal zone lymphoma (CMS/HCC) Expected: 11/16/2024, Expires: 08/24/2025 COMPREHENSIVE METABOLIC PANEL Lab Stat Marginal zone lymphoma (CMS/HCC) Expected: 11/16/2024, Expires: 08/24/2025 CT CHEST ABDOMEN PELVIS W CONT Imaging Routine Marginal zone lymphoma (CMS/HCC) Expected: 11/23/2024, Expires: 08/24/2025 documented as of this encounter Visit Diagnoses Diagnosis 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
[2024-08-24 14:17] LABS: Alanine Aminotransferase 19 U/L (6-35); Alkaline Phosphatase 51 U/L (38-126); Anion Gap 10 mmol/L (4-12); Aspartate Amino Transferase 29 U/L (14-36); Bilirubin,Total 0.3 mg/dL (0.2-1.3); Blood Urea Nitrogen 8 mg/dL (7-17); Calcium 9.2 mg/dL (8.4-10.2); Carbon Dioxide 27 mmol/L (22-30); Chloride 104 mmol/L (98-107); Estimated Glomerular Filt Rate > 60; Glucose 75 mg/dL (65-110); Potassium 4.5 mmol/L (3.4-5.0); Sodium 141 mmol/L (137-145)
== END 2024-08-24 13:19 | disposition home or self-care (01) ==
LOC: ANHLAB 13:19
PROVIDERS: PCP Family Medicine; Visit Provider Internal Medicine Hematology & Oncology
DX: C85.80 Other specified types of non-Hodgkin lymphoma, unspecified site (principal)
CPT/HCPCS: 36415; 80047; 80053; 85025

== ENCOUNTER 2024-11-23 08:55 | Outpatient (CLI) | payer OTHER, SELFPAY ==
--- NOTE | ~2024-11-23 | CT_ITS ---
Clinical Indication: Marginal zone lymphoma CT Scan of the Chest, Abdomen, and Pelvis with Contrast: Technique: Contiguous sections were acquired throughout the chest, abdomen, and pelvis after intraven ous administration of 100 cc of Omnipaque 350. Dose reduction technique was used on this scan by uti lizing automated exposure control and iterative reconstruction technique. The dose-length product (DL P) was 773.53 mGy-cm. Findings: There is bilateral axillary lymphadenopathy, mild in degree. No mediastinal or hilar lymphadenopathy. No aortic aneurysm or dissection. No large central pulmonary embolus. There is no evidence of pleural or pericardial effusion. The lungs are clear. No pulmonary nodules or infiltrates are noted. The liver, spleen, pancreas, adrenals and kidneys are within normal limits. Large gallstones are note d. No evidence of aortic aneurysm. No lymphadenopathy. No bowel obstruction or bowel wall thickening. There is no evidence to suggest acute appendicitis. Urinary bladder is unremarkable. IUD in place. No adnexal mass evident. No ascites. Single mildly enl arged pathologic-appearing lymph node present at the anterior aspect of the proximal left thigh (axia l image 278). Impression: Mild bilateral axillary lymphadenopathy. Additional enlarged lymph node in the anterior aspect of the proximal left thigh, as detailed above. These lesions are increased in size as compared to prior PET /CT dated 08/22/2024. These findings are consistent with lymphoma, with mild progression. Cholelithiasis. Reviewed, dictated and finalized at [facility]. Impression: Mild bilateral axillary lymphadenopathy. Additional enlarged lymph node in the anterior aspect of the proximal left thigh, as detailed above. These lesions ar e increased in size as compared to prior PET/CT dated 08/22/2024. These findings are consistent with lymphoma, with mild progression. Cholelithiasis.
--- OUTSIDE RECORDS SUMMARY | 2024-11-23 09:02 | XMS_ITS | Clinical Summary ---
Author Organization [facility] Address [address] [place] [address] Care Team Providers Care Vegetable Scullion Name Role Phone None, Provider MD Primary Care Provider Unavaila ble Immunizations Immunization Administration Dates Next Due MODERNA COVID-19 (12+) [...] 5 Years) and At-Risk Patients (6 to 49 Years) Aged Out No longer eligible b ased on patient's age to complete this topic RSV Immunizations Under 20 Months Aged Out No longer eligible b ased on patient's age to complete this topic Insurance [employer] OPEN ACCESS [facility] Care Teams Vegetable Scullion Relationship Specialty Start Date End Date None, Provider, PCP - General 08/12/20
--- OUTSIDE RECORDS SUMMARY | 2024-11-23 09:03 | XMS_ITS | Patient Health Record ---
Author Organization [facility] Address [address] [place] [address] Care Team Providers Care Roll Up Helper Name Role Phone Nicolas ALLEN, [facility] Primary Care Provider Anna Menon Unavailable [phone] Allergies No Known Allergies Results Component Value Reference Range Notes UDT Reviewed date:07/10/2024 03:06:59 PM Interpretation: Performing Lab: Notes/Report: THC n 0 - 50 ng/ml Cocaine n 0 - 300 ng/ml Amphetamine n 0 - 1000 ng/ml Buprenorphine (BUP) n 0 - 10 ng/ml Secobarbital (Bar) n 0 - 300 ng/ml Oxazepam (BZO) n 0 - 300 ng/ml 7-colcbibkhj-1,7-lfcmyoev-7,3-diphenylpyrrolidine (TRAMAINE P) n 0 - 300 ng/ml Methamphetamine (MET) n 0 - 1000 ng/ml Methylenedioxymethamphetamine (MDMA) n 0 - 500 ng/ml Morphine (MOP 300/UDQ8035) n 0 - 300 ng/ml Methadone (MTD) n 0 - 300 ng/ml Phencyclidine (PCP) n 0 - 25 ng/ml Nortriptyline (TCA) n 0 - 1000 ng/ml Oxycodone n 0 - 300 ng/ml x n 0 - 300 ng/ml Reason For Referral No Information Medications Medication SIG (Take, Route, Frequency, Duration) Notes Start Date End Date Status buPROPion HCl ER (XL) 300 MG 1 tablet ev marilu morning Oral Once a day; Duration: 30 days Active Spironolactone 100 MG Oral; Duration: 90 Days Active Atorvastatin Calcium 10 MG Oral; Duration: 90 Days Active Levothyroxine Sodium 25 MCG Oral; Duration: 90 Days Active busPIRone HCl 10 MG Oral Active Social History Tobacco Use: Social History Observation Description Date Details (start date - stop date) Never Smoker NA - NA Sex Assigned At : Social History Observation Description Sex Assigned At Female Tobacco Control (Standard) Question Answer Notes Tobacco use: Nonsmoker AUDIT-C (Standard) Question Answer Notes Points 2 Did you have a drink contain ing alcohol in the past year? Yes How often did you have six o r more drinks on one occasion in the past year? Never (0 point) How many drinks did you have on a typical day when you were drinking in the past year? 1 or 2 drinks (0 point) How often did you have a dri nk containing alcohol in the past year? 2 to 4 times a month (2 points) Problems Problem Type SNOMED Code ICD Code Onset Dates Problem Status W/U Status Risk Notes Problem Major depressive disorder, 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 confirmed Problem Generalized anxiety disorder (90781424) Generalized anxiety disorder (F41.1) Active confirmed Vital Signs Heart Rate 80 /min 08/21/2024 Height-cm 180.34 cm 08/21/2024 Blood pressure diastolic 77 mm Hg 08/21/2024 Weight-kg 81.65 kg 08/21/2024 Height 71 in 08/21/2024 Blood pressure systolic 119 mm Hg 08/21/2024 Weight 180 lbs 08/21/2024 BMI 25.1 kg/m2 08/21/2024 Encounters Encounter Location Date Provider Diagnosis [facility] [employer] [facility] [address] [address] 07/10/2024 Anna Puckett Major depressive disorder, recurrent severe without psychotic features F33.2 and Generalized anxiety disorder F41.1 [facility] [employer] [facility] [address] [address] 08/21/2024 Anna Puckett Encounter for screen ing for depression Z13.31 ; Major depressive disorder, recurrent severe without psychotic features F33.2 ; Generalized anxiety disorder F41.1 and Encounter for screening for cardiovascular disorders Z13.6 Assessments Encounter Date Diagnosis (ICD Code) Assessment Notes Treatment Notes Treatment Clinical Notes Section Notes 07/10/2024 Major depressive disorder, recurrent severe without psychotic features (ICD-10 - F33.2) Common side effects of Wellbutrin include insomnia, increased anxiety, nausea, dizziness, decreased appetite, restlessness, irritability and anger, increased sweating or hot flashes, tremors, joint pain. Wellbutrin is not recommended in individuals with a history of seizures. If side effects persist, please contact the office. 07/10/2024 Generalized anxiety disorder (ICD-10 - F41.1) 08/21/2024 Encounter for screening for depression (ICD-10 - Z13.31) 08/21/2024 Major depressive disorder, recurrent severe without psychotic features (ICD-10 - F33.2) Common side effects of Wellbutrin include insomnia, increased anxiety, nausea, dizziness, decreased appetite, restlessness, irritability and anger, increased sweating or hot flashes, tremors, joint pain. Wellbutrin is not recommended in individuals with a history of seizures. If side effects persist, please contact the office. 08/21/2024 Generalized anxiety disorder (ICD-10 - F41.1) 08/21/2024 Encounter for screening for cardiovascular disorders (ICD-10 - Z13.6) 07/10/2024 Other Initially responded well to bupropion, increase to 300mg daily for mood -discussed monitoring for weight loss given recent weight loss Patient educated on all medications including potential benefits, side effects, risks. Educated on proper dosing schedule and importance of compliance. -Assessment and treatment plan reviewed with patient. -Compliance with treatment plan importance discussed. -Discussed the risks/benefits of this medication -Discussed medication side effects. -Contact office if symptoms worsen. -Discussed that it can take up to 6-8 weeks to see full therapeutic effects of psychotropic medications. -Crisis prevention hotline 988. 08/21/2024 Other Stable, cont current medications Patient educated on all medications including potential benefits, side effects, risks. Educated on proper dosing schedule and importance of compliance. -Assessment and treatment plan reviewed with patient. -Compliance with treatment plan importance discussed. -Discussed the risks/benefits of this medication -Discussed medication side effects. -Contact office if symptoms worsen. -Discussed that it can take up to 6-8 weeks to see full therapeutic effects of psychotropic medications. -Crisis prevention hotline 988. Plan Of Treatment No Information Insurance Providers Payer Name Payer Address Payer Phone Subscriber Number Group Number Insured Name Patient Relationship to Insured Coverage Start Date Coverage End Date [employer] [address] [place] [address] [id number] i [id number] Faustina Burton Self - patient is the insured Medical (General) History Medical History History ICD Code abdominal aortic aneurysm: No atrial fibrillation: No chronic fatigue syndrome: No essential tremor: No hyperlipidemia: No hypertension: No Parkinson's disease: No restless leg syndrome: No stroke: No subdural hematoma: No type 1 diabetes mellitus: No type 2 diabetes mellitus: No vitamin B12 deficiency: No vitamin D deficiency: Yes Surgical History Surgery Date(Month/Year) lymph node biopsy 2024
--- OUTSIDE RECORDS SUMMARY | 2024-11-23 09:03 | XMS_ITS | Data Portability ---
Author Organization [place] [facility] [employer], Main Office Address [address] [place] [address] Care Team Providers Care Emergency Generator Mechanic Name Role Phone BAUTISTA VALENZUELA Primary Care Provider Assessment Encounter Date Assessment Date Assessment LastModified by Organization Details LastModified Time 02/21/2024 02/21/2024 48 yo F with - [...] it. Cont f/u with Breast surgeon at [place] as per schedule. F/u with Hemat as per schedule. Cont f/u with Counsellor at [place] as per schedule. Cont f/u with Gyne at [place] as per schedule. Cont f/u with Derm at [place] as per schedule. Cont f/u with Ophtho [...] Lipids in 06/10. Annual labs in 02/07. Not available 02/21/2024 15:55:19 05/23/2024 05/23/2024 The [...] had a 15 minute TeleMedicine consultation via SIGKAT to discuss the followin yo F with [...] it. Cont f/u with Breast surgeon at [place] as per schedule. F/u with Hemat as per schedule. Cont f/u with Counsellor at [place] as per schedule. Cont f/u with Gyne at [place] as per schedule. Cont f/u with Derm at [place] as per schedule. Cont f/u with Ophtho [...] in 2-3 months. Annual labs in 02/07. [email or web address] Not available 05/23/2024 11:32:43 08/14/2024 08/14/2024 48 [...] understanding it. Cont f/u with Hemat/Onco at [place] as per schedule. Cont f/u with Breast surgeon at [place] as per schedule. Cont f/u with Psychiatrist at [place] as per schedule. Cont f/u with Gyne at [place] as per schedule. Cont f/u with Derm at [place] as per schedule. Cont f/u with Ophtho at [facility] as per schedule. Pt got s/e from Sertraline. HM: WWE - 02/07, normal as per pt. Cont f/u with Gyne as per schedule. Mammo - 03/30/24 & MRI breast done too, benign findings. Colonoscopy - Referred to GI. Cologuard ordered. Tdap - 02/21/24. Flu - 02/21/24. F/u in 3 months. TSH before next visit. Annual labs in 02/07. [email or web address] Not available 08/14/2024 12:59:23 11/14/2024 11/14/2024 49 yo F with - MARGINAL ZONE B-CELL LYMPHOMA - HLD, improved - LT BREAST LUMP, benign - CHRONIC NECK PAIN - THROMBOCYTOSIS, persistent - DEPRESSION, Improved - HYPOTHYROIDISM, Stable - CHOLELITHIASIS - GERD, Stable - ALLERGIC RHINITIS, seasonal - ACNE - OVERWEIGHT - H/O ELEVATED LFTs - H/O VIT D DEFICIENCY - FH OF MELANOMA - H/O LT AXILLA LUMP (S/p surgical removal) PET CT: 08/22/24. Annual labs: 02/08/24. Annual labs: 02/16/23. Annual [...] of care. All questions answered for pt. All meds verified with pt. Meds as directed. Diet and exercise explained in detail. Educated about alarming symptoms to monitor at home and call us back or get checked in ED. Pt verbalized understanding it. Cont f/u with Hemat/Onco at [place] as per schedule. Cont f/u with Breast surgeon at [place] as per schedule. Cont f/u with Psychiatrist at [place] as per schedule. Cont f/u with Gyne at [place] as per schedule. Cont f/u with Derm at [place] as per schedule. Cont f/u with Ophtho at [facility] as per schedule. Pt got s/e from Sertraline. HM: WWE - 02/07, normal as per pt. Cont f/u with Gyne as per schedule. Mammo - 03/30/24 & MRI breast done too, benign findings. Colonoscopy - Referred to GI. Cologuard ordered. Tdap - 02/21/24. Flu - 02/21/24. F/u in 3 months. Annual labs in 02/07. Not available 11/14/2024 13:05:29 Plan of Treatment Reminders Order Date Submit Date Provider Last Modified By Organization Details Last Modified Time Details Appointments Physical/ Annual Wellness 30 2024 08:30A M Bautista Valenzuela MD Not available Not available Not available Lab TSH, serum or plasma 2024 025 [facility] (Lab), [address] [place], [address], 08/17/2024 01:47:35 noninvasi ve colorecta l cancer DNA + occult blood screening , QL, stool 2024 025 [email or web address] [facility] (Cologuard Orders Only), [address], [address], [place], [address], 06/15/2024 14:25:57 lipid panel, serum 2023 024 [facility] (Lab), [address] [place], [address], 05/11/2024 23:57:10 Referral oral surgery/d entist referral 2024 025 [email or web address] Not available 10/23/2024 16:48:38 Procedures None recorded. Surgeries None recorded. Imaging None recorded. Medication Orders fluticaso ne propionat e 50 mcg/actua tion nasal spray,dana pension 2024 025 [facility], [address], [place], [id number], 11/14/2024 13:00:41 buspirone 10 mg tablet [address] [facility]27587, [address], [place], [id number], 11/14/2024 12:56:47 atorvasta tin 10 mg tablet 2024 025 [facility] #38613, [address], [place], [id number], 11/14/2024 12:56:38 levothyro xine 25 mcg tablet 2024 025 [facility] #02784, [address] [place] [address], [id number], 11/14/2024 12:56:39 neomycin- polymyxin -hydrocor t 3.5 mg-10,000 unit/mL-1 % ear drops,dana p [address] [facility]71849, [address] [place] [address], [id number], 11/14/2024 12:19:26 meloxicam 7.5 mg tablet 2024 025 [facility] #05218, [address] [place] [address], [id number], 10/23/2024 15:27:13 buspirone 10 mg tablet [address] [facility]55119, [address] [place] [address], [id number], 08/14/2024 12:46:22 atorvasta tin 10 mg tablet [address] [facility]16682, [address] [place] [address], [id number], 08/14/2024 12:46:22 levothyro xine 25 mcg tablet 2024 025 [facility] #63082, [address], [place], [id number], 08/14/2024 12:45:20 buspirone 10 mg tablet 2024 025 [facility] #46847, [address], [place], [id number], 05/23/2024 11:33:16 atorvasta tin 10 mg tablet 2024 025 [facility] #97404, [address] [place] [address], [id number], 05/23/2024 11:33:16 bupropion HCl XL 150 mg 24 hr tablet, extended release [email or web address] [facility]64111, [address] [place] [address], [id number], 11/14/2024 12:56:02 levothyro xine 25 mcg tablet 2024 025 [facility] #47185, [address] [place] [address], [id number], 05/23/2024 11:33:15 atorvasta tin 10 mg tablet 2023 024 [facility] #10967, [address] [place] [address], [id number], 02/21/2024 15:50:40 bupropion HCl XL 150 mg 24 hr tablet, extended release [email or web address] [place] [address] [facility] #29229, [address] [place] [address], [place], [id number], 11/14/2024 12:56:02 levothyro xine 25 mcg tablet 2023 024 [email or web address]87247, [address], [place], [id number], 02/21/2024 15:50:39 Patient TargetsNo targets recorded. Patient Instructions Encounter Date Encounter Id Patient Instructions Last Modified By Organization Details Last Modified Time 05/23/2024 [id number] Due to the COVID-19 (Novel Coronavirus) pandemic, it is within this context (and with the understanding that this method of patient encounter is in the patient s best interest as well as the health and safety of other patients and the public) that [facility] is being provided for this patient encounter rather than a [id number] visit. This patient encounter is appropriate at [...] if listed, were provided by the patient. [email or web address] Not available 05/23/2024 11:17:01 Reason for Referral Oral Surgery/dentist Referra l for Bilateral temporomandibular joint pain B/l TMJ dysfunction Referring Physician: Bautista Valenzuela, Family Medicine, Encounter Date: 10/23/2024 Results Created Date Observation Date Name Description Value Unit Range Abnormal Flag Note LastModifiedBy Organization Detail LastModifiedTime 01/31/20 24 02/02/2024 URIC ACID uric acid 4.5 mg/dL 4.0-8. 0 normal Thera araceli vera t for gout patie nts: <6.0 mg/dL Not Available [facility] [address] [place], [address], 02/02/2024 16:25:07 01/31/20 24 02/02/2024 TAMEKA SCREE [...] Patte rns (http s://d oi.or g/10. 1515/ ccl- 2017- 0052) For addit ional infor puneet jimenez e refer to http: //[facility] ana ashraf.Que stDia gnost ics.c om/fa q/FAQ 177 (This link is being provi ded for infor jewell camarena/ educa diego l purpo ses only. ) Not Available [facility] [address], [place], [address], 02/02/2024 16:25:07 01/31/20 24 02/02/2024 RHEUM ATOID FACTO R rheumatoid factor <10 IU/mL <14 normal Not Available [facility] [address] [address], [place], [address], 02/02/2024 16:25:08 01/31/20 24 02/02/2024 VITAM IN B12 vitamin B12 448 pg/mL 200-11 00 normal Not Available [facility] [address] [place], [address], 02/02/2024 16:25:08 02/08/2002/09/2024 LIPID PANEL , STAND SUDHIR cholesterol, total 204 mg/dL <200 high Not Available [facility] [place] [address] [place], [address], 02/09/2024 17:37:19 02/08/2002/09/2024 LIPID PANEL , STAND SUDHIR HDL cholesterol 57 mg/dL > or = 50 normal Not Available [facility] [place] [address] [place], [address], 02/09/2024 17:37:19 02/08/2002/09/2024 LIPID PANEL , STAND SUDHIR triglyceride s 78 mg/dL <150 normal Not Available [place] [address] [address] [place], [address], 02/09/2024 17:37:19 02/08/2002/09/2024 LIPID PANEL , STAND SUDHIR LDL-choleste rol 130 mg/dL _(veronica c) high Refer ence range : <100 Jeana able range <100 mg/dL for prima ry preve ntion ; <70 mg/dL for patie nts with CHD or diabe tic patie nts with > or = 2 CHD risk facto rs. LDL-C is now calcu lated using the Salma n-Hop kins nubiau lissette n, which is a valid ated novel slimeo d vikas latham r accur acy than the Fried darshana equat ion in the estim ation of LDL-C . Salma ashraf SS et al. RHONDA. 2013; 310(1 9): 2061- 2068 (http ://ed ucati on.Qu Trae العراقيs. com/f aq/FA Q164) Not Available [facility] [address] [place], [address], 02/09/2024 17:37:19 02/08/2002/09/2024 LIPID PANEL , STAND SUDHIR chol/HDLC ratio 3.6 (calc ) <5.0 normal Not Available [address], [address], 02/09/2024 17:37:19 02/08/2002/09/2024 LIPID PANEL , STAND SUDHIR non HDL cholesterol 147 mg/dL _(veronica c) <130 high For patie nts with diabe nathanael plus 1 major ASCVD risk facto r, treat ing to a non-H DL-C goal of <100 mg/dL (LDL- C of <70 mg/dL ) is consi dered a thera peuti c optio n. Not Available [address], [address], 02/09/2024 17:37:19 02/08/2002/09/2024 URIC ACID uric acid 4.9 mg/dL 2.5-7. 0 normal Thera peuti c targe t for gout patie nts: <6.0 mg/dL Not Available [address] [address] [place], [address], 02/09/2024 17:37:19 02/08/20 24 02/09/2024 COMPR EHENS REBEKAH METAB OLIC PANEL glucose 92 mg/dL 65-99 normal Fasti ng refer ence inter amari Not Available [address] [place], [address], 02/09/2024 17:37:20 02/08/20 24 02/09/2024 COMPR EHENS REBEKAH METAB OLIC PANEL urea nitrogen (BUN) 13 mg/dL 7-25 normal Not Available [address], [address], 02/09/2024 17:37:20 02/08/20 24 02/09/2024 COMPR EHENS REBEKAH METAB OLIC PANEL creatinine 0.92 mg/dL 0.50-0 .99 normal Not Available [facility] [address], [address], 02/09/2024 17:37:20 02/08/20 24 02/09/2024 COMPR EHENS REBEKAH METAB OLIC PANEL eGFR 78 mL/mi n/1.7 3m2 > or = 60 normal Not Available [address], [address], 02/09/2024 17:37:20 02/08/20 24 02/09/2024 COMPR EHENS REBEKAH METAB OLIC PANEL BUN/creatini ne ratio SEE NOTE: (calc ) 6-22 Not Repor olesya: BUN and Creat inine are withi n refer ence range . Not Available [address], [address], 02/09/2024 17:37:20 02/08/20 24 02/09/2024 COMPR EHENS REBEKAH METAB OLIC PANEL sodium 138 mmol/ L 135-14 6 normal Not Available [address], [address], 02/09/2024 17:37:20 02/08/20 24 02/09/2024 COMPR EHENS REBEKAH METAB OLIC PANEL potassium 4.2 mmol/ L 3.5-5. 3 normal Not Available [address], [address], 02/09/2024 17:37:20 02/08/20 24 02/09/2024 COMPR EHENS REBEKAH METAB OLIC PANEL chloride 104 mmol/ L 98-110 normal Not Available [address], [address], 02/09/2024 17:37:20 02/08/20 24 02/09/2024 COMPR EHENS REBEKAH METAB OLIC PANEL carbon dioxide 27 mmol/ L 20-32 normal Not Available [address], [address], 02/09/2024 17:37:20 02/08/20 24 02/09/2024 COMPR EHENS REBEKAH METAB OLIC PANEL calcium 9.7 mg/dL 8.6-10 .2 normal Not Available [address], [address], 02/09/2024 17:37:20 02/08/20 24 02/09/2024 COMPR EHENS REBEKAH METAB OLIC PANEL protein, total 6.7 g/dL 6.1-8. 1 normal Not Available [address], [address], 02/09/2024 17:37:20 02/08/2002/09/2024 COMPR EHENS REBEKAH METAB OLIC PANEL albumin 3.9 g/dL 3.6-5. 1 normal Not Available [address], [address], 02/09/2024 17:37:20 02/08/20 24 02/09/2024 COMPR EHENS REBEKAH METAB OLIC PANEL globulin 2.8 g/dL_ (calc ) 1.9-3. 7 normal Not Available [address], [address], 02/09/2024 17:37:20 02/08/20 24 02/09/2024 COMPR EHENS REBEKAH METAB OLIC PANEL albumin/glob ulin ratio 1.4 (calc ) 1.0-2. 5 normal Not Available [address], [address], 02/09/2024 17:37:20 02/08/20 24 02/09/2024 COMPR EHENS REBEKAH METAB OLIC PANEL bilirubin, total 0.5 mg/dL 0.2-1. 2 normal Not Available [address], [address], 02/09/2024 17:37:20 02/08/20 24 02/09/2024 COMPR EHENS REBEKAH METAB OLIC PANEL alkaline phosphatase 39 U/L 31-125 normal Not Available [address], [address], 02/09/2024 17:37:20 02/08/20 24 02/09/2024 COMPR EHENS REBEKAH METAB OLIC PANEL AST 14 U/L 10-35 normal Not Available [address], [address], 02/09/2024 17:37:20 02/08/2002/09/2024 COMPR EHENS REBEKAH METAB OLIC PANEL ALT 13 U/L 6-29 normal Not Available [address], [address], 02/09/2024 17:37:20 02/08/20 24 02/09/2024 CBC (INCL UDES DIFF/ PLT) white blood cell count 7.1 thous and/u L 3.8-10 .8 normal Not Available [address], [address], 02/09/2024 17:37:20 02/08/2002/09/2024 CBC (INCL UDES DIFF/ PLT) red blood cell count 4.54 parviz on/uL 3.80-5 .10 normal Not Available [address], [address], 02/09/2024 17:37:20 02/08/2002/09/2024 CBC (INCL UDES DIFF/ PLT) hemoglobin 13.8 g/dL 11.7-1 5.5 normal Not Available [address], [address], 02/09/2024 17:37:20 02/08/2002/09/2024 CBC (INCL UDES DIFF/ PLT) hematocrit 43.3 % 35.0-4 5.0 normal Not Available [address], [address], 02/09/2024 17:37:20 02/08/2002/09/2024 CBC (INCL UDES DIFF/ PLT) MCV 95.4 fL 80.0-1 00.0 normal Not Available [address], [address], 02/09/2024 17:37:20 02/08/2002/09/2024 CBC (INCL UDES DIFF/ PLT) MCH 30.4 pg 27.0-3 3.0 normal Not Available [address], [address], 02/09/2024 17:37:20 02/08/2002/09/2024 CBC (INCL UDES DIFF/ PLT) MCHC 31.9 g/dL 32.0-3 6.0 low Not Available [address], [address], 02/09/2024 17:37:20 02/08/2002/09/2024 CBC (INCL UDES DIFF/ PLT) RDW 12.1 % 11.0-1 5.0 normal Not Available [address], [address], 02/09/2024 17:37:20 02/08/2002/09/2024 CBC (INCL UDES DIFF/ PLT) platelet count 446 thous and/u L 140-40 0 high Not Available [address], [address], 02/09/2024 17:37:20 02/08/2002/09/2024 CBC (INCL UDES DIFF/ PLT) MPV 9.1 fL 7.5-12 .5 normal Not Available [address], [address], 02/09/2024 17:37:20 02/08/2002/09/2024 CBC (INCL UDES DIFF/ PLT) absolute neutrophils 3195 cells /uL 1500-7 800 normal Not Available [address], [address], 02/09/2024 17:37:20 02/08/20 24 02/09/2024 CBC (INCL UDES DIFF/ PLT) absolute lymphocytes 2506 cells /uL 850-39 00 normal Not Available [address], [address], 02/09/2024 17:37:20 02/08/20 24 02/09/2024 CBC (INCL UDES DIFF/ PLT) absolute monocytes 121 cells /uL 200-95 0 low Not Available [address], [address], 02/09/2024 17:37:20 02/08/20 24 02/09/2024 CBC (INCL UDES DIFF/ PLT) absolute eosinophils 1257 cells /uL 15-500 high Not Available [address], [address], 02/09/2024 17:37:20 02/08/20 24 02/09/2024 CBC (INCL UDES DIFF/ PLT) absolute basophils 21 cells /uL 0-200 normal Not Available [address], [address], 02/09/2024 17:37:20 02/08/20 24 02/09/2024 CBC (INCL UDES DIFF/ PLT) neutrophils 45 % normal Not Available [address], [address], 02/09/2024 17:37:20 02/08/20 24 02/09/2024 CBC (INCL UDES DIFF/ PLT) lymphocytes 35.3 % normal Not Available [address], [address], 02/09/2024 17:37:20 02/08/20 24 02/09/2024 CBC (INCL UDES DIFF/ PLT) monocytes 1.7 % normal Not Available [address], [address], 02/09/2024 17:37:20 02/08/20 24 02/09/2024 CBC (INCL UDES DIFF/ PLT) eosinophils 17.7 % normal Not Available [address], [address], 02/09/2024 17:37:20 02/08/20 24 02/09/2024 CBC (INCL UDES DIFF/ PLT) basophils 0.3 % normal Not Available [address], [address], 02/09/2024 17:37:20 02/08/20 24 02/09/2024 URINA LYSIS , COMPL ETE W/REF SAM TO CULTU RE color YELLOW yellow normal Not Available [address], [address], 02/09/2024 17:37:21 02/08/20 24 02/09/2024 URINA LYSIS , COMPL ETE W/REF SAM TO CULTU RE appearance CLEAR clear normal Not Available [address], [address], 02/09/2024 17:37:21 02/08/2002/09/2024 URINA LYSIS , COMPL ETE W/REF SAM TO CULTU RE specific gravity 1.008 1.001- 1.035 normal Not Available [address], [address], 02/09/2024 17:37:21 02/08/20 24 02/09/2024 URINA LYSIS , COMPL ETE W/REF SAM TO CULTU RE pH 6.0 5.0-8. 0 normal Not Available [address], [address], 02/09/2024 17:37:21 02/08/20 24 02/09/2024 URINA LYSIS , COMPL ETE W/REF SAM TO CULTU RE glucose NEGATI VE negati ve normal Not Available [address], [address], 02/09/2024 17:37:21 02/08/20 24 02/09/2024 URINA LYSIS , COMPL ETE W/REF SAM TO CULTU RE bilirubin NEGATI VE negati ve normal Not Available [address], [address], 02/09/2024 17:37:21 02/08/20 24 02/09/2024 URINA LYSIS , COMPL ETE W/REF SAM TO CULTU RE ketones NEGATI VE negati ve normal Not Available [address], [address], 02/09/2024 17:37:21 02/08/20 24 02/09/2024 URINA LYSIS , COMPL ETE W/REF SAM TO CULTU RE occult blood NEGATI VE negati ve normal Not Available [address], [address], 02/09/2024 17:37:21 02/08/20 24 02/09/2024 URINA LYSIS , COMPL ETE W/REF SAM TO CULTU RE protein NEGATI VE negati ve normal Not Available [address], [address], 02/09/2024 17:37:21 02/08/20 24 02/09/2024 URINA LYSIS , COMPL ETE W/REF SAM TO CULTU RE nitrite NEGATI VE negati ve normal Not Available [address], [address], 02/09/2024 17:37:21 02/08/20 24 02/09/2024 URINA LYSIS , COMPL ETE W/REF SAM TO CULTU RE leukocyte esterase NEGATI VE negati ve normal Not Available [address], [address], 02/09/2024 17:37:21 02/08/20 24 02/09/2024 URINA LYSIS , COMPL ETE W/REF SAM TO CULTU RE WBC NONE SEEN /hpf < or = 5 normal Not Available [address], [address], 02/09/2024 17:37:21 02/08/20 24 02/09/2024 URINA LYSIS , COMPL ETE W/REF SAM TO CULTU RE RBC NONE SEEN /hpf < or = 2 normal Not Available [address], [address], 02/09/2024 17:37:21 02/08/20 24 02/09/2024 URINA LYSIS , COMPL ETE W/REF SAM TO CULTU RE squamous epithelial cells NONE SEEN /hpf < or = 5 normal Not Available [address], [address], 02/09/2024 17:37:21 02/08/20 24 02/09/2024 URINA LYSIS , COMPL ETE W/REF SAM TO CULTU RE bacteria NONE SEEN /hpf none seen normal Not Available [address], [address], 02/09/2024 17:37:21 02/08/20 24 02/09/2024 URINA LYSIS , COMPL ETE W/REF SAM TO CULTU RE hyaline cast NONE SEEN /lpf none seen normal Not Available [address], [address], 02/09/2024 17:37:21 02/08/20 24 02/09/2024 URINA LYSIS , COMPL ETE W/REF SAM TO CULTU RE note This urine was mellissa zed for the prese nce of WBC, RBC, bacte amy, casts , and other forme d eleme nts. Only those eleme nts seen were repor olesya. Not Available [facility] [place] [address] [address], [place], [address], 02/09/2024 17:37:21 02/08/2002/09/2024 REFLE XIVE URINE CULTU RE reflexive urine culture NO CULTU RE INDIC ATED Not Available [facility] [place] [address] [address], [place], [address], 02/09/2024 17:37:22 02/08/2002/09/2024 TAMEKA SCREE N, IFA, W/REF L TITER AND ALESSANDRA RN TAMEKA screen, ifa NEGATI VE negati [...] Hendricks rns (http s://d oi.or g/10. 1515/ [facility]- 2017- 0052) For addit ional infor puneet jimenez e refer to http: //pepito Brown stDia gnost ics.c om/fa q/FAQ 177 (This link is being provi ded for infor jewell nal/ educa diego l purpo ses only. ) Not Available [facility] [place] [address] [address], [place], [address], 02/09/2024 17:37:22 02/08/202024 RHEUM ATOID FACTO R rheumatoid factor <10 IU/mL <14 normal Not Available [facility] [address] [place], [address], 02/09/2024 17:37:23 02/08/20 24 02/09/2024 VITAM IN B12/F OLATE , SERUM PANEL vitamin B12 491 pg/mL 200-11 00 normal Not Available [address] [place] [address] [place], [address], 02/09/2024 17:37:23 02/08/20 24 02/09/2024 VITAM IN B12/F OLATE , SERUM PANEL folate, serum 11.6 NG/mL normal Refer ence Range Low: <3.4 Borde rline : 3.4-5 .4 Mi l: >5.4 Not Available [address] [address] [place], [address], 02/09/2024 17:37:23 02/08/20 24 02/09/2024 VITAM IN [...] /MS is recom sue d: order code 44621 (adarsh ents >2yrs ). See Note 1 Note 1 For addit ional infor puneet jimenez e refer to http: //pepito ashraf.Pawel stDia gnost ics.c om/fa q/FAQ 199 (This link is being provi ded for infor jewell camarena/ educa diego l purpo ses only. ) Not Available [facility] [address] [place], [address], 02/09/2024 17:37:24 02/08/20 24 02/09/2024 TSH W/REF SAM TO FT4 TSH w/reflex to FT4 3.75 mIU/L normal Refer ence Range > or = 20 Years 0.40- 4.50 Pregn mike Range s First trime ster 0.26- 2.66 Secon d trime ster 0.55- 2.73 Third trime ster 0.43- 2.91 Not Available [facility] [address] [address], [place], [address], 02/09/2024 17:37:24 02/08/20 24 02/09/2024 HEMOG LOBIN [...] vanessa c503 platf orm. Effec tive , david garcia in test platf orms from the [...] bilit y estab lishe d by the Natdionne nal Glyco hemog lobin Stand ardiz ation Progr am. Note that not all indiv idual s will have had a shift in their resul ts and direc t esteban rison s betwe en histo rical and curre nt resul ts for testi ng condu cted on diffe rent platf orms is not recom sue d. Not Available [facility] [place] [address] [place], [address], 02/09/2024 17:37:25 05/11/20 24 05/11/2024 LIPID PANEL , STAND SUDHIR cholesterol, total 161 mg/dL <200 normal Not Available [facility] [place] [address] [place], [address], 05/11/2024 23:57:10 05/11/20 24 05/11/2024 LIPID PANEL , STAND SUDHIR HDL cholesterol 54 mg/dL > or = 50 normal Not Available [facility] [place] [address] [place], [address], 05/11/2024 23:57:10 05/11/20 24 05/11/2024 LIPID PANEL , STAND SUDHIR triglyceride s 91 mg/dL <150 normal Not Available [facility] [place] [address] [place], [address], 05/11/2024 23:57:10 05/11/20 24 05/11/2024 LIPID PANEL , STAND SUDHIR LDL-choleste rol 88 mg/dL _(veronica c) normal Refer ence range : <100 Jeana able range <100 mg/dL for prima ry preve ntion ; <70 mg/dL for patie nts with CHD or diabe tic patie nts with > or = 2 CHD risk facto rs. LDL-C is now calcu lated using the [facility] kins xochitl ashraf, which is a valid ated novel leonila lu than the Fried darshana mikeyat ion in the estim ation of LDL-C . Salma ashraf SS et al. RHONDA. 2013; 310(1 9): 2061- 2068 (http ://ed ucati on.Qu Trae MangoPlate. com/f aq/FA Q164) Not Available [facility] [place] [address] [place], [address], 05/11/2024 23:57:10 05/11/20 24 05/11/2024 LIPID PANEL , STAND SUDHIR chol/HDLC ratio 3.0 (calc ) <5.0 normal Not Available [facility] [place] [address] [place], [address], 05/11/2024 23:57:10 05/11/20 24 05/11/2024 LIPID PANEL , STAND SUDHIR non HDL cholesterol 107 mg/dL _(veronica c) <130 normal For patie nts with diabe nathanael plus 1 major ASCVD risk facto r, treat ing to a non-H DL-C goal of <100 mg/dL (LDL- C of <70 mg/dL ) is consi jocelynd a maxi hill optio n. Not Available [facility] [place] [address] [place], [address], 05/11/2024 23:57:10 08/17/19 25 08/17/2024 TSH W/REF SAM TO FT4 TSH w/reflex to FT4 1.57 mIU/L normal Refer ence Range > or = 20 Years 0.40- 4.50 Pregn mike Range s First trime ster 0.26- 2.66 Secon d trime ster 0.55- 2.73 Third trime ster 0.43- 2.91 Not Available [facility] [place] [id number] [place], [address], 08/17/2024 01:47:35 01/24/20 24 01/24/2024 MAMMO , diagn ostic , tomos ynthe sis, bilat eral [facility] [address] [facility] [place] [address] Pativalerie t Name: FAUSTINA REZA ion #: [id number] Sex: F : 1975 2 Dictat ed By: Amada wells Attend ing Physic anaid: DENILSON VALENZUELA Orderi ng Physic anaid: DENILSON VALENZUELA Exam Date: 2023 11:26 AM Exam Name: MG DIAG BREAST TANIA BILAT Admitt ing Diagno sis(es ): CLINIC AL HISTOR Y: mass of axilla . Abnorm al left axilla ry lymph node seen on prior ultras ound. COMPAR BERNARDO: Correl ation made to ultras ound of [...] Page 1 [facility] [address] [id number] Patien t Name: FAUSTINA REZA ion #: [id number] Sex: F : 1975 2 Dictat ed By: Amada wells Attend ing Physic anaid: MAICOL LOVE [facility] Physic anaid: DENILSON VALENZUELA Exam Date: 2023 11:26 AM Exam Name: MG DIAG BREAST TANIA BILAT Admitt ing Diagno sis(es ): althou gh may be partly due to differ ences in measur ement techni que. Biopsy could be consid ered to hilda r evalua te. 2. Small hypoec hoic [...] at 2023 15:20: 39 PM Page 2 [email or web address] [facility] (Imaging) [address] [place], [address], 02/02/2024 16:10:21 01/24/20 24 01/24/2024 US, rory t, unila teral , compl ete [facility] [address] [place]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
--- OUTSIDE RECORDS SUMMARY | 2024-11-23 09:03 | XMS_ITS | Encounter Summary ---
Author Organization [facility] Address [address] [place] [address] Care Team Providers Care Wheat Inspector Name Role Phone Unavailable Primary Care Provider Unavailabl e Encounter Details Date Type Department Care Team (Late st Contact Info) Description 04/18/2024 Lab Requisition [facility] - Pathology Lab [address] [place] [phone] Alli Dean MD [address] [place] [address] Localized enlarged lymph nodes Social History Tobacco Use Types Packs/Day Years Used Date Smoking Tobacco: Never Assessed Comments Unknown Sex and Gender Information Value Date Recorded Sex Assigned at Not on file Legal Sex Female 10:15 AM CDT Gender Identity Not on file Sexual Orientation Not on file documented as of this encounter Plan of Treatment Not on file documented as of this encounter Procedures Procedure Name Priority Date/Time Associated Diagnosis Comments FLOW CYTOMETRY TISSUE PANEL Routine 04/18/2024 11:31 AM [employer] Localized enlarged lymph nodes documented in this encounter Results * FLOW CYTOMETRY TISSUE PANEL (04/18/2024 11:31 AM [employer]) Case Report Flow Cytometry Case: [id number] Authorizing Provider: Alli Dean Collected: 04/18/2024 11:31 AM MD Prabhakar Ordering Location: [facility] - Received: 04/18/2024 05:06 PM Pathology Lab Pathologist: Nikky Verma MD Specimen: Lymph Node, LEFT AXILLA BIOPSY 04/19/2024 9:43 AM [employer] [facility] Final Diagnosis Lymph node, left axilla, flow cytometric immunophenotypic analysis: - No evidence of non-Hodgkin lymphoma - See interpretation 04/19/2024 9:43 AM [employer] [facility] at [address] [facility] Flow Cytometry Interpretation Viability: 78% B-cells: polytypic, kappa:lambda ratio 1.9:1 T-cells: no immunophenotypic aberrancy detected CD4:CD8 ratio 5:1 A cytospin prepared from the flow cytometry specimen has been reviewed for inspector quality assurance purposes. 04/19/2024 9:43 AM [facility] Flow Cytometry Results Differential Result Comment Flow Cell Count /uL 820 Total Viability % 78.0 Lymphocytes % 97 Dim CD45 Region % 2 Monocytes % 0 Granulocytes % 1 04/19/2024 9:43 AM [facility] Reason for test Localized enlarged lymph nodes 785.6 04/19/2024 9:43 AM [facility] Client Specimen ID # [id number] 04/19/2024 9:43 AM [facility] Number of markers 17 were performed. A-2 Flow CD3 A-4 Flow CD10 A-6 Flow CD20 A-7 Flow CD23 A-12 Flow CD2 A-13 Flow CD4 A-16 Flow CD1a A-3 Flow CD5 A-5 Flow CD19 A-8 Flow CD34 A-9 Flow CD45 A-14 Flow CD7 A-15 Flow CD8 A-17 Flow CD30 A-10 Rudolph+CD19+ A-11 Lambda+CD19+ 04/19/2024 9:43 AM [facility] Pathologist Location at [facility] 04/19/2024 9:43 AM [facility] Disclaimer Test performed at [facility], [address] [place] [address], [address]. *The established laboratory minimum viability is 70%. [...] high complexity clinical testing. 04/19/2024 9:43 AM [facility] Embedded Images 9:43 AM [employer] [facility] Pathology/Cytolo gy ENTIRE LYMPH NODE / Unknown 04/18/2024 11:31 AM [employer] 04/18/2024 5:06 PM [employer] Alli Daen MD LAB - PATHOLOGY/CYT OLOGY ORDERABLES Final Result Performing Organization Address City/State/[facility] [place] Phone Number [facility]OLOG[facility] LAB [address] [phone] documented in this encounter Visit Diagnoses Diagnosis Localized enlarged lymph nodes Enlargement of lymph nodes documented in this encounter
--- OUTSIDE RECORDS SUMMARY | 2024-11-23 09:03 | XMS_ITS | Clinical Summary ---
Author Organization [facility] Address [address] [facility] [place] [address] Care Team Providers Care Charrer Name Role Phone Unavailable Primary Care Provider Unavailabl e Source Comments [facility] Addy,non-owned Affiliates and Associated Physician Practices is amultiple site organization consisting of ambulatory clinics and hospital sitesin [place], [place], [place] and [place]. This disclosure is being madepursuant to the Care Everywhere program and may not contain all information available regarding this patient. Last updated 18.[facility] Addy Social History Tobacco Use Types Packs/Day Years [...] SCREENING 1977 LIPID TESTING 1977 MAMMOGRAM 1977 COVID-19 VACCINE (#1) 1982 HIV SCREENING 1992 HEPATITIS C SCREENING 11/03/1995 DTAP/TDAP/TD VACCINES (1 - Tdap) 1996 HEPATITIS B VACCINE (1 of 3 - 19+ 3-dose series) 1996 PNEUMOCOCCAL VACCINE (1 of 2 - PCV) 1996 ZOSTER VACCINE (1 of 2) 1996 PAP SMEAR 1998 DEPRESSION SCREENING 05/17/2024 INFLUENZA VACCINE (#1) 2025 HIB VACCINE Aged Out No longer [...] patient's age to complete this topic Insurance [facility] Address: [address] [place] [address] [facility] Address: [address] [place] [address] SELF PAY NO INSURANCE Member Subscriber Plan / Payer (Ef fective for All Dates) Name:Faustina De Leon I Member ID:Not on file Relation to Subscriber:Not on file Name:FAUSTINA DE LEON I Subscriber ID:Not on file (Home) Address: [address] [place] [id number] Payer ID:Not on file Group ID:Not on file Type:Self Pay Address: [place], [place]
--- OUTSIDE RECORDS SUMMARY | 2024-11-23 09:03 | XMS_ITS | Encounter Summary ---
Author Organization [facility] Address [address] [place] [address] Care Team Providers Care Machine Maintenance Repairer Name Role Phone Unavailable Primary Care Provider Unavailabl e Encounter Details Date Type Department Care Team (Late st Contact Info) Description 07/20/2024 Lab Requisition [facility] - Pathology Lab [address] [place] [phone] Alli Dean MD [address] [place] [address] Illness, unspecified Social History Tobacco [...] Comments PATHOLOGY TISSUE Routine 07/19/2024 2:10 PM MED AIDE Illness, unspecified documented in this encounter Results * PATHOLOGY TISSUE (07/19/2024 2:10 PM MED AIDE) Case Report Surgical Pathology Report Case: [id number] Authorizing Provider: Alli Dean Collected: 07/19/2024 02:10 PM MD Prabhakar Ordering Location: [facility] - Received: 07/20/2024 01:00 PM Pathology Lab Pathologist: Serjio Donaldson MD Specimen: Lymph Node 08/07/2024 2:16 PM CDT [facility] Final Diagnosis Lymph node, left axilla, excisional biopsy: - 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 08/07/2024 2:16 PM T [facility] Clinical History Lymphadenopathy. 08/07/2024 2:16 PM T [facility] Materials Received Received are 3 slide(s) and Block A1 labeled [id number] along with a copy of the outside pathology report. [place] [address]. All original materials are returned to the referring institution, along with a copy of our final report. 08/07/2024 2:16 PM CDT [facility] Addendum 1 Additional immunohistochemistry for CD23, shows some staining of the B-lymphoma cells for this marker. Original diagnosis remains unchanged. 08/07/2024 2:16 PM T [facility] Addendum electronically signed by Serjio Donaldson MD on 07/21/2024 at 1448 MED AIDE Addendum 2 Additional immunohistochemistry for CD15 is negative in lesional cells. Original diagnosis remains unchanged. 08/07/2024 2:16 PM T [facility] Addendum electronically signed by Serjio Donaldson MD on 08/07/2024 at 1416 CDT Pathologist Location at [facility] 08/07/2024 2:16 PM CDT [facility] Disclaimer The performance characteristics of [...] the attending (teaching) pathologist. 08/07/2024 2:16 PM CDT [facility] Embedded Images 08/07/2024 2:16 PM CDT [facility] Pathology/Cytolo gy ENTIRE LYMPH NODE / Unknown 07/19/2024 2:10 PM MED AIDE 07/20/2024 1:00 PM MED AIDE Alli Dean MD LAB - PATHO LOGY/CYTOLOGY ORDERABLES Edited Result - Final [facility] [address] [place] [address], [facility] [phone] documented in this encounter Visit Diagnoses Diagnosis Illness, unspecified documented in this encounter
--- OUTSIDE RECORDS SUMMARY | 2024-11-23 09:03 | XMS_ITS | Clinical Summary ---
Author Organization [facility]don santam[facility] Oscar Address [address] [place] [address] Care Team Providers Care Set Up Machinist Name Role Phone Bautista Valenzuela MD Primary Care Provider [phone] Allergies No known active allergies Medications busPIRone [...] Encounters Date Type Department Care Team Description 10/31/2024 External Device Data STL ABSTRACTION Provider, Abstract 10/17/2024 External Device Data STL ABSTRACTION Provider, Abstract 10/05/2024 External Device Data STL ABSTRACTION Provider, Abstract 10/03/2024 External Device Data [facility]L ABSTRACTION Provider, Abstract 08/29/2024 External Device Data STL ABSTRACTION Provider, Abstract 08/25/2024 Orders Only [facility] Oncology and Hematology - [place] [address] [place] [address] Jez Reza MD 08/24/2024 1:00 PM CDT Office Visit [facility] - [place] [address] [place] [address] Jez Reza MD Marginal zone [...] P M CDT Height 180.3 cm (5' 11) 08/04/2024 1:07 PM CDT Body Mass Index 25.47 08/04/2024 1:07 PM CDT Plan of Treatment Upcoming Encounters Date Type Department Care Team (Late st Contact Info) Description 12/01/2024 11:30 AM CDT Office Visit [facility] Oncology and Hematology - [place] [address] [place] [address] Jez Reza MD [address] [facility] [employer] [address] [place] [address] Health Maintenance Due Date Last [...] Colonography Q 5 years 2022 COVID-19 Vaccine (3 - 2023-2 5 season) 2024 09/18/2020, 08/21/2020 INFLUENZA VACCINE (#1) 2024 , 02/23/2022, 02/14/2021, Additional history exists DTAP/TDAP/TD VACCINES (3 - T d or Tdap) 02/20/2034 02/21/2024, 03/05/2014 Procedures Procedure Name Priority Date/Time Associated Diagnosis Comments BASIC METABOLIC PANEL Routine 08/24/2024 2:40 PM CDT COMPREHENSIVE METABOLIC PANEL Routine 08/24/2024 2:39 PM CDT from Last 3 Months Results * BASIC METABOLIC PANEL (08/24/2024 2:40 PM CDT) Blood Jez Reza MD CHEMISTRY ORDERABLES Final Resu lt * COMPREHENSIVE METABOLIC PANEL (08/24/2024 2:39 PM CDT) Blood Jez Reza MD CHEMISTRY ORDERABLES Final Resu lt from Last 3 Months Insurance [facility] [employer] Care Teams Set Up Machinist Relationship Specialty Start Date End Date Bautista Valenzuela MD [address] [place] [address] PCP - General Family Practice 08/04/24
--- OUTSIDE RECORDS SUMMARY | 2024-11-23 09:03 | XMS_ITS | Encounter Summary ---
Author Organization [facility] Address [address] [facility] [place] [address] Care Team Providers Care Station Cook Name Role Phone Unavailable Primary Care Provider Unavailabl e Encounter Details Date Type Department Care Team (Late st Contact Info) Description 07/20/2024 Lab Requisition [facility] - Pathology Lab [address] [place] [phone] Alli Dean MD [address] [place] [address] Localized enlarged lymph nodes Social [...] CYTOMETRY TISSUE PANEL Routine 07/19/2024 1:45 PM [employer] Localized enlarged lymph nodes documented in this encounter Results * FLOW CYTOMETRY TISSUE PANEL (07/19/2024 1:45 PM [employer]) Case Report Flow Cytometry Case: [id number] Authorizing Provider: Alli Dean Collected: 07/19/2024 01:45 PM MD Prabhakar Ordering Location: [facility] - Received: 07/20/2024 12:53 PM Pathology Lab Pathologist: Serjio Donaldson MD Specimen: Lymph Node, UPPER INNER QUADRANT OF LEFT BREAST 07/20/2024 3:14 PM [employer] [facility] Final Diagnosis Lymph node, upper inner quadrant of left breast, flow cytometry: - Low-viability specimen with no clonal B-cell or aberrant T-cell population detected 07/20/2024 3:14 PM [facility] at [address] [employer] Flow Cytometry Interpretation Viability: 68% B-cells: polytypic, kappa:lambda ratio 2:1 T-cells: no immunophenotypic aberrancy detected CD4:CD8 ratio 2.7:1 A cytospin prepared from the flow cytometry specimen has been reviewed for type disk quality control supervisor purposes. 07/20/2024 3:14 PM [facility] Flow Cytometry Results Differential Result Comment Flow Cell Count /uL 12,780 Total Viability % 68.0 Lymphocytes % 98 Dim CD45 Region % 0 Monocytes % 1 Granulocytes % 0 07/20/2024 3:14 PM [facility] Reason for test Localized enlarged lymph nodes 785.6 07/20/2024 3:14 PM [facility] Client Specimen ID # [id number] 07/20/2024 3:14 PM [facility] Number of markers 16 were performed. A-2 Flow CD3 A-4 Flow CD10 A-6 Flow CD20 A-7 Flow CD23 A-12 Flow CD2 A-13 Flow CD4 A-16 Flow CD1a A-3 Flow CD5 A-5 Flow CD19 A-8 Flow CD34 A-9 Flow CD45 A-14 Flow CD7 A-15 Flow CD8 A-17 Flow CD30 A-10 [employer]+CD19+ A-11 Lambda+CD19+ 07/20/2024 3:14 PM [facility] Pathologist Location at [facility] 07/20/2024 3:14 PM [facility] Disclaimer Test performed at [facility], [address] [place] [address], [address]. *The established laboratory minimum viability is 70%. [...] high complexity clinical testing. 07/20/2024 3:14 PM [employer]HEAD [employer] [facility] Embedded Images 3:14 PM [employer] [facility] Pathology/Cytolo gy ENTIRE LYMPH NODE / Unknown 07/19/2024 1:45 PM [employer] 07/20/2024 12:53 PM [employer] Alli Dean MD LAB - PATHOLOGY/CYT OLOGY ORDERABLES Final Result [facility] [address] [phone] documented in this encounter Visit Diagnoses Diagnosis Localized enlarged lymph nodes Enlargement of lymph nodes documented in this encounter
== END 2024-11-23 08:56 | disposition home or self-care (01) ==
PROVIDERS: PCP Family Medicine; Visit Provider Internal Medicine Hematology & Oncology
DX: C85.80 Other specified types of non-Hodgkin lymphoma, unspecified site (principal); K80.20 Calculus of gallbladder without cholecystitis without obstruction; R59.1 Generalized enlarged lymph nodes
CPT/HCPCS: 71260; 74177; Q9967

== ENCOUNTER 2024-12-01 11:10 | Outpatient (CLI) | payer OTHER, SELFPAY ==
--- OUTSIDE RECORDS SUMMARY | 2024-12-01 11:18 | XMS_ITS | Encounter Summary ---
Author Organization [facility] Address [address] [place] [address] Care Team Providers Care Police Chief Deputy Name Role Phone Bautista Valenzuela MD Primary Care Provider [phone] Encounter Details Date Type Department Care Team (Late Contact Info) Description 11/29/2024 External Device Data [facility] ABSTRACTION Provider, Abstract NO ADDRESS ON FILE Social History Tobacco Use Types Packs/Day Years [...] as of this encounter Plan of Treatment Upcoming Encounters Date Type Department Care Team (Late st Contact Info) Description 12/01/2024 11:30 AM CDT Office Visit [facility] Oncology and Hematology - [place] [address] [facility] [address] [place] [address] Jez Reza MD [address] [facility] [address] [place] [address] documented as of this encounter Visit Diagnoses Not on filedocumented in this encounter Care Teams Police Chief Deputy Relationship Specialty Start Date End Date Bautista Valenzuela MD [address] [place] [phone] PCP - General Family Practice 08/04/24 documented as of this encounter
--- OUTSIDE RECORDS SUMMARY | 2024-12-01 11:18 | XMS_ITS | Encounter Summary ---
Author Organization [facility] Address [address] [place] [address] Care Team Providers Care Wire Stockkeeper Name Role Phone Unavailable Primary Care Provider Unavailabl e Encounter Details Date Type Department Care Team (Late st Contact Info) Description 07/20/[address] [facility] - Pathology Lab [address] [place] [id number] Alli Dean MD [address] [place] [address] Localized enlarged lymph nodes Social [...] CYTOMETRY TISSUE PANEL Routine 07/19/2024 1:45 PM MANAGER INCOME TAX Localized enlarged lymph nodes documented in this encounter Results * FLOW CYTOMETRY TISSUE PANEL (07/19/2024 1:45 PM MANAGER INCOME TAX) Case Report Flow Cytometry Case: [id number] Authorizing Provider: Alli Dean Collected: 07/19/2024 01:45 PM MD Prabhakar Ordering Location: [facility] Physician [facility] - Received: 07/20/2024 12:53 PM Pathology Lab Pathologist: Serjio Donaldson MD Specimen: Lymph Node, UPPER INNER QUADRANT OF LEFT BREAST 07/20/2024 3:14 PM MANAGER INCOME TAX [facility] Final Diagnosis Lymph node, upper inner quadrant of left breast, flow cytometry: - Low-viability specimen with no clonal B-cell or aberrant T-cell population detected 07/20/2024 3:14 PM [facility] at [address] MANAGER INCOME TAX Flow Cytometry Interpretation Viability: 68% B-cells: polytypic, kappa:lambda ratio 2:1 T-cells: no immunophenotypic aberrancy detected CD4:CD8 ratio 2.7:1 A cytospin prepared from the flow cytometry specimen has been reviewed for bottle house quality control technician purposes. 07/20/2024 3:14 PM [facility] Flow Cytometry Results Differential Result Comment Flow Cell Count /uL 12,780 Total Viability % 68.0 Lymphocytes % 98 Dim CD45 Region % 0 Monocytes % 1 Granulocytes % 0 07/20/2024 3:14 PM [facility] Reason for test Localized enlarged lymph nodes 785.6 07/20/2024 3:14 PM [facility] Client Specimen ID # [id number] 07/20/2024 3:14 PM [facility] Number of markers 16 were performed. A-2 Flow CD3 A-4 Flow CD10 A-6 Flow CD20 A-7 Flow CD23 A-12 Flow CD2 A-13 Flow CD4 A-16 Flow CD1a A-3 Flow CD5 A-5 Flow CD19 A-8 Flow CD34 A-9 Flow CD45 A-14 Flow CD7 A-15 Flow CD8 A-17 Flow CD30 A-10 Gravity+CD19+ A-11 Lambda+CD19+ 07/20/2024 3:14 PM [facility] Pathologist Location at [facility] 07/20/2024 3:14 PM [facility] Disclaimer Test performed at [facility], [address] [place] [address], [address]. *The established laboratory minimum viability is 70%. [...] high complexity clinical testing. 07/20/2024 3:14 PM MANAGER INCOME TAX [facility] Embedded Images 3:14 PM MANAGER INCOME TAX [facility] Pathology/Cytolo gy ENTIRE LYMPH NODE / Unknown 07/19/2024 1:45 PM MANAGER INCOME TAX 07/20/2024 12:53 PM MANAGER INCOME TAX Alli Dean MD LAB - PATHOLOGY/CYT OLOGY ORDERABLES Final Result [facility] [address] [phone] documented in this encounter Visit Diagnoses Diagnosis Localized enlarged lymph nodes Enlargement of lymph nodes documented in this encounter
--- OUTSIDE RECORDS SUMMARY | 2024-12-01 11:18 | XMS_ITS | Clinical Summary ---
Author Organization [facility] Braydon Schneider Address [address] [place] [address] Care Team Providers Care Radiation Technician Name Role Phone Bautista Valenzuela MD Primary Care Provider [phone] Allergies No known active allergies Medications busPIRone [...] Encounters Date Type Department Care Team Description 11/29/2024 External Device Data [facility] ABSTRACTION Provider, Abstract 11/28/2024 External Device Data [facility] ABSTRACTION Provider, Abstract 10/31/2024 External Device Data [facility]STRACTION Provider, Abstract 10/17/2024 External Device Data [facility] [place]STRACTION Provider, Abstract 10/05/2024 External Device Data [facility] ABSTRACTION Provider, Abstract 10/03/2024 External Device Data [facility] ABSTRACTION Provider, Abstract from Last 3 Months Family History Medical [...] Description 12/01/2024 11:30 AM CDT Office Visit [facility] Oncology and Hematology - [place] [address] [facility] [address] [place] [address] Jez Reza MD [address] [place] [address] Health Maintenance Due Date Last [...] - 2023-2 5 season) 2024 09/18/2020, 08/21/2020 Preventative Visit- Commercial 05/17/2024 02/02/2024 , 01/27/2023 INFLUENZA VACCINE (#1) 2024 , 02/23/2022, 02/14/2021, Additional history exists DTAP/TDAP/TD VACCINES (3 - T d or Tdap) 02/20/2034 02/21/2024, 03/05/2014 Insurance [facility] [employer] Care Teams Radiation Technician Relationship Specialty Start Date End Date Bautista Valenzuela MD [address] [place] [phone] PCP - General Family Practice 08/04/24
--- OUTSIDE RECORDS SUMMARY | 2024-12-01 11:18 | XMS_ITS | Encounter Summary ---
Author Organization [facility] Address [address] [facility] [place] [address] Care Team Providers Care Graphic Engineer Name Role Phone Unavailable Primary Care Provider Unavailabl e Encounter Details Date Type Department Care Team (Late st Contact Info) Description 04/18/2024 Lab Requisition [facility] - Pathology Lab [address] [place] [phone] Alli Dean MD [address] [place] [address] Localized enlarged lymph nodes Social [...] CYTOMETRY TISSUE PANEL Routine 04/18/2024 11:31 AM CREDIT UNION FIELD EXAMINER Localized enlarged lymph nodes documented in this encounter Results * FLOW CYTOMETRY TISSUE PANEL (04/18/2024 11:31 AM CREDIT UNION FIELD EXAMINER) Case Report Flow Cytometry Case: [id number] Authorizing Provider: Alli Dean Collected: 04/18/2024 11:31 AM MD Prabhakar Ordering Location: [facility] Physician [facility] - Received: 04/18/2024 05:06 PM Pathology Lab Pathologist: Nikky Verma MD Specimen: Lymph Node, LEFT AXILLA BIOPSY 04/19/2024 9:43 AM CREDIT UNION FIELD EXAMINER [facility] Final Diagnosis Lymph node, left axilla, flow cytometric immunophenotypic analysis: - No evidence of non-Hodgkin lymphoma - See interpretation 04/19/2024 9:43 AM CREDIT UNION FIELD EXAMINER [facility] at [address] [facility] Flow Cytometry Interpretation Viability: 78% B-cells: polytypic, kappa:lambda ratio 1.9:1 T-cells: no immunophenotypic aberrancy detected CD4:CD8 ratio 5:1 A cytospin prepared from the flow cytometry specimen has been reviewed for quality system manager purposes. 04/19/2024 9:43 AM [facility] Flow Cytometry Results Differential Result Comment Flow Cell Count /uL 820 Total Viability % 78.0 Lymphocytes % 97 Dim CD45 Region % 2 Monocytes % 0 Granulocytes % 1 04/19/2024 9:43 AM [facility] Reason for test Localized enlarged lymph nodes 785.6 04/19/2024 9:43 AM [facility] Client Specimen ID # [id number] 04/19/2024 9:43 AM [facility] Number of markers 17 were performed. A-2 Flow CD3 A-4 Flow CD10 A-6 Flow CD20 A-7 Flow CD23 A-12 Flow CD2 A-13 Flow CD4 A-16 Flow CD1a A-3 Flow CD5 A-5 Flow CD19 A-8 Flow CD34 A-9 Flow CD45 A-14 Flow CD7 A-15 Flow CD8 A-17 Flow CD30 A-10 Broussard+CD19+ A-11 Lambda+CD19+ 04/19/2024 9:43 AM [facility] Pathologist Location at [facility] 04/19/2024 9:43 AM [facility] Disclaimer Test performed at [facility], [address] [place] [address], [id number]. *The established laboratory minimum viability is 70%. [...] high complexity clinical testing. 04/19/2024 9:43 AM [facility] Embedded Images 9:43 AM CREDIT UNION FIELD EXAMINER [facility] Pathology/Cytolo gy ENTIRE LYMPH NODE / Unknown 04/18/2024 11:31 AM CREDIT UNION FIELD EXAMINER 04/18/2024 5:06 PM CREDIT UNION FIELD EXAMINER Alli Dean MD LAB - PATHOLOGY/CYT OLOGY ORDERABLES Final Result Performing Organization Address City/State/[facility] [place] Phone Number [facility] [address] [phone] documented in this encounter Visit Diagnoses Diagnosis Localized enlarged lymph nodes Enlargement of lymph nodes documented in this encounter
--- OUTSIDE RECORDS SUMMARY | 2024-12-01 11:18 | XMS_ITS | Clinical Summary ---
Author Organization [facility] Address [address] [place] [address] Care Team Providers Care Computer Network Specialist Name Role Phone None, Provider MD Primary [...] patient's age to complete this topic Insurance [employer] [facility] Care Teams Computer Network Specialist Relationship Specialty Start Date End Date None, Provider, PCP - General 08/12/20
--- OUTSIDE RECORDS SUMMARY | 2024-12-01 11:19 | XMS_ITS | Clinical Summary ---
Author Organization [facility] Address [address] [place] [address] Care Team Providers Care Supervisor Cereal Name Role Phone Unavailable Primary Care Provider Unavailabl e Source Comments [facility] [employer],non-owned Affiliates and Associated Physician Practices is amultiple site organization consisting of ambulatory clinics and hospital sitesin [place], [place], [place] and [place]. This disclosure is being madepursuant to the Care Everywhere program and may not contain all information available regarding this patient. Last updated 18.[facility] [employer] Social History Tobacco Use Types Packs/Day Years [...] age to complete this topic Insurance [employer] SELF PAY NO INSURANCE Member Subscriber Plan / Payer (Ef fective for All Dates) Name:Faustina De Leon I Member ID:Not on file Relation to Subscriber:Not on file Name:FAUSTINA DE LEON I Subscriber ID:Not on file (Home) Address: [address] [place] [id number] Payer ID:Not on file Group ID:Not on file Type:Self Pay Address: [place], [place]
--- OUTSIDE RECORDS SUMMARY | 2024-12-01 11:19 | XMS_ITS ---
Author Organization Unknown Medications Medication Instructions Effective Dates (start - stop) Status 24 HR bupropion hydrochlorid e 150 MG Extended Release Oral Tablet - Compl eted 24 HR bupropion hydrochlorid e 150 MG Extended Release Oral Tablet - Compl eted levothyroxine sodium 0.025 M G Oral Tablet - Completed levothyroxine sodium 0.025 M G Oral Tablet - Completed spironolactone 100 MG Oral Tablet 2023-0100:00:00Z - Completed 24 HR bupropion hydrochlorid e 150 MG Extended Release Oral Tablet - Compl eted levothyroxine sodium 0.025 M G Oral Tablet - Completed spironolactone 100 MG Oral Tablet 2023-04:00:00Z - Completed spironolactone 100 MG Oral Tablet 2023-10:00:00Z - Completed spironolactone 100 MG Oral Tablet 2023-0400:00:00Z - Completed levothyroxine sodium 0.025 M G Oral Tablet - Completed spironolactone 100 MG Oral Tablet 2023-0700:00:00Z - Completed levothyroxine sodium 0.025 M G Oral Tablet - Completed Patient Care team information Name Category Status Period Participants - - Proposed period not known -
--- OUTSIDE RECORDS SUMMARY | 2024-12-01 11:19 | XMS_ITS | Patient Health Record ---
Author Organization [facility] [employer] Address [address] [place] [address] Care Team Providers Care Recycling Sorter Name Role Phone Nicolas ALLEN, [facility] Primary Care Provider Anna Menon Unavailable [phone] Allergies No Known Allergies Results Component Value Reference Range Notes UDT Reviewed date:07/10/2024 03:06:59 PM Interpretation: Performing Lab: Notes/Report: THC n 0 - 50 ng/ml Cocaine n 0 - 300 ng/ml Amphetamine n 0 - 1000 ng/ml Buprenorphine (BUP) n 0 - 10 ng/ml Secobarbital (Bar) n 0 - 300 ng/ml Oxazepam (BZO) n 0 - 300 ng/ml 7-uzklioffry-5,7-lfmufdsy-2,3-diphenylpyrrolidine (TRAMAINE P) n 0 - 300 ng/ml Methamphetamine (MET) n 0 - 1000 ng/ml Methylenedioxymethamphetamine (MDMA) n 0 - 500 ng/ml Morphine (MOP 300/MLA3468) n 0 - 300 ng/ml Methadone (MTD) [...] Problem Status W/U Status Risk Notes Problem Severe recurrent major depression without psychotic features (12434171) Major depressive disorder, 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 confirmed Problem Generalized anxiety disorder (F41.1) Active confirmed Vital Signs Heart Rate 80 /min 08/21/2024 Height-cm 180.34 cm 08/21/2024 Blood pressure diastolic 77 mm Hg 08/21/2024 Weight-kg 81.65 kg 08/21/2024 Height 71 in 08/21/2024 Blood pressure systolic 119 mm Hg 08/21/2024 Weight 180 lbs 08/21/2024 BMI 25.1 kg/m2 08/21/2024 Encounters Encounter Location Date Provider Diagnosis [facility] [employer] [facility] [address] [address] 07/10/2024 Anna Puckett Major depressive disorder, recurrent severe without psychotic features F33.2 and Generalized anxiety disorder F41.1 [facility] [employer] [facility] [address] 08/21/2024 Anna Puckett Encounter for screen ing [...] Date Coverage End Date [employer] [address] [place] [address] [id number] i [id number] Faustina Burton Self - patient is the [...]
--- OUTSIDE RECORDS SUMMARY | 2024-12-01 11:19 | XMS_ITS | Encounter Summary ---
Author Organization [facility] Address [address] [place] [address] Care Team Providers Care Online Content Coordinator Name Role Phone Unavailable Primary Care Provider Unavailabl e Encounter Details Date Type Department Care Team (Late st Contact Info) Description 07/20/2024 Lab Requisition [facility] - Pathology Lab [address] [place] [phone] Alli Dean MD [address] [place] [address] Illness, unspecified Social History Tobacco [...] Comments PATHOLOGY TISSUE Routine 07/19/2024 2:10 PM SAFE TECHNICIAN Illness, unspecified documented in this encounter Results * PATHOLOGY TISSUE (07/19/2024 2:10 PM SAFE TECHNICIAN) Case Report Surgical Pathology Report Case: [id number] Authorizing Provider: Alli Dean Collected: 07/19/2024 02:10 PM MD Prabhakar Ordering Location: [facility] - Received: 07/20/2024 01:00 PM Pathology Lab Pathologist: Serjio Donaldson MD Specimen: Lymph Node 08/07/2024 2:16 PM CDT [facility] Final Diagnosis Lymph node, left axilla, excisional biopsy: - 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 08/07/2024 2:16 PM T [facility] Clinical History Lymphadenopathy. 08/07/2024 2:16 PM T [facility] Materials Received Received are 3 slide(s) and Block A1 labeled [id number] along with a copy of the outside pathology report. [place] [address]. All original materials are returned to the referring institution, along with a copy of our final report. 08/07/2024 2:16 PM CDT [facility] Addendum 1 Additional immunohistochemistry for CD23, shows some staining of the B-lymphoma cells for this marker. Original diagnosis remains unchanged. 08/07/2024 2:16 PM T [facility] Addendum electronically signed by Serjio Donaldson MD on 07/21/2024 at 1448 SAFE TECHNICIAN Addendum 2 Additional immunohistochemistry for CD15 is negative in lesional cells. Original diagnosis remains unchanged. 08/07/2024 2:16 PM T [facility] Addendum electronically signed by Serjio Donaldson MD on 08/07/2024 at 1416 CDT Pathologist Location at [facility] 08/07/2024 2:16 PM CDT [facility] Disclaimer The performance characteristics of all immunohistochemical and indirect immunofluorescence stains (if any) cited in this report were determined by the Histopathology Laboratory of [facility]. Some of these tests were developed by [...] LAB Embedded Images 08/07/2024 2:16 PM CDT [facility] Pathology/Cytolo gy ENTIRE LYMPH NODE / Unknown 07/19/2024 2:10 PM SAFE TECHNICIAN 07/20/2024 1:00 PM SAFE TECHNICIAN Alli Dean MD LAB - PATHO LOGY/CYTOLOGY ORDERABLES Edited Result - Final [facility] [address] [place] [address], [facility] [phone] documented in this encounter Visit Diagnoses Diagnosis Illness, unspecified documented in this encounter
--- OUTSIDE RECORDS SUMMARY | 2024-12-01 11:19 | XMS_ITS | Data Portability ---
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 Cont f/u with Breast surgeon at [place] as per schedule. F/u with Hemat as per schedule. Cont f/u with Counsellor at [place] as per schedule. Cont f/u with Gyne at [place] as per schedule. Cont f/u with Derm at [place] as per schedule. Cont f/u with Ophtho [...] Lipids in 06/10. Annual labs in 02/07. [email or web address] Not available 02/21/2024 15:55:19 05/23/2024 05/23/2024 The [...] had a 15 minute TeleMedicine consultation via [employer] to discuss the followin yo F with [...] it. Cont f/u with Breast surgeon at [place] as per schedule. F/u with Hemat as per schedule. Cont f/u with Counsellor at [place] as per schedule. Cont f/u with Gyne at [place] as per schedule. Cont f/u with Derm at [place] as per schedule. Cont f/u with Ophtho [...] in 2-3 months. Annual labs in 02/07. [email or web address] Not available 05/23/2024 11:32:43 08/14/2024 08/14/2024 48 [...] understanding it. Cont f/u with Hemat/Onco at [place] as per schedule. Cont f/u with Breast surgeon at [place] as per schedule. Cont f/u with Psychiatrist at [facility] as per schedule. Cont f/u with Gyne at [place] as per schedule. Cont f/u with Derm at [place] as per schedule. Cont f/u with Ophtho [...] before next visit. Annual labs in 02/07. [email or web address] Not available 08/14/2024 12:59:23 11/14/2024 11/14/2024 47 [...] understanding it. Cont f/u with Hemat/Onco at [place] as per schedule. Cont f/u with Breast surgeon at [place] as per schedule. Cont f/u with Psychiatrist at [place] as per schedule. Cont f/u with Gyne at [place] as per schedule. Cont f/u with Derm at [place] as per schedule. Cont f/u with Ophtho [...] Lab TSH, serum or plasma 2024 025 [facility] (Lab), [address] [place], [address], 08/17/2024 01:47:35 noninvasi ve colorecta l cancer DNA + occult blood screening , QL, stool 2024 025 [email or web address] [facility] (Cologuard Orders Only), [address], [address], [place], [address], 06/15/2024 14:25:57 lipid panel, serum 2023 024 [facility] (Lab), [address] [place], [address], 05/11/2024 23:57:10 Referral oral surgery/d entist referral 2024 025 [email or web address] Not available 10/23/2024 16:48:38 Procedures None recorded. Surgeries None recorded. Imaging None recorded. Medication Orders fluticaso ne propionat e 50 mcg/actua tion nasal spray,dana pension 2024 025 [facility]84, [address], [place], [id number], 11/14/2024 13:00:41 buspirone 10 mg tablet [address] [facility]75387, [address], [place], [id number], 11/14/2024 12:56:47 atorvasta tin 10 mg tablet 2024 025 [facility] #23776, [address], [place], [id number], 11/14/2024 12:56:38 levothyro xine 25 mcg tablet 2024 025 [facility] #05003, [address] [place] [address], [id number], 11/14/2024 12:56:39 neomycin- polymyxin -hydrocor t 3.5 mg-10,000 unit/mL-1 % ear drops,dana p [address] [facility]10307, [address] [place] [address], [id number], 11/14/2024 12:19:26 meloxicam 7.5 mg tablet 2024 025 [facility] #54715, [address] [place] [address], [id number], 10/23/2024 15:27:13 buspirone 10 mg tablet [address] [facility] #38211, [address] [place] [address], [id number], 08/14/2024 12:46:22 atorvasta tin 10 mg tablet [address] [facility] #14284, [address] [place] [address], [id number], 08/14/2024 12:46:22 levothyro xine 25 mcg tablet 2024 025 [facility] #25929, [address], [place], [id number], 08/14/2024 12:45:20 buspirone 10 mg tablet 2024 025 [facility] #79679, [address], [place], [id number], 05/23/2024 11:33:16 atorvasta tin 10 mg tablet 2024 025 [facility] #44365, [address] [place] [address], [id number], 05/23/2024 11:33:16 bupropion HCl XL 150 mg 24 hr tablet, extended release [email or web address] [facility]02621, [address] [place] [address], [id number], 11/14/2024 12:56:02 levothyro xine 25 mcg tablet 2024 025 [facility] #61598, [address] [place] [address], [id number], 05/23/2024 11:33:15 atorvasta tin 10 mg tablet 2023 024 [facility] #16469, [address] [place] [address], [id number], 02/21/2024 15:50:40 bupropion HCl XL 150 mg 24 hr tablet, extended release [email or web address] [place] [address] [facility] #64864, [address] [place] [address], [place], [id number], 11/14/2024 12:56:02 levothyro xine 25 mcg tablet 2023 024 [facility]28657, [address], [place], [id number], 02/21/2024 15:50:39 Patient TargetsNo targets recorded. Patient Instructions Encounter Date Encounter Id Patient Instructions Last Modified By Organization Details Last Modified Time 05/23/2024 [id number] Due to the COVID-19 (Novel Coronavirus) pandemic, it is within this context (and with the understanding that this method of patient encounter is in the patient s best interest as well as the health and safety of other patients and the public) that telehealth is being provided for this patient encounter rather than a efhq-[id number] visit. This patient encounter is appropriate at [...] if listed, were provided by the patient. [email or web address] Not available 05/23/2024 11:17:01 Reason for Referral [...] gout patie nts: <6.0 mg/dL Not Available [facility] [address] [place], [address], 02/02/2024 16:25:07 01/31/20 24 02/02/2024 TAMEKA SCREE [...] infor puneet jimenez e refer to http: //[facility] ana ashraf.Que stDia gnost ics.c om/fa q/FAQ 177 (This link is being provi ded for infor jewell camarena/ educa diego l purpo ses only. ) Not Available [facility] [address], [place], [address], 02/02/2024 16:25:07 01/31/20 24 02/02/2024 RHEUM ATOID FACTO R rheumatoid factor <10 IU/mL <14 normal Not Available [facility] [address] [place], [address], 02/02/2024 16:25:08 01/31/20 24 02/02/2024 VITAM IN B12 vitamin B12 448 pg/mL 200-11 00 normal Not Available [facility] [place] [address] [place], [address], 02/02/2024 16:25:08 02/08/2002/09/2024 LIPID PANEL , STAND SUDHIR cholesterol, total 204 mg/dL <200 high Not Available [facility] [address] [place], [address], 02/09/2024 17:37:19 02/08/2002/09/2024 LIPID PANEL , STAND SUDHIR HDL cholesterol 57 mg/dL > or = 50 normal Not Available [facility] [place] [address] [place], [address], 02/09/2024 17:37:19 02/08/2002/09/2024 LIPID PANEL , STAND SUDHIR triglyceride s 78 mg/dL <150 normal Not Available [facility] [place] [address] [place], [address], 02/09/2024 17:37:19 02/08/2002/09/2024 LIPID PANEL , STAND [...] com/f aq/FA Q164) Not Available [facility] [address] [place], [address], 02/09/2024 17:37:19 02/08/2002/09/2024 LIPID PANEL , STAND SUDHIR chol/HDLC ratio 3.6 (calc ) <5.0 normal Not Available [address] [place], [address], 02/09/2024 17:37:19 02/08/2002/09/2024 LIPID PANEL , STAND SUDHIR non HDL cholesterol 147 mg/dL _(veronica c) <130 high For patie nts with diabe nathanael plus 1 major ASCVD risk facto r, treat ing to a non-H DL-C goal of <100 mg/dL (LDL- C of <70 mg/dL ) is consi dered a thera peuti c optio n. Not Available [address], [address], 02/09/2024 17:37:19 02/08/2002/09/2024 URIC ACID uric acid 4.9 mg/dL 2.5-7. 0 normal Thera peuti c targe t for gout patie nts: <6.0 mg/dL Not Available [facility] [place] [address] [place], [address], 02/09/2024 17:37:19 02/08/2002/09/2024 COMPR EHENS REBEKAH METAB OLIC PANEL glucose 92 mg/dL 65-99 normal Fasti ng refer ence inter amari Not Available [address] [place], [address], 02/09/2024 17:37:20 02/08/20 24 02/09/2024 COMPR EHENS REBEKAH METAB OLIC PANEL urea nitrogen (BUN) 13 mg/dL 7-25 normal Not Available [facility] [address], [address], 02/09/2024 17:37:20 02/08/20 24 02/09/2024 COMPR EHENS REBEKAH METAB OLIC PANEL creatinine 0.92 mg/dL 0.50-0 .99 normal Not Available [facility] [address], [address], 02/09/2024 17:37:20 02/08/20 24 02/09/2024 COMPR EHENS REBEKAH METAB OLIC PANEL eGFR 78 mL/mi n/1.7 3m2 > or = 60 normal Not Available [address], [address], 02/09/2024 17:37:20 02/08/20 24 02/09/2024 COMPR EHENS REBEKAH METAB OLIC PANEL BUN/creatini ne ratio SEE NOTE: (calc ) 6-22 Not Repor olesya: BUN and Creat inine are withi n refer ence range . Not Available [address], [address], 02/09/2024 17:37:20 02/08/20 24 02/09/2024 COMPR EHENS REBEKAH METAB OLIC PANEL sodium 138 mmol/ L 135-14 6 normal Not Available [address], [address], 02/09/2024 17:37:20 02/08/20 24 02/09/2024 COMPR EHENS REBEKAH METAB OLIC PANEL potassium 4.2 mmol/ L 3.5-5. 3 normal Not Available [address], [address], 02/09/2024 17:37:20 02/08/20 24 02/09/2024 COMPR EHENS REBEKAH METAB OLIC PANEL chloride 104 mmol/ L 98-110 normal Not Available [address], [address], 02/09/2024 17:37:20 02/08/20 24 02/09/2024 COMPR EHENS REBEKAH METAB OLIC PANEL carbon dioxide 27 mmol/ L 20-32 normal Not Available [address], [address], 02/09/2024 17:37:20 02/08/20 24 02/09/2024 COMPR EHENS REBEKAH METAB OLIC PANEL calcium 9.7 mg/dL 8.6-10 .2 normal Not Available [address], [address], 02/09/2024 17:37:20 02/08/20 24 02/09/2024 COMPR EHENS REBEKAH METAB OLIC PANEL protein, total 6.7 g/dL 6.1-8. 1 normal Not Available [address], [address], 02/09/2024 17:37:20 02/08/2002/09/2024 COMPR EHENS REBEKAH METAB OLIC PANEL albumin 3.9 g/dL 3.6-5. 1 normal Not Available [address], [address], 02/09/2024 17:37:20 02/08/20 24 02/09/2024 COMPR EHENS REBEKAH METAB OLIC PANEL globulin 2.8 g/dL_ (calc ) 1.9-3. 7 normal Not Available [address], [address], 02/09/2024 17:37:20 02/08/2002/09/2024 COMPR EHENS REBEKAH METAB OLIC PANEL albumin/glob ulin ratio 1.4 (calc ) 1.0-2. 5 normal Not Available [address], [address], 02/09/2024 17:37:20 02/08/20 24 02/09/2024 COMPR EHENS REBEKAH METAB OLIC PANEL bilirubin, total 0.5 mg/dL 0.2-1. 2 normal Not Available [address], [address], 02/09/2024 17:37:20 02/08/20 24 02/09/2024 COMPR EHENS REBEKAH METAB OLIC PANEL alkaline phosphatase 39 U/L 31-125 normal Not Available [address], [address], 02/09/2024 17:37:20 02/08/20 24 02/09/2024 COMPR EHENS REBEKAH METAB OLIC PANEL AST 14 U/L 10-35 normal Not Available [address], [address], 02/09/2024 17:37:20 02/08/2002/09/2024 COMPR EHENS REBEKAH METAB OLIC PANEL ALT 13 U/L 6-29 normal Not Available [address], [address], 02/09/2024 17:37:20 02/08/20 24 02/09/2024 CBC (INCL UDES DIFF/ PLT) white blood cell count 7.1 thous and/u L 3.8-10 .8 normal Not Available [address], [address], 02/09/2024 17:37:20 02/08/2002/09/2024 CBC (INCL UDES DIFF/ PLT) red blood cell count 4.54 parviz on/uL 3.80-5 .10 normal Not Available [address], [address], 02/09/2024 17:37:20 02/08/2002/09/2024 CBC (INCL UDES DIFF/ PLT) hemoglobin 13.8 g/dL 11.7-1 5.5 normal Not Available [address], [address], 02/09/2024 17:37:20 02/08/2002/09/2024 CBC (INCL UDES DIFF/ PLT) hematocrit 43.3 % 35.0-4 5.0 normal Not Available [address], [address], 02/09/2024 17:37:20 02/08/2002/09/2024 CBC (INCL UDES DIFF/ PLT) MCV 95.4 fL 80.0-1 00.0 normal Not Available [address], [address], 02/09/2024 17:37:20 02/08/2002/09/2024 CBC (INCL UDES DIFF/ PLT) MCH 30.4 pg 27.0-3 3.0 normal Not Available [address], [address], 02/09/2024 17:37:20 02/08/2002/09/2024 CBC (INCL UDES DIFF/ PLT) MCHC 31.9 g/dL 32.0-3 6.0 low Not Available [address], [address], 02/09/2024 17:37:20 02/08/2002/09/2024 CBC (INCL UDES DIFF/ PLT) RDW 12.1 % 11.0-1 5.0 normal Not Available [address], [address], 02/09/2024 17:37:20 02/08/2002/09/2024 CBC (INCL UDES DIFF/ PLT) platelet count 446 thous and/u L 140-40 0 high Not Available [address], [address], 02/09/2024 17:37:20 02/08/2002/09/2024 CBC (INCL UDES DIFF/ PLT) MPV 9.1 fL 7.5-12 .5 normal Not Available [address], [address], 02/09/2024 17:37:20 02/08/20 24 02/09/2024 CBC (INCL UDES DIFF/ PLT) absolute neutrophils 3195 cells /uL 1500-7 800 normal Not Available [address], [address], 02/09/2024 17:37:20 02/08/20 24 02/09/2024 CBC (INCL UDES DIFF/ PLT) absolute lymphocytes 2506 cells /uL 850-39 00 normal Not Available [address], [address], 02/09/2024 17:37:20 02/08/20 24 02/09/2024 CBC (INCL UDES DIFF/ PLT) absolute monocytes 121 cells /uL 200-95 0 low Not Available [address], [address], 02/09/2024 17:37:20 02/08/20 24 02/09/2024 CBC (INCL UDES DIFF/ PLT) absolute eosinophils 1257 cells /uL 15-500 high Not Available [address], [address], 02/09/2024 17:37:20 02/08/20 24 02/09/2024 CBC (INCL UDES DIFF/ PLT) absolute basophils 21 cells /uL 0-200 normal Not Available [address], [address], 02/09/2024 17:37:20 02/08/20 24 02/09/2024 CBC (INCL UDES DIFF/ PLT) neutrophils 45 % normal Not Available [address], [address], 02/09/2024 17:37:20 02/08/20 24 02/09/2024 CBC (INCL UDES DIFF/ PLT) lymphocytes 35.3 % normal Not Available [address], [address], 02/09/2024 17:37:20 02/08/20 24 02/09/2024 CBC (INCL UDES DIFF/ PLT) monocytes 1.7 % normal Not Available [address], [address], 02/09/2024 17:37:20 02/08/20 24 02/09/2024 CBC (INCL UDES DIFF/ PLT) eosinophils 17.7 % normal Not Available [address], [address], 02/09/2024 17:37:20 02/08/20 24 02/09/2024 CBC (INCL UDES DIFF/ PLT) basophils 0.3 % normal Not Available [address], [address], 02/09/2024 17:37:20 02/08/20 24 02/09/2024 URINA LYSIS , COMPL ETE W/REF SAM TO CULTU RE color YELLOW yellow normal Not Available [address], [address], 02/09/2024 17:37:21 02/08/20 24 02/09/2024 URINA LYSIS , COMPL ETE W/REF SAM TO CULTU RE appearance CLEAR clear normal Not Available [address], [address], 02/09/2024 17:37:21 02/08/2002/09/2024 URINA LYSIS , COMPL ETE W/REF SAM TO CULTU RE specific gravity 1.008 1.001- 1.035 normal Not Available [address], [address], 02/09/2024 17:37:21 02/08/20 24 02/09/2024 URINA LYSIS , COMPL ETE W/REF SAM TO CULTU RE pH 6.0 5.0-8. 0 normal Not Available [address], [address], 02/09/2024 17:37:21 02/08/20 24 02/09/2024 URINA LYSIS , COMPL ETE W/REF SAM TO CULTU RE glucose NEGATI VE negati ve normal Not Available [address], [address], 02/09/2024 17:37:21 02/08/20 24 02/09/2024 URINA LYSIS , COMPL ETE W/REF SAM TO CULTU RE bilirubin NEGATI VE negati ve normal Not Available [address], [address], 02/09/2024 17:37:21 02/08/20 24 02/09/2024 URINA LYSIS , COMPL ETE W/REF SAM TO CULTU RE ketones NEGATI VE negati ve normal Not Available [address], [address], 02/09/2024 17:37:21 02/08/20 24 02/09/2024 URINA LYSIS , COMPL ETE W/REF SAM TO CULTU RE occult blood NEGATI VE negati ve normal Not Available [address], [address], 02/09/2024 17:37:21 02/08/20 24 02/09/2024 URINA LYSIS , COMPL ETE W/REF SAM TO CULTU RE protein NEGATI VE negati ve normal Not Available [address], [address], 02/09/2024 17:37:21 02/08/20 24 02/09/2024 URINA LYSIS , COMPL ETE W/REF SAM TO CULTU RE nitrite NEGATI VE negati ve normal Not Available [address], [address], 02/09/2024 17:37:21 02/08/20 24 02/09/2024 URINA LYSIS , COMPL ETE W/REF SAM TO CULTU RE leukocyte esterase NEGATI VE negati ve normal Not Available [address], [address], 02/09/2024 17:37:21 02/08/20 24 02/09/2024 URINA LYSIS , COMPL ETE W/REF SAM TO CULTU RE WBC NONE SEEN /hpf < or = 5 normal Not Available [address], [address], 02/09/2024 17:37:21 02/08/20 24 02/09/2024 URINA LYSIS , COMPL ETE W/REF SAM TO CULTU RE RBC NONE SEEN /hpf < or = 2 normal Not Available [address], [address], 02/09/2024 17:37:21 02/08/20 24 02/09/2024 URINA LYSIS , COMPL ETE W/REF SAM TO CULTU RE squamous epithelial cells NONE SEEN /hpf < or = 5 normal Not Available [address], [address], 02/09/2024 17:37:21 02/08/20 24 02/09/2024 URINA LYSIS , COMPL ETE W/REF SAM TO CULTU RE bacteria NONE SEEN /hpf none seen normal Not Available [address], [address], 02/09/2024 17:37:21 02/08/20 24 02/09/2024 URINA LYSIS , COMPL ETE W/REF SAM TO CULTU RE hyaline cast NONE SEEN /lpf none seen normal Not Available [address], [address], 02/09/2024 17:37:21 02/08/20 24 02/09/2024 URINA LYSIS , COMPL ETE W/REF SAM TO CULTU RE note This urine was mellissa zed for the prese nce of WBC, RBC, bacte amy, casts , and other forme d eleme nts. Only those eleme nts seen were repor olesya. Not Available [facility] [address] [address], [place], [address], 02/09/2024 17:37:21 02/08/20 24 02/09/2024 REFLE XIVE URINE CULTU RE reflexive urine culture NO CULTU RE INDIC ATED Not Available [facility] [address] [address], [place], [address], 02/09/2024 17:37:22 02/08/20 24 02/09/2024 TAMEKA SCREE [...] Inter natio nal Conse nsus on TAMEKA Alessandra rns (http s://d oi.or g/10. 1515/ [facility]- 2017- 0052) For addit ional infor puneet jimenez e refer to http: //pepito ashraf.Pawel stDia gnost ics.c om/fa q/FAQ 177 (This link is being provi ded for infor jewell nal/ educa diego l purpo ses only. ) Not Available [facility] [address] [address], [place], [address], 02/09/2024 17:37:22 02/08/2002/09/2024 RHEUM ATOID FACTO R rheumatoid factor <10 IU/mL <14 normal Not Available [place] [address] [place], [address], 02/09/2024 17:37:23 02/08/2002/09/2024 VITAM IN B12/F OLATE , SERUM PANEL vitamin B12 491 pg/mL 200-11 00 normal Not Available [place] [address] [place], [address], 02/09/2024 17:37:23 02/08/20 24 02/09/2024 VITAM IN B12/F OLATE , SERUM PANEL folate, serum 11.6 NG/mL normal Refer ence Range Low: <3.4 Borde rline : 3.4-5 .4 Mi l: >5.4 Not Available [place] [address] [place], [address], 02/09/2024 17:37:23 02/08/2002/09/2024 VITAM IN D,25- [place],TO [...] /MS is recom sue d: order code 17841 (adarsh ents >2yrs ). See Note 1 Note 1 For addit ional infor puneet jimenez e refer to http: //pepito Brown stDia gnost ics.c om/fa q/FAQ 199 (This link is being provi ded for infor jewell camarena/ educa diego l purpo ses only. ) Not Available [facility] [address] [place], [address], 02/09/2024 17:37:24 02/08/2002/09/2024 TSH W/REF SAM TO FT4 TSH w/reflex to FT4 3.75 mIU/L normal Refer ence Range > or = 20 Years 0.40- 4.50 Pregn mike Range s First trime ster 0.26- 2.66 Secon d trime ster 0.55- 2.73 Third trime ster 0.43- 2.91 Not Available [facility] [address] [address], [place], [address], 02/09/2024 17:37:24 02/08/2002/09/2024 HEMOG LOBIN A1C hemoglobin A1C 5.2 %_of_ total _HGB <5.7 normal For the purpo se of screjose zamora for the prese nce of diabe [...] is not recom sue d. Not Available [place] [address] [place], [address], 02/09/2024 17:37:25 05/11/20 24 05/11/2024 LIPID PANEL , STAND SUDHIR cholesterol, total 161 mg/dL <200 normal Not Available [facility] [place] [address] [place], [address], 05/11/2024 23:57:10 05/11/20 24 05/11/2024 LIPID PANEL , STAND SUDHIR HDL cholesterol 54 mg/dL > or = 50 normal Not Available [facility] [place] [address] [place], [address], 05/11/2024 23:57:10 05/11/20 24 05/11/2024 LIPID PANEL , STAND SUDHIR triglyceride s 91 mg/dL <150 normal Not Available [facility] [place] [address] [place], [address], 05/11/2024 23:57:10 05/11/20 24 05/11/2024 LIPID PANEL , STAND SUDHIR LDL-choleste rol 88 mg/dL _(veronica c) normal Refer ence range : <100 Jeana able range <100 mg/dL for prima ry preve ntion ; <70 mg/dL for patie nts with CHD or diabe tic patie nts with > or = 2 CHD risk facto rs. LDL-C is now calcu lated using the [facility] kins xochitl ashraf, which is a valid ated novel leonila lu than the Fried darshana humphrey ion in the estim ation of LDL-C . Salma ashraf SS et al. RHONDA. 2013; 310(1 9): 2061- 2068 (http ://ed ucati on.Qu Trae Fly6. com/f aq/FA Q164) Not Available [facility] [place] [address] [place], [address], 05/11/2024 23:57:10 05/11/20 24 05/11/2024 LIPID PANEL , STAND SUDHIR chol/HDLC ratio 3.0 (calc ) <5.0 normal Not Available [facility] [place] [address] [place], [address], 05/11/2024 23:57:10 05/11/20 24 05/11/2024 LIPID PANEL , STAND SUDHIR non HDL cholesterol 107 mg/dL _(veronica c) <130 normal For patie nts with diabe nathanael plus 1 major ASCVD risk facto r, treat ing to a non-H DL-C goal of <100 mg/dL (LDL- C of <70 mg/dL ) is consi rolo hill optio n. Not Available [facility] [place] [address] [place], [address], 05/11/2024 23:57:10 08/17/1908/17/2024 TSH W/REF SAM TO FT4 TSH w/reflex to FT4 1.57 mIU/L normal Refer ence Range > or = 20 Years 0.40- 4.50 Pregn mike Range s First trime ster 0.26- 2.66 Secon d trime ster 0.55- 2.73 Third trime ster 0.43- 2.91 Not Available [facility] [place] [address] [place], [address], 08/17/2024 01:47:35 09/09/20 24 01/24/2024 MAMMO , diagn ostic , tomos ynthe sis, bilat eral [facility] [address] [place] [address] Pativalerie t Name: FAUSTINA REZA ion #: [id number] Sex: F : 1975 2 Dictat [...] Page 1 [facility] [address] [place] [id number] Patien t Name: FAUSTINA REZA ion #: [id number] Sex: F : 1975 2 Dictat ed By: Amada wells Attend ing Physic anaid: MAICOL LOVE [facility] Physic anaid: DENILSON VALENZUELA Exam Date: 2023 [...] at 2023 15:20: 39 PM Page 2 [email or web address] [facility] (Imaging) [address] [place], [address], 02/02/2024 16:10:21 01/24/20 24 01/24/2024 US, rory t, unila teral , compl ete [facility] [address] [place] [id number] Patien t Name: FAUSTINA REZA ion #: [id number] Sex: F : 1975 2 Dictat ed By: Amada wells Attend ing Physic anaid: DENILSON VALENZUELA Orderevelyn vera Physic anaid: DENILSON VALENZUELA Exam Date: 2023 [...] Page 1 [facility] [address] [address] [phone] Patien t Name: FAUSTINA REZA ion #: [id number] Sex: F : 1975 2 Dictat [...] at 2023 15:20: 39 PM Page [address] (Imaging) [address] [place], [address], 02/02/2024 16:10:21 02/21/20 24 02/21/2024 XR, cervi veronica spine , 4 or 5 view No observ ation record ed. [id number] [facility] [address], [place], [address], 05/23/2024 11:18:09 03/02/20 24 03/01/2024 MRI, breas t, bilat eral, w/wo contr ast No observ ation record ed. [email or web address] [place] [address] [address], [place], [address], 05/23/2024 11:18:09 03/30/20 24 03/30/2024 MAMMO , diagn ostic , bilat eral No observ ation record ed. [address], [place], [address], 05/23/2024 11:18:09 03/30/20 24 03/30/2024 US, axill a No observ ation record ed. [address], [place], [address], 05/23/2024 11:18:09 04/18/20 24 04/18/2024 US, axill a No observ ation record ed. [address], [place], [address], 05/23/2024 11:18:08 05/29/19 25 04/18/2024 biops y of brenohelia t; zack bee us, needl e core, using imagi ng venkatesh nce (PROC ) No observ ation record ed. [address] [facility], [place], [address], 08/14/2024 12:40:22 08/23/19 25 08/22/2024 PET-C T, skull base to mid-t high scan No observ ation record ed. [address] [facility], [place], [address], 10/23/2024 15:20:35 11/24/19 25 11/23/2024 CT, abdom en + pelvi s, w/ contr ast No observ ation record ed. [address] [facility] [facility], [place], [address], 11/24/2024 10:51:14 Result Notes None recorded. Problems Name Problem SNOMED Code Status Onset Date Resolution Date Notes Provider Name and Address Organization Details Recorded Time External hemorrhoi ds 44450236 Completed Not Available [facility] 3 02:52:11 Fluid level behind tympanic membrane Completed Not Available [facility] 3 02:52:11 Blood in urine 35503405 Completed Not Available [facility] 3 02:52:11 Pain in coccyx 91634458 Completed Not Available [facility] 3 02:52:11 Sinusitis 91931493 Completed Not Available [facility] 3 02:52:11 Onychomyc osis 299860365 Completed Not Available [facility] 3 02:52:12 Seasonal allergy 124801441 Completed Bautista Valenzuela MD [address] [facility], [facility] [address], [place], [address] , [facility] [place] [facility] 5 13:00:16 Cough 72243709 Completed Not Available [facility] 3 02:52:12 Upper respirato ry infection 10708448 Completed Not Available [facility] 3 02:52:12 Sacral back pain 92439601 Completed Not Available [facility] 3 02:52:12 Allergic rhinitis 68915203 Active Not Available [facility] 3 02:52:12 Nasal congestio n 58151134 Completed Not Available [facility] 3 02:52:12 Candidias is of vagina 03671133 Completed Not Available [facility] 3 02:52:12 Posterior rhinorrhe a 82059049 Completed Not Available [facility] 3 02:52:13 Fatigue 52251389 Completed Not Available [facility] 3 02:52:13 Acne 26339482 Active 2018 Not Available [facility] 3 02:52:11 Gastroeso phageal reflux disease without esophagit is 652927292 Active 2018 Not Available [facility] 3 02:52:11 Seasonal allergic rhinitis 072382465 Completed 201806/20/2019 Not Available [facility] 3 02:52:11 Obesity 828025354 Completed 201804/16/2020 Not Available [facility] 3 02:52:12 Family history of malignant melanoma 904807217 Active 2018 Not Available [facility] 3 02:52:12 Vitamin D deficienc y 77647310 Active 2018 Not Available [facility] 3 02:52:11 Liver enzymes level above reference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
[2024-12-01 11:32] LABS: Hematocrit 41.2 % (37.0-47.0); Hemoglobin 13.8 g/dL (12.0-15.0); Immature Granulocyte Percent A 0.3 % (0-0.5); Lymphocytes Absolute Auto 2.08 K/mm3 (0.9-3.2); Mean Corpuscular HGB Conc 33.5 g/dl (32-36); Mean Corpuscular Hemoglobin 31.0 pg (26-34); Mean Corpuscular Volume 92.6 fl (80-100); Nucleated Red Blood Cells Absolute Auto 0.000 K/mm3 (0.0-0.012); Nucleated Red Blood Cells Perc 0.0 % (0.0-0.2); Platelet Count Result 372 k/mm3 (150-375); Red Blood Count 4.45 M/mm3 (4.2-5.4); White Blood Count 6.6 K/mm3 (4.5-10.0)
[2024-12-01 11:36] LABS: Blood Urea Nitrogen 11 mg/dL (8-26); Carbon Dioxide 24 mmol/L (22-30); Chloride 103 mmol/L (98-109); Estimated Glomerular Filt Rate 53; Glucose 88 mg/dL (70-105); Ionized Calcium (POC) 1.19 mmol/L (1.11-1.31); Potassium 4.1 mmol/L (3.5-4.9); Sodium 140 mmol/L (138-146)
[2024-12-01 12:45] LABS: Alanine Aminotransferase 23 U/L (6-35); Albumin Level 4.0 g/dL (3.5-5.1); Alkaline Phosphatase 44 U/L (38-126); Anion Gap 8 mmol/L (4-12); Aspartate Amino Transferase 31 U/L (14-36); Bilirubin,Total 0.3 mg/dL (0.2-1.3); Blood Urea Nitrogen 12 mg/dL (7-17); Calcium 9.2 mg/dL (8.4-10.2); Carbon Dioxide 25 mmol/L (22-30); Chloride 105 mmol/L (98-107); Estimated Glomerular Filt Rate 57; Glucose 92 mg/dL (65-110); Potassium 4.1 mmol/L (3.4-5.0); Sodium 138 mmol/L (137-145); Total Protein 7.2 g/dL (6.3-8.2)
== END 2024-12-01 11:11 | disposition home or self-care (01) ==
LOC: ANHLAB 11:11
PROVIDERS: PCP Family Medicine; Visit Provider Internal Medicine Hematology & Oncology
DX: C85.80 Other specified types of non-Hodgkin lymphoma, unspecified site (principal)
CPT/HCPCS: 36415; 80047; 80053; 85025